=== PATIENT | male | born 1955 | race Caucasian/White ===

== ENCOUNTER 2024-02-29 09:40 | Outpatient (OUT) | payer BC, SELFPAY ==
[2024-02-29 11:02] LABS: Prostate Specific Antigen Dx 6.81 ng/mL (<=4.00)
== END 2024-02-29 09:41 | disposition home or self-care (01) ==
LOC: LAB 09:44
PROVIDERS: PCP Family Medicine; Visit Provider Urology
DX: R97.20 Elevated prostate specific antigen [PSA] (principal)
CPT/HCPCS: 36415; 84153

== ENCOUNTER 2024-08-12 08:24 | Outpatient (OUT) | payer BC, SELFPAY ==
--- OUTSIDE RECORDS SUMMARY | 2024-08-12 08:30 | XMS_ITS | CCD ---
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 Name Role Phone Rocio Ojeda Unavailable FABIAN CARDOZA Primary Care Physician MD Klever Melvin Attending Provider MD Fabian Cardoza Primary Care Provider KLEVER MELVIN Admitting Unavailable MELVIN, KLEVER Attending Unavailable ARVINEREAlecia, DR FABIAN Reilly Primary Care Unavailable MELVIN, KLEVER Consulting Unavailable GEMBUS, JEYSON Consulting Unavailable MELVIN, KLEVER Admitting Unavailable MELVIN, KLEVER Attending Unavailable ARVINEREAlecia, DR FABIAN Reilly Primary Care Unavailable MELVIN, KLEVER Consulting Unavailable MELVIN, KLEVER Admitting Unavailable MELVIN, KLEVER Attending Unavailable NADEREAlecia, DR FABIAN Reilly Primary Care Unavailable MELVIN, KLEVRE Consulting Unavailable MELVIN, KLEVER Admitting Unavailable MELVIN, KLEVER Attending Unavailable NADERER, DR FABIAN Reilly Primary Care Unavailable MELVIN, KLEVER Consulting Unavailable WEST, DR ARON Sykes Consulting Unavailable OVITT, MESSI Referring Unavailable RICKY NOBLES Attending Unavailable MD Faiban Cardoza Primary Care Provider MD Klever Melvin Attending Provider Klever MELVIN R Attending Unavailable MELVIN, Klever R Attending Unavailable MELVIN, Klever R Attending Unavailable Melvin, Klever Admitting Unavailable Melvin, Klever Attending Unavailable Fabian Cardoza Primary Care Unavailable Ngozi, Klever Attending Unavailable Fabian Cardoza Primary Care Unavailable Ngozi, Klever Admitting Unavailable Fabian Cardoza MD Unavailable Fabian Cardoza MD Primary Care Provider [phone] FABIAN CARDOZA Attending Unavailable CARLI JUAREZ Attending Unavailable FABIAN CARDOZA Attending Unavailable Allergies Allergy Classification Reported Allergen(s) Allergy Type Date of Onset Reaction(s) Facility (1 source) ALLERGIES NOT ON FILE; Translations: [ALLERGIES NOT ON FILE] Propensity to adverse reactions (disorder) [facility] Repository (1 source) Unable to Assess Drug allergy (disorder) 2 [facility] Repository Medications Current Medications Medication Drug Class(es) Dates Sig (Normalized) Sig (Original) acetaminophen 325 mg / HYDROcodone bitartrate 7.5 mg oral tablet (2 sources) Opioid Agonist Start: 01-18-2023 take 1 tablet by mouth once [place] 325 mg-7.5 mg oral tablet 1 tab(s), Oral, Once, 1 tab(s), Refill(s) 0, Take 1 hour prior to procedure, [facility] [id number], 178, cm, 07/24/22 9:49:00 EDT, Height/Length Dosing, 105, kg, 07/24/22 9:49:00 EDT, Weight Dosing Start Date: 01/18/23 Status: Ordered Start: 06-15-2022 take 1 tablet by mouth once No rco 325 mg-7.5 mg oral tablet 1 tab(s), Oral, Once, 1 tab(s), Refill(s) 0, Take 1 hour prior to procedure, [facility] [id number], 178, cm, 04/21/22 10:50:00 EDT, Height/Length Dosing, 105, kg, 04/21/22 10:50:00 EDT, Weight Dosing Start Date: 06/15/22 Status: Ordered Eliquis (5 sources) Factor Xa Inhibitor Start: 03-21-2021 Eliquis Or al, BID, Refills(s) 0 Start Date: 03/21/21 Status: Ordered Ascorbic Acid (11 sources) Vitamin C Start: 01-03-2021 Vitamin C Ton y, Refills(s) 0 Start Date: 01/03/21 Status: Ordered Ascorbic Acid (v itamin C) 100 MG tablet 1 (one) time each day at the same time. Active Vitamin C Active atorvastatin 20 mg oral tablet (10 sources) HMG-CoA Reductase Inhibitor Start: 04-21-2022 End: 12-11-2024 take 1 tablet by mouth once daily atorvastatin (Lipitor) 20 MG tablet Indications: Dyslipidemia (CMS/HCC) Take 1 tablet (20 mg) by mouth Daily 90 tablet 3 12/12/2023 12/11/2024 Active bimatoprost 0.1 mg/ml ophthalmic solution (10 sources) Prostaglandin Analog Start: 11-14-2022 Lumigan 0.01 % ophthalmic solution Administer into affected eye(s) at bedtime. 11/14/2022 Active Start: 01-03-2021 bimatoprost to pical ophthalmic 0.03% solution Topical, Once a day (at bedtime), Refill(s) 0 Start Date: 01/03/21 Status: Ordered Calcium, Magnesium and Zinc oral tablet (6 sources) Start: 10-17-2021 take 1 tablet by mouth once daily Calcium, Magnesium and Zinc oral tablet tab(s), Oral, Daily, Refill(s) 0 Start Date: 10/17/21 Status: Ordered Cholecalciferol (Vitamin D3) [id number] UNIT/GM liquid (4 sources) Cholecalciferol (Vitamin D3) [id number] UNIT/GM liquid as directed Active Chondroitin Sulfates (6 sources) Start: 01-03-2021 take 1 mg by mouth once daily chondroitin mg, Oral, Daily, Refills(s) 0 Start Date: 01/03/21 Status: Ordered chondroitin sulfates 400 mg / glucosamine sulfate 500 mg oral tablet (4 sources) take 1 tablet by mouth in the morning glucosamine-chondroi tin 500-400 MG tablet Take 1 tablet by mouth in the morning. Active ciprofloxacin 500 mg oral tablet (1 source) Quinolone Antimicrobial Start: 07-10-2022 take 1 tablet by mouth twice daily Cipro 500 mg Tab 500 mg = 1 tab(s), Oral, BID, # 4 tab(s), Refills(s) 0, Pharmacy: [facility] [id number], 178, cm, 07/07/22 16:35:00 EDT, Height/Length Dosing, 105, kg, 04/21/22 10:50:00 EDT, Weight Dosing Start Date: 07/10/22 Status: Ordered cyclobenzaprine hydrochloride 10 mg oral tablet (3 sources) Muscle Relaxant Start: 07-31-2024 take 1 tablet by mouth three times daily as needed for muscle spasms cyclobenzaprine (Flexeril) 10 MG tablet Indications: Cervical spondylolysis Take 1 tablet (10 mg) by mouth 3 (three) times a day as needed for muscle spasms 30 tablet 1 07/31/2024 Active Start: 07-31-2024 take 1 tablet by roshan th three times daily as needed for muscle spasms cyclobenzaprine (Flexeril) 10 MG tablet Indications: Cervical spondylolysis Take 1 tablet (10 mg) by mouth 3 (three) times a day as needed for muscle spasms 30 tablet 1 07/31/2024 Active Glucosamine (6 sources) Start: 01-03-2021 glucosamine Oral, Refills(s) 0 Start Date: 01/03/21 Status: Ordered hydroCHLOROthiazide 25 mg oral tablet (12 sources) Thiazide Diuretic Start: 08-11-2024 take 1 tablet by mouth once daily hydroCHLOROthiazide (HYDRODiuril) 25 MG tablet Indications: Essential hypertension, benign (CMS/HCC) Take 1 tablet (25 mg) by mouth Daily 90 tablet 3 08/11/2024 Active Start: 05-14-2024 End: 08-12-2024 take 1 tablet by mouth once daily hydroCHLOROthiazide (HYDRODiuril) 25 MG tablet Indications: Essential hypertension, benign (CMS/HCC) Take 1 tablet (25 mg) by mouth 1 (one) time each day at the same time 30 tablet 2 05/14/2024 08/11/2024 Discontinued (Reorder) Start: 01-03-2021 take 1 mg by mouth o nce daily hydrochlorothiazide 25 mg oral tablet mg tab(s), Oral, Daily, Refills(s) 0 Start Date: 01/03/21 Status: Ordered hydroCHLOROthiaz tony Active Iron (1 source) Iron Active losartan potassium 100 mg oral tablet (11 sources) Angiotensin 2 Receptor Brian Start: 06-03-2024 End: 06-03-2025 take 1 tablet by mouth once daily losartan (Cozaar) 100 MG tablet Indications: Essential hypertension, benign (CMS/HCC) Take 1 tablet (100 mg) by mouth Daily 30 tablet 11 06/03/2024 06/03/2025 Active Start: 01-03-2021 take 1 mg by mouth once daily losartan 100 mg Tab mg tab(s), Oral, Daily, Refills(s) 0 Start Date: 01/03/21 Status: Ordered Losartan Potassi um Active metoprolol tartrate 25 mg oral tablet (6 sources) beta-Adrenergic Brian Start: 02-28-2024 End: 02-27-2025 take 1 tablet by mouth in the morning metoprolol tartrate (Lopressor) 25 MG tablet Indications: Essential hypertension, benign (CMS/HCC) Take 1 tablet (25 mg) by mouth in the morning and 1 tablet (25 mg) before bedtime. 180 tablet 3 02/28/2024 02/27/2025 Active Start: 02-26-2023 take 1 mg by mouth once daily metoprolol 50 mg ER Tab mg tab(s), Oral, Daily, Refills(s) 0 Start Date: 02/26/23 Status: Ordered Nature's Bounty Probiotic (6 sources) Start: 01-03-2021 Nature's Bount y Probiotic Oral, Daily, Refill(s) 0 Start Date: 01/03/21 Status: Ordered omeprazole 20 mg delayed release oral capsule (11 sources) Proton Pump Inhibitor Start: 06-03-2024 End: 09-01-2024 take 1 capsule by mouth in the morning omeprazole (PriLOSEC) [address] capsule Indications: Gastroesophageal reflux disease without esophagitis Take 1 capsule (20 mg) by mouth in the morning and 1 capsule (20 mg) in the evening. Take before meals. 180 capsule 06/03/2024 09/01/2024 Active Start: 01-03-2021 take 1 capsule by [facility] once daily omeprazole 20 mg Cap-DR 20 mg = 1 cap(s), Oral, Daily, # 30 cap(s), Refills(s) 0 Start Date: 01/03/21 Status: Ordered Omeprazole Activ e predniSONE 50 mg oral tablet (2 sources) Start: 07-31-2024 End: 08-06-2024 take 1 tablet by mouth once daily predniSONE (Deltasone) 50 MG tablet Indications: Cervical spondylolysis Take 1 tablet (50 mg) by mouth Daily for 6 days 6 tablet 07/31/2024 08/06/2024 Active tamsulosin hydrochloride 0.4 mg oral capsule (11 sources) alpha-Adrenerg ic Brian Start: 09-18-2022 End: 01-13-2025 take 1 capsule by mouth once daily tamsulosin (Flomax) 0.4 MG 24 hr capsule Indications: Benign prostatic hyperplasia with lower urinary tract symptoms, symptom details unspecified Take 1 capsule (0.4 mg) by mouth 1 (one) time each day at the same time 90 capsule 3 01/14/2024 01/13/2025 Active Start: 09-21-2021 End: 09-16-2022 take 1 capsule by mouth once daily tamsulosin 0.4 mg Cap 0.4 mg = 1 cap(s), Oral, Daily, X 90 day(s), # 90 cap(s), Refills(s) 3, Pharmacy: [facility], 178, cm, 06/27/21 10:37:00 EDT, Height/Length Dosing, 105, kg, 06/27/21 10:37:00 EDT, Weight Dosing Start Date: 09/21/21 Stop Date: 09/16/22 Status: Ordered Flomax Active 12 hr timolol 5 mg/ml ophthalmic solution (5 sources) beta-Adrenergic Brian Start: 03-17-2024 timolo l Opth 0.5% Em 15 mL Refill(s) 0 Start Date: 03/17/24 Status: Ordered timolol (Timopti c) 0.25 % ophthalmic solution Administer into affected eye(s) twice a day. Active Vitamin D3 (1 source) Vitamin D3 Activ e Vitamin D3 1000 intl units o ral capsule (6 sources) Start: 01-03-2021 Vitamin D3 100 0 intl units oral capsule Oral, Daily, Refills(s) 0 Start Date: 01/03/21 Status: Ordered Completed/Discontinued Medications Medication Drug Class(es) Dates Sig (Normalized) Sig (Original) [id number] 200 actuat albuterol 0.09 mg/actuat metered dose inhaler (1 source) beta2-Adrenergic Agonist Start: 10-09-2016 take 2 puff(s) by inhalation every four hours as needed Albuterol Sulfate HFA 108 (90 Base) MCG/ACT 2 puffs as needed Inhalation every 4 hrs Sep, Not-Taking benzonatate 100 mg oral capsule (1 source) Non-narcotic Antitussive Start: 10-09-2016 take 1 capsule by mouth every eight hours Tessalon Perles 100 MG 1 capsule as needed Orally Three times a day for 10 days Sep, Not-Taking clarithromycin 500 mg oral tablet (1 source) Macrolide Antimicrobial Start: 10-09-2016 take 1 tablet by mouth every twelve hours Biaxin 500 MG 1 tablet Orally every 12 hrs for 7 days Sep, Not-Taking Problems Active Problems Problem Classification Problem Date Documented Date Episodic/Chronic Disorders of lipid metabolism (4 sources) Dyslipidemia; Translations: [Hyperlipidemia, unspecified] Onset: 01-29-2024 01-29-2024 Chronic Esophageal disorders (5 sources) Gastro-esophageal reflux disease without esophagitis; Translations: [Gastroesophageal reflux disease without esophagitis] Onset: 07-21-2022 01-29-2024 Chronic Essential hypertension (12 sources) Hypertensive disorder; Translations: [Essential (primary) hypertension] Onset: 07-21-2022 01-03-2021 Chronic Genitourinary symptoms and ill-defined conditions (10 sources) Dysuria; Translations: [Dysuria] Onset: 07-21-2022 05-27-2021 Episodic Glaucoma (11 sources) Glaucoma; Translations: [Unspecified glaucoma] Onset: 07-21-2022 01-03-2021 Chronic Hyperplasia of prostate (20 sources) Benign prostatic hypertrophy with outflow obstruction; Translations: [Benign prostatic hyperplasia with lower urinary tract symptoms] Onset: 04-14-2022 Chronic Lymphadenitis (2 sources) Lymphadenopathy; Translations: [Enlarged lymph nodes, unspecified] Onset: 03-17-2024 Episodic Nutritional deficiencies (4 sources) Vitamin D deficiency; Translations: [Vitamin D deficiency, unspecified] Onset: 01-29-2024 01-29-2024 Chronic Osteoarthritis (7 sources) Arthritis; Translations: [Unspecified osteoarthritis, unspecified site] Onset: 07-13-2022 01-03-2021 Chronic Other acquired deformities (7 sources) Spondylolysis of cervical spine; Translations: [Spondylolysis, cervical region] Onset: 07-31-2024 07-31-2024 Episodic Other diseases of bladder and urethra (4 sources) Male urethral stricture; Translations: [Unspecified urethral stricture, male, unspecified site] Onset: 04-21-2022 Episodic Other diseases of bladder and urethra (6 sources) Urethral stricture 04-21-2022 Episodic Other ear and sense organ disorders (6 sources) Hearing loss 01-03-2021 Chronic Other ear and sense organ disorders (1 source) Unspecified hearing loss, unspecified ear; Translations: [UNS HEARING LOSS UNSPECIFIED EAR] Onset: 10-07-2022 Chronic Other injuries and conditions due to external causes (6 sources) Injury of head 01-03-2021 Episodic Other male genital disorders (4 sources) Secondary erectile dysfunction; Translations: [Male erectile dysfunction, unspecified] Onset: 01-29-2024 01-29-2024 Chronic Other male genital disorders (2 sources) Dysplasia of prostate; 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] Onset: 07-24-2022 Episodic Other male genital disorders (4 sources) Atypical small acinar proliferation of prostate 07-24-2022 Episodic Other screening for suspected conditions (not mental disorders or infectious disease) (16 sources) Raised prostate specific antigen; Translations: [Elevated prostate specific antigen [PSA]] Onset: 04-21-2022 Episodic Unclassified (1 source) CONTACT W/AND (SUSP) EXPOS COVID-19; Translations: [CONTACT W/AND (SUSP) EXPOS COVID-19] Onset: 07-13-2022 Unclassified (2 sources) Consult; Translations: [Consult] Onset: 07-17-2023 Past or Other Problems Problem Classification Problem Date Documented Da te Episodic/Chronic Diabetes mellitus without complication (4 sources) Prediabetes; Translations: [Prediabetes] Onset: 09-26-2023 09-26-2023 Episodic Other aftercare (1 source) MCC (current) use of anticoagulants; Translations: [HAMMER SETTER CURRNT USE ANTICOAGULANTS] Onset: 07-21-2022 Episodic Other diseases of bladder and urethra (1 source) Unspecified urethral stricture, male, unspecified site; Translations: [UNSP URETHRAL STRCT MALE UNSP SITE] Onset: 07-21-2022 Episodic Phlebitis; thrombophlebitis and thromboembolism (1 source) Personal history of other venous thrombosis and embolism; Translations: [PERS HX OTH VENOUS THROMBOSIS AND EMBO] Onset: 07-21-2022 Episodic Poisoning by nonmedicinal substances (1 source) Toxic effect of venom of bees, undetermined, initial encounter; Translations: [Bee sting, undetermined intent, initial encounter T63.444A] Onset: 07-08-2021 Resolved: 07-08-2021 Episodic Screening and history of mental health and substance abuse codes (1 source) Personal history of nicotine dependence; Translations: [PERSONAL HISTORY OF NICOTINE DEPEND] Onset: 07-21-2022 Episodic Spondylosis; intervertebral disc disorders; other back problems (6 sources) Spinal stenosis, lumbar region without neurogenic claudication; Translations: [Degenerative lumbar spinal stenosis] Onset: 06-19-2023 Episodic Results Test Name Value Interpretation Reference Range Facility MR prostate wo/w conon 05-23 MR prostate wo/w con [facility] [place] [address] [place], [place] [id number] MRI Report Signed Patient: Cathie Anderson MR#: [id number] 580 : 1955 Acct:[id number] Age/Sex: 68 / M ADM Date: 05/22/24 Loc: MR Room: Type: [facility] Attending Dr: Klever Melvin MD Copies to: Klever Melvin MD Ordering Provider: Klever Melvin MD Date of Service: 05/22/24 MR/MR prostate wo/w con: R97.20 EXAMINATION: MR prostate wo/w con HISTORY: Elevated PSA. COMPARISON: Prostate MRI 05/04/2022 TECHNIQUE: Multiparametric imaging of the prostate gland was performed with IV contrast. FINDINGS: Prostate Dimensions: 6.8 x 5.9 x 7.7 cm. Prostate Volume: 161 mL. Peripheral Zone: Heterogenous inT2 signal suggestive of prior prostatitis. Atrophic. No suspicious T2 or ADC map abnormality is identified to suggest prostate malignancy. Central/Transitional Zone: BPH changes. Seminal Vesicles: Unremarkable Neurovascular bundles: Unremarkable. Lymphadenopathy: A presumed prominent adjacent to the right urinary bladder wall measuring 7 mm in short axis. Finding is unchanged. Bladder: No focal lesion. Bowel: The visualized bowel is without acute abnormality. Peritoneal Cavity: No free fluid. Bones: No suspicious bony lesion. MR/MR prostate wo/w con IMPRESSION: No MRI evidence of clinically significant prostate cancer. BPH. Stable presumed prominent node adjacent to the right urinary bladder wall. Impression dictated by: Jaydon Bal Jr., D.O.05/23/2024 9:42 AM Dictation Location: [place] [address] Transcribed By: [facility] 05/23/24941 Dictated By: Jaydon Bal Jr, 05/23/24923 Signed By: 05/23/24941 Normal [facility] ISTAT XRay CREon 05-22-2024 ISTAT GFR > 60.0 Normal [facility] Comment on above: Result Comment: PERF ORMED BY: [place] [address] PATHOLOGIST REGISTERED APPRAISER ALEXA PASTOR M.D. Performed By: #### I SCRE #### [facility] [address] [place] [address] No Panel InformationOrdered By: Klveer Melvin on 05-22-2024 Bedside Estimated GFR (eGFR) > 60.0 [facility] Whole blood creatinine measu rementOrdered By: Klever Melvin on 05-22-2024 Creatinine [Mass/Vol] 1.3 mg/dL Normal 0.6-1.3 [facility] Comment on above: ER/ESD physician is notified/shown all ISTAT results.Critical values may be confirmed by laboratory testing ifdeemed necessary by ER attending doctor. Result Comment: ER/E SD physician is notified/shown all ISTAT results. Critical values may be confirmed by laboratory testing if deemed necessary by ER attending doctor. Performed By: #### I SCRE #### [facility] [address] [place] [address] RAD - Nuclear Medicine Repor ton 04-08-2024 RAD - Nuclear Medicine Report [id number] 0TIFF Normal [facility] PET psma initial tx sb-mton 04-04-2024 PET psma initial tx sb-mt [facility] [place] [address] [place] [address] Nuclear Medicine Report Signed Patient: Cathie Anderson MR#: [id number] 580 : 1955 Acct:[id number] Age/Sex: 68 / M ADM Date: 04/04/24 Loc: Room: Type: [facility] Attending Dr: Klever Melvin MD Copies to: Kendell Subramanian II, MD Patrick R Waters, MD Ordering Provider: Klever Melvin MD Date of Service: 04/04/24 PET/PET psma initial tx sb-mt: Elevated PSA PET psma initial tx sb-mt 04/04/2024 10:41 AM SIGNS AND SYMPTOMS: Elevated PSA PROTOCOL: PET images were obtained from skull base to mid thigh after intravenous radiotracer administration. Low-dose CT was obtained from skull base to mid thigh. After attenuation correction of PET images, fused PET CT images were generated and reconstructed in axial, sagittal, coronal planes. COMPARISON: 05/04/2020. RADIOPHARMACEUTICAL: 9.6 mCi of intravenous fluorine 18 PSMA. FINDINGS: The prostate is enlarged with calcifications present. No focal abnormal radiotracer accumulation is noted to suggest primary prostate malignancy. There are a few mildly prominent lymph nodes in the retroperitoneum and adjacent to the right anterior/lateral wall of the bladder. There is subtle increased radiotracer accumulation within the lymph node adjacent to the bladder. This is nonspecific with a prostate malignancy not excluded. There is a subtle osteolytic process along the scapula on the left anteriorly with accompanying subtle increased radiotracer accumulation. Metastatic prostate malignancy is not excluded. There is physiologic radiotracer accumulation within the salivary glands, liver, spleen, bladder, and bowel. No additional abnormal areas of radiotracer accumulation are noted. PET/PET psma initial tx sb-mt IMPRESSION: The prostate is enlarged with calcifications present. No focal abnormal radiotracer accumulation is noted to suggest primary prostate malignancy. There are a few mildly prominent lymph nodes in the retroperitoneum and adjacent to the right anterior/lateral wall of the bladder. There is subtle increased radiotracer accumulation within the lymph node adjacent to the bladder. This is nonspecific with a prostate malignancy not excluded. There is a subtle osteolytic process along the scapula on the left anteriorly with accompanying subtle increased radiotracer accumulation. Metastatic prostate malignancy is not excluded. Impression dictated by: Kendell Subramanian M.D.04/04/2024 1:26 PM Dictation Location: [facility] Transcribed By: [facility] 04/04/24 1326 Dictated By: Kendell Subramanian II, MD 04/04/24 1309 Signed By: 04/04/24 1326 Normal [facility] Pre-Certification Formon Pre-Certification Form [id number] 0TIFF Radha Bueno [facility] Pre-Certification Formon Pre-Certification Form [id number]#[id number] TIFF Normal [facility] Physician Orderon 03-18-2024 Physician Order [id number] TIFF Normal [facility] Ambulatory Visit Summaryon 0 03-17-2024 Ambulatory Visit Summary CATHIE ANDERSON :1955 Visit Date:03/17/2024 Ambulatory Visit Instructions Your Diagnosis Elevated PSA Enlarged lymph node Benign localized hyperplasia of prostate with urinary obstruction Urethral meatal stenosis Proteinuria Your Care Team Attending Physician - NGOZI OWEN, Klever Alston Primary Care Physician - FABIAN CARDOZA MD This Is Your Medications List tamsulosin (tamsulosin 0.4 mg Cap) Contact prescribing physician if questions or concerns ascorbic acid (Vitamin C) atorvastatin (atorvastatin 20 mg Tab) bifidobacterium-lactob acillus (Nature's Bounty Probiotic) bimatoprost topical ophthalmic (bimatoprost topical ophthalmic 0.03% solution) cholecalciferol (Vitamin D3 1000 intl units oral capsule) chondroitin glucosamine hydrochlorothiazide (hydrochlorothiazide 25 mg oral tablet) losartan (losartan 100 mg Tab) metoprolol (metoprolol 50 mg ER Tab) multivitamin with minerals (Calcium, Magnesium and Zinc oral tablet) omeprazole (omeprazole 20 mg Nelson-) timolol ophthalmic (timolol Opth 0.5% Em 15 mL) Procedures Performed Transrectal biopsy of prostate using ultrasound guidance (02/06/2023), Transrectal biopsy of prostate using ultrasound guidance (07/13/2022), Percutaneous transluminal laser ablation of varicose vein of lower limb. (06/23/2021), Transurethral resection of prostate (02/10/2021), Cystoscopy (01/07/2021), Colonoscopy. Discharge Vitals Temperature (Temporal Artery) 37 ?C Heart Rate (Peripheral) 70 Respiratory Rate 16 Blood Pressure 137/84 Height 170 cm Height 67 in Weight 95 kg Weight 209 lb BMI 32.87 What to do next You Need to Schedule the Following Appointments Follow Up with NGOZI OWEN, Klever Alston, URL When: Comments: schedule PSMA PET scan, f/u in 1 year w/ PSA Where: [facility] [address], [place] [address] [phone] Medications What How Much When Instructions Unchanged tamsulosin (tamsulosin 0.4 mg Cap) 1 Capsules By Mouth Every day Unchanged ascorbic acid (Vitamin C) Every day Contact prescribing physician if questions or concerns Unchanged atorvastatin (atorvastatin 20 mg Tab) 1 Tablets By Mouth Every day Contact prescribing physician if questions or concerns Unchanged bifidobacterium-lactob acillus (Nature's Bounty Probiotic) By Mouth Every day Contact prescribing physician if questions or concerns Unchanged bimatoprost topical ophthalmic (bimatoprost topical ophthalmic 0.03% solution) Topical Once a day (at bedtime) Contact prescribing physician if questions or concerns Unchanged cholecalciferol (Vitamin D3 1000 intl units oral capsule) By Mouth Every day Contact prescribing physician if questions or concerns Unchanged chondroitin By Mouth Every day Contact prescribing physician if questions or concerns Unchanged glucosamine By Mouth Contact prescribing physician if questions or concerns Unchanged hydrochlorothiazide (hydrochlorothiazide 25 mg oral tablet) By Mouth Every day Contact prescribing physician if questions or concerns Unchanged losartan (losartan 100 mg Tab) By Mouth Every day Contact prescribing physician if questions or concerns Unchanged metoprolol (metoprolol 50 mg ER Tab) By Mouth Every day Contact prescribing physician if questions or concerns Unchanged multivitamin with minerals (Calcium, Magnesium and Zinc oral tablet) By Mouth Every day Contact prescribing physician if questions or concerns Unchanged omeprazole (omeprazole 20 mg Cap-DR) 1 Capsules By Mouth Every day Contact prescribing physician if questions or concerns Unchanged timolol ophthalmic (timolol Opth 0.5% Em 15 mL) Contact prescribing physician if questions or concerns Allergies No Known Allergies Problems Ongoing - Any problem that you are currently receiving treatment for. 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 Please share your experience with us by completing your survey. We appreciate your feedback and thank you for choosing us for your care. Education Materials Prostate Cancer Screening Prostate cancer screening is testing that is done to check for the presence of prostate cancer in men. The prostate gland is a walnut-sized gland that is located below the bladder and in front of the rectum in males. The function of the prostate is to add fluid to semen during ejaculation. Prostate cancer is one of the most common types of cancer in men. Who should have prostate cancer screening? Screening recommendations vary based on age and other risk factors, as well as between the professional organ (more content not included)... Normal [facility] Ambulatory Visit Summary CATHIE ANDERSON :1955 Visit Date:03/17/2024 Ambulatory Visit Instructions Your Diagnosis Elevated PSA Enlarged lymph node Benign localized hyperplasia of prostate with urinary obstruction Urethral meatal stenosis Proteinuria Your Care Team Attending Physician - Klever MELVIN MD Primary Care Physician - FABIAN CARDOZA MD This Is Your Medications List tamsulosin (tamsulosin 0.4 mg Cap) Contact prescribing physician if questions or concerns ascorbic acid (Vitamin C) atorvastatin (atorvastatin 20 mg Tab) bifidobacterium-lactob acillus (Nature's Bounty Probiotic) bimatoprost topical ophthalmic (bimatoprost topical ophthalmic 0.03% solution) cholecalciferol (Vitamin D3 1000 intl units oral capsule) chondroitin glucosamine hydrochlorothiazide (hydrochlorothiazide 25 mg oral tablet) losartan (losartan 100 mg Tab) metoprolol (metoprolol 50 mg ER Tab) multivitamin with minerals (Calcium, Magnesium and Zinc oral tablet) omeprazole (omeprazole 20 mg Cap-DR) timolol ophthalmic (timolol Opth 0.5% Em 15 mL) Procedures Performed Transrectal biopsy of prostate using ultrasound guidance (02/06/2023), Transrectal biopsy of prostate using ultrasound guidance (07/13/2022), Percutaneous transluminal laser ablation of varicose vein of lower limb. (06/23/2021), Transurethral resection of prostate (02/10/2021), Cystoscopy (01/07/2021), Colonoscopy. Discharge Vitals Temperature (Temporal Artery) 37 ?C Heart Rate (Peripheral) 70 Respiratory Rate 16 Blood Pressure 137/84 Height 170 cm Height 67 in Weight 95 kg Weight 209 lb BMI 32.87 What to do next You Need to Schedule the Following Appointments Follow Up with NGOZI OWEN, Klever Alston, URL When: Comments: schedule PSMA PET scan, f/u in 1 year w/ PSA Where: [facility] [address] , [place] [address] [phone] Medications What How Much When Instructions Unchanged tamsulosin (tamsulosin 0.4 mg Cap) 1 Capsules By Mouth Every day Unchanged ascorbic acid (Vitamin C) Every day Contact prescribing physician if questions or concerns Unchanged atorvastatin (atorvastatin 20 mg Tab) 1 Tablets By Mouth Every day Contact prescribing physician if questions or concerns Unchanged bifidobacterium-lactob acillus (Nature's Bounty Probiotic) By Mouth Every day Contact prescribing physician if questions or concerns Unchanged bimatoprost topical ophthalmic (bimatoprost topical ophthalmic 0.03% solution) Topical Once a day (at bedtime) Contact prescribing physician if questions or concerns Unchanged cholecalciferol (Vitamin D3 1000 intl units oral capsule) By Mouth Every day Contact prescribing physician if questions or concerns Unchanged chondroitin By Mouth Every day Contact prescribing physician if questions or concerns Unchanged glucosamine By Mouth Contact prescribing physician if questions or concerns Unchanged hydrochlorothiazide (hydrochlorothiazide 25 mg oral tablet) By Mouth Every day Contact prescribing physician if questions or concerns Unchanged losartan (losartan 100 mg Tab) By Mouth Every day Contact prescribing physician if questions or concerns Unchanged metoprolol (metoprolol 50 mg ER Tab) By Mouth Every day Contact prescribing physician if questions or concerns Unchanged multivitamin with minerals (Calcium, Magnesium and Zinc oral tablet) By Mouth Every day Contact prescribing physician if questions or concerns Unchanged omeprazole (omeprazole 20 mg Cap-DR) 1 Capsules By Mouth Every day Contact prescribing physician if questions or concerns Unchanged timolol ophthalmic (timolol Opth 0.5% Em 15 mL) Contact prescribing physician if questions or concerns Allergies No Known Allergies Problems Ongoing - Any problem that you are currently receiving treatment for. 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 Please share your experience with us by completing your survey. We appreciate your feedback and thank you for choosing us for your care. Education Materials Prostate Cancer Screening Prostate cancer screening is testing that is done to check for the presence of prostate cancer in men. The prostate gland is a walnut-sized gland that is located below the bladder and in front of the rectum in males. The function of the prostate is to add fluid to semen during ejaculation. Prostate cancer is one of the most common types of cancer in men. Who should have prostate cancer screening? Screening recommendations vary based on age and other risk factors, as well as between the professional organ (more content not included)... Normal [facility] Patient Educationon 03-17-20 24 Patient Education Oncology Prostate Cancer Screening Prostate cancer screening is testing that is done to check for the presence of prostate cancer in men. The prostate gland is a walnut-sized gland that is located below the bladder and in front of the rectum in males. The function of the prostate is to add fluid to semen during ejaculation. Prostate cancer is one of the most common types of cancer in men. Who should have prostate cancer screening? Screening recommendations vary based on age and other risk factors, as well as between the professional organizations who make the recommendations. In general, screening is recommended if: ? You are age 50 to 70 and have an average risk for prostate cancer. You should talk with your health care provider about your need for screening and how often screening should be done. Because most prostate cancers are slow growing and will not cause , screening in this age group is generally reserved for men who have a 10- to 15-year life expectancy. ? You are younger than age 50, and you have these risk factors: ? Having a father, brother, or uncle who has been diagnosed with prostate cancer. The risk is higher if your family member's cancer occurred at an early age or if you have multiple family members with prostate cancer at an early age. ? Being a male who is Black or is of [place] or sub-Saharan descent. In general, screening is not recommended if: ? You are younger than age 40. ? You are between the ages of 40 and 49 and you have no risk factors. ? You are 70 years of age or older. At this age, the risks that screening can cause are greater than the benefits that it may provide. If you are at high risk for prostate cancer, your health care provider may recommend that you have screenings more often or that you start screening at a younger age. How is screening for prostate cancer done? The recommended prostate cancer screening test is a blood test called the prostate-specific antigen (PSA) test. PSA is a protein that is made in the prostate. As you age, your prostate naturally produces more PSA. Abnormally high PSA levels may be caused by: ? Prostate cancer. ? An enlarged prostate that is not caused by cancer (benign prostatic hyperplasia, or BPH). This condition is very common in older men. ? A prostate gland infection (prostatitis) or urinary tract infection. ? Certain medicines such as male hormones (like testosterone) or other medicines that raise testosterone levels. A rectal exam may be done as part of prostate cancer screening to help provide information about the size of your prostate gland. When a rectal exam is performed, it should be done after the PSA level is drawn to avoid any effect on the results. Depending on the PSA results, you may need more tests, such as: ? A physical exam to check the size of your prostate gland, if not done as part of screening. ? Blood and imaging tests. ? A procedure to remove tissue samples from your prostate gland for testing (biopsy). This is the only way to know for certain if you have prostate cancer. What are the benefits of prostate cancer screening? ? Screening can help to identify cancer at an early stage, before symptoms start and when the cancer can be treated more easily. ? There is a small chance that screening may lower your risk of dying from prostate cancer. The chance is small because prostate cancer is a slow-growing cancer, and most men with prostate cancer from a different cause. What are the risks of prostate cancer screening? The main risk of prostate cancer screening is diagnosing and treating prostate cancer that would never have caused any symptoms or problems. This is called overdiagnosisand overtreatment. PSA screening cannot tell you if your PSA is high due to cancer or a different cause. A prostate biopsy is the only procedure to diagnose prostate cancer. Even the results of a biopsy may not tell you if your cancer needs to be treated. Slow-growing prostate cancer may not need any treatment other than monitoring, so diagnosing and treating it may cause unnecessary stress or other side effects. Questions to ask your health care provider ? When should I start prostate cancer screening? ? What is my risk for prostate cancer? ? How often do I need screening? ? What type of screening tests do I need? ? How do I get my test results? ? What do my results mean? ? Do I need treatment? Where to find more information ? The [place] [employer]: www.cancer.org ? [place] [employer]: www.auanet.org Contact a health care provider if: ? You have difficulty urinating. ? You have pain when you urinate or ejaculate. ? You have blood in your urine or semen. ? You have pain in your back or in the area of your prostate. Summary ? Prostate cancer is a common type of cancer in men. The prostate gland is located below the bladder and in front of the rectum. This gland adds flu (more content not included)... Normal [facility] Urology Office/Clinic Noteon 03-17-2024 Urology Office/Clinic Note Chief Complaint BPH with obstruction, elevated PSA HPI Staff 1 year with PSA Dx: BPH with obstruction/LUTS, atypical small acinar proliferation of prostate, urethral meatal stenosis and elevated PSA TURP done 02/10/21. ANUSHA 1 core on TRUS/BX done 07/13/22. Repeated TRUS BX 02/06/23 was Negative. PSA: 04/14/22 - 5.64 01/24/23 - 6.48 02/29/24 - 6.81 Tamsulosin 0.4mg qd Meatal dilation daily. Dysuria: no Incomplete bladder emptying: no Hematuria: no Frequency: only with drinking large amounts Urgency: no Nocturia: 1-2x Stream: good stream no straining Leaking: rare Post void dripping: rare Wearing pads/ Depends: no Urge incontinence: no Stress incontinence: no Incontinence without Sensory Awareness: no Abdominal pain: no Flank pain: no Sexual complaints: no History of Present Illness Tests reviewed: reviewed UA, PSA I have reviewed the previous health record information and history for this patient from Dr. Melvin. I have reviewed and verified the staff HPI to be accurate for this encounter. Review of Systems PHQ Score Initial Depression Screen Score: 0 SCORE ROS - Provider Constitutional: denies weight loss, denies hot flashes. Eyes: denies eye problems. Gastrointestinal: denies nausea, denies vomiting. Cardiovascular: denies chest pain or angina. Integumentary: no dryness Musculoskeletal: denies musculoskeletal symptoms. ENMT: denies otolaryngeal symptoms. Respiratory: no shortness of breath. Heme/Lymph: denies easy bleeding tendency, denies easy bruising tendency. Psychiatric: no confusion, no anxiety. Genitourinary: See HPI. Physical Exam Vitals & Measurements T: 37 ?C(Temporal Artery) HR: 70(Peripheral) RR: 16 BP: 137/84 HT: 67 in HT: 170 cm WT: 95 kg WT: 209 lb BMI: 32.87 General Appearance: alert, no distress, well nourished, well developed male. Assessment/Plan 1. Elevated PSA (R97.20: Elevated prostate specific antigen [PSA]) PSA 02/01/21 - 2.99 04/14/22 - 5.64 01/24/23 - 6.48 02/29/24 - 6.81 Prostate MRI 05/04/22 [facility] [place] - Prostate volume 136 mL. No evidence of prostate malignancy. Prominent pelvic lymph node measuring 8 mm in short axis. TRUS/bx 07/13/22 - 1 ANUSHA core. TRUS/bx 02/06/23 - neg. PSA has increased from prior and has been over the last 2 years despite two negative biopsies and a negative MRI. Also discussed previous MRI showed an enlarged lymph node. Recommended pt to get a PSMA PET scan to further evaluate. Pt is agreeable. -Schedule PSMA PET scan. Will call pt with results. If neg, f/u in 1 year w/ PSA. 2. Enlarged lymph node (R59.9: Enlarged lymph nodes, unspecified) See #1. 3. Benign localized hyperplasia of prostate with urinary obstruction (N40.1: Benign prostatic hyperplasia with lower urinary tract symptoms) S/p TURP 02/10/21. UA today negative for blood and infection. Taking Tamsulosin 0.4mg qd. Not voicing any urinary habit complaints. -Cont Tamsulosin wo changes. Pt to call for refills. 4. Urethral meatal stenosis (N35.919: Unspecified urethral stricture, male, unspecified site) Using a dilator daily. Feels he empties. 5. Proteinuria (R80.9: Proteinuria, unspecified) UA today 30 mg/dL. Follow-up With When Contact Information NGOZI OWEN, Klever Alston, URL [facility] [address] [place] [address] [phone] Additional Instructions: schedule PSMA PET scan, f/u in 1 year w/ PSA Patient Education Prostate Cancer Screening I, Carol Arcos, personally scribed for Dr. Melvin on 03/17/2024 10:43:47. . Documentation recorded by the scribe, Carol Arcos, accurately reflects the services(s) I performed and decisions made by me. Authenticated by Dr. Melvin on 03/17/2024 10:47:22. 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 (06/23/2021), Transurethral resection of prostate (02/10/2021), Cystoscopy (01/07/2021), Colonoscopy. Medications atorvastatin 20 mg Tab, 20 mg= 1 tab(s), Oral, Daily bimatoprost topical ophthalmic 0.03% solution, Topical, Once a day (at bedtime) Calcium, Magnesium and Zinc oral tablet, Oral, Daily chondroitin, Oral, Daily glucosamine, Oral hydrochlorothiazide 25 mg oral tablet, Oral, Daily losartan 100 mg Tab, Oral, Daily metoprolol 50 mg ER Tab, Oral, Daily Nature's Bounty Probiotic, Oral, Daily omeprazole 20 mg Cap-DR, 20 mg= 1 ca (more content not included)... Normal [facility] Comment on above: Result Comment: Elec tronically Signed By: Klever MELVIN MD\.br\Date and Time Signed: 03/17/24 10:47 EDT\.br\Electronically Co-Signed By: Carol Arcos\.br\Date and Time Co-Signed: 03/17/24 10:44 EDT Lab Reportson 03-03-2024 Lab Reports [id number] TIFF Normal [facility] CBC AUTO DIFFon 07-11-2022 BASO # 0.1 103/ul Normal 0.0-0.1 [facility] Comment on above: Performed By: #### C BC #### [facility] [address] [place] [address] Dr. Bebeto Perea Basophils/100 WBC (Bld) 0.5 % Normal 0.2-2.0 [facility] Comment on above: Performed By: #### C BC #### [facility] [address] [place] [address] Dr. Bebeto Perea EO # 0.1 103/ul Normal 0.0-0.7 [facility] Comment on above: Performed By: #### C BC #### [facility] [address] [place] [address] Dr. Bebeto Perea Eosinophils/100 WBC (Bld) 1.2 % Normal 0.9-7.0 [facility] Comment on above: Performed By: #### C BC #### [facility] [address] [place] [address] Dr. Bebeto Perea Erythrocyte distribution width (RBC) [Ratio] 13.7 % Normal 11.0-15.0 [facility] Comment on above: Performed By: #### C BC #### [facility] [address] [place] [address] Dr. Bebeto Perea Hematocrit (Bld) [Volume fraction] 42.1 % Normal 42.0-54.0 [facility] Comment on above: Performed By: #### C BC #### [facility] [address] [place] [address] Dr. Bebeto Perea Hemoglobin (Bld) [Mass/Vol] 14.0 g/dL Normal 14.0-18.0 [facility] Comment on above: Performed By: #### C BC #### [facility] [address] [place] [address] Dr. Bebeto Perea IG # 0.07 10e3/ul Critically high 0.00-0.03 [facility] Comment on above: Performed By: #### C BC #### [facility] [address] [place] [address] Dr. Bebeto Perea IG % 0.6 % Critically high 0.0-0.5 [facility] Comment on above: Performed By: #### C BC #### [facility] [address] [place] [address] Dr. Bebeto Perea LYMPH # 2.3 103/ul Normal 1.2-3.8 [facility] Comment on above: Performed By: #### C BC #### [facility] [address] [place] [address] Dr. Bebeto Perea Lymphocytes/100 WBC (Bld) 20.6 % Normal 20.5-60.0 [facility] Comment on above: Performed By: #### C BC #### [facility] [address] [place] [address] Dr. Bebeto Perea MANUAL DIFF REQ NO Normal [facility] Comment on above: Performed By: #### C BC #### [facility] [address] [place] [address] Dr. Bebeto Perea MCH (RBC) [Entitic mass] 28.3 pg Normal 25.9-34.0 [facility] Comment on above: Performed By: #### C BC #### [facility] [address] [place] [address] Dr. Bebeto Perea MCHC (RBC) [Mass/Vol] 33.3 g/dL Normal 29.9-35.2 [facility] Comment on above: Performed By: #### C BC #### [facility] [address] [place] [address] Dr. Bebeto Perea MCV (RBC) [Entitic vol] 85.2 fL Normal 80.0-94.0 [facility] Comment on above: Performed By: #### C BC #### [facility] [address] [place] [address] Dr. Bebeto Perea MONO # 1.0 103/ul Critically high 0.3-0.8 [facility] Comment on above: Performed By: #### C BC #### [facility] [address] [place] [address] Dr. Bebeto Perea Monocytes/100 WBC (Bld) 8.7 % Normal 1.7-12.0 [facility] Comment on above: Performed By: #### C BC #### [facility] [address] [place] [address] Dr. Bebeto Perea NEUT # 7.7 103/ul Critically high 1.4-6.5 [facility] Comment on above: Performed By: #### C BC #### [facility] [address] [place] [address] Dr. Bebeto Perea Neutrophils/100 WBC (Bld) 68.4 % Normal 43.0-75.0 [facility] Comment on above: Performed By: #### C BC #### [facility] [address] [place] [address] Dr. Bebeto Perea Platelet mean volume (Bld) [Entitic vol] 9.3 fL Critically low 9.5-13.5 [facility] Comment on above: Performed By: #### C BC #### [facility] [address] [place] [address] Dr. Bebeto Perea PLT 313 103/ul Normal 150-450 [facility] Comment on above: Performed By: #### C BC #### [facility] [address] [place] [address] Dr. Bebeto Perea RBC 4.94 106/ul Normal 4.70-6.10 [facility] Comment on above: Performed By: #### C BC #### [facility] [address] [place] [address] Dr. Bebeto Perea WBC 11.3 103/ul Critically high 4.0-11.0 [facility] Comment on above: Performed By: #### C BC #### [facility] [address] [place] [address] Dr. Bebeto Perea [facility] SARS-CoV-2 (COVID-19) RNA SILVINA+probe Ql (Unsp spec) Not detected Normal NOT DETECTED [facility] Comment on above: Result Comment: This test is not yet approved or cleared by the [place] FDA. When there are no FDA-approved or cleared tests available, and other criteria are met, FDA can make tests available under an emergency access mechanism called an Emergency Use Authorization (EUA). The EUA for this test is supported by the Rating Specialist of Health and Human Service's (HHS's) declaration that circumstances exist to justify the emergency use of in vitro diagnostics for the detection and/or diagnosis of the virus that causes COVID-19. This EUA will remain in effect (meaning this test can be used) for the duration of the COVID-19 declaration justifying emergency of IVDs, unless it is terminated or revoked by FDA (after which the test may no longer be used). When diagnostic testing is negative, the possibility of a false negative should be considered in the context of a patient's recent exposures and the presence of clinical signs and symptoms consistent with SARS-CoV-2. Performed By: #### C VDTB #### [facility] [address] [place] [address] Dr. Bebeto Perea PROF CHEM 8 (BAS METB)on Anion gap [Moles/Vol] 12.0 mmol/L Normal [facility] Comment on above: Performed By: #### B MP #### [facility] [address] [place] [address] Dr. Bebeto Perea Calcium [Mass/Vol] 9.0 mg/dL Normal 8.5-10.1 [place] Comment on above: Performed By: #### B MP #### [facility] [address] [place] [address] Dr. Bebeto Perea Chloride [Moles/Vol] 105 mmol/L Normal 98-107 [facility] Comment on above: Performed By: #### B MP #### [facility] [address] [place] [address] Dr. Bebeto Perea CO2 [Moles/Vol] 28.8 mmol/L Normal 21.0-32.0 [facility] Comment on above: Performed By: #### B MP #### [facility] [address] [place] [address] Dr. Bebeto Perea Creatinine [Mass/Vol] 1.22 mg/dL Normal 0.70-1.30 [facility] Comment on above: Performed By: #### B MP #### [facility] [address] [place] [address] Dr. Bebeto Perea EGFR-AF COLOMBIAN >60 Normal >=60 [facility] Comment on above: Performed By: #### B MP #### [facility] [address] [place] [address] Dr. Bebeto Perea EGFR-NON AF COLOMBIAN 60 mL/min/1.73m2 Normal >=60 [facility] Comment on above: Performed By: #### B MP #### [facility] [address] [address] [address] Bebeto Perea Glucose [Mass/Vol] 88 mg/dL Normal 74-106 [facility] Comment on above: Performed By: #### B MP #### [facility] [address] [address] [address] Bebeto Perea Potassium [Moles/Vol] 3.8 mmol/L Normal 3.5-5.1 [facility] Comment on above: Performed By: #### B MP #### [facility] [address] [address] [address] Bebeto Perea Sodium [Moles/Vol] 142 mmol/L Normal 136-145 [place] Comment on above: Performed By: #### B MP #### [facility] [address] [address] [address] Bebeto Perea Urea nitrogen [Mass/Vol] 30.0 mg/dL Critically high 7.0-18.0 [facility] Comment on above: Performed By: #### B MP #### [facility] [address] [address] [address] Bebeto Perea Urea nitrogen/Creatinine [Mass ratio] 24.6 mg/mg Normal [facility] Comment on above: Performed By: #### B MP #### [facility] [address] [address] [address] Bebeto Perea PROTIMEon 07-11-2022 INR Coag (PPP) [Relative time] 1.05 {INR} Normal [facility] Comment on above: Performed By: #### P T, PTT #### [facility] [address] [address] [address] Bebeto Perea INR GUIDELINES SEE BELOW Normal [facility] Comment on above: Result Comment: BHUPENDRA RED INR: 2.0 - 3.0 CONDITIONS NOT LISTED BELOW 2.5 - 3.5 FOR PROSTHETIC HEART VALVE REPLACEMENT 2.5 - 3.5 RECURRENT THROMBOSIS Performed By: #### P T, PTT #### [facility] [address] [address] [address] Bebeto Perea PT Coag (PPP) [Time] 11.3 s Normal 9.0-11.6 [facility] Comment on above: Performed By: #### P T, PTT #### [facility] [address] [place], [place] [address] Dr. Bebeto Perea PTTon 07-11-2022 aPTT Coag (Bld) [Time] 26.4 s Normal 22.3-36.2 [facility] Comment on above: Performed By: #### P T, PTT #### [facility] [address] [place], [place] [address] Dr. Bebeto Perea Creatinine (Bld) [Mass/Vol]O rdered By: Klever Melvin on 05-04-2022 Creatinine [Mass/Vol] 1.5 mg/dL 0.6-1.3 [facility] Comment on above: ER/ESD physician is notified/shown all ISTAT results. Critical values may be confirmed by laboratory testing if deemed necessary by ER attending doctor. No Panel InformationOrdered By: Klever Melvin on 05-04-2022 POC Estimated GFR 57 [facility] Comment on above: GFR estimated refere nce range: According to KDOQI guidelines, <60 ml/min/1.73m2 is sufficient to diagnose a patient with chronic kidney disease. POC Estimated GFR Non- Amer 47 [facility] XR Hip Complete Left*on XR Hip Complete Left* FINDINGS: Mild to moderate superior hip joint space loss. Small left pincer deformity. No significant CAM deformity. Bilateral small os acetabuli, non-acute. IMPRESSION: 1. Mild to moderate osteoarthritis. Report reported and signed by Jaydon Bernal on 02/16/2022 1242 Normal [facility] [employer] Complete Blood Count with Au to Diffon 01-24-2022 Basophils (Bld) [#/Vol] 0.02 10*3/uL Normal 0.00-0.20 [facility] [employer] Comment on above: Performed By: #### C MP, CBCAD, LIPD #### [facility] [address] [place], [place] [id number] Basophils/100 WBC (Bld) 0.4 % Normal [facility] [employer] Comment on above: Performed By: #### C MP, CBCAD, LIPD #### [facility] [address] [place], [place] [id number] Eosinophils (Bld) [#/Vol] 0.03 10*3/uL Normal 0.02-0.50 [facility] [employer] Comment on above: Performed By: #### C MP, CBCAD, LIPD #### [facility] [address] [place], [place] [id number] Eosinophils/100 WBC (Bld) 0.6 % Normal [facility] Comment on above: Performed By: #### C MP, CBCAD, LIPD #### [facility] [address] [place], [place] [id number] Erythrocyte distribution width (RBC) [Ratio] 13.7 % Normal 11.0-15.0 [facility] [employer] Comment on above: Performed By: #### C MP, CBCAD, LIPD #### [facility] [address] [place], [place] [id number] Hematocrit (Bld) [Volume fraction] 37.4 % Low 38.5-50.0 [facility] Comment on above: Performed By: #### C MP, CBCAD, LIPD #### [facility] [address] [place], [place] [id number] Hemoglobin (Bld) [Mass/Vol] 12.4 g/dL Low 13.0-17.1 [facility] Comment on above: Performed By: #### C MP, CBCAD, LIPD #### [facility] [address] [place], [place] [id number] Lymphocytes (Bld) [#/Vol] 1.8 10*3/uL Normal 0.9-3.9 [facility] [employer] Comment on above: Performed By: #### C MP, CBCAD, LIPD #### [facility] [address] [place], [place] [id number] Lymphocytes/100 WBC (Bld) 32.8 % Normal [facility] Comment on above: Performed By: #### C MP, CBCAD, LIPD #### [facility] [address] [place], [place] [id number] MCH (RBC) [Entitic mass] 27.7 pg Normal 27.0-33.0 [facility] [employer] Comment on above: Performed By: #### C MP, CBCAD, LIPD #### [facility] [address] [place], [place] [id number] MCHC (RBC) [Mass/Vol] 33.2 g/dL Normal 32.0-36.0 [facility] Comment on above: Performed By: #### C MP, CBCAD, LIPD #### [facility] [address] [place], [place] [id number] MCV (RBC) [Entitic vol] 84 fL Normal 80-100 [facility] Comment on above: Performed By: #### C MP, CBCAD, LIPD #### [facility] [address] [place], [place] [id number] Monocytes (Bld) [#/Vol] 0.4 10*3/uL Normal 0.2-0.9 [facility] Comment on above: Performed By: #### C MP, CBCAD, LIPD #### [facility] [address] [place], [place] [id number] Monocytes/100 WBC (Bld) 6.6 % Normal [facility] Comment on above: Performed By: #### C MP, CBCAD, LIPD #### [facility] [address] [place], [place] [id number] Neutrophils (Bld) [#/Vol] 3.2 10*3/uL Normal 1.5-7.8 [facility] Comment on above: Performed By: #### C MP, CBCAD, LIPD #### [facility] [address] [place], [place] [id number] Neutrophils/100 WBC (Bld) 59.2 % Normal [facility] Comment on above: Performed By: #### C MP, CBCAD, LIPD #### [facility] [address] [place], [place] [id number] Platelet mean volume (Bld) [Entitic vol] 9.70 fL Normal 7.50-12.50 [facility] Comment on above: Performed By: #### C MP, CBCAD, LIPD #### [facility] [address] [place], [place] [id number] Platelets (Bld) [#/Vol] 264 10*3/uL Normal 140-400 [facility] Comment on above: Performed By: #### C MP, CBCAD, LIPD #### [facility] [address] [place], [place] [id number] RBC (Bld) [#/Vol] 4.47 10*6/uL Normal 4.20-5.80 [facility] Comment on above: Performed By: #### C MP, CBCAD, LIPD #### [facility] [address] [place], [place] [id number] RDW-SD 41.9 fL Normal 37.0-50.0 [facility] Comment on above: Performed By: #### C LAYA, CBCAD, LIPD #### [facility] [address] [place], [place] [id number] WBC (Bld) [#/Vol] 5.3 10*3/uL Normal 3.8-11.0 [facility] Comment on above: Performed By: #### C MP, CBCAD, LIPD #### [facility] [address] [place], [place] [id number] Comprehensive Metabolic Pane jayce 01-24-2022 Albumin [Mass/Vol] 4.2 g/dL Normal 3.6-5.1 [facility] Comment on above: Performed By: #### C MP, CBCAD, LIPD #### [facility] [address] [place], [place] [id number] Albumin/Globulin [Mass ratio] 1.8 {ratio} Normal 1.0-2.5 [facility] Comment on above: Performed By: #### C MP, CBCAD, LIPD #### [facility] [address] [place], [place] [id number] ALP [Catalytic activity/Vol] 49 U/L Normal 40-129 [facility] Comment on above: Performed By: #### C MP, CBCAD, LIPD #### [facility] [address] [place], [place] [id number] ALT [Catalytic activity/Vol] 20 U/L Normal 9-46 [facility] Comment on above: Result Comment: 09/14 Female reference range changed. Performed By: #### C MP, CBCAD, LIPD #### [facility] [address] [place], [place] [id number] Anion gap [Moles/Vol] 16 mmol/L Normal 12-20 [facility] Comment on above: Result Comment: Bree ctive 10/20/2019 reference range changed. Performed By: #### C MP, CBCAD, LIPD #### [facility] [address] [place], [place] [id number] AST [Catalytic activity/Vol] 20 U/L Normal 10-40 [facility] Comment on above: Performed By: #### C MP, CBCAD, LIPD #### [facility] [address] [place], [place] [id number] Bilirubin [Mass/Vol] 0.56 mg/dL Normal 0.30-1.20 [facility] Comment on above: Performed By: #### C MP, CBCAD, LIPD #### [facility] [address] [place], [place] [id number] BUN/CREA 22 Ratio Normal 6-22 [facility] Comment on above: Performed By: #### C MP, CBCAD, LIPD #### [facility] [address] [place], [place] [id number] Calcium [Mass/Vol] 9.3 mg/dL Normal 8.6-10.2 [facility] Comment on above: Performed By: #### C MP, CBCAD, LIPD #### [facility] [address], [place] [id number] Chloride [Moles/Vol] 103 mmol/L Normal 98-107 [facility] Comment on above: Performed By: #### C MP, CBCAD, LIPD #### [facility] [address], [place] [id number] CO2 [Moles/Vol] 25 mmol/L Normal 20-31 [facility] Comment on above: Performed By: #### C MP, CBCAD, LIPD #### [facility] [address], [place] [id number] Creatinine [Mass/Vol] 1.1 mg/dL Normal 0.7-1.4 [facility] Comment on above: Performed By: #### C MP, CBCAD, LIPD #### [facility] [address] [place], [place] [id number] eGFRAA 83 mL/min/1.73m2 Normal >60 [facility] Comment on above: Performed By: #### C MP, CBCAD, LIPD #### [facility] [address] [place], [place] [id number] eGFRNAA 69 mL/min/1.73m2 Normal >60 [facility] Comment on above: Performed By: #### C MP, CBCAD, LIPD #### [facility] [address] [place], [place] [id number] Globulin (S) [Mass/Vol] 2.3 g/dL Normal 1.9-3.7 [facility] Comment on above: Performed By: #### C MP, CBCAD, LIPD #### [facility] [address] [place], [place] [id number] Glucose [Mass/Vol] 116 mg/dL High 65-99 [facility] Comment on above: Result Comment: For FASTING Glucose --- ADA reference ranges: Normal 65-99 mg/dl Prediabetes 100-125 Diabetes >/= 126 Performed By: #### C MP, CBCAD, LIPD #### [facility] [address] [place], [place] [id number] Potassium [Moles/Vol] 3.8 mmol/L Normal 3.5-5.5 [facility] Comment on above: Performed By: #### C MP, CBCAD, LIPD #### [facility] [address] [place], [place] [id number] Protein [Mass/Vol] 6.5 g/dL Normal 6.1-8.1 [facility] Comment on above: Performed By: #### C MP, CBCAD, LIPD #### [facility] [address] [place], [place] [id number] Sodium [Moles/Vol] 140 mmol/L Normal 135-146 [facility] Comment on above: Performed By: #### C MP, CBCAD, LIPD #### [facility] [address] [place], [place] [id number] Urea nitrogen [Mass/Vol] 23 mg/dL Normal 7-25 [facility] [employer] Comment on above: Performed By: #### C LAYA, CBCAD, LIPD #### [facility] [address] [place], [place] [id number] Hemoglobin A1Con 01-24-2022 EAG 125.50 Normal [facility] Comment on above: Performed By: #### A 1C #### [facility] [address] [place], [place] [id number] HbA1c (Bld) [Mass fraction] 6.0 % Normal 4.0-6.0 [facility] Comment on above: Performed By: #### A 1C #### [facility] [address] [place], [place] [id number] Lipid Panelon 01-24-2022 Cholesterol [Mass/Vol] 151 mg/dL Normal 125-200 [facility] above: Result Comment: Low risk < 200mg/dL Borderline risk 201-239 mg/dl High risk > or equal to 240 Performed By: #### C LAYA, CBCAD, LIPD #### [facility] [address] [place], [place] [id number] Cholesterol in HDL [Mass/Vol] 32 mg/dL Low >40 [facility] Comment on above: Result Comment: High Cardiovascular Risk HDL <40 mg/dL Low Cardiovascular Risk HDL > or equal to 60 mg/dl Performed By: #### C MP, CBCAD, LIPD #### [facility] [address] [place], [place] [id number] Cholesterol in LDL [Mass/Vol] 94 mg/dL Normal [facility] Comment on above: Result Comment: LDL ATP III CLASSIFICATION LDL less than 100 mg/dl Optimal LDL 100-129 mg/dl Near or above optimal LDL 130-159 Borderline high LDL 160-189 High LDL greater than 189 mg/dl Very High Performed By: #### C MP, CBCAD, LIPD #### [facility] [address] [place], [place] [id number] Cholesterol in VLDL [Mass/Vol] 25 mg/dL Normal [facility] [employer] Comment on above: Performed By: #### C MP, CBCAD, LIPD #### [facility] [address] [place], [place] [id number] Cholesterol.total/Chol esterol in HDL [Mass ratio] 5 {ratio} Normal [facility] Comment on above: Performed By: #### C LAYA, HEATHER, LIPD #### [facility] [address] [place], [place] [id number] Triglyceride [Mass/Vol] 125 mg/dL Normal 30-150 [facility] [employer] Comment on above: Result Comment: TRIG ATPIII CLASSIFICATIONS TRIG less than 150 mg/dl Normal TRIG 150-199 mg/dl Borderline High TRIG 200-500 mg/dl High TRIG greather than 500 mg/dl Very High Performed By: #### C LAYA, HEATHER, LIPD #### [facility] [address] [place], [place] [id number] XR Chest 2 Views*on 01-25-20 22 XR Chest 2 Views* HISTORY: Cough, congestion FINDINGS: No acute cardiac or pulmonary disease is identified. No worrisome mass lesions or infiltrates are seen. No pulmonary edema or pneumothorax is present. Cardiac silhouette size is normal. Skeletal structures are unremarkable. IMPRESSION: No acute cardiac or pulmonary disease. Report reported and signed by Jaydon Bernal on 01/24/2022 1412 Normal [facility] Vital Signs Date Time Vital Sign Value Performing Clinician Facility 07-31-2024 [id number] Body height 177.8 cm Fabian Cardoza MD Work Phone: [facility] 07-31-2024 10:18-0400 Body mass index (BMI) [Ratio] 31.42 kg/m2 Fabian Cardoza MD Work Phone: [facility] 07-31-2024 10:18-040 Body temperature 97.3 [degF] Fabian Cardoza MD Work Phone: [facility] 07-31-2024 10:18-040 Body weight 99.34 kg Fabian Cardoza MD Work Phone: [facility] 07-31-2024 10:18-0400 Diastolic blood pressure 72 mm[Hg] Fabian Cardoza MD Work Phone: [facility] 07-31-2024 10:18-0400 Heart rate 68 /min Fabian Cardoza MD Work Phone: [facility] 07-31-2024 10:18-0400 Respiratory rate 20 /min Fabian Cardoza MD Work Phone: [facility] 07-31-2024 10:18-0400 SaO2% (BldA) [Mass fraction] 98 % Fabian Cardoza MD Work Phone: [facility] 07-31-2024 10:18-0400 Systolic blood pressure 140 mm[Hg] Fabian Cardoza MD Work Phone: [facility] 04-04-2024 10:43-0400 Body height 175.26 cm MD Fabian Cardoza Work Phone: [facility] 04-04-2024 10:43-0400 Body weight 95.25 kg MD Fabian Cardoza Work Phone: [facility] 03-17-2024 09:53-0400 Blood Pressure Location Klever MELVIN [facility] 03-17-2024 09:53-0400 Body temperature 98.6 [degF] Klever MELVIN [facility] 03-17-2024 09:53-0400 Diastolic blood pressure 84 mm[Hg] Klever MELVIN [facility] 03-17-2024 09:53-0400 Heart rate 70 /min Klever MELVIN [facility] 03-17-2024 09:53-0400 Respiratory rate 16 /min Klever MELVIN [facility] 03-17-2024 09:53-0400 Systolic blood pressure 137 mm[Hg] Klever MELVIN [facility] 02-26-2023 10:57-0400 Blood Pressure Location Klever MELVIN [facility] 02-26-2023 10:57-0400 Diastolic blood pressure 88 mm[Hg] Klever MELVIN [facility] 02-26-2023 10:57-0400 Heart rate 88 /min Klever MELVIN [facility] 02-26-2023 10:57-0400 Respiratory rate 16 /min Klever MELVIN [facility] 02-26-2023 10:57-0400 Systolic blood pressure 137 mm[Hg] Klever MELVIN [facility] 07-24-2022 09:47-0400 Blood Pressure Location Klever MELVIN [facility] 07-24-2022 09:47-0400 Diastolic blood pressure 84 mm[Hg] Klever MELVIN [facility] 07-24-2022 09:47-0400 Heart rate 71 /min Klever MELVIN [facility] 07-24-2022 09:47-0400 Respiratory rate 16 /min Klever MELVIN [facility] 07-24-2022 09:47-0400 Systolic blood pressure 138 mm[Hg] Klever MELVIN [facility] 04-21-2022 10:53-0400 Diastolic blood pressure 82 mm[Hg] Klever MELVIN [facility] 04-21-2022 10:53-0400 Mean blood pressure 101 mm[Hg] Kle[facility] MELVIN [facility] 04-21-2022 10:53-0400 Systolic blood pressure 140 mm[Hg] Klever MELVIN [facility] 04-21-2022 10:33-0400 Blood Pressure Location Kleverana MELVIN [facility] 04-21-2022 10:33-0400 Diastolic blood pressure 100 mm[Hg] Klever MELVIN [facility] 04-21-2022 10:33-0400 Heart rate 75 /min Klever MELVIN [facility] 04-21-2022 10:33-0400 Systolic blood pressure 159 mm[Hg] Klever MELVIN [facility] 07-08-2021 12:40-0400 Body height 176.53 cm Rocio Ojeda Other [email or web address] Other 07-08-2021 12:40-0400 Body mass index (BMI) [Ratio] 33.94 kg/m2 Rocio Ojeda Other [email or web address] Other 07-08-2021 12:40-0400 Body temperature 97.5 [degF] Rocio Ojeda Other [email or web address] Other 07-08-2021 12:40-0400 Body weight 105.78 kg Rocio Ojeda Other [email or web address] Other 07-08-2021 12:40-0400 Diastolic blood pressure 80 mm[Hg] Rocio Ojeda Other [email or web address] Other 07-08-2021 12:40-0400 Respiratory rate 18 /min Rocio Ojeda Other [email or web address] Other 07-08-2021 12:40-0400 SaO2% (BldA) [Mass fraction] 95 % Rocio Ojeda Other [email or web address] Other 07-08-2021 12:40-0400 Systolic blood pressure 150 mm[Hg] Rocio Ojeda Other [email or web address] Other Encounters Encounter Date Encounter Type Care Provider Facility Start: 03-20-2025 ambulatory Klever Sextoni ty:[facility] Start: 08-25-2024 ambulatory Klever Sextoni ty:[facility] Start: 08-11-2024 End: 08-11-2024 Orders Only Fabian Cardoza MD Work Phone: [facility] Comment on above: Essential hypertensi on, benign (CMS/HCC) Start: 07-31-2024 End: 07-31-2024 Bamboo flowsheet Fabian Cardoza MD Work Phone: [facility] Start: 07-31-2024 End: 07-31-2024 Bamboo flowsheet Fabian Cardoza MD Work Phone: [facility] Start: 07-31-2024 End: 07-31-2024 Office outpatient visit 15 minutes Fabian Cardoza MD Work Phone: [facility] Comment on above: Cervical spondylolys is (Primary Dx) Start: 07-31-2024 End: 07-31-2024 ambulatory FABIAN CARDOZA Not Available Start: 06-09-2024 End: 06-09-2024 ambulatory CARLI ROSEENOCH Not Available Start: 05-22-2024 End: 05-22-2024 Patient encounter procedure MD Fabian Cardoza Work Phone: [facility] [place] Work Phone: Start: 05-22-2024 End: 05-22-2024 ambulatory MD Fabian Cardoza Work Phone: [facility] Work Phone: Start: 04-04-2024 End: 04-04-2024 Patient encounter procedure MD Fabian Cardoza Work Phone: [facility] Work Phone: Start: 04-04-2024 End: 04-04-2024 ambulatory MD Fabian Cardoza Work Phone: [facility] Work Phone: Start: 03-17-2024 End: 03-17-2024 ambulatory Klever MELVIN Facility:[facility] Start: 03-17-2024 End: 03-17-2024 Patient encounter procedure Klever MELVIN [facility] Start: 02-14-2024 End: 02-14-2024 ambulatory FABIAN CARDOZA Not Available Start: 07-17-2023 End: 07-17-2023 ambulatory RICKY NOBLES [facility] Start: 06-19-2023 End: 06-20-2023 ambulatory MESSI WOODS [facility] Start: 02-26-2023 End: 02-26-2023 Patient encounter procedure Klever MELVIN [facility] Start: 02-06-2023 End: 02-06-2023 Patient encounter procedure Kleverana MELVIN [facility] Start: 01-24-2023 End: 01-25-2023 ambulatory KLEVERANA MELVIN Facility:[facility] Start: 07-24-2022 End: 07-24-2022 Patient encounter procedure Klever Alston NGOZI [facility] Start: 07-13-2022 Encounter for preprocedural cardiovascular examination [facility] Start: 07-13-2022 Encounter for preprocedural laboratory examination [facility] Start: 07-13-2022 Encounter for preprocedural respiratory examination [facility] Start: 07-13-2022 End: 07-13-2022 ambulatory KLEVERANA MELVIN Facility:[facility] Start: 07-11-2022 End: 07-12-2022 ambulatory KLEVERANA MELVIN Facility:[facility] Start: 07-11-2022 End: 07-12-2022 Encounter for preprocedural laboratory examination KLEVER MELVIN Facility:[facility] Start: 06-14-2022 End: 07-12-2022 Pre-admission assessment Klever Alecia MELVIN [facility] Start: 05-04-2022 End: 05-04-2022 Patient encounter procedure MD Klever Melvin Work Phone: [facility] [place] Start: 04-21-2022 End: 04-21-2022 Patient encounter procedure Klever MELVIN [facility] Start: 04-14-2022 End: 04-15-2022 ambulatory KLEVER NGOZI Facility:[facility] Start: 07-08-2021 Office outpatient ne w 20 minutes Rocio Ojeda [facility] Procedures Date Procedure Procedure Detail Performing Clinician Start: 04-04-2024 Positron emission tomography MD Fabian Cardoza Work Phone: Start: 02-06-2023 Transrectal biopsy o f prostate using ultrasound guidance Klever MELVIN Start: 01-24-2023 PSA screening KLEVER Jiménez JOSÉ Comment on above: Performed By: #### P SAD #### [facility] [address] [place] [address] Dr. Bebeto Perea Start: 07-13-2022 Transrectal biopsy o f prostate using ultrasound guidance Klever MELVIN Start: 04-14-2022 PSA screening KLEVER Jiménez JOSÉ Comment on above: Performed By: #### P SAD #### [facility] [address] [place] [address] Dr. Bebeto Perea Start: 01-24-2022 Microscopic examinat ion of blood, culture Comment on above: Order Comment: [facility] Testing performed at: [facility] [employer] [facility], [address] [place] [address], [address] [place] [address], [id number], Marine Scientist: Chaparro Mcintyre MD [facility] Collection Date/Time: [facility] Results Received Date/Time: [facility] Reported Date/Time: Result Comment: CULT URE, BLOOD Micro Number: [id number] Test Status: Final Specimen Source: Rt arm Specimen Quality: Adequate Result: No growth after 5 days TRANSPORT MEDIA: Aerobic and anaerobic bottle received. Performed By: #### [id number] #### [facility] [address] [place] [address] Start: 06-23-2021 Percutaneous translu chet laser ablation of varicose vein of lower limb Klever MELVIN Start: 02-10-2021 Transurethral prostatectomy Klever MELVIN Start: 01-07-2021 Cystoscopy Klever CUNNINGHAM Start: 10-09-2018 Colonoscopy Fabian butts MD Work Phone: Colonoscopy Klever MELVIN Transurethral prostatectomy Klever MELVIN Plan of Treatment Date Care Activity Detail Author Start: 10-09-2028 Screening for malignant neoplasm of colon [facility] Start: 06-11-2025 End: 06-11-2025 Patient encounter procedure 06/11/2025 10:45 AM EDT Office Visit [facility] [address] [place] [id number] Carli Juarez MD [address] [place] [address] [facility] Start: 09-19-2024 End: 09-19-2024 Patient encounter procedure 09/19/2024 10:00 AM EST Office Visit [facility] [address] [place] [phone] Fabian Cardoza MD [address] [place] [phone] [facility] Start: 08-07-2024 Medicare Annual Wellness (AWV) Medicare Annual Wellness (AWV) [facility] Start: 07-31-2024 End: 07-31-2025 XR Cervical spine 2 or 3 Views XR cervical spine 2 or 3 views Imaging Routine Cervical spondylolysis Expected: 07/31/2024, Expires: 07/31/2025 [facility] Work Phone: Comment on above: Expected: 07/31/2024 , Expires: 07/31/2025 Start: 07-31-2024 End: 07-31-2024 Patient encounter procedure 07/31/2024 10:15 AM EDT Office Visit [facility] [address] [place] [phone] Fabian Cardoza MD [address] [place] [phone] Arrived [facility] Comment on above: Arrived Start: 05-22-2024 MR Prostate WO and W contrast IV [facility] Start: 05-22-2024 MR prostate wo/w con MR prostate wo/ w con [facility] Start: 05-04-2022 MR Prostate WO and W contrast IV [facility] Work Phone: Start: 05-04-2022 MR prostate wo/w con MR prostate wo/ w con [facility] Start: 1955 Screening for malignant neoplasm of colon [facility] Immunizations Immunization Date Immunization Notes Care Provider Fa cility 05-02-2022 SARS-CoV-2 (COVID-19 ) mRNA-1273 vaccine Klever MELVIN [facility] 09-12-2021 SARS-CoV-2 (COVID-19 ) mRNA-1273 vaccine Klever MELVIN [facility] 01-21-2021 SARS-CoV-2 (COVID-19 ) mRNA-1273 vaccine Klever MELVIN [facility] 12-24-2020 SARS-CoV-2 (COVID-19 ) mRNA-1273 vaccine Klever MELVIN [facility] 07-28-2020 influenza virus vaccine, unspecified formulation Klever MELVIN [facility] 08-31-2019 influenza virus vaccine, unspecified formulation Klever MELVIN [facility] 06-19-2019 zoster vaccine recombinant Klever MELVIN [facility] 01-29-2019 zoster vaccine recombinant Klever MELVIN [facility] 09-30-2018 influenza virus vaccine, unspecified formulation Klever MELVIN [facility] 09-03-2017 influenza virus vaccine, unspecified formulation Klever NGOZI [facility] 11-16-2015 influenza virus vaccine, unspecified formulation Klever MELVIN [facility] 09-16-2014 influenza virus vaccine, unspecified formulation Klever MELVIN [facility] Payers Date Payer Category Payer Self-pay [id number] 2023 Medicare (Managed Care) [employer] [id number] 2023 Medicare [id number] 2021 Unknown [id number] Private Health Insurance [id number] 1955 Unknown [id number] 1955 Unknown [id number] [id number] .593 1955 Unknown [id number] [id number] .593 1955 Unknown [id number] .593 1955 Unknown [id number] [id number] .727 1955 Unknown [id number] 2.16.840.1.355031.3.579.2 .727 1955 Unknown [id number] 2.16.840.1.002836.3.579.2 .727 1955 Unknown [id number] 2.16.840.1.541481.3.579.2 .1259 1955 Unknown [id number] 2.16.840.1.150482.3.579.2 .1259 1955 Unknown [id number] [id number] .1259 Medicare Medicare [id number] Unknown [id number] Unknown [id number] [id number] .531 Unknown [id number] .531 Social History Date Type Detail Facility Unknown if ever smoked [email or web address] Other Start: 06-09-2024 End: 07-31-2024 Sex Assigned At kwiry Other Start: 04-21-2022 End: 07-03-2023 Tobacco smoking status Ex-smoker (finding) [facility] Start: 1955 Sex Assigned At Male F [facility] Start: 07-08-2021 [facility] History of tobacco use Current smoker [facility] History of tobacco use Cigarette Smoker [facility] Start: 06-09-2024 End: 07-31-2024 Alcoholic beverage intake Ex-drinker (finding) [facility] Start: 06-09-2024 End: 07-31-2024 History of Social function [facility] Start: 1955 Sex assigned at Not on file N [facility] Functional Status Date Assessment Result Facility 03-17-2024 Functional Status N/A [facility] 02-26-2023 Functional Status N/A [facility] 07-24-2022 Functional Status N/A [facility] 04-21-2022 Functional Status N/A [facility] Clinical Notes 07-08-2021 to 07-31-2024 Fabian Cardoza MD - 07/31/2024 10:52 AM EDTMparminder Cardoza MD - 07/31/2024 10:15 AM EDT Note Date & Type Note Facility 07-31-2024 History of Present illness Narrative Associated Problem(s): Cervical spondylolysis Recent pain and stiffness. History of DDD and check x-ray. Treat with prednisone and use flexeril PRN. If no improvement will need PT and possible MRI. Images from the original note were not included. Subjective Patient ID: Cathie Anderson is a 68 y.o. male who presents for Neck Pain (Stiff neck for 10 days). C/o neck pain for 10-12 days. No change in activity and no fall, injury, or trauma. History of fusion in 1998 and told eventually will need another fusion. Initially severe pain and stiffness. Not able to turn head side to side and severe pain. Tightness in top shoulder and into back head. No radiation into arms or hands. No numbness in hands. Using heat and OTC and slightly better. Remains stiff but overall ROM improved. Review of Systems Constitutional: Negative for fatigue. Respiratory: Negative for cough, shortness of breath and wheezing. Cardiovascular: Negative for chest pain and palpitations. Gastrointestinal: Negative for abdominal pain, diarrhea, nausea and vomiting. Genitourinary: Negative for dysuria. Objective Physical Exam Constitutional: General: He is not in acute distress. Appearance: Normal appearance. HENT: Head: Normocephalic. Right Ear: Tympanic membrane and ear canal normal. Left Ear: Tympanic membrane and ear canal normal. Eyes: Extraocular Movements: Extraocular movements intact. Pupils: Pupils are equal, round, and reactive to light. Cardiovascular: Rate and Rhythm: Normal rate and regular rhythm. Heart sounds: No murmur heard. No friction rub. No gallop. Pulmonary: Breath sounds: Normal breath sounds. No wheezing, rhonchi or rales. Abdominal: General: Bowel sounds are normal. There is no distension. Palpations: Abdomen is soft. Tenderness: There is no abdominal tenderness. There is no guarding or rebound. Musculoskeletal: Left lower leg: No edema. Comments: TTP cervical spine and into back head. Tenderness over left trapezius muscle Neurological: Mental Status: He is alert. Assessment/Plan Problem List Items Addressed This Visit Cervical spondylolysis - Primary Recent pain and stiffness. History of DDD and check x-ray. Treat with prednisone and use flexeril PRN. If no improvement will need PT and possible MRI. Relevant Medications predniSONE (Deltasone) 50 MG tablet cyclobenzaprine (Flexeril) 10 MG tablet Other Relevant Orders XR cervical spine 2 or 3 views documented in this encounter [facility] 03-17-2024 Hospital Discharge instructions Patient Education 03/17/2024 10:41:20 Prostate Cancer Screening Prostate Cancer Screening Prostate cancer screening is testing that is done to check for the presence of prostate cancer in men. The prostate gland is a walnut-sized gland that is located below the bladder and in front of the rectum in males. The function of the prostate is to add fluid to semen during ejaculation. Prostate cancer is one of the most common types of cancer in men. Who should have prostate cancer screening? Screening recommendations vary based on age and other risk factors, as well as between the professional organizations who make the recommendations. In general, screening is recommended if: You are age 50 to 70 and have an average risk for prostate cancer. You should talk with your health care provider about your need for screening and how often screening should be done. Because most prostate cancers are slow growing and will not cause , screening in this age group is generally reserved for men who have a 10- to 15-year life expectancy. You are younger than age 50, and you have these risk factors: ?Having a father, brother, or uncle who has been diagnosed with prostate cancer. The risk is higher if your family member's cancer occurred at an early age or if you have multiple family members with prostate cancer at an early age. ?Being a male who is Black or is of [place] or sub-Saharan descent. In general, screening is not recommended if: You are younger than age 40. You are between the ages of 40 and 49 and you have no risk factors. You are 70 years of age or older. At this age, the risks that screening can cause are greater than the benefits that it may provide. If you are at high risk for prostate cancer, your health care provider may recommend that you have screenings more often or that you start screening at a younger age. How is screening for prostate cancer done? The recommended prostate cancer screening test is a blood test called the prostate-specific antigen (PSA) test. PSA is a protein that is made in the prostate. As you age, your prostate naturally produces more PSA. Abnormally high PSA levels may be caused by: Prostate cancer. An enlarged prostate that is not caused by cancer (benign prostatic hyperplasia, or BPH). This condition is very common in older men. A prostate gland infection (prostatitis) or urinary tract infection. Certain medicines such as male hormones (like testosterone) or other medicines that raise testosterone levels. A rectal exam may be done as part of prostate cancer screening to help provide information about the size of your prostate gland. When a rectal exam is performed, it should be done after the PSA level is drawn to avoid any effect on the results. Depending on the PSA results, you may need more tests, such as: A physical exam to check the size of your prostate gland, if not done as part of screening. Blood and imaging tests. A procedure to remove tissue samples from your prostate gland for testing (biopsy). This is the only way to know for certain if you have prostate cancer. What are the benefits of prostate cancer screening? Screening can help to identify cancer at an early stage, before symptoms start and when the cancer can be treated more easily. There is a small chance that screening may lower your risk of dying from prostate cancer. The chance is small because prostate cancer is a slow-growing cancer, and most men with prostate cancer from a different cause. What are the risks of prostate cancer screening? The main risk of prostate cancer screening is diagnosing and treating prostate cancer that would never have caused any symptoms or problems. This is called overdiagnosisand overtreatment. PSA screening cannot tell you if your PSA is high due to cancer or a different cause. A prostate biopsy is the only procedure to diagnose prostate cancer. Even the results of a biopsy may not tell you if your cancer needs to be treated. Slow-growing prostate cancer may not need any treatment other than monitoring, so diagnosing and treating it may cause unnecessary stress or other side effects. Questions to ask your health care provider When should I start prostate cancer screening? What is my risk for prostate cancer? How often do I need screening? What type of screening tests do I need? How do I get my test results? What do my results mean? Do I need treatment? Where to find more information The [place] [employer]: www.cancer.org [employer] [employer]: www.auanet.org Contact a health care provider if: You have difficulty urinating. You have pain when you urinate or ejaculate. You have blood in your urine or semen. You have pain in your back or in the area of your prostate. Summary Prostate cancer is a common type of cancer in men. The prostate gland is located below the bladder and in front of the rectum. This gland adds fluid to semen during ejaculation. Prostate cancer screening may identify cancer at an early stage, when the cancer can be treated more easily and is less likely to have spread to other areas of the body. The prostate-specific antigen (PSA) test is the recommended screening test for prostate cancer, but it has associated risks. Discuss the risks and benefits of prostate cancer screening with your health care provider. If you are age 70 or older, the risks that screening can cause are greater than the benefits that it may provide. This information is not intended to replace advice given to you by your health care provider. Make sure you discuss any questions you have with your health care provider. Document Revised: 03/27/2022 Document Reviewed: 03/27/2022 Simpler Patient Education 2022 [employer]. Follow Up Care 02/26/2023 12:49:55 With:NGOZI OWEN, Klever Alston, URL Address: [facility] [address], [place] [phone] When: Unknown Comments:schedule PSMA PET scan, f/u in 1 year w/ PSA [facility] 02-26-2023 Hospital Discharge instructions Patient Education 02/26/2023 12:32:55 Benign Prostatic Hyperplasia Benign Prostatic Hyperplasia Benign prostatic hyperplasia (BPH) is an enlarged prostate gland that is caused by the normal aging process. The prostate may get bigger as a man gets older. The condition is not caused by cancer. The prostate is a walnut-sized gland that is involved in the production of semen. It is located in front of the rectum and below the bladder. The bladder stores urine. The urethra carries stored urine out of the body. An enlarged prostate can press on the urethra. This can make it harder to pass urine. The buildup of urine in the bladder can cause infection. Back pressure and infection may progress to bladder damage and kidney (renal) failure. What are the causes? This condition is part of the normal aging process. However, not all men develop problems from this condition. If the prostate enlarges away from the urethra, urine flow will not be blocked. If it enlarges toward the urethra and compresses it, there will be problems passing urine. What increases the risk? This condition is more likely to develop in men older than 50 years. What are the signs or symptoms? Symptoms of this condition include: Getting up often during the night to urinate. Needing to urinate frequently during the day. Difficulty starting urine flow. Decrease in size and strength of your urine stream. Leaking (dribbling) after urinating. Inability to pass urine. This needs immediate treatment. Inability to completely empty your bladder. Pain when you pass urine. This is more common if there is also an infection. Urinary tract infection (UTI). How is this diagnosed? This condition is diagnosed based on your medical history, a physical exam, and your symptoms. Tests will also be done, such as: A post-void bladder scan. This measures any amount of urine that may remain in your bladder after you finish urinating. A digital rectal exam. In a rectal exam, your health care provider checks your prostate by putting a lubricated, gloved finger into your rectum to feel the back of your prostate gland. This exam detects the size of your gland and any abnormal lumps or growths. An exam of your urine (urinalysis). A prostate specific antigen (PSA) screening. This is a blood test used to screen for prostate cancer. An ultrasound. This test uses sound waves to electronically produce a picture of your prostate gland. Your health care provider may refer you to a specialist in kidney and prostate diseases (urologist). How is this treated? Once symptoms begin, your health care provider will monitor your condition (active surveillance or watchful waiting). Treatment for this condition will depend on the severity of your condition. Treatment may include: Observation and yearly exams. This may be the only treatment needed if your condition and symptoms are mild. Medicines to relieve your symptoms, including: ?Medicines to shrink the prostate. ?Medicines to relax the muscle of the prostate. Surgery in severe cases. Surgery may include: ?Prostatectomy. In this procedure, the prostate tissue is removed completely through an open incision or with a laparoscope or robotics. ?Transurethral resection of the prostate (TURP). In this procedure, a tool is inserted through the opening at the tip of the penis (urethra). It is used to cut away tissue of the inner core of the prostate. The pieces are removed through the same opening of the penis. This removes the blockage. ?Transurethral incision (TUIP). In this procedure, small cuts are made in the prostate. This lessens the prostate's pressure on the urethra. ?Transurethral microwave thermotherapy (TUMT). This procedure uses microwaves to create heat. The heat destroys and removes a small amount of prostate tissue. ?Transurethral needle ablation (TUNA). This procedure uses radio frequencies to destroy and remove a small amount of prostate tissue. ?Interstitial laser coagulation (ILC). This procedure uses a laser to destroy and remove a small amount of prostate tissue. ?Transurethral electrovaporization (TUVP). This procedure uses electrodes to destroy and remove a small amount of prostate tissue. ?Prostatic urethral lift. This procedure inserts an implant to push the lobes of the prostate away from the urethra. Follow these instructions at home: Take [id number]-vbbmbdz and prescription medicines only as told by your health care provider. Monitor your symptoms for any changes. Contact your health care provider with any changes. Avoid drinking large amounts of liquid before going to bed or out in public. Avoid or reduce how much caffeine or alcohol you drink. Give yourself time when you urinate. Keep all follow-up visits. This is important. Contact a health care provider if: You have unexplained back pain. Your symptoms do not get better with treatment. You develop side effects from the medicine you are taking. Your urine becomes very dark or has a bad smell. Your lower abdomen becomes distended and you have trouble passing urine. Get help right away if: You have a fever or chills. You suddenly cannot urinate. You feel light-headed or very dizzy, or you faint. There are large amounts of blood or clots in your urine. Your urinary problems become hard to manage. You develop moderate to severe low back or flank pain. The flank is the side of your body between the ribs and the hip. These symptoms may be an emergency. Get help right away. Call 911. Do not wait to see if the symptoms will go away. Do not drive yourself to the hospital. Summary Benign prostatic hyperplasia (BPH) is an enlarged prostate that is caused by the normal aging process. It is not caused by cancer. An enlarged prostate can press on the urethra. This can make it hard to pass urine. This condition is more likely to develop in men older than 50 years. Get help right away if you suddenly cannot urinate. This information is not intended to replace advice given to you by your health care provider. Make sure you discuss any questions you have with your health care provider. Document Revised: 04/19/2022 Document Reviewed: 04/19/2022 Simpler Patient Education 2022 [employer]. Follow Up Care 01/18/2023 11:18:50 With:NGOZI OWEN, Klever Alston, URL Address: [facility] [address] , [place] [phone] When:Within 1 Year(s) Comments:f/u in 1 year with PSA [facility] 02-06-2023 Hospital Discharge instructions Patient Education 02/06/2023 11:18:45 [facility] - Transrectal Ultrasound of the Prostate with US guided biopsy Discharge Instructions (CUSTOM) Transrectal Ultrasound of the Prostate with US guided biopsy Even though there are no visible incisions, multiple prostate biopsies have been taken through the rectum and you need to follow some instructions to minimize the risks of bleeding. You may see some blood in your urine and stool for up to 1 week (and blood in the semen for several months) Diet -You may resume your normal diet, but you may want to avoid alcohol, carbonated drinks, caffeine, and spicy foods, which may increase the irritation from the surgery. -Drink plenty of water to keep the urine clear. Activity -You should limit any physical activity for about 48 hours -No heavy lifting or straining (10 pound limit) -No driving a car and limit long car rides for 2 days -No strenuous exercise -No sexual intercourse until this is discussed with your doctor Bowels -Try to keep your bowel movements soft to minimize straining to have a bowel movement. -You may use a stool softener or over the counter laxative if needed -Difficult bowel movement may lead to straining and bleeding from the prostate Medications -You may resume your home medications unless instructed otherwise -Hold aspirin, ibuprofen, Coumadin (warfarin) and other blood thinners for about two days or until there is no active bleeding unless otherwise instructed -Finish the antibiotic which you have already started Things to watch for which would require an Emergency Room visit or call 911: (this is not a complete list) -Persistent or heavy bleeding or blood clots from the rectum or in the urine -Inability to urinate -Fever over 101.5 degrees Fahrenheit, with or without chills -Severe drug reactions with itching, hives or rash -Tenderness or swelling of the calves, chest pain, or shortness of breath Please call the office to arrange for your post-operative appointment in 1-2 weeks [phone] or [phone] Follow Up Care 01/18/2023 11:14:06 With:Klever MELVIN Address: [facility] [address] [place] [address]- Business (1) When: Unknown Comments:Keep scheduled appointment [facility] 07-24-2022 Hospital Discharge instructions Patient Education 07/24/2022 09:55:41 Benign Prostatic Hyperplasia Benign Prostatic Hyperplasia Benign prostatic hyperplasia (BPH) is an enlarged prostate gland that is caused by the normal aging process and not by cancer. The prostate is a walnut-sized gland that is involved in the production of semen. It is located in front of the rectum and below the bladder. The bladder stores urine and the urethra is the tube that carries the urine out of the body. The prostate may get bigger as a man gets older. An enlarged prostate can press on the urethra. This can make it harder to pass urine. The build-up of urine in the bladder can cause infection. Back pressure and infection may progress to bladder damage and kidney (renal) failure. What are the causes? This condition is part of a normal aging process. However, not all men develop problems from this condition. If the prostate enlarges away from the urethra, urine flow will not be blocked. If it enlarges toward the urethra and compresses it, there will be problems passing urine. What increases the risk? This condition is more likely to develop in men over the age of 50 years. What are the signs or symptoms? Symptoms of this condition include: Getting up often during the night to urinate. Needing to urinate frequently during the day. Difficulty starting urine flow. Decrease in size and strength of your urine stream. Leaking (dribbling) after urinating. Inability to pass urine. This needs immediate treatment. Inability to completely empty your bladder. Pain when you pass urine. This is more common if there is also an infection. Urinary tract infection (UTI). How is this diagnosed? This condition is diagnosed based on your medical history, a physical exam, and your symptoms. Tests will also be done, such as: A post-void bladder scan. This measures any amount of urine that may remain in your bladder after you finish urinating. A digital rectal exam. In a rectal exam, your health care provider checks your prostate by putting a lubricated, gloved finger into your rectum to feel the back of your prostate gland. This exam detects the size of your gland and any abnormal lumps or growths. An exam of your urine (urinalysis). A prostate specific antigen (PSA) screening. This is a blood test used to screen for prostate cancer. An ultrasound. This test uses sound waves to electronically produce a picture of your prostate gland. Your health care provider may refer you to a specialist in kidney and prostate diseases (urologist). How is this treated? Once symptoms begin, your health care provider will monitor your condition (active surveillance or watchful waiting). Treatment for this condition will depend on the severity of your condition. Treatment may include: Observation and yearly exams. This may be the only treatment needed if your condition and symptoms are mild. Medicines to relieve your symptoms, including: ?Medicines to shrink the prostate. ?Medicines to relax the muscle of the prostate. Surgery in severe cases. Surgery may include: ?Prostatectomy. In this procedure, the prostate tissue is removed completely through an open incision or with a laparoscope or robotics. ?Transurethral resection of the prostate (TURP). In this procedure, a tool is inserted through the opening at the tip of the penis (urethra). It is used to cut away tissue of the inner core of the prostate. The pieces are removed through the same opening of the penis. This removes the blockage. ?Transurethral incision (TUIP). In this procedure, small cuts are made in the prostate. This lessens the prostate's pressure on the urethra. ?Transurethral microwave thermotherapy (TUMT). This procedure uses microwaves to create heat. The heat destroys and removes a small amount of prostate tissue. ?Transurethral needle ablation (TUNA). This procedure uses radio frequencies to destroy and remove a small amount of prostate tissue. ?Interstitial laser coagulation (ILC). This procedure uses a laser to destroy and remove a small amount of prostate tissue. ?Transurethral electrovaporization (TUVP). This procedure uses electrodes to destroy and remove a small amount of prostate tissue. ?Prostatic urethral lift. This procedure inserts an implant to push the lobes of the prostate away from the urethra. Follow these instructions at home: Take wtce-npt-belhvhv and prescription medicines only as told by your health care provider. Monitor your symptoms for any changes. Contact your health care provider with any changes. Avoid drinking large amounts of liquid before going to bed or out in public. Avoid or reduce how much caffeine or alcohol you drink. Give yourself time when you urinate. Keep all follow-up visits as told by your health care provider. This is important. Contact a health care provider if: You have unexplained back pain. Your symptoms do not get better with treatment. You develop side effects from the medicine you are taking. Your urine becomes very dark or has a bad smell. Your lower abdomen becomes distended and you have trouble passing your urine. Get help right away if: You have a fever or chills. You suddenly cannot urinate. You feel lightheaded, or very dizzy, or you faint. There are large amounts of blood or clots in the urine. Your urinary problems become hard to manage. You develop moderate to severe low back or flank pain. The flank is the side of your body between the ribs and the hip. These symptoms may represent a serious problem that is an emergency. Do not wait to see if the symptoms will go away. Get medical help right away. Call your local emergency services (911 in the [place] Do not drive yourself to the hospital. Summary Benign prostatic hyperplasia (BPH) is an enlarged prostate that is caused by the normal aging process and not by cancer. An enlarged prostate can press on the urethra. This can make it hard to pass urine. This condition is part of a normal aging process and is more likely to develop in men over the age of 50 years. Get help right away if you suddenly cannot urinate. This information is not intended to replace advice given to you by your health care provider. Make sure you discuss any questions you have with your health care provider. Document Released: 10/01/2006 Document Revised: 08/26/2019 Document Reviewed: 11/05/2017 [employer] Patient Education 2020 [employer]. Follow Up Care 06/14/2022 17:18:55 With:NGOZI OWEN, Klever Alston, URL Address: [facility] [address] , [place] [address]- [phone] When:01/22/2023 Comments:repeat BX. [facility] 07-11-2022 Note EXAMINATION: XR CHES T 2 V HISTORY: Pre-surgery evaluation COMPARISON: No relevant comparison available. TECHNIQUE: PA and lateral FINDINGS: LUNGS: No significant pulmonary parenchymal abnormalities. VASCULATURE: No increased pulmonary vasculature. PLEURA: No pneumothorax, effusion, or pleural thickening. CARDIAC: No cardiomegaly or cardiac silhouette abnormality. MEDIASTINUM: No visible mass or adenopathy. BONES: Moderate degenerative disc disease and spondylosis without visible acute abnormalities. OTHER: Negative. IMPRESSION: No acute disease. Electronically authenticated by: ARON BOONE Date: 2022-07-11 18:28 [facility] 04-21-2022 Hospital Discharge instructions Patient Education 04/21/2022 11:22:42 Prostate Cancer Screening Prostate Cancer Screening The prostate is a walnut-sized gland that is located below the bladder and in front of the rectum in males. The function of the prostate (prostate gland) is to add fluid to semen during ejaculation. Prostate cancer is the second most common type of cancer in men. A screening test for cancer is a test that is done before cancer symptoms start. Screening can help to identify cancer at an early stage, when the cancer can be treated more easily. The recommended prostate cancer screening test is a blood test called the prostate-specific antigen (PSA) test. PSA is a protein that is made in the prostate. As you age, your prostate naturally produces more PSA. Abnormally high PSA levels may be caused by: Prostate cancer. An enlarged prostate that is not caused by cancer (benign prostatic hyperplasia, BPH). This condition is very common in older men. A prostate gland infection (prostatitis). Medicines to assist with hair growth, such as finasteride. Depending on the PSA results, you may need more tests, such as: A physical exam to check the size of your prostate gland. Blood and imaging tests. A procedure to remove tissue samples from your prostate gland for testing (biopsy). Who should have screening? Screening recommendations vary based on age. If you are younger than age 40, screening is not recommended. If you are age 40 54 and you have no risk factors, screening is not recommended. If you are younger than age 55, ask your health care provider if you need screening if you have one of these risk factors: ?Being of -[place] descent. ?Having a family history of prostate cancer. If you are age 55 69, talk with your health care provider about your need for screening and how often screening should be done. If you are older than age 70, screening is not recommended. This is because the risks that screening can cause are greater than the benefits that it may provide (risks outweigh the benefits). If you are at high risk for prostate cancer, your health care provider may recommend that you have screenings more often or start screening at a younger age. You may be at high risk if you: Are older than age 55. Are -[place]e. Have a father, brother, or uncle who has been diagnosed with prostate cancer. The risk may be higher if your family member's cancer occurred at an early age. What are the benefits of screening? There is a small chance that screening may lower your risk of dying from prostate cancer. The chance is small because prostate cancer is typically a slow-growing cancer, and most men with prostate cancer from a different cause. What are the risks of screening? The main risk of prostate cancer screening is diagnosing and treating prostate cancer that would never have caused any symptoms or problems (overdiagnosis and overtreatment). PSA screening cannot tell you if your PSA is high due to cancer or a different cause. A prostate biopsy is the only procedure to diagnose prostate cancer. Even the results of a biopsy may not tell you if your cancer needs to be treated. Slow-growing prostate cancer may not need any treatment other than monitoring, so diagnosing and treating it may cause unnecessary stress or other side effects. A prostate biopsy may also cause: Infection or fever. A false negative. This is a result that shows that you do not have prostate cancer when you actually do have prostate cancer. Questions to ask your health care provider When should I start prostate cancer screening? What is my risk for prostate cancer? How often do I need screening? What type of screening tests do I need? How do I get my test results? What do my results mean? Do I need treatment? Contact a health care provider if: You have difficulty urinating. You have pain when you urinate or ejaculate. You have blood in your urine or semen. You have pain in your back or in the area of your prostate. You have trouble getting or maintaining an erection (erectile dysfunction, ED). Summary Prostate cancer is a common type of cancer in men. The prostate (prostate gland) is located below the bladder and in front of the rectum. This gland adds fluid to semen during ejaculation. Prostate cancer screening may identify cancer at an early stage, when the cancer can be treated more easily. The prostate-specific antigen (PSA) test is the recommended screening test for prostate cancer. Discuss the risks and benefits of prostate cancer screening with your health care provider. If you are age 70 or older, screening is likely to lead to more risks than benefits (risks outweigh the benefits). This information is not intended to replace advice given to you by your health care provider. Make sure you discuss any questions you have with your health care provider. Document Released: 07/12/2018 Document Revised: 09/13/2018 Document Reviewed: 07/12/2018 [employer] Patient Education 2020 [employer] Follow Up Care 10/17/2021 12:12:12 With:NGOZI OWEN, Klever Alston, URL Address: [address] [place] [address] [place] [address]- When: Unknown [facility] 07-08-2021 Evaluation note Encounter Date Diagnosis Assessment Notes Jun, Bee sting, undetermined intent, initial encounter (ICD-10 - T63.444A) Insect bites and stings material was printed. Drink plenty fluids, get plenty of rest. Consider applying Benadryl cream to the area for itching. You may take Benadryl by mouth as well for itching. Follow-up with your family physician for any further concerns. [email or web address] Other Evaluation + Plan note No data available for this section [facility] evaluation + Plan note Future Appointments Appointment Date:07/24/2022 09:30:00 AM Scheduled Provider:Klever MELVIN MD Location:[facility] Future [facility]ments Appointment Date:02/26/2023 10:45:00 AM Scheduled Provider:Klever MELVIN MD Location:[facility] Appointment Type:URO Office Visit Diagnostic Tests Pending * Prostate Histology ([facility]) [facility] Future App[facility]ments Appointment Date:02/29/2024 10:45:00 AM Scheduled Provider:Klever MELVIN MD Location:[facility] Appointment Type:URO Office Visit Diagnostic Tests Pending * PSA Total 02/26/23 [facility] evaluation + Plan note Future Appointments Appointment Date:03/20/2025 09:30:00 AM Scheduled Provider:Klever MELVIN MD Location:[facility] Appointment Type:URO Office Visit Diagnostic Tests Pending * PSA Total 03/17/24 [facility] evaluation noteNo assessment information available [facility] Work Phone: Evaluation note* Diagnosis Essential hypertension, benign (CMS/HCC)- Primary Essential hypertension, benign Gastroesophageal reflux disease without esophagitis Esophageal reflux BPH without urinary obstruction Degenerative lumbar spinal stenosis Spinal stenosis of lumbar region Cervical spondylolysis- Primary [facility] Diagnosis Essential hypertension, benign (CMS/HCC)- Primary Essential hypertension, benign Gastroesophageal reflux disease without esophagitis Esophageal reflux BPH without urinary obstruction Degenerative lumbar spinal stenosis Spinal stenosis of lumbar region Cervical spondylolysis- Primary Essential hypertension, benign (CMS/HCC) Essential hypertension, benign [facility] - Reported* Type Description Date Medical History hypertension Medical History IBS Medical History Enlarged Prostate Medical History Bladder Stones Surgical History neck fusion on 5 & 6 Surgical History Tonsils Surgical History arthritus in lower back Surgical History TURP Procedure - for prostate Surgical History Hernia Repair Hospitalization History see above [email or web address] Other Hospital Discharge instructions No data available for this section [facility] No data available for this section [facility] Summary Purpose Family History Relationship Condition Age at Onset Recorded Date/T los father Unknown Not Specified Unknown Relationship Condition Age at Onset Recorded Date/T los father Unknown mother Unknown Advance Directives Advance Directive Response Recorded Date/ Time Advance Directives No May 02 8:39am Chief Complaint and Reason for Visit Chief Complaint elevated psa Chief Complaint r97.20 r59.9 Chief Complaint r97.20 r59.9 R97.20 Additional Source Comments (unrecognized sect ion and content) No Status Records FoundNo Status Records FoundNo Status Records FoundNo Status Records FoundNo Status Records FoundNo Status Records Found INFORMATION SOURCE (unrecogn ized section and content) DATE CREATED AUTHOR 02/17/2022 [facility] Special[facility] DATE CREATED AUTHOR AUTHOR'S ORGANIZ ATION 01/29/2023 [facility] DATE CREATED AUTHOR AUTHOR'S ORGANIZ ATION 07/21/2023 [facility] DATE CREATED AUTHOR AUTHOR'S ORGANIZ ATION 05/26/2024 [facility] DATE CREATED AUTHOR AUTHOR'S ORGANIZ ATION 05/29/2024 [facility] DATE CREATED AUTHOR AUTHOR'S ORGANIZ ATION 08/02/2024 [facility] EPIC REASON FOR VISIT (unrecogniz ed section and content) Reason Comments Neck Pain Stiff neck for 10 da ys Care Team (unrecognized sect ion and content) Team Status: Inactive Member Role Status Dates Klever Melvin MD Attending Provider Active Fabian Cardoza MD Primary Care Provider Active Team Status: Active Member Role Status Dates Fabian Cardoza MD Primary Care Provider Active Team Status: Inactive Member Role Status Dates Fabian Cardoza MD Primary Care Provider Active S tart: April 04, 2024 End: April 04, 2024 Klever Melvin MD Attending Provider Active St art: April 04, 2024 End: April 04, 2024 Team Status: Inactive Member Role Status Dates Fabian Cardoza MD Primary Care Provider Active S tart: May 22, 2024 End: May 22, 2024 Klever Melvin MD Attending Provider Active St art: May 22, 2024 End: May 22, 2024 [employer] Relationship Specialty Start Date End Date Fabian Cardoza MD [address] [place] [id number] PCP - Anna QUIROZ 10/15/23 Fabian Cardoza MD [address] [place] [id number] PCP - General Family Medicine 02/14/24 [employer] Relationship Specialty Start Date End Date Fabian Cardoza MD [address] [place] [id number] PCP - Anna QUIROZ 10/15/23 Fabian Cardoza MD [address] [place] [phone] PCP - General Family Medicine 02/14/24 [employer] Relationship Specialty Start Date End Date Fabian Cardoza MD [address] [place] [phone] PCP - Anna QUIROZ 10/15/23 Fabian Cardoza MD [address] [place] [address] PCP - General Family Medicine 02/14/24 Goals (unrecognized section and content) Goals may be documented in a n alternate section FOR RECORDS PERTAINING TO PATIENTS WHO ARE OR HAVE BEEN ENROLLED IN A CHEMICAL DEPENDENCY/SUBSTANCEABUSE PROGRAM, SOME INFORMATION MAY BE OMITTED. This clinical summary was aggregated from multiple sources. Caution should be exercised in using it in the provision of clinical care. This summary normalizes information from multiple sources, and as a consequence, information in this document may materially change the coding, format and clinical context of patient data. In addition, data may be omitted in some cases. CLINICAL DECISIONS SHOULD BE BASED ON THE PRIMARY CLINICAL RECORDS. [employer] provides no warranty or guarantee of the accuracy or completeness of information in this document.
== END 2024-08-12 08:25 | disposition home or self-care (01) ==
PROVIDERS: PCP Family Medicine; Visit Provider Urology
DX: R97.20 Elevated prostate specific antigen [PSA] (principal)
CPT/HCPCS: 36415; 84153

== ENCOUNTER 2025-03-03 09:21 | Outpatient (OUT) | payer MEDICARE, SELFPAY ==
--- OUTSIDE RECORDS SUMMARY | 2025-03-03 09:28 | XMS_ITS | CCD ---
Author Organization [facility] Care Team Providers Care Chicken Vaccinator Name Role Phone Rocio Ojeda Unavailable FABIAN CARDOZA Primary Care Physician MD Klever Melvin Attending Provider MD Fabian Cardoza Primary Care Provider [phone] KLEVER MELVIN Admitting Unavailable MELVIN, KLEVER Attending [...] KLEVER Admitting Unavailable MELVIN, KLEVER Attending Unavailable NANI, DR FABIAN Reilly Primary Care Unavailable MELVIN, KLEVER Consulting Unavailable WEST, DR ARON Sykes Consulting Unavailable OVSKY, MESSI Referring Unavailable RICKY NOBLES Attending Unavailable MD Fabian Cardoza Primary Care Provider MD Klever Melvin Attending Provider [phone] Klever Melvin Admitting Unavailable Melvin, Klever Attending Unavailable Fabian Cardoza Primary Care Unavailable Ngozi, Klever Attending Unavailable Fabian Cardoza Primary Care Unavailable Klever Melvin Admitting Unavailable Fabian Cardoza MD Unavailable Fabian Cardoza MD Primary Care Provider [phone] Klever MELVIN Attending Unavailable MELVIN, Klever R Attending Unavailable MELVIN, Klever R Attending Unavailable DANITZA GOODRICH Attending Unavailable CARLI JUAREZ Attending Unavailable FABIAN CARDOZA Attending Unavailable FABIAN CARDOZA Attending Unavailable Allergies Allergy Classification Reported Allergen(s) Allergy Type Date of Onset Reaction(s) Facility (1 source) ALLERGIES NOT ON FILE; Translations: [ALLERGIES NOT ON FILE] Propensity to adverse reactions (disorder) [facility] Repository (1 source) Unable to Assess Drug allergy (disorder) 2 [facility] Repository Medications Current Medications Medication Drug Class(es) Dates Sig (Normalized) Sig (Original) acetaminophen 325 mg / HYDROcodone bitartrate 7.5 mg oral tablet (2 sources) Opioid Agonist Start: 01-18-2023 take 1 tablet by mouth once [place] 325 mg-7.5 mg oral tablet 1 tab(s), Oral, Once, 1 tab(s), Refill(s) 0, Take 1 hour prior to procedure, [facility] [id number], 178, cm, 07/24/22 9:49:00 EDT, Height/Length Dosing, 105, kg, 07/24/22 9:49:00 EDT, Weight Dosing Start Date: 01/18/23 Status: Ordered Start: 06-15-2022 take 1 tablet by mouth once No rco 325 mg-7.5 mg oral tablet 1 tab(s), Oral, Once, 1 tab(s), Refill(s) 0, Take 1 hour prior to procedure, [facility] [id number], 178, cm, 04/21/22 10:50:00 EDT, Height/Length Dosing, 105, kg, 04/21/22 10:50:00 EDT, Weight Dosing Start Date: 06/15/22 Status: Ordered Eliquis (5 sources) Factor Xa Inhibitor Start: 03-21-2021 Eliquis Or al, BID, Refills(s) 0 Start Date: 03/21/21 Status: Ordered Ascorbic Acid (20 sources) Vitamin C Start: 01-03-2021 Vitamin C Ton y, Refills(s) 0 Start Date: 01/03/21 Status: Ordered Ascorbic Acid (v itamin C) 100 MG tablet 1 (one) time each day at the same time. Active Vitamin C Active atorvastatin 20 mg oral tablet (20 sources) HMG-CoA Reductase Inhibitor Start: 12-16-2024 End: 12-16-2025 take 1 tablet by mouth once daily atorvastatin (Lipitor) 20 MG tablet Indications: Dyslipidemia (CMS/HCC) Take 1 tablet (20 mg) by mouth Daily 90 tablet 3 12/16/2024 12/16/2025 Active Start: 04-21-2022 End: 12-11-2024 take 1 tablet by mouth once daily atorvastatin (Lipitor) 20 MG tablet Indications: Dyslipidemia (CMS/HCC) Take 1 tablet (20 mg) by mouth Daily 90 tablet 3 12/12/2023 12/11/2024 Active bimatoprost 0.1 mg/ml ophthalmic solution (20 sources) Prostaglandin Analog Start: 11-14-2022 Lumigan 0 .01 % ophthalmic solution Administer into affected eye(s) [...] Date: 10/17/21 Status: Ordered Cholecalciferol (Vitamin D3) [id number] UNIT/GM liquid (16 sources) Cholecalciferol (Vitamin D3) [id number] UNIT/GM liquid as directed Active Chondroitin Sulfates (7 sources) Start: 01-03-2021 take 1 mg by mouth once daily chondroitin mg, Oral, Daily, Refills(s) 0 Start Date: 01/03/21 Status: Ordered chondroitin sulfates 400 mg / glucosamine sulfate 500 mg oral tablet (16 sources) take 1 tablet by mouth in the morning glucosamine-chondroiti n 500-400 MG tablet Take 1 tablet by mouth in the morning. Active ciprofloxacin 500 mg oral tablet (1 source) Quinolone Antimicrobial Start: 07-10-2022 take 1 tablet by mouth twice daily Cipro 500 mg Tab 500 mg = 1 tab(s), Oral, BID, # 4 tab(s), Refills(s) 0, Pharmacy: [facility] [id number], 178, cm, 07/07/22 16:35:00 EDT, Height/Length Dosing, 105, kg, 04/21/22 10:50:00 EDT, Weight Dosing Start Date: 07/10/22 Status: Ordered cyclobenzaprine hydrochloride 10 mg oral tablet (12 sources) Muscle Relaxant Start: 07-31-2024 take 1 tablet by mouth three times daily as needed for muscle spasms cyclobenzaprine (Flexeril) 10 MG tablet Indications: Cervical spondylolysis Take 1 tablet (10 mg) by mouth 3 (three) times a day as needed for muscle spasms 30 tablet 1 07/31/2024 Active Glucosamine (7 sources) Start: 01-03-2021 glucosamine Oral, Refills(s) 0 Start Date: 01/03/21 Status: Ordered hydroCHLOROthiazide 25 mg oral tablet (20 sources) Thiazide Diuretic Start: 01-03-2021 End: 08-12-2024 take 1 tablet by mouth once daily hydroCHLOROthiazide (HYDRODiuril) 25 MG tablet Indications: Essential hypertension, benign (CMS/HCC) Take 1 tablet (25 mg) by mouth Daily 90 tablet 3 08/11/2024 Active hydroCHLOROthiaz tony Active Iron (1 source) Iron Active losartan potassium 100 mg oral tablet (20 sources) Angiotensin 2 Receptor Brian Start: 01-03-2021 End: 06-03-2025 take 1 tablet by mouth once daily losartan (Cozaar) 100 MG tablet Indications: Essential hypertension, benign (CMS/HCC) Take 1 tablet (100 mg) by mouth Daily 30 tablet 11 06/03/2024 06/03/2025 Active Losartan Potassi um Active 24 hr metoprolol succinate 50 mg extended release oral tablet (20 sources) beta-Adrenergic Brian Start: 09-19-2024 take 1 tablet by mouth once daily metoprolol succinate XL (Toprol-XL) 50 MG 24 hr tablet Indications: Essential hypertension, benign (CMS/HCC) Take 1 tablet (50 mg) by mouth Daily Do not crush or chew. 90 tablet 3 09/19/2024 Active Start: 02-28-2024 End: 02-27-2025 take 1 tablet by mouth in the morning metoprolol tartrate (Lopressor) 25 MG tablet Indications: Essential hypertension, benign (CMS/HCC) Take 1 tablet (25 mg) by mouth in the morning and 1 tablet (25 mg) before bedtime. 180 tablet 3 02/28/2024 09/19/2024 Discontinued Start: 02-26-2023 take 1 mg by mouth once daily metoprolol 50 mg ER Tab mg tab(s), Oral, Daily, Refills(s) 0 Start Date: 02/26/23 Status: Ordered Nature's Bounty Probiotic (7 sources) Start: 01-03-2021 Nature's Bount y Probiotic Oral, Daily, Refill(s) 0 Start Date: 01/03/21 Status: Ordered omeprazole 20 mg delayed release oral capsule (20 sources) Proton Pump Inhibitor Start: 01-03-2021 End: 11-03-2024 take 1 capsule by mouth in the morning omeprazole (PriLOSEC) [address] capsule Indications: Gastroesophageal reflux disease without esophagitis Take 1 capsule (20 mg) by mouth in the morning and 1 capsule (20 mg) in the evening. Take before meals. 180 capsule 3 11/03/2024 Active Omeprazole Activ e predniSONE 50 mg oral tablet (2 sources) Start: 07-31-2024 End: 08-06-2024 take 1 tablet by mouth once daily predniSONE (Deltasone) 50 MG tablet Indications: Cervical spondylolysis Take 1 tablet (50 mg) by mouth Daily for 6 days 6 tablet 07/31/2024 08/06/2024 Active tamsulosin hydrochloride 0.4 mg oral capsule (20 sources) alpha-Adrenerg ic Brian Start: 02-03-2025 take 1 capsule by mouth once daily tamsulosin (Flomax) 0.4 MG 24 hr capsule Indications: Benign prostatic hyperplasia with lower urinary tract symptoms, symptom details unspecified Take 1 capsule (0.4 mg) by mouth Daily 90 capsule 3 02/03/2025 Active Start: 09-18-2022 End: 01-13-2025 take 1 capsule [...] 12 hr timolol 5 mg/ml ophthalmic solution (17 sources) beta-Adrenergic Brian Start: 03-17-2024 timolo l Opth 0.5% Em 15 mL Refill(s) 0 Start Date: 03/17/24 Status: Ordered timolol (Timopti c) 0.25 % ophthalmic solution Administer into affected eye(s) twice a day. Active timolol Opth 0.5% Em 15 mL (1 source) Start: 03-17-2024 timolol Opth 0 .5% Em 15 mL Refill(s) 0 Start Date: 03/17/24 Status: Ordered Vitamin D3 (1 source) Vitamin D3 Activ e Vitamin D3 1000 intl units o ral capsule (7 sources) Start: 01-03-2021 Vitamin D3 100 0 intl units oral capsule Oral, Daily, Refills(s) 0 Start Date: 01/03/21 Status: Ordered Completed/Discontinued Medications Medication Drug Class(es) Dates Sig (Normalized) Sig (Original) [id number] 200 actuat albuterol 0.09 mg/actuat metered dose [...] Documented Date Episodic/Chronic Disorders of lipid metabolism (18 sources) Dyslipidemia; Translations: [Hyperlipidemia, unspecified] Onset: 01-29-2024 01-29-2024 Chronic Esophageal disorders (18 sources) Gastro-esophageal reflux disease without esophagitis; Translations: [Gastroesophageal reflux disease without esophagitis] Onset: 07-21-2022 01-29-2024 Chronic Essential hypertension (20 sources) Hypertensive disorder; Translations: [Essential (primary) hypertension] Onset: 07-21-2022 01-03-2021 Chronic Genitourinary symptoms and ill-defined conditions (12 sources) Dysuria; Translations: [Dysuria] Onset: 07-21-2022 05-27-2021 Episodic Glaucoma (20 sources) Glaucoma; Translations: [Unspecified glaucoma] Onset: 07-21-2022 01-03-2021 Chronic Hyperplasia of prostate (20 sources) Benign prostatic hypertrophy with outflow obstruction; Translations: [Benign prostatic hyperplasia with lower urinary tract symptoms] Onset: 04-14-2022 Chronic Lymphadenitis (4 sources) Lymphadenopathy; Translations: [Enlarged lymph nodes, unspecified] Onset: 03-17-2024 Episodic Nutritional deficiencies (16 sources) Vitamin D deficiency; Translations: [Vitamin D deficiency, unspecified] Onset: 01-29-2024 01-29-2024 Chronic Osteoarthritis (8 sources) Arthritis; Translations: [Unspecified osteoarthritis, unspecified site] Onset: 07-13-2022 01-03-2021 Chronic Other diseases of bladder and urethra (5 sources) Male urethral stricture; Translations: [Unspecified urethral stricture, male, unspecified site] Onset: 04-21-2022 Episodic Other diseases of bladder and urethra (7 sources) Urethral stricture 04-21-2022 Episodic Other ear and sense organ disorders (7 sources) Hearing loss 01-03-2021 Chronic Other ear and sense organ disorders (1 source) Unspecified hearing loss, unspecified ear; Translations: [UNS HEARING LOSS UNSPECIFIED EAR] Onset: 07-21-2022 Chronic Other ear and sense organ disorders (1 source) Asymmetrical sensorineural hearing loss; Translations: [Sensorineural hearing loss, bilateral] 02-18-2025 Chronic Other injuries and conditions due to external causes (7 sources) Injury of head 01-03-2021 Episodic Other male genital disorders (16 sources) Secondary erectile dysfunction; Translations: [Male erectile dysfunction, unspecified] Onset: 01-29-2024 01-29-2024 Chronic Other male genital disorders (2 sources) Dysplasia of prostate; 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] Onset: 07-24-2022 Episodic Other male genital disorders (5 sources) Atypical small acinar proliferation of prostate 07-24-2022 Episodic Other nutritional; endocrine; and metabolic disorders (9 sources) Obesity caused by energy imbalance; Translations: [Class 1 obesity due to excess calories with serious comorbidity and body mass index (BMI) of 32.0 to 32.9 in adult] Onset: 09-19-2024 09-19-2024 Chronic Other screening for suspected conditions (not mental disorders or infectious disease) (18 sources) Raised prostate specific antigen; Translations: [Elevated prostate specific antigen [PSA]] Onset: 04-21-2022 Episodic Unclassified (1 source) CONTACT W/AND (SUSP) EXPOS COVID-19; Translations: [CONTACT W/AND (SUSP) EXPOS COVID-19] Onset: 07-13-2022 Unclassified (2 sources) Consult; Translations: [Consult] Onset: 07-17-2023 Past or Other Problems Problem Classification Problem Date Documented Da te Episodic/Chronic Diabetes mellitus without complication (18 sources) Prediabetes; Translations: [Prediabetes] Onset: 09-26-2023 09-26-2023 Episodic Mood disorders (7 sources) Mood disorders Onset: 09-19-2024 09-19-2024 Other acquired deformities (16 sources) Spondylolysis of cervical spine; Translations: [Spondylolysis, cervical region] Onset: 07-31-2024 07-31-2024 Episodic Other aftercare (1 source) terminal 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 (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) use of anticoagulants; Translations: [FDC CURRNT USE ANTICOAGULANTS] Onset: 07-21-2022 Episodic Other aftercare (9 sources) Long-term current use of drug therapy; Translations: [Other filler leaf cutter long (current) drug therapy] Onset: 09-19-2024 09-19-2024 Episodic Other and unspecified benign neoplasm (2 sources) Skin lesion; Translations: [Hemangioma of skin and subcutaneous tissue] 06-09-2024 Episodic Other diseases of bladder and urethra (1 source) Unspecified urethral stricture, male, unspecified site; Translations: [UNSP URETHRAL STRCT MALE UNSP SITE] Onset: 07-21-2022 Episodic Other skin disorders (2 sources) Actinic keratosis; Translations: [Actinic keratosis] 06-09-2024 Episodic Other skin disorders (2 sources) Seborrheic keratosis; Translations: [Other seborrheic keratosis] 06-09-2024 Episodic Other skin disorders (2 sources) Lentiginosis; Translations: [Other melanin hyperpigmentation] 06-09-2024 Episodic Phlebitis; thrombophlebitis and thromboembolism (1 source) [...] Spondylosis; intervertebral disc disorders; other back problems (18 sources) Spinal stenosis, lumbar region without neurogenic claudication; Translations: [Degenerative lumbar spinal stenosis] Onset: 06-19-2023 Episodic Results Test Name Value Interpretation Reference Range Facility Urology Office/Clinic Noteon 08-25-2024 Urology Office/Clinic Note Urology Office/Clinic Note Chief Complaint elevated PSA HPI Staff 68 yo male here for 6 mos f/up with PSA. Previous dx: elevated PSA, enlarged lymph node, benign localized hyperplasia of prostate with urinary obstruction, urethral meatal stenosis, proteinuria. Taking Flomax 0.4mg qd. Using meatal dilator daily. PSMA PET 04/04/24 [facility] [place]. MRI of prostate 05/22/24 [facility] [place]. PSA 08/12/24 - 7.00 Dysuria: denies Incomplete bladder emptying: denies Hematuria: denies Frequency: denies Urgency: states he can not wait long if he has to void Nocturia: 1-3x depending on his water intake Stream: good steady no straining Leaking: only if he has to wait too long Post void dripping: rare Wearing pads/ Depends: denies Urge incontinence: denies Stress incontinence: denies Incontinence without Sensory Awareness: denies Abdominal pain: denies Flank pain: denies Sexual complaints: denies History of Present Illness Tests reviewed: reviewed UA, PSMA PET scan, MRI, PSA I have reviewed the previous health [...] Physical Exam Vitals & Measurements T: 37 ???C(Temporal Artery) HR: 68(Peripheral) RR: 17 BP: 131/80 HT: 67 in HT: 170 cm WT: 96.5 kg WT: 212.746 lb BMI: 33.39 General Appearance: alert, no distress, well nourished, well developed male. Assessment/Plan 1. Elevated PSA (R97.20: Elevated prostate specific antigen [PSA]) PSA 02/01/21 - 2.99 04/14/22 - 5.64 01/24/23 - 6.48 02/29/24 - 6.81 08/12/24 - 7.00 Prostate MRI 05/04/22 [facility] [place] - Prostate volume 136 mL. No evidence of prostate malignancy. Prominent pelvic lymph node measuring 8 mm in short axis. TRUS/bx 07/13/22 - 1 ANUSHA core. TRUS/bx 02/06/23 - neg. PSMA PET scan 04/04/24 [facility] [place] - Enlarged prostate with calcifications. No focal abnormal accumulation noted to suggest primary prostate malignancy. Subtle osteolytic process along the scapula on L anteriorly with accompanying subtle increased radiotracer accumulation. Metastatic prostate malignancy not excluded. Prostate MRI 05/22/24 [facility] [place] - No evidence of clinically significant prostate cancer. Stable presumed prominent lymph node adjacent to R bladder wall measuring 7mm in short axis. PSA increased slightly from prior. Can attribute elevated level to large prostate. No indication for further workup given neg MRI, PSMA, and biopsies. Will continue to monitor level. -F/u in 1 yr w/ PSA 2. Enlarged lymph node (R59.9: Enlarged lymph nodes, unspecified) Prostate MRI 05/04/22 [facility] [place] - Prominent pelvic lymph node measuring 8 mm in short axis. PSMA PET scan 04/04/24 [facility] [place] - A few mildly prominent lymph nodes in retroperitoneum and adjacent to R anterior/lateral wall of bladder. Subtle increase radiotracer accumulation within lymph node adjacent to bladder. Nonspecific with a prostate malignancy not excluded. Prostate MRI 05/22/24 [facility] [place] - Stable presumed prominent lymph node adjacent to R bladder wall measuring 7mm in short axis. Reviewed imaging results. No indication for workup at this time. See #1. 3. BPH with obstruction/lower urinary tract symptoms (N40.1: Benign prostatic hyperplasia with lower urinary tract symptoms) S/p TURP 02/10/21. Prostate MRI 05/22/24 [facility] [place] - Prostate volume 161 mL. UA today negative for blood and infection. Taking Tamsulosin 0.4mg qhs. Good stream. Leaks on the way to the bathroom, only if he waits too long. Does not wear pads. Nocturia 2-3x, attributes this to high fluid intake. Does not feel urinary habits are bothersome. -Cont Tamsulosin wo changes. Call for refills. 4. Urethral meatal stenosis (N35.919: Unspecified urethral stricture, male, unspecified site) Using a dilator daily. Feels he empties. [1] Follow-up With When Contact Information NGOZI OWEN, Klever Alston, URL [facility] [address], [place] [address]- [phone] Additional Instructions: 1 yr w/ PSA Patient Education Prostate Cancer Screening Carol Rider, personally scribed for Dr. Melvin on 08/25/2024 13:05:46. . Documentation recorded by the sydnieibCarol mendoza, accurately reflects the services(s) I performed and decisions made by me. Authenticated by Dr. Melvin on 08/25/2024 13:07:25. Problem List/Past Medical History Ongoing Art (more content not included)... Normal [facility] Comment on above: Result Comment: Elec tronically Signed By: NGOZI OWENKlever\.br\Date and Time Signed: 08/25/24 13:07 EST\.br\Electronically Co-Signed By: Carol Arcos\.br\Date and Time Co-Signed: 08/25/24 13:06 EST MHPT PSA, DIAGNOSTICon 08-12 Interpretation and review of laboratory results Abnormal [facility] PROSTATE SPECIFIC ANTIGEN DX 7 ng/mL High NINF - 4.00 ng/mL [facility] No Panel Informationon 06-09 [facility] MR prostate wo/w conon 05-23 MR prostate wo/w con [facility] [place] [address] [place] [address] MRI Report Signed Patient: Cathie Anderson MR#: [id number] : 1955 Acct:[id number] Age/Sex: 68 / M ADM Date: 05/22/24 Loc: Room: Type: [facility] Attending Dr: Klever Melvin MD Copies to: [...] bladder wall. Impression dictated by: Jaydon Bal Jr. DVitaOVita05/23/2024 9:42 AM Dictation Location: [facility] Transcribed By: [facility] 05/23/24941 Dictated By: Jaydon Bal Jr, DO 05/23/24923 Signed By: 05/23/24941 Normal [facility] ISTAT XRay CREon 05-22-2024 ISTAT GFR > 60.0 Normal [facility] Comment on above: Result Comment: PERF ORMED BY: [place] [address] PATHOLOGIST JANITOR CARETAKER ALEXA PASTOR M.D. Performed By: #### I SCRE #### [facility] [address] [place] [address] No Panel InformationOrdered By: Klever Melvin on 05-22-2024 Bedside Estimated GFR (eGFR) > 60.0 [facility] Whole blood creatinine measu rementOrdered By: Klever Melvin on 05-22-2024 Creatinine [Mass/Vol] 1.3 mg/dL Normal 0.6-1.3 [facility] Comment on above: ER/ESD physician is notified/shown all ISTAT results.Critical values may be confirmed by laboratory testing ifdeemed necessary by ER attending doctor. Result Comment: ER/E SD physician is notified/shown all ISTAT results. Critical values may be confirmed by laboratory testing if deemed necessary by ER attending doctor. Performed By: #### I SCRE #### [facility] [address] [place] [address] RAD - Nuclear Medicine Repor ton 04-08-2024 RAD - Nuclear Medicine Report [id number]#1.0 0TIFF Normal [facility] PET psma initial tx sb-mton 04-04-2024 PET psma initial tx sb-mt [facility] [place] [address] Nuclear Medicine Report Signed Patient: Cathie Anderson MR#: [id number] : 1955 Acct:[id number] Age/Sex: 68 / M ADM Date: 04/04/24 Loc: Room: Type: [facility] Attending Dr: Klever Melvin MD Copies to: [...] Kendell Subramanian M.D.04/04/2024 1:26 PM Dictation Location: [place] [address] Transcribed By: [facility] 04/04/24 1326 Dictated By: Kendell Subramanian II, MD 04/04/24 1309 Signed By: 04/04/24 1326 [facility] Pre-Certification Formon Pre-Certification Form [id number] 0TIFF [facility] Pre-Certification Formon Pre-Certification Form [id number] TIFF [facility] Physician Orderon 03-18-2024 Physician Order [id number]#1.00 TIFF [facility] Ambulatory Visit Summaryon 0 03-17-2024 Ambulatory Visit [...] Following Appointments Follow Up with NGOZI OWEN, MAGAN Goodwin When: Comments: schedule PSMA PET scan, f/u in 1 year w/ PSA Where: [facility] [address], [place] [address] [phone] Medications What How Much When Instructions Unchanged [...] or concerns Unchanged omeprazole (omeprazole 20 mg Nelson-) 1 Capsules By Mouth Every day Contact [...] professional organ (more content not included)... Normal [facility] Ambulatory Visit Summary CATHIE ANDERSON :1955 [...] Following Appointments Follow Up with NGOZI OWEN, MAGAN Goodwin When: Comments: schedule PSMA PET scan, f/u in 1 year w/ PSA Where: [facility] [address], [place] [address] [phone] Medications What How Much When Instructions Unchanged [...] professional organ (more content not included)... Normal [facility] Patient Educationon 03-17-20 24 Patient Education Oncology [...] male who is Black or is of Ra[place] or sub-Saharan descent. In general, screening is [...] Where to find more information ? [employer]: www.cancer.org ? [employer]: www.auanet.org Contact a health care [...] adds flu (more content not included)... Normal [facility] Urology Office/Clinic Noteon 03-17-2024 Urology Office/Clinic Note [...] 6.48 02/29/24 - 6.81 Prostate MRI 05/04/22 [facility] [place] - Prostate volume 136 mL. No evidence [...] Klever Alston, URL [facility] [address], [place] [address]- [phone] Additional Instructions: schedule PSMA PET scan, f/u in 1 year w/ PSA Patient Education Prostate Cancer Screening I, Carol Arcos, personally scribed for Dr. Melvin on 03/17/2024 10:43:47. . Documentation recorded by the scribCarol mendoza, accurately reflects the services(s) I performed and [...] 1 ca (more content not included)... Normal [facility] Comment on above: Result Comment: Elec tronically Signed By: Klever MELVIN MD\.br\Date and Time Signed: 03/17/24 10:47 EDT\.br\Electronically Co-Signed By: Carol Arcos\.br\Date and Time Co-Signed: 03/17/24 10:44 EDT Lab Reportson 03-03-2024 Lab Reports [id number] TIFF Normal [facility] CBC AUTO DIFFon 07-11-2022 BASO # 0.1 103/ul Normal 0.0-0.1 [facility] Comment on above: Performed By: #### C BC #### [facility] [address] [address] [address] Bebeto Perea Basophils/100 WBC (Bld) 0.5 % Normal 0.2-2.0 [facility] Comment on above: Performed By: #### C BC #### [facility] [facility] [address] [address] [address] Bebeto Perea EO # 0.1 103/ul Normal 0.0-0.7 [facility] Comment on above: Performed By: #### C BC #### [facility] [address] [place] [address] Dr. Bebeto Perea Eosinophils/100 WBC (Bld) 1.2 % Normal 0.9-7.0 [facility] Comment on above: Performed By: #### C BC #### [facility] [address] [place] [address] Dr. Bebeto Perea Erythrocyte distribution width (RBC) [Ratio] 13.7 % Normal 11.0-15.0 [facility] Comment on above: Performed By: #### C BC #### [facility] [address] [place] [address] Dr. Bebeto Perea Hematocrit (Bld) [Volume fraction] 42.1 % Normal 42.0-54.0 [facility] Comment on above: Performed By: #### C BC #### [facility] [address] [place] [address] Dr. Bebeto Perea Hemoglobin (Bld) [Mass/Vol] 14.0 g/dL Normal 14.0-18.0 [facility] Comment on above: Performed By: #### C BC #### [facility] [address] [place] [address] Dr. Bebeto Perea IG # 0.07 10e3/ul Critically high 0.00-0.03 [facility] Comment on above: Performed By: #### C BC #### [facility] [address] [place] [address] Dr. Bebeto Perea IG % 0.6 % Critically high 0.0-0.[address] [facility] Comment on above: Performed By: #### C BC #### [facility] [address] [place] [address] Dr. Bebeto Perea LYMPH # 2.3 103/ul Normal 1.2-3.8 [facility] Comment on above: Performed By: #### C BC #### [facility] [address] [place] [address] Dr. Bebeto Perea Lymphocytes/100 WBC (Bld) 20.6 % Normal 20.5-60.0 [facility] Comment on above: Performed By: #### C BC #### [facility] [address] [place] [address] Dr. Bebeto Perae MANUAL DIFF REQ NO Normal [facility] Comment on above: Performed By: #### C BC #### [facility] [address] [place] [address] Dr. Bebeto Perea MCH (RBC) [Entitic mass] 28.3 pg Normal 25.9-34.0 [facility] Comment on above: Performed By: #### C BC #### [facility] [address] [place] [address] Dr. Bebeto Perea MCHC (RBC) [Mass/Vol] 33.3 g/dL Normal 29.9-35.2 [facility] Comment on above: Performed By: #### C BC #### [facility] [address] [place] [address] Dr. Bebeto Perea MCV (RBC) [Entitic vol] 85.2 fL Normal 80.0-94.0 [facility] Comment on above: Performed By: #### C BC #### [facility] [address] [place] [address] Dr. Bebeto Perea MONO # 1.0 103/ul Critically high 0.3-0.[address] [facility] Comment on above: Performed By: #### C BC #### [facility] [address] [place] [address] Dr. Bebeto Perea Monocytes/100 WBC (Bld) 8.7 % Normal 1.7-12.0 [facility] Comment on above: Performed By: #### C BC #### [facility] [address] [place] [address] Dr. Bebeto Perea NEUT # 7.7 103/ul Critically high 1.4-6.[address] [facility] Comment on above: Performed By: #### C BC #### [facility] [address] [address] [address] Bebeto Perea Neutrophils/100 WBC (Bld) 68.4 % Normal 43.0-75.0 [facility] Comment on above: Performed By: #### C BC #### [facility] [address] [place] [address] Dr. Bebeto Perea Platelet mean volume (Bld) [Entitic vol] 9.3 fL Critically low 9.5-13.5 [facility] Comment on above: Performed By: #### C BC #### [facility] [address] [place] [address] Dr. Bebeto Perea PLT 313 103/ul Normal 150-450 [facility] Comment on above: Performed By: #### C BC #### [facility] [address] [place] [address] Dr. Bebeto Perea RBC 4.94 106/ul Normal 4.70-6.10 [facility] Comment on above: Performed By: #### C BC #### [facility] [address] [place] [address] Dr. Bebeto Perea WBC 11.3 103/ul Critically high 4.0-11.0 [facility] Comment on above: Performed By: #### C BC #### [facility] [address] [place] [address] Dr. Bebeto Perea [facility]16 SARS-CoV-2 (COVID-19) RNA SILVINA+probe Ql (Unsp spec) Not detected Normal NOT DETECTED [facility] Comment on above: Result Comment: This test is not yet approved or cleared by the [place] FDA. When there are no FDA-approved or cleared tests available, and other criteria are met, FDA can make tests available under an emergency access mechanism called an Emergency Use Authorization (EUA). The EUA for this test is supported by the [place] of Health and Human Service's (HHS's) declaration [...] SARS-CoV-2. Performed By: #### C VDTB #### [facility] [address] [place] [address] Dr. Bebeto Perea PROF CHEM 8 (BAS METB)on Anion gap [Moles/Vol] 12.0 mmol/L Normal [facility] Comment on above: Performed By: #### B MP #### [facility] [address] [place] [address] Dr. Bebeto Perea Calcium [Mass/Vol] 9.0 mg/dL Normal 8.5-10.1 [facility] Comment on above: Performed By: #### B MP #### [facility] [address] [place] [address] Dr. Bebeto Perea Chloride [Moles/Vol] 105 mmol/L Normal 98-107 [facility] Comment on above: Performed By: #### B MP #### [facility] [address] [place] [address] Dr. Bebeto Perea CO2 [Moles/Vol] 28.8 mmol/L Normal 21.0-32.0 [facility] Comment on above: Performed By: #### B MP #### [facility] [address] [place] [address] Dr. Bebeto Perea Creatinine [Mass/Vol] 1.22 mg/dL Normal 0.70-1.30 [facility] Comment on above: Performed By: #### B MP #### [facility] [address] [place] [address] Dr. Bebeto Perea EGFR-AF MONTSERRATIAN >60 Normal >=60 [facility] Comment on above: Performed By: #### B MP #### [facility] [address] [address] [address] Bebeto Perea EGFR-NON AF MONTSERRATIAN 60 mL/min/1.73m2 Normal >=60 [facility] Comment on above: Performed By: #### B MP #### [facility] [address] [address] [address] Bebeto Perea Glucose [Mass/Vol] 88 mg/dL Normal 74-106 [facility] Comment on above: Performed By: #### B MP #### [facility] [address] [address] [address] Bebeto Perea Potassium [Moles/Vol] 3.8 mmol/L Normal 3.5-5.1 [facility] Comment on above: Performed By: #### B MP #### [facility] [address] [address] [address] Bebeto Perea Sodium [Moles/Vol] 142 mmol/L Normal 136-145 [facility] Comment on above: Performed By: #### B MP #### [facility] [address] [address] [address] Bebeto Perea Urea nitrogen [Mass/Vol] 30.0 mg/dL Critically high 7.0-18.0 [facility] Comment on above: Performed By: #### B MP #### [facility] [address] [address] [address] Bebeto Perea Urea nitrogen/Creatinine [Mass ratio] 24.6 mg/mg Normal [facility] Comment on above: Performed By: #### B MP #### [facility] [address] [address] [address] Bebeto Perea PROTIMEon 07-11-2022 INR Coag (PPP) [Relative time] 1.05 {INR} Normal [facility] Comment on above: Performed By: #### P T, PTT #### [facility] [address] [address] [address] Bebeto Perea INR GUIDELINES SEE BELOW Normal [facility] Comment on above: Result Comment: BHUPENDRA RED INR: 2.0 - 3.0 CONDITIONS NOT LISTED BELOW 2.5 - 3.5 FOR PROSTHETIC HEART VALVE REPLACEMENT 2.5 - 3.5 RECURRENT THROMBOSIS Performed By: #### P T, PTT #### [facility] [address] [place], [place] [address] Dr. Bebeto Perea PT Coag (PPP) [Time] 11.3 s Normal 9.0-11.6 [facility] Comment on above: Performed By: #### P T, PTT #### [facility] [address] [place], [place] [address] Dr. Bebeto Perea PTTon 07-11-2022 aPTT Coag (Bld) [Time] 26.4 s Normal 22.3-36.2 [facility] Comment on above: Performed By: #### P T, PTT #### [facility] [address] [place], [place] [address] Dr. Bebeto Perea Creatinine (Bld) [Mass/Vol]O rdered By: Klever Melvin on 05-04-2022 Creatinine [Mass/Vol] 1.5 mg/dL 0.6-1.3 [facility] Comment on above: ER/ESD physician is notified/shown all ISTAT results. Critical values may be confirmed by laboratory testing if deemed necessary by ER attending doctor. No Panel InformationOrdered By: Klever Melvin on 05-04-2022 POC Estimated GFR 57 [facility] Comment on above: GFR estimated refere nce range: According to KDOQI guidelines, <60 ml/min/1.73m2 is sufficient to diagnose a patient with chronic kidney disease. POC Estimated GFR Non- Amer 47 [facility] XR Hip Complete Left*on XR Hip Complete Left* FINDINGS: Mild to moderate superior hip joint space loss. Small left pincer deformity. No significant CAM deformity. Bilateral small os acetabuli, non-acute. IMPRESSION: 1. Mild to moderate osteoarthritis. Report reported and signed by Jaydon Bernal on 02/16/2022 1242 Normal [facility] [employer] Complete Blood Count with Au to Diffon 01-24-2022 Basophils (Bld) [#/Vol] 0.02 10*3/uL Normal 0.00-0.20 [facility] Comment on above: Performed By: #### C MP, CBCAD, LIPD #### [facility] [address] [place], [place] [id number] Basophils/100 WBC (Bld) 0.4 % Normal [facility] [employer] Comment on above: Performed By: #### C MP, CBCAD, LIPD #### [facility] [address] [place], [place] [id number] Eosinophils (Bld) [#/Vol] 0.03 10*3/uL Normal 0.02-0.50 [facility] [employer] Comment on above: Performed By: #### C MP, CBCAD, LIPD #### [facility] [address] [place], [place] [id number] Eosinophils/100 WBC (Bld) 0.6 % Normal [facility] [employer] Comment on above: Performed By: #### C MP, CBCAD, LIPD #### [facility] [address] [place], [place] [id number] Erythrocyte distribution width (RBC) [Ratio] 13.7 % Normal 11.0-15.0 [facility] [employer] Comment on above: Performed By: #### C MP, CBCAD, LIPD #### [facility] [address] [place], [place] [id number] Hematocrit (Bld) [Volume fraction] 37.4 % Low 38.5-50.0 [facility] [employer] Comment on above: Performed By: #### C MP, CBCAD, LIPD #### [facility] [address] [place], [place] [id number] Hemoglobin (Bld) [Mass/Vol] 12.4 g/dL Low 13.0-17.1 [facility] [employer] Comment on above: Performed By: #### C MP, CBCAD, LIPD #### [facility] [address] [place], [place] [id number] Lymphocytes (Bld) [#/Vol] 1.8 10*3/uL Normal 0.9-3.9 [facility] Comment on above: Performed By: #### C MP, CBCAD, LIPD #### [facility] [address] [place], [place] [id number] Lymphocytes/100 WBC (Bld) 32.8 % Normal [facility] Comment on above: Performed By: #### C MP, CBCAD, LIPD #### [facility] [address] [place], [place] [id number] MCH (RBC) [Entitic mass] 27.7 pg Normal 27.0-33.0 [facility] Comment on above: Performed By: #### C MP, CBCAD, LIPD #### [facility] [address] [place], [place] [id number] MCHC (RBC) [Mass/Vol] 33.2 g/dL Normal 32.0-36.0 [facility] Comment on above: Performed By: #### C MP, CBCAD, LIPD #### [facility] [address] [place], [place] [id number] MCV (RBC) [Entitic vol] 84 fL Normal 80-100 [facility] Comment on above: Performed By: #### C MP, CBCAD, LIPD #### [facility] [address] [place], [place] [id number] Monocytes (Bld) [#/Vol] 0.4 10*3/uL Normal 0.2-0.9 [facility] Comment on above: Performed By: #### C MP, CBCAD, LIPD #### [facility] [address] [place], [place] [id number] Monocytes/100 WBC (Bld) 6.6 % Normal [facility] Comment on above: Performed By: #### C MP, CBCAD, LIPD #### [facility] [address] [place], [place] [id number] Neutrophils (Bld) [#/Vol] 3.2 10*3/uL Normal 1.5-7.8 [facility] Comment on above: Performed By: #### C MP, CBCAD, LIPD #### [facility] [address] [place], [place] [id number] Neutrophils/100 WBC (Bld) 59.2 % Normal [facility] Comment on above: Performed By: #### C MP, CBCAD, LIPD #### [facility] [address] [place], [place] [id number] Platelet mean volume (Bld) [Entitic vol] 9.70 fL Normal 7.50-12.50 [facility] Comment on above: Performed By: #### C MP, CBCAD, LIPD #### [facility] [address] [place], [place] [id number] Platelets (Bld) [#/Vol] 264 10*3/uL Normal 140-400 [facility] Comment on above: Performed By: #### C MP, CBCAD, LIPD #### [facility] [address] [place], [place] [id number] RBC (Bld) [#/Vol] 4.47 10*6/uL Normal 4.20-5.80 [facility] Comment on above: Performed By: #### C MP, CBCAD, LIPD #### [facility] [address] [place], [place] [id number] RDW-SD 41.9 fL Normal 37.0-50.0 [facility] Comment on above: Performed By: #### C MP, CBCAD, LIPD #### [facility] [address] [place], [place] [id number] WBC (Bld) [#/Vol] 5.3 10*3/uL Normal 3.8-11.0 [facility] Comment on above: Performed By: #### C MP, CBCAD, LIPD #### [facility] [address] [place], [place] [id number] Comprehensive Metabolic Pane jayce 01-24-2022 Albumin [Mass/Vol] 4.2 g/dL Normal 3.6-5.1 [facility] Comment on above: Performed By: #### C MP, CBCAD, LIPD #### [facility] [address] [place], [place] [id number] Albumin/Globulin [Mass ratio] 1.8 {ratio} Normal 1.0-2.5 [facility] Comment on above: Performed By: #### C MP, CBCAD, LIPD #### [facility] [address] [place], [place] [id number] ALP [Catalytic activity/Vol] 49 U/L Normal 40-129 [facility] Comment on above: Performed By: #### C MP, CBCAD, LIPD #### [facility] [address] [place], [place] [id number] ALT [Catalytic activity/Vol] 20 U/L Normal 9-46 [facility] Comment on above: Result Comment: 09/14 Female reference range changed. Performed By: #### C MP, CBCAD, LIPD #### [facility] [address] [facility] [place] [id number] Anion gap [Moles/Vol] 16 mmol/L Normal 12-20 [facility] Comment on above: Result Comment: Effe ctive 10/20/2019 reference range changed. Performed By: #### C MP, CBCAD, LIPD #### [facility] [address] [place], [place] [id number] AST [Catalytic activity/Vol] 20 U/L Normal 10-40 [facility] Comment on above: Performed By: #### C MP, CBCAD, LIPD #### [facility] [address] [facility] [place] [id number] Bilirubin [Mass/Vol] 0.56 mg/dL Normal 0.30-1.20 [facility] Comment on above: Performed By: #### C MP, CBCAD, LIPD #### [facility] [address] [place], [place] [id number] BUN/CREA 22 Ratio Normal 6-22 [facility] Comment on above: Performed By: #### C MP, CBCAD, LIPD #### [facility] [address] [place], [place] [id number] Calcium [Mass/Vol] 9.3 mg/dL Normal 8.6-10.2 [facility] Comment on above: Performed By: #### C MP, CBCAD, LIPD #### [facility] [address] [facility] [place] [id number] Chloride [Moles/Vol] 103 mmol/L Normal 98-107 [facility] Comment on above: Performed By: #### C MP, CBCAD, LIPD #### [facility] [address] [facility] [place] [id number] CO2 [Moles/Vol] 25 mmol/L Normal 20-31 [facility] Comment on above: Performed By: #### C LAYA, CBCAD, LIPD #### [facility] [address] [place], [place] [id number] Creatinine [Mass/Vol] 1.1 mg/dL Normal 0.7-1.4 [facility] Comment on above: Performed By: #### C MP, CBCAD, LIPD #### [facility] [address] [place], [place] [id number] eGFRAA 83 mL/min/1.73m2 Normal >60 [facility] Comment on above: Performed By: #### C LAYA, CBCAD, LIPD #### [facility] [address] [place], [place] [id number] eGFRNAA 69 mL/min/1.73m2 Normal >60 [facility] Comment on above: Performed By: #### C LAYA, CBCAD, LIPD #### [facility] [address] [place], [place] [id number] Globulin (S) [Mass/Vol] 2.3 g/dL Normal 1.9-3.7 [facility] Comment on above: Performed By: #### C LAYA, CBCAD, LIPD #### [facility] [address] [place], [place] [id number] Glucose [Mass/Vol] 116 mg/dL High 65-99 [facility] Comment on above: Result Comment: For FASTING Glucose --- ADA reference ranges: Normal 65-99 mg/dl Prediabetes 100-125 Diabetes >/= 126 Performed By: #### C MP, CBCAD, LIPD #### [facility] [address] [place], [place] [id number] Potassium [Moles/Vol] 3.8 mmol/L Normal 3.5-5.5 [facility] Comment on above: Performed By: #### C MP, CBCAD, LIPD #### [facility] [address] [place], [place] [id number] Protein [Mass/Vol] 6.5 g/dL Normal 6.1-8.1 [facility] Comment on above: Performed By: #### C MP, CBCAD, LIPD #### [facility] [address] [place], [place] [id number] Sodium [Moles/Vol] 140 mmol/L Normal 135-146 [facility] Comment on above: Performed By: #### C MP, CBCAD, LIPD #### [facility] [address] [place], [place] [id number] Urea nitrogen [Mass/Vol] 23 mg/dL Normal 7-25 [facility] Comment on above: Performed By: #### C MP, CBCAD, LIPD #### [facility] [address] [place], [place] [id number] Hemoglobin A1Con 01-24-2022 EAG 125.50 Normal [facility] Comment on above: Performed By: #### A 1C #### [facility] [address] [place], [place] [id number] HbA1c (Bld) [Mass fraction] 6.0 % Normal 4.0-6.0 [facility] Comment on above: Performed By: #### A 1C #### [facility] [address] [place], [place] [id number] Lipid Panelon 01-24-2022 Cholesterol [Mass/Vol] 151 mg/dL Normal 125-[address] [facility] Comment on above: Result Comment: Low risk < 200mg/dL Borderline risk 201-239 mg/dl High risk > or equal to 240 Performed By: #### C MP, CBCAD, LIPD #### [facility] [address] [place], [place] [id number] Cholesterol in HDL [Mass/Vol] 32 mg/dL Low >40 [facility] Comment on above: Result Comment: High Cardiovascular Risk HDL <40 mg/dL Low Cardiovascular Risk HDL > or equal to 60 mg/dl Performed By: #### C MP, CBCAD, LIPD #### [facility] [address] [place], [place] [id number] Cholesterol in LDL [Mass/Vol] 94 mg/dL Normal [facility] Comment on above: Result Comment: LDL ATP III CLASSIFICATION LDL less than 100 mg/dl Optimal LDL 100-129 mg/dl Near or above optimal LDL 130-159 Borderline high LDL 160-189 High LDL greater than 189 mg/dl Very High Performed By: #### C MP, CBCAD, LIPD #### [facility] [address] [place], [place] [id number] Cholesterol in VLDL [Mass/Vol] 25 mg/dL Normal [facility] [employer] Comment on above: Performed By: #### C MP, CBCAD, LIPD #### [facility] [address] [place], [place] [id number] Cholesterol.total/Chol esterol in HDL [Mass ratio] 5 {ratio} Normal [facility] [employer] [facility] Comment on above: Performed By: #### C MP, CBCAD, LIPD #### [facility] [address] [place], [place] [id number] Triglyceride [Mass/Vol] 125 mg/dL Normal 30-150 [facility] Comment on above: Result Comment: TRIG ATPIII CLASSIFICATIONS TRIG less than 150 mg/dl Normal TRIG 150-199 mg/dl Borderline High TRIG 200-500 mg/dl High TRIG greather than 500 mg/dl Very High Performed By: #### C MP, CBCAD, LIPD #### [facility] [address] [place], [place] [id number] XR Chest 2 Views*on 01-25-20 22 XR [...] by Jaydon Bernal on 01/24/2022 1412 Normal [facility] Vital Signs Date Time Vital Sign Value Performing Clinician Facility 09-19-2024 10:00-0500 Body height 175.3 cm Fabian Cardoza MD Work Phone: [facility] 09-19-2024 10:00-0500 Body mass index (BMI) [Ratio] 32.19 kg/m2 Fabian Cardoza MD Work Phone: [facility] 09-19-2024 10:00-0500 Body temperature 97.81 [degF] Fabian Cardoza MD Work Phone: [facility] 09-19-2024 10:00-0500 Body weight 98.88 kg Fabian Cardoza MD Work Phone: [facility] 09-19-2024 10:00-0500 Diastolic blood pressure 68 mm[Hg] Fabian Cardoza MD Work Phone: [facility] 09-19-2024 10:00-0500 Heart rate 79 /min Fabian Cardoza MD Work Phone: [facility] 09-19-2024 10:00-0500 Respiratory rate 22 /min Fabian Cardoza MD Work Phone: [facility] 09-19-2024 10:00-0500 SaO2% (BldA) [Mass fraction] 97 % Fabian Cardoza MD Work Phone: [facility] 09-19-2024 10:00-0500 Systolic blood pressure 130 mm[Hg] Fabian Cardoza MD Work Phone: [facility] 08-25-2024 12:24-0500 Blood Pressure Location Klever MELVIN [facility] 08-25-2024 12:24-0500 Body temperature 98.6 [degF] Klever MELVIN [facility] 08-25-2024 12:24-0500 Diastolic blood pressure 80 mm[Hg] Klever MELVIN [facility] 08-25-2024 12:24-0500 Heart rate 68 /min Klever MELVIN [facility] 08-25-2024 12:24-0500 Respiratory rate 17 /min Klever MELVIN [facility] 08-25-2024 12:24-0500 Systolic blood pressure 131 mm[Hg] Klever MELVIN [facility] 07-31-2024 10:18-0400 Body height 177.8 cm Fabian Cadroza MD Work Phone: [facility] 07-31-2024 10:18-0400 Body mass index (BMI) [Ratio] 31.42 kg/m2 Fabian Cardoza MD Work Phone: [facility] 07-31-2024 10:18-0400 Body temperature 97.3 [degF] Fabian Cardoza MD Work Phone: [facility] 07-31-2024 10:18-0400 Body weight 99.34 kg Fabian Cardoza MD Work Phone: [facility] 07-31-2024 10:18-0400 Diastolic blood pressure 72 mm[Hg] Fabian Cardoza MD Work Phone: [facility] 07-31-2024 10:18-0400 Heart rate 68 /min Fabian Cardoza MD Work Phone: [facility] 07-31-2024 10:18-0400 Respiratory rate 20 /min Fabian Cardoza MD Work Phone: [facility] 07-31-2024 10:18-0400 SaO2% (BldA) [Mass fraction] 98 % Fabian Cardoza MD Work Phone: [facility] 07-31-2024 10:18-0400 Systolic blood pressure 140 mm[Hg] Fabian Cardoza MD Work Phone: [facility] 04-04-2024 10:43-0400 Body height 175.26 cm MD Fabian Cardoza Work Phone: [facility] 04-04-2024 10:43-0400 Body weight 95.25 kg MD Fabian Cardoza Work Phone: [facility] 03-17-2024 09:53-0400 Blood Pressure Location Klever MELVIN [facility] 03-17-2024 09:53-0400 Body temperature 98.6 [degF] Klever MELVIN [facility] 03-17-2024 09:53-0400 Diastolic blood pressure 84 mm[Hg] Klever MELVIN [facility] 03-17-2024 09:53-0400 Heart rate 70 /min Klever MELVIN [facility] 03-17-2024 09:53-0400 Respiratory rate 16 /min Klever MELVIN [facility] 03-17-2024 09:53-0400 Systolic blood pressure 137 mm[Hg] Klever MELVIN [facility] 02-26-2023 10:57-0400 Blood Pressure Location Klever MELVIN [facility] 02-26-2023 10:57-0400 Diastolic blood pressure 88 mm[Hg] Klever MELVIN [facility] 02-26-2023 10:57-0400 Heart rate 88 /min Klever MELVIN [facility] 02-26-2023 10:57-0400 Respiratory rate 16 /min Klever MELVIN [facility] 02-26-2023 10:57-0400 Systolic blood pressure 137 mm[Hg] Klever MELVIN [facility] 07-24-2022 09:47-0400 Blood Pressure Location Klever MELVIN [facility] 07-24-2022 09:47-0400 Diastolic blood pressure 84 mm[Hg] Klever MELVIN [facility] 07-24-2022 09:47-0400 Heart rate 71 /min Klever MELVIN [facility] 07-24-2022 09:47-0400 Respiratory rate 16 /min Klever MELVIN [facility] 07-24-2022 09:47-0400 Systolic blood pressure 138 mm[Hg] Klever MELVIN [facility] 04-21-2022 10:53-0400 Diastolic blood pressure 82 mm[Hg] Klever MELVIN [facility] 04-21-2022 10:53-0400 Mean blood pressure 101 mm[Hg] Klever MELVIN [facility] 04-21-2022 10:53-0400 Systolic blood pressure 140 mm[Hg] Klever MELVIN [facility] 04-21-2022 10:33-0400 Blood Pressure Location Klever MELVIN [facility] 04-21-2022 10:33-0400 Diastolic blood pressure 100 mm[Hg] Klever MELVIN [facility] 04-21-2022 10:33-0400 Heart rate 75 /min Klever MELVIN [facility] 04-21-2022 10:33-0400 Systolic blood pressure 159 mm[Hg] Klever MELVIN [facility] 07-08-2021 12:40-0400 Body height 176.53 cm Rocio Lynette Other [employer] Other 07-08-2021 12:40-0400 Body mass index (BMI) [Ratio] 33.94 kg/m2 Rocio Wheatmond Other [employer] Other 07-08-2021 12:40-0400 Body temperature 97.5 [degF] Rocio Wheatmond Other [employer] Other 07-08-2021 12:40-0400 Body weight 105.78 kg Rocio Wheatmond Other [employer] Other 07-08-2021 12:40-0400 Diastolic blood pressure 80 mm[Hg] Rocio Lynette Other [employer] Other 07-08-2021 12:40-0400 Respiratory rate 18 /min Rocio Lynette Other [employer] Other 07-08-2021 12:40-0400 SaO2% (BldA) [Mass fraction] 95 % Rocio Lynette Other [employer] Other 07-08-2021 12:40-0400 Systolic blood pressure 150 mm[Hg] Rocio Lynette Other [employer] Other Encounters Encounter Date Encounter Type Care Provider Facility Start: 02-18-2025 End: 02-18-2025 Robbie Goodrich CCC-A Work Phone: [facility] Start: 02-18-2025 End: 02-18-2025 Bamboo flowsheet Danitza Goodrich CCC-A Work Phone: [facility] Start: 02-18-2025 End: 02-18-2025 ambulatory DANITZA GOODRICH Not Available Start: 02-18-2025 End: 02-18-2025 Clinical Support Danitza Goodrich CCC-A Work Phone: [facility] Comment on above: Asymmetrical sensori neural hearing loss (Primary Dx) Start: 02-17-2025 End: 02-17-2025 Telephone encounter Danitza Goodrich CCC-A Work Phone: [facility] Comment on above: Supplies Start: 02-02-2025 End: 02-03-2025 Telephone encounter Fabian Cardoza MD Work Phone: [facility] Comment on above: Med Refill Start: 11-03-2024 End: 11-03-2024 Orders Only Fabian Cardoza MD Work Phone: [facility] Comment on above: Gastroesophageal ref lux disease without esophagitis Start: 09-19-2024 End: 09-19-2024 Bamboo flowsheet Fabian Cardoza MD Work Phone: [facility] Start: 09-19-2024 End: 09-19-2024 Bamboo flowsheet Fabian Cardoza MD Work Phone: [facility] Start: 09-19-2024 End: 09-19-2024 Patient encounter procedure Fabian Cardoza MD Work Phone: [facility] Work Phone: Start: 09-19-2024 End: 09-19-2024 Postop follow up visit related to original px Fabian Cardoza MD Work Phone: [facility] Comment on above: Medicare annual well ness visit, subsequent (Primary Dx); Prediabetes; Dyslipidemia (CMS/HCC); Encounter for long-term (current) use of medications; Class 1 obesity due to excess calories with serious comorbidity and body mass index (BMI) of 32.0 to 32.9 in adult; Essential hypertension, benign (CMS/HCC) Start: 09-19-2024 End: 09-19-2024 ambulatory FABIAN CARDOZA Not Available Start: 08-25-2024 End: 08-25-2024 ambulatory Klever MELVIN Facility:[facility] Start: 08-25-2024 End: 08-25-2024 Patient encounter procedure Klever MELVIN [facility] Start: 08-12-2024 End: 08-12-2024 Clinisync Result Encounter Generic External Data Provider [facility] Unsolicited Start: 08-12-2024 End: 08-12-2024 Clinisync Result Encounter Generic External Data Provider [facility] Unsolicited Start: 08-11-2024 End: 08-11-2024 Orders Only Fabian [...] CARDOZA Not Available Start: 06-09-2024 End: 06-09-2024 Bamboo flowsheet Carli Juarez MD Work Phone: [facility] Start: 06-09-2024 End: 06-09-2024 Bamboo flowsheet Carli Juarez MD Work Phone: [facility] Start: 06-09-2024 End: 06-09-2024 Office outpatient visit 15 minutes Carli Juarez MD Work Phone: [facility] Comment on above: Seborrheic keratosis (Primary Dx); Actinic keratosis; Angioma of skin; Lentigines Start: 06-09-2024 End: 06-09-2024 ambulatory CARLI JUAREZ Not Available Start: 05-22-2024 End: 05-22-2024 Patient encounter procedure MD Fabian Cardoza Work Phone: [facility] [place] Work Phone: Start: 05-22-2024 End: 05-22-2024 ambulatory MD Fabian Cardoza Work Phone: [facility] Work Phone: Start: 04-04-2024 End: 04-04-2024 Patient encounter procedure MD Fabian Cardoza Work Phone: [facility] Work Phone: Start: 04-04-2024 End: 04-04-2024 ambulatory MD Fabian Cardoza Work Phone: [facility] Work Phone: Start: 03-17-2024 End: 03-17-2024 ambulatory Klever MELVIN Facility:[facility] Start: 03-17-2024 End: 03-17-2024 Patient encounter procedure Klever MELVIN [facility] Start: 07-17-2023 End: 07-17-2023 ambulatory RICKY NOBLES [facility] Start: 06-19-2023 End: 06-20-2023 ambulatory MESSI WOODS [facility] Start: 02-26-2023 End: 02-26-2023 Patient encounter procedure Klever R NGOZI [facility] Start: 02-06-2023 End: 02-06-2023 Patient encounter procedure Klever R NGOZI [facility] Start: 01-24-2023 End: 01-25-2023 ambulatory KLEVER MELVIN Facility:[facility] Start: 07-24-2022 End: 07-24-2022 Patient encounter procedure Klever R NGOZI [facility] Start: 07-13-2022 Encounter for prepro cedural cardiovascular examination [facility] Start: 07-13-2022 Encounter for prepro cedural laboratory examination [facility] Start: 07-13-2022 Encounter for prepro cedural respiratory examination [facility] Start: 07-13-2022 End: 07-13-2022 ambulatory KLEVER MELVIN Facility:[facility] Start: 07-11-2022 End: 07-12-2022 ambulatory KLEVER MELVIN Facility:[facility] Start: 07-11-2022 End: 07-12-2022 Encounter for preprocedural laboratory examination KLEVER MELVIN Facility:[facility] Start: 06-14-2022 End: 07-12-2022 Pre-admission assessment Klever MELVIN [facility] Start: 05-04-2022 End: 05-04-2022 Patient encounter procedure MD Klever Melvin Work Phone: [facility] [place] Start: 04-21-2022 End: 04-21-2022 Patient encounter procedure Klever Alecia NGOZI [facility] Start: 04-14-2022 End: 04-15-2022 ambulatory KLEVER MELVIN Facility:[facility] Start: 07-08-2021 Office outpatient ne w 20 minutes Rocio Ojeda [facility] [place] Procedures Date Procedure Procedure Detail Performing Clinician Start: 08-12-2024 [facility] PSA, DIAGNOSTIC Ge neric External Data Provider Start: 06-09-2024 CRYOTHERAPY SKIN LESION Carli Juarez MD Work Phone: Start: 04-04-2024 Positron emission tomography MD Fabian Cardoza Work Phone: Start: 02-06-2023 Transrectal biopsy o f prostate using ultrasound guidance Klever MELVIN Start: 01-24-2023 PSA screening KLEVER KUMAR Comment on above: Performed By: #### P SAD #### [facility] [address] [place] [address] Dr. Bebeto Perea Start: 07-13-2022 Transrectal biopsy o f prostate using ultrasound guidance Klever MELVIN Start: 04-14-2022 PSA screening KLEVER KUMAR Comment on above: Performed By: #### P SAD #### [facility] [address] [place] [address] Dr. Bebeto Perea Start: 01-24-2022 Microscopic examinat ion of blood, culture Comment on above: Order Comment: [facility] Testing performed at: [facility], [facility], [address] [place] [address], [address] [place] [address], [id number], Grain Farmer: Chaparro Mcintyre MD [facility] Collection Date/Time: [facility] Results Received Date/Time: [facility] Reported Date/Time: Result Comment: CULT URE, BLOOD Micro Number: [id number] Test Status: Final Specimen Source: Rt arm Specimen Quality: Adequate Result: No growth after 5 days TRANSPORT MEDIA: Aerobic and anaerobic bottle received. Performed By: #### 6 [id number] #### [facility] [address] [place] [address] Start: 06-23-2021 Percutaneous translu chet laser ablation of varicose vein of lower limb Klever MELVIN Start: 02-10-2021 Transurethral prostatectomy Klever MELVIN Start: 01-07-2021 Cystoscopy Klever CUNNINGHAM Start: 10-09-2018 Colonoscopy Carli vega MD Work Phone: Colonoscopy Klever MELVIN Transurethral prostatectomy Klever MELVIN Plan of Treatment Date Care Activity Detail Author Start: 10-09-2028 Screening for malign ant neoplasm of colon [facility] Start: 09-19-2025 Medicare Annual Wellness (AWV) Medicare Annual Wellness (AWV) [facility] Start: 08-31-2025 ambulatory Ambulatory Facility:[facility] Start: 06-11-2025 End: 06-11-2025 Patient encounter procedure 06/11/2025 10:45 AM EDT Office Visit [facility] [address] [place] [phone] Carli Juarez MD [address] [place] [address] [facility] Start: 03-30-2025 End: 03-30-2025 Patient encounter procedure 03/30/2025 9:45 AM EDT Office Visit [facility] [address] [place] [phone] Fabian Cardoza MD [address] [place] [phone] [facility] Start: 03-23-2025 End: 03-23-2025 Patient encounter procedure 03/23/2025 10:00 AM EDT Office Visit [facility] [address] [place] [phone] Fabian Cardoza MD [address] [place] [phone] [facility] Start: 09-19-2024 End: 09-19-2025 Basic metabolic 1998 panel - Serum or Plasma Basic metabolic panel Lab Routine Encounter for long-term (current) use of medications Expected: 09/19/2024 (Approximate), Expires: 09/19/2025 [facility] Comment on above: Expected: 09/19/2024 (Approximate), Expires: 09/19/2025 Start: 09-19-2024 End: 09-19-2025 CBC W Auto Differential panel - Blood CBC and differential Lab Routine Encounter for long-term (current) use of medications Expected: 09/19/2024 (Approximate), Expires: 09/19/2025 [facility] Comment on above: Expected: 09/19/2024 (Approximate), Expires: 09/19/2025 Start: 09-19-2024 End: 09-19-2025 Hemoglobin A1c/Hemoglobin.total in Blood Hemoglobin A1c Lab Routine Prediabetes Expected: 09/19/2024 (Approximate), Expires: 09/19/2025 [facility] Work Phone: Comment on above: Expected: 09/19/2024 (Approximate), Expires: 09/19/2025 Start: 09-19-2024 End: 09-19-2025 Hepatic function 2000 panel - Serum or Plasma Hepatic function panel Lab Routine Encounter for long-term (current) use of medications Expected: 09/19/2024 (Approximate), Expires: 09/19/2025 [facility] Comment on above: Expected: 09/19/2024 (Approximate), Expires: 09/19/2025 Start: 09-19-2024 End: 09-19-2025 Lipid 1996 panel - Serum or Plasma Lipid panel Lab Routine Dyslipidemia (CMS/HCC) Expected: 09/19/2024 (Approximate), Expires: 09/19/2025 [facility] Comment on above: Expected: 09/19/2024 (Approximate), Expires: 09/19/2025 Start: 09-19-2024 End: 09-19-2025 Thyrotropin [Units/volume] in Serum or Plasma TSH Lab Routine Class 1 obesity due to excess calories with serious comorbidity and body mass index (BMI) of 32.0 to 32.9 in adult Expected: 09/19/2024 (Approximate), Expires: 09/19/2025 [facility] Comment on above: Expected: 09/19/2024 (Approximate), Expires: 09/19/2025 Start: 09-19-2024 End: 09-19-2024 Patient encounter procedure [facility] Comment on above: Arrived Start: 08-19-2024 End: 08-19-2024 Patient encounter procedure 08/19/2024 11:00 AM EST Office Visit [facility] [address] [place] [phone] Fabian Cardoza MD [address] [place] [address] [facility] Start: 08-07-2024 Medicare Annual Wellness (AWV) Medicare Annual Wellness (AWV) [facility] Start: 07-31-2024 End: 07-31-2025 XR Cervical spine 2 or 3 Views XR cervical spine 2 or 3 views Imaging Routine Cervical spondylolysis Expected: 07/31/2024, Expires: 07/31/2025 [facility] Work Phone: Comment on above: Expected: 07/31/2024 , Expires: 07/31/2025 Start: 07-31-2024 End: 07-31-2024 Patient encounter procedure 07/31/2024 10:15 AM EDT Office Visit [facility] [address] [place] [address] Fabian Cardoza MD [address] [place] [phone] Arrived [facility] Comment on above: Arrived Start: 06-15-2024 Influenza vaccination Influenza Vacc ine (#1) [facility] Start: 06-09-2024 End: 06-09-2024 Patient encounter procedure 06/09/2024 11:15 AM EDT Office Visit [facility] [address] [place] [phone] Carli Juarez MD [address] [place] [address] Arrived [facility] Comment on above: Arrived Start: 05-22-2024 MR Prostate WO and W contrast IV [facility] Start: 05-22-2024 MR prostate wo/w con MR prostate wo/ w con [facility] Start: 05-04-2022 MR Prostate WO and W contrast IV [facility] Work Phone: Start: 05-04-2022 MR prostate wo/w con MR prostate wo/ w con [facility] Start: 2021 Pneumococcal Vaccine : 65+ Years (1 of 1 - PCV) Pneumococcal Vaccine: 65+ Years (1 of 1 - PCV) [facility] Start: 1955 Screening for malign ant neoplasm of colon [facility] Immunizations Immunization Date Immunization Notes Care Provider Fa cility 08-21-2023 influenza virus vaccine, unspecified formulation Carli Juarez MD Work Phone: [facility] 05-02-2022 SARS-CoV-2 (COVID-19 ) mRNA-1273 vaccine Klever MELVIN [facility] 09-12-2021 SARS-CoV-2 (COVID-19 ) mRNA-1273 vaccine Klever MELVIN [facility] 01-21-2021 SARS-CoV-2 (COVID-19 ) mRNA-1273 vaccine Klever MELVIN [facility] 12-24-2020 SARS-CoV-2 (COVID-19 ) mRNA-1273 vaccine Klever MELVIN [facility] 07-28-2020 influenza virus vaccine, unspecified formulation Klever MELVIN [facility] 08-31-2019 influenza virus vaccine, unspecified formulation Klever MELVIN [facility] 06-19-2019 zoster vaccine recombinant Klever MELVIN [facility] 01-29-2019 zoster vaccine recombinant Klever MELVIN [facility] 09-30-2018 influenza virus vaccine, unspecified formulation Klever MELVIN [facility] 09-03-2017 influenza virus vaccine, unspecified formulation Klever MELVIN [facility] 11-16-2015 influenza virus vaccine, unspecified formulation Klever MELVIN [facility] 09-16-2014 influenza virus vaccine, unspecified formulation Klever MELVIN [facility] Payers Date Payer Category Payer Self-pay [id number] 2023 Medicare [facility] MEDICARE ADVANTAGE [facility] MEDICARE ADVANTAGE [id number] 2023-Present [address] [place] [address] [id number] 2023 Medicare (Managed Care) [facility] [id number] 2023 Medicare [id number] 2023 Unknown [id number] 2021 Unknown [id number] Private Health Insurance [id number] 1955 Unknown [id number] 1955 Unknown [id number] 1956 Unknown [id number] [id number] .593 1956 Unknown [id number] [id number] .593 1956 Unknown [id number] [id number] .727 1956 Unknown [id number] [id number] .727 1956 Unknown [id number] [id number] .727 1956 Unknown [id number] [id number] .1259 1956 Unknown [id number] [id number] .1259 1956 Unknown [id number] [id number] .1259 1956 Unknown [id number] [id number] .1259 Medicare Medicare [id number] Unknown [id number] .531 Unknown [id number] .531 Social History Date Type Detail Facility Unknown if ever smoked [facility] [employer] Other Start: 06-09-2024 End: 09-19-2024 Sex Assigned At [facility] [employer] Other Start: 04-21-2022 End: 07-03-2023 Tobacco smoking status Ex-smoker (finding) [facility] Start: 1955 Sex Assigned At Male [facility] Start: 07-08-2021 Tobacco smoking stat [facility] Never smoked tobacco (finding) [facility] History of tobacco use Current smoker [facility] History of tobacco use Cigarette Smoker [facility] Start: 06-09-2024 End: 09-19-2024 Alcoholic beverage intake Ex-drinker (finding) [facility] Start: 06-09-2024 End: 09-19-2024 History of Social function [facility] Start: 1955 Sex assigned at Not on file N [facility] Healthcare Functional Status Date Assessment Result Facility 08-25-2024 Functional Status N/A [facility] 03-17-2024 Functional Status N/A [facility] 02-26-2023 Functional Status N/A [facility] 07-24-2022 Functional Status N/A [facility] 04-21-2022 Functional Status N/A [facility] Clinical Notes 07-08-2021 to 02-18-2025 Emi Shaffer MA - 02/18/2025 10:15 AM EDTTelephone Encounter - ERICH Root - 02/17/2025 5:58 PM EDTTelephone Encounter - ERICH Root - 02/17/2025 5:58 PM EDT Note Date & Type Note Facility 02-18-2025 History of Present illness Narrative Patient picked up hearing aid supplies. He paid $30 for supplies. Cosigned by ERICH Root at 02/18/2025 10:30 AM EDT documented in this encounter [facility] 02-17-2025 Telephone encounter Note Pt clled for supplies. Explained he can get supplies from [employer] for $5.00 shipping. Our charge is $10 per package. Pt wants to sampler pickup supplies tomorrow in [place] and will pay $30. Will put [employer] supply ordering information in the supply bag. [facility] Work Phone: 02-17-2025 Miscellaneous Notes Pt clled for supplies. Explained he can get supplies from [employer] for $5.00 shipping. Our charge is $10 per package. Pt wants to sampler pickup supplies tomorrow in [place] and will pay $30. Will put [employer] supply ordering information in the supply bag. documented in this encounter [facility] 02-02-2025 Telephone encounter Note Refill of Tamsulosin HCL 0.4 mg [facility] 02-02-2025 Miscellaneous Notes Refill of Tamsulosin HCL 0.4 mg documented in this encounter [facility] 09-19-2024 History of Present illness Narrative Associated Problem(s): Medicare annual wellness visit, subsequent Will review labs. Discussed proper diet and regular aerobic exercise. Need aerobic exercise 5-6 days a week for 30 minutes at a time. Smaller portions and limit total calories. Colonoscopy every 10 years. Tetanus every 10 years. Advised not to smoke. Images from the original note were not included. Subjective Patient ID: Cathie Anderson is a 68 y.o. male who presents for Medicare Annual Wellness Visit Subsequent (wellness). Presents for medicare annual wellness visit. Patient feels well today. Weight down 10 pounds in past year. Active around house but recently moved and wasn't exercising. Plans on resuming walks about 2 miles 5 days a week. Tries to watch diet and eat healthy. Increased fruits and vegetables. Smaller portions and limits snacking. Tries to limit total daily calories. Patient had labs drawn for life insurance few months ago. Colonoscopy normal in 2018. Seen by urology and had PSA. Review of Systems Constitutional: Negative for fatigue. [...] There is no guarding or rebound. Musculoskeletal: General: Normal range of motion. Left lower leg: No edema. Neurological: General: No focal deficit present. Mental Status: He is alert. Cranial Nerves: No cranial nerve deficit. Deep Tendon Reflexes: Reflexes normal. Assessment/Plan Problem List Items Addressed This Visit Prediabetes Relevant Orders Hemoglobin A1c Essential hypertension, benign (CMS/HCC) Relevant Medications metoprolol succinate XL (Toprol-XL) 50 MG 24 hr tablet Dyslipidemia (CMS/HCC) Relevant Orders Lipid panel Medicare annual wellness visit, subsequent - Primary Will review labs. Discussed proper diet and regular aerobic exercise. Need aerobic exercise 5-6 days a week for 30 minutes at a time. Smaller portions and limit total calories. Colonoscopy every 10 years. Tetanus every 10 years. Advised not to smoke. Encounter for long-term (current) use of medications Relevant Orders Basic metabolic panel CBC and differential Hepatic function panel Class 1 obesity due to excess calories with serious comorbidity and body mass index (BMI) of 32.0 to 32.9 in adult Relevant Orders TSH documented in this encounter [facility] 08-25-2024 Hospital Discharge instructions Patient Education 08/25/2024 13:05:24 Prostate Cancer Screening Prostate Cancer Screening Prostate [...] treatment? Where to find more information [employer]: www.cancer.org [employer]: www.auanet.org Contact a health care [...] provider. Document Revised: 03/27/2022 Document Reviewed: 03/27/2022 Elsevier Patient Education 2023 Control de Pacientes. Follow Up Care 05/23/2024 13:14:58 With:NGOZI OWEN, Klever Alston, CHRISL Address: [facility] [address] [place] [address] [phone] When: Unknown [facility] 08-25-2024 Note Patient Education Oncology Prostate Cancer Screening Prostate [...] recommendations. In general, screening is recommended if: ??? You are age 50 to 70 and [...] have a 10- to 15-year life expectancy. ??? You are younger than age 50, and [...] In general, screening is not recommended if: ??? You are younger than age 40. ??? You are between the ages of 40 and 49 and you have no risk factors. ??? You are 70 years of age or [...] high PSA levels may be caused by: ??? Prostate cancer. ??? An enlarged prostate that is not caused by cancer (benign prostatic hyperplasia, or BPH). This condition is very common in older men. ??? A prostate gland infection (prostatitis) or urinary tract infection. ??? Certain medicines such as male hormones (like [...] you may need more tests, such as: ??? A physical exam to check the size of your prostate gland, if not done as part of screening. ??? Blood and imaging tests. ??? A procedure to remove tissue samples from your prostate gland for testing (biopsy). This is the only way to know for certain if you have prostate cancer. What are the benefits of prostate cancer screening? Screening can help to identify cancer at an early stage, before symptoms start and when the cancer can be treated more easily. ??? There is a small chance that screening [...] Questions to ask your health care provider ??? When should I start prostate cancer screening? What is my risk for prostate cancer? How often do I need screening? What type of screening tests do I need? How do I get my test results? What do my results mean? Do I need treatment? Where to find more information ??? The [employer]: www.cancer.org ??? [employer]: www.auanet.org Contact a health care provider if: ??? You have difficulty urinating. ??? You have pain when you urinate or ejaculate. ??? You have blood in your urine or semen. ??? You have pain in your back or in the area of your prostate. Summary ??? Prostate cancer is a common type of cancer in men. The prostate gland (more content not included)... [facility] 07-31-2024 History of Present illness Narrative Associated [...] or 3 views documented in this encounter [facility] 06-09-2024 History of Present illness Narrative Skin Check Location: Patient requests a skin examination from the waist up Dermatologic history: history of Actinic Keratosis Last visit: 1 year ago Established patient All pertinent medical history, medications, and allergies were reviewed. General Exam: alert , oriented to person, place, and time , normal affect, well appearing Unaccompanied A complete skin exam was offered, pt declined. Areas not examined despite medical recommendation: From the waist down Scalp, Examined , exam limited by hair Head, Face Examined Neck Examined Chest Examined Back Examined Abdomen Examined Right arm Examined Left arm Examined Hands Examined Digits,nails: Examined Lymphatics: Not examined 1. Seborrheic keratosis Mid Occipital Scalp Stuck on verrucous, milner-brown papules and plaques. Patient was counseled regarding these benign growths. Removal is normally not necessary, but they may be removed if they are symptomatic or for cosmetic reasons. 2. Actinic keratosis (6) Left Superior Stone, Mid Parietal Scalp (5) Erythematous scaly papules Patient was counseled regarding these sun-induced growths that can develop into squamous cell carcinoma if left untreated. Discussed treatment with cryotherapy. It was emphasized that any treated lesions that fail to resolve should be re-evaluated. Cryotherapy performed today; see procedure note Diagnosis: Actinic keratosis Indication: Precancerous Location: see skin exam Consent: Verbal consent was obtained and risks were discussed, including, but not limited to risks of scarring, darker or steam fitter supervisor maintenance pigmentary changes, recurrence, incomplete removal and infection. Method: Liquid nitrogen was used to treat the lesion(s) with two 5-10 second freeze-thaw cycles. Number of lesions treated: 6 Post-procedure instructions: Instructions were given orally and in writing. The office will be contacted if the lesion fails to resolve despite treatment, or if a side effect develops such as abnormal crusting, scabbing, redness or tenderness Cryotherapy, skin lesion - Left Superior Stone, Mid Parietal Scalp (5) 3. Angioma of skin Chest (Upper Torso, Anterior) Scattered ortiz-red papule(s). The patient was informed that angiomas are benign growths on the the skin. No treatment is necessary. 4. Lentigines (2) Neck, Torso - Posterior (Back) Scattered milner macules in sun-exposed areas. The patient was informed that lentigines are benign pigmented lesions that occur on sun-exposed and sun-damaged skin. No treatment is necessary. Recommended regular use of broad spectrum sunscreen SPF 30 or higher Next Visit: 1 year documented in this encounter [facility] 03-17-2024 Hospital Discharge instructions Patient Education [...] treatment? Where to find more information The [employer]: www.cancer.org [employer]: www.auanet.org Contact a health care [...] provider. Document Revised: 03/27/2022 Document Reviewed: 03/27/2022 Enplug Patient Education 2022 Control de Pacientes. Follow Up Care 02/26/2023 12:49:55 With:NGOZI OWEN, Klever Alston, URL Address: [facility] [address] , [place] [phone] When: Unknown Comments:schedule PSMA PET scan, f/u in 1 year w/ PSA [facility] Hospital Discharge instructions Patient Education 02/26/2023 [...] urethra. Follow these instructions at home: Take wadd-ewi-jiicvol and prescription medicines only as told by [...] provider. Document Revised: 04/19/2022 Document Reviewed: 04/19/2022 Enplug Patient Education 2022 Control de Pacientes. Follow Up Care 01/18/2023 11:18:50 With:NGOZI OWEN, Klever Alston, URL Address: [facility] [address] , [place] [address] [phone] When:Within 1 Year(s) Comments:f/u in 1 year with PSA [facility] 02-06-2023 Hospital Discharge instructions Patient Education 02/06/2023 [...] for your post-operative appointment in 1-2 weeks [phone] or [phone] Follow Up Care 01/18/2023 11:14:06 With:Klever MELVIN Address: [facility] [address], [place] [address]- Business (1) When: Unknown Comments:Keep scheduled appointment [facility] 07-24-2022 Hospital Discharge instructions Patient Education [...] urethra. Follow these instructions at home: Take pyjl-but-zzbpvfp and prescription medicines only as told by [...] 10/01/2006 Document Revised: 08/26/2019 Document Reviewed: 11/05/2017 Enplug Patient Education 2020 Control de Pacientes. Follow Up Care 06/14/2022 17:18:55 With:NGOZI OWEN, Klever Alston, URL Address: [facility] [address] , [place] [address]- [phone] When:01/22/2023 Comments:repeat BX. [facility] 07-11-2022 Note EXAMINATION: XR CHES T 2 [...] authenticated by: ARON BOONE Date: 2022-07-11 18:28 [facility] 04-21-2022 Hospital Discharge instructions Patient Education 04/21/2022 [...] one of these risk factors: ?Being of -Ukrainian descent. ?Having a family history of prostate [...] you: Are older than age 55. Are -Ukrainian. Have a father, brother, or uncle who [...] 07/12/2018 Document Revised: 09/13/2018 Document Reviewed: 07/12/2018 Enplug Patient Education 2020 [employer] Follow Up Care 10/17/2021 12:12:12 With:NGOZI OWEN, Klever Alston, URL Address: [address] [place] [phone] When: Unknown [facility] 07-08-2021 Evaluation note Encounter Date Diagnosis Assessment Notes Jun, Bee sting, undetermined intent, initial encounter (ICD-10 - T63.444A) Insect bites and stings material was printed. Drink plenty fluids, get plenty of rest. Consider applying Benadryl cream to the area for itching. You may take Benadryl by mouth as well for itching. Follow-up with your family physician for any further concerns. netFactor Other Evaluation + Plan note No data available for this section [facility] evaluation + Plan note Future Appointments Appointment Date:07/24/2022 09:30:00 AM Scheduled Provider:Klever MELVIN MD Location:[facility] Future Appointments Appointment Date:02/26/2023 10:45:00 AM Scheduled Provider:Klever MELVIN MD Location:[facility] Appointment Type:URO Office Visit Diagnostic Tests Pending * Prostate Histology ([facility]) [facility] Future Appointments Appointment Date:02/29/2024 10:45:00 AM Scheduled Provider:Klever MELVIN MD Location:[facility] Appointment Type:URO Office Visit Diagnostic Tests Pending * PSA Total 02/26/23 [facility] evaluation + Plan note Future Appointments Appointment Date:03/20/2025 09:30:00 AM Scheduled Provider:Klever MELVIN MD Location:[facility] Appointment Type:URO Office Visit Diagnostic Tests Pending * PSA Total 03/17/24 [facility] evaluation + Plan note Future Appointments Appointment Date:08/31/2025 09:15:00 AM Scheduled Provider:Klever MELVIN MD Location:[facility] Appointment Type:URO Office Visit Diagnostic Tests Pending * PSA Total 08/25/24 [facility] evaluation noteNo assessment information available [facility] Work Phone: Evaluation note* Diagnosis Essential hypertension, benign (CMS/HCC)- Primary Essential hypertension, benign Gastroesophageal reflux disease without esophagitis Esophageal reflux BPH without urinary obstruction Degenerative lumbar spinal stenosis Spinal stenosis of lumbar region Cervical spondylolysis- Primary documented in this encounter [facility] Healthcare[facility]* Diagnosis Essential hypertension, benign (CMS/HCC)- Primary Essential hypertension, benign Gastroesophageal reflux disease without esophagitis Esophageal reflux BPH without urinary obstruction Degenerative lumbar spinal stenosis Spinal stenosis of lumbar region Cervical spondylolysis- Primary Essential hypertension, benign (CMS/HCC) Essential hypertension, benign documented in this encounter [facility] HealthcareEvaluation note* Diagnosis Essential hypertension, benign (CMS/HCC)- Primary Essential hypertension, benign Gastroesophageal reflux disease without esophagitis Esophageal reflux BPH without urinary obstruction Degenerative lumbar spinal stenosis Spinal stenosis of lumbar region Cervical spondylolysis- Primary Medicare annual wellness visit, subsequent- Primary Prediabetes Other abnormal glucose Dyslipidemia (CMS/HCC) Other and unspecified hyperlipidemia Encounter for long-term (current) use of medications Encounter for long-term (current) use of other medications Class 1 obesity due to excess calories with serious comorbidity and body mass index (BMI) of 32.0 to 32.9 in adult Essential hypertension, benign (CMS/HCC) Essential hypertension, benign documented in this encounter [facility] HealthcareEvaluation note* Diagnosis Seborrheic keratosis- Primary Actinic keratosis Angioma of skin Lentigines documented in this encounter [facility] HealthcareEvaluation note* Diagnosis Essential hypertension, benign (CMS/HCC)- Primary Essential hypertension, benign Gastroesophageal reflux disease without esophagitis Esophageal reflux BPH without urinary obstruction Degenerative lumbar spinal stenosis Spinal stenosis of lumbar region Cervical spondylolysis- Primary Medicare annual wellness visit, subsequent- Primary Prediabetes Other abnormal glucose Dyslipidemia (CMS/HCC) Other and unspecified hyperlipidemia Encounter for long-term (current) use of medications Encounter for long-term (current) use of other medications Class 1 obesity due to excess calories with serious comorbidity and body mass index (BMI) of 32.0 to 32.9 in adult Essential hypertension, benign (CMS/HCC) Essential hypertension, benign Gastroesophageal reflux disease without esophagitis Esophageal reflux documented in this encounter [facility] HealthcareEvaluation note* Diagnosis Essential hypertension, benign (CMS/HCC)- Primary Essential hypertension, benign Gastroesophageal reflux disease without esophagitis Esophageal reflux BPH without urinary obstruction Degenerative lumbar spinal stenosis Spinal stenosis of lumbar region Cervical spondylolysis- Primary Medicare annual wellness visit, subsequent- Primary Prediabetes Other abnormal glucose Dyslipidemia (CMS/HCC) Other and unspecified hyperlipidemia Encounter for long-term (current) use of medications Encounter for long-term (current) use of other medications Class 1 obesity due to excess calories with serious comorbidity and body mass index (BMI) of 32.0 to 32.9 in adult Essential hypertension, benign (CMS/HCC) Essential hypertension, benign Benign prostatic hyperplasia with lower urinary tract symptoms, symptom details unspecified documented in this encounter [facility] HealthcareEvaluation note* Diagnosis Essential hypertension, benign (CMS/HCC)- Primary Essential hypertension, benign Gastroesophageal reflux disease without esophagitis Esophageal reflux BPH without urinary obstruction Degenerative lumbar spinal stenosis Spinal stenosis of lumbar region Cervical spondylolysis- Primary Medicare annual wellness visit, subsequent- Primary Prediabetes Other abnormal glucose Dyslipidemia (CMS/HCC) Other and unspecified hyperlipidemia Encounter for long-term (current) use of medications Encounter for long-term (current) use of other medications Class 1 obesity due to excess calories with serious comorbidity and body mass index (BMI) of 32.0 to 32.9 in adult Essential hypertension, benign (CMS/HCC) Essential hypertension, benign Asymmetrical sensorineural hearing loss- Primary Sensorineural hearing loss, asymmetrical documented in this encounter [facility] Narrative - Reported* Type Description Date Medical History hypertension Medical History IBS Medical History Enlarged Prostate Medical History Bladder Stones Surgical History neck fusion on 5 & 6 Surgical History Tonsils Surgical History arthritus in lower back Surgical History TURP Procedure - for prostate Surgical History Hernia Repair Hospitalization History see above netFactor Other Hospital Discharge instructions No data available for this section [facility] No data available for this section [facility] [employer] Summary Purpose Family History No Family History Records Found Relationship Condition Age at Onset Recorded Date/T los father Unknown Not Specified Unknown Relationship Condition Age at Onset Recorded Date/T los father Unknown mother Unknown Advance Directives No Advanced Directives Records Found Advance Directive Response Recorded Date/ Time Advance [...] section and content) DATE CREATED AUTHOR 02/17/2022 [facility] dical Specialist DATE CREATED AUTHOR AUTHOR'S ORGANIZ ATION 01/29/2023 [facility] DATE CREATED AUTHOR AUTHOR'S ORGANIZ ATION 07/21/2023 [facility] DATE CREATED AUTHOR AUTHOR'S ORGANIZ ATION 05/29/2024 [facility] DATE CREATED AUTHOR AUTHOR'S ORGANIZ ATION 08/26/2024 [facility] DATE CREATED AUTHOR AUTHOR'S ORGANIZ ATION 02/21/2025 [facility] dical Specialists EPIC REASON FOR VISIT (unrecogniz ed section and content) Reason Comments Neck Pain Stiff neck for 10 da ys Reason Comments Medicare Annual Wellness Visit Subsequen t wellness Reason Comments Skin Check Reason Onset Date Comments Med Refill 02/02/2025 Reason Onset Date Comments Supplies 02/17/2025 Care Team (unrecognized sect ion and content) [...] May 22, 2024 End: May 22, 2024 Chicken Vaccinator Relationship Specialty Start Date End Date Fabian Cardoza MD [address] [place] [phone] PCP - Anna QUIROZ 10/15/23 Fabian Carodza MD [address] [place] [address] PCP - General Family Medicine 02/14/24 Chicken Vaccinator Relationship Specialty Start Date End Date Fabian Cardoza MD [address] [place] [address] PCP - Anna QUIROZ 10/15/23 Fabian Cardoza MD [address] [place] [address] PCP - General Family Medicine 02/14/24 Chicken Vaccinator Relationship Specialty Start Date End Date Fabian Cardoza MD [address] [place] [address] PCP - Anna QUIROZ 10/15/23 Fabian Cardoza MD [address] [place] [address] PCP - General Family Medicine 02/14/24 Chicken Vaccinator Relationship Specialty Start Date End Date Fabian Cardoza MD [address] [place] [address] PCP - Anna QUIROZ 10/15/23 Fabian Cardoza MD [address] [place] [address] PCP - General Family Medicine 02/14/24 Chicken Vaccinator Relationship Specialty Start Date End Date Fabian Cardoza MD [address] [place] [address] PCP - Anna QUIROZ 10/15/23 Fabian Cardoza MD [address] [place] [address] PCP - General Family Medicine 02/14/24 Chicken Vaccinator Relationship Specialty Start Date End Date Fabian Cardoza MD [address] [place] [address] PCP - Anna QUIROZ 10/15/23 Fabian Cardoza MD [address] [place] [address] PCP - General Family Medicine 02/14/24 Chicken Vaccinator Relationship Specialty Start Date End Date Fabian Cardoza MD [address] [place] [address] PCP - Anna QUIROZ 10/15/23 Fabian Cardoza MD [address] [place] [phone] PCP - General Family Medicine 02/14/24 Chicken Vaccinator Relationship Specialty Start Date End Date Fabian Cardoza MD [address] [place] [address] PCP - Anna QUIROZ 10/15/23 Fabian Cardoza MD [address] [place] [address] PCP - General Family Medicine 02/14/24 Chicken Vaccinator Relationship Specialty Start Date End Date Fabian Cardoza MD [address] [place] [address] PCP - Anna QUIROZ 10/15/23 Fabian Cardoza MD [address] [place] [address] PCP [facility] Medicine 02/14/24 Chicken Vaccinator Relationship Specialty Start Date End Date Fabian Cardoza MD [address] [place] [address] PCP Ashanti Castillo MA 10/15/23 Fabian Cardoza MD [address] [place] [address] PCP [facility] 02/14/24 Chicken Vaccinator Relationship Specialty Start Date End Date Fabian Cardoza MD [address] [place] [address] PCP Ashanti Castillo MA 10/15/23 Fabian Cardoza MD [address] [place] [address] PCP [facility] 02/14/24 Goals (unrecognized section and content) Goals [...] BE BASED ON THE PRIMARY CLINICAL RECORDS. [facility] [employer] [facility]. provides no warranty or guarantee of the accuracy or completeness of information in this document.
[2025-03-03 10:49] LABS: Prostate Specific Antigen Dx 7.29 ng/mL (<=4.00)
== END 2025-03-03 09:22 | disposition home or self-care (01) ==
LOC: LAB 09:25
PROVIDERS: PCP Family Medicine; Visit Provider Urology
DX: R97.20 Elevated prostate specific antigen [PSA] (principal)
CPT/HCPCS: 84153

== ENCOUNTER 2025-06-19 10:20 | Outpatient (OUT) | payer MEDICARE, SELFPAY ==
--- NOTE | 2025-06-19 10:34 | XR_ITS ---
The [address] [address] Patient Name: CATHIE ANDERSON MRN: [id number] date: 1955 Sex: M Assigned Patient Location: RAD Current Patient Location: [facility] Accession/Order Number: [id number] Exam Date: 06/19/2025 10:27 Report Date: 06/19/2025 10:53 At the request of: LETY ALCARAZ MD Procedure: XR abdomen 1V SINGLE VIEW ABDOMEN COMPARISON: None CLINICAL DATA: Lower abdominal and back pain for the past 1-2 months. History of bladder stones. Supine views of the abdomen and pelvis were obtained. There is air within the stomach. There is air and mild stool within the colon. Small bowel air is visualized, without disproportionate distention. No soft tissue masses or suspect renal calculi are seen. There are pelvic phleboliths. Mild degenerative changes are visualized at the spine. XR/XR abdomen 1V IMPRESSION: NONSPECIFIC, NONOBSTRUCTIVE BOWEL GAS PATTERN. NO OBVIOUS NEPHROLITHIASIS. Impression dictated by: Guillermina Morales M.D. 06/19/2025 10:53 AM Dictation Location: [place] [address] Electronically authenticated by: [id number] Y Date: 06/19/2025 10:53
--- OUTSIDE RECORDS SUMMARY | 2025-06-19 10:47 | XMS_ITS | CCD ---
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 Name Role Phone Rocio Ojeda Unavailable FABIAN CARDOZA Primary Care Physician [phone] MD Klever Melvin Attending Provider [phone] MD Fabian Cardoza Primary Care Provider [phone] KLEVER MELVIN Admitting Unavailable MELVIN, KLEVER Attending Unavailable NADERER, [...] Unavailable MD Fabian Cardoza Primary Care Provider [phone] MD Klever Melvin Attending Provider [phone] Fabian Cardoza MD Unavailable Fabian Cardoza MD Primary Care Provider Klever Melvin Attending Unavailable Klever Melvin Admitting Unavailable Nadereela, Fabian Primary Care Unavailable DANITZA GOODRICH Attending Unavailable NADERER, FABIAN Attending Unavailable NADERER, FABIAN Attending Unavailable NADERER, FABIAN Attending Unavailable PETCARLI KENDALL Attending Unavailable MELVINKlever R Attending Unavailable MELVIN, Klever R Attending Unavailable ZHAOROMELIA Attending Unavailable MELVINKlever R Attending Unavailable MELVINKlever Attending Unavailable Allergies Allergy Classification Reported Allergen(s) Allergy Type Date of Onset Reaction(s) Facility (1 source) ALLERGIES NOT ON FILE; Translations: [ALLERGIES NOT ON FILE] Propensity to adverse reactions (disorder) [facility] Repository (1 source) Unable to Assess Drug allergy (disorder) 2 [facility] Repository Medications Current Medications Medication Drug Class(es) Dates Sig (Normalized) Sig (Original) acetaminophen 325 mg / HYDROcodone bitartrate 7.5 mg oral tablet (2 sources) Opioid Agonist Start: 01-18-2023 take 1 tablet by mouth once [place] 325 mg-7.5 mg oral tablet 1 tab(s), Oral, Once, 1 tab(s), Refill(s) 0, Take 1 hour prior to procedure, [facility] [id number], 178, cm, 07/24/22 9:49:00 EDT, Height/Length Dosing, 105, kg, 07/24/22 9:49:00 EDT, Weight Dosing Start Date: 01/18/23 Status: Ordered Start: 06-15-2022 take 1 tablet by mouth once No rco 325 mg-7.5 mg oral tablet 1 tab(s), Oral, Once, 1 tab(s), Refill(s) 0, Take 1 hour prior to procedure, [facility] [id number], 178, cm, 04/21/22 10:50:00 EDT, Height/Length Dosing, 105, kg, 04/21/22 10:50:00 EDT, Weight Dosing Start Date: 06/15/22 Status: Ordered Eliquis (5 sources) Factor Xa Inhibitor Start: 03-21-2021 Eliquis Or al, BID, Refills(s) 0 Start Date: 03/21/21 Status: Ordered Ascorbic Acid (20 sources) Vitamin C Start: 01-03-2021 Vitamin C Ton y, Refills(s) 0 Start Date: 01/03/21 Status: Ordered Repeat number: 1 Start: 01-03-2021 Vitamin C Ton y, Refills(s) 0 Start Date: 01/03/21 Status: Ordered Ascorbic Acid (v itamin C) 100 MG tablet 1 (one) time each day at the same time Active Vitamin C Active atorvastatin 20 mg oral tablet (20 sources) HMG-CoA Reductase Inhibitor Start: 04-21-2022 End: 12-16-2025 take 1 tablet by mouth once daily atorvastatin (Lipitor) 20 MG tablet Indications: Dyslipidemia Take 1 tablet (20 mg) by mouth Daily 90 tablet 3 12/16/2024 12/16/2025 Active bimatoprost 0.1 mg/ml ophthalmic solution (20 sources) Prostaglandin Analog Start: 03-20-2025 take 1 drop(s) into the eye(s) once daily in the evening Lumigan 0.01% ophthalmic solution 1 drop(s), OPTH, qPM, 5 mL, Refill(s) 0 Start Date: 03/20/25 Status: Ordered Quantity: 5.0 Unit: mL Repeat number: 1 Start: 11-14-2022 Lumigan 0.01 % ophthalmic solution Administer into affected eye(s) at bedtime 11/14/2022 Active Start: 01-03-2021 bimatoprost to pical ophthalmic 0.03% solution Topical, Once a day (at bedtime), Refill(s) 0 Start Date: 01/03/21 Status: Ordered Calcium, Magnesium and Zinc oral tablet (6 sources) Start: 10-17-2021 take 1 tablet by mouth once daily Calcium, Magnesium and Zinc oral tablet tab(s), Oral, Daily, Refill(s) 0 Start Date: 10/17/21 Status: Ordered Cholecalciferol (Vitamin D3) [id number] UNIT/GM liquid (20 sources) Cholecalciferol (Vitamin D3) [id number] UNIT/GM liquid Active Cholecalciferol (Vitamin D3) [id number] UNIT/GM liquid as directed Active Chondroitin Sulfates (9 sources) Start: 01-03-2021 take 1 mg by mouth once daily chondroitin mg, Oral, Daily, Refills(s) 0 Start Date: 01/03/21 Status: Ordered Repeat number: 1 Start: 01-03-2021 take 1 mg by mouth once daily chondroitin mg, Oral, Daily, Refills(s) 0 Start Date: 01/03/21 Status: Ordered chondroitin sulfates 400 mg / glucosamine sulfate 500 mg oral tablet (20 sources) take 1 tablet by mouth in the morning glucosamine-chondroitin 500-400 MG tablet Take 1 tablet by mouth in the morning. Active ciprofloxacin 500 mg oral tablet (1 source) Quinolone Antimicrobial Start : 07-10 take 1 tablet by mouth twice daily Cipro 500 mg Tab 500 mg = 1 tab(s), Oral, BID, # 4 tab(s), Refills(s) 0, Pharmacy: [facility] [id number], 178, cm, 07/07/22 16:35:00 EDT, Height/Length Dosing, 105, kg, 04/21/22 10:50:00 EDT, Weight Dosing Start Date: 07/10/22 Status: Ordered cyclobenzaprine hydrochloride 10 mg oral tablet (16 sources) Muscle Relaxant Start : 07-31 End: 03-30 take 1 tablet by mouth three times daily as needed for muscle spasms cyclobenzaprine (Flexeril) 10 MG tablet Indications: Cervical spondylolysis Take 1 tablet (10 mg) by mouth 3 (three) times a day as needed for muscle spasms 30 tablet 1 07/31/2024 03/30/2025 Discontinued doxycycline hyclate 100 mg oral capsule (1 source) Tetracycline-class Drug Start : 04-27 End: 05-11 take 1 capsule by mouth twice daily doxycycline hyclate 100 mg Cap 100 mg = 1 cap(s), Oral, BID, X 14 day(s), # 28 cap(s), Refills(s) 0, Pharmacy: [facility] [id number], 170, cm, 04/27/25 12:04:00 EDT, Height/Length Dosing, 106, kg, 04/27/25 12:04:00 EDT, Weight Dosing Start Date: 04/27/25 Stop Date: 05/11/25 Status: Ordered Quantity: 28.0 Unit: cap(s) Repeat number: 1 dutasteride 0.5 mg oral capsule (7 sources) 5-alpha Reductase Inhibitor Start : 03-20 dutasteride (Avodart) 0.5 MG capsule Take 0.5 mg by mouth 03/20/2025 Active Glucosamine (9 sources) Start : 01-03 glucosamine Oral, Refills(s) 0 Start Date: 01/03/21 Status: Ordered Repeat number: 1 Start: 01-03-2021 glucosamine Or al, Refills(s) 0 Start Date: 01/03/21 Status: Ordered hydroCHLOROthiazide 25 mg oral tablet (20 sources) Thiazide Diuretic Start: 01-03-2021 End: 08-12-2024 take 1 tablet by mouth once daily hydroCHLOROthiazide (HYDRODiuril) 25 MG tablet Indications: Essential hypertension, benign Take 1 tablet (25 mg) by mouth Daily 90 tablet 3 08/11/2024 Active hydroCHLOROthiaz tony Active Iron (1 source) Iron Active losartan potassium 100 mg oral tablet (20 sources) Angiotensin 2 Receptor Brian Start: 01-03-2021 End: 05-29-2026 take 1 tablet by mouth once daily losartan (Cozaar) 100 MG tablet Indications: Essential hypertension, benign Take 1 tablet (100 mg) by mouth Daily 30 tablet 11 05/29/2025 05/29/2026 Active Losartan Potassi um Active 24 hr metoprolol succinate 50 mg extended release oral tablet (20 sources) beta-Adrenergic Brian Start: 02-28-2024 End: 02-27-2025 take 1 tablet by mouth in the morning metoprolol tartrate (Lopressor) 25 MG tablet Indications: Essential hypertension, benign (CMS/HCC) Take 1 tablet (25 mg) by mouth in the morning and 1 tablet (25 mg) before bedtime. 180 tablet 3 02/28/2024 09/19/2024 Discontinued Start: 02-26-2023 take 1 tablet by roshan th once daily metoprolol succinate XL (Toprol-XL) 50 MG 24 hr tablet Indications: Essential hypertension, benign Take 1 tablet (50 mg) by mouth Daily Do not crush or chew. 90 tablet 3 09/19/2024 Active Nature's Bounty Probiotic (9 sources) Start: 01-03-2021 Nature's Bount y Probiotic Oral, Daily, Refill(s) 0 Start Date: 01/03/21 Status: Ordered Repeat number: 1 Start: 01-03-2021 Nature's Bount y Probiotic Oral, [...] capsule (20 sources) alpha-Adrenerg ic Brian Start: 04-27-2025 End: 04-22-2026 take 2 capsules by mouth once daily tamsulosin 0.4 mg Cap 0.8 mg = 2 cap(s), Oral, Daily, X 30 day(s), # 60 cap(s), Refills(s) 11, [facility]acy: [facility] [id number], 170, cm, 04/27/25 12:04:00 EDT, Height/Length Dosing, 106, kg, 04/27/25 12:04:00 EDT, Weight Dosing Start Date: 04/27/25 Stop Date: 04/22/26 Status: Ordered Quantity: 60.0 Unit: cap(s) Repeat number: 12 Start: 02-03-20[address] [facility] once daily tamsulosin (Flomax) 0.4 MG 24 [...] Daily 90 capsule 3 02/03/2025 Active Start: 09-21-2021 End: 09-16-2022 take 1 [...] 12 hr timolol 5 mg/ml ophthalmic solution (20 sources) beta-Adrenergic Brian Start: 03-17-2024 timolo l Opth 0.5% Em 15 mL Refill(s) 0 Start Date: 03/17/24 Status: Ordered timolol (Timopti c) 0.25 % ophthalmic solution Administer into affected eye(s) in the morning and in the evening. Active timolol Opth 0.5% Em 15 mL (3 sources) Start: 03-17-2024 timolol Opth 0 .5% Em 15 mL Refill(s) 0 Start Date: 03/17/24 Status: Ordered Repeat number: 1 Start: 03-17-2024 timolol Opth 0 .5% Em 15 mL Refill(s) 0 Start Date: 03/17/24 Status: Ordered Vitamin D3 (1 source) Vitamin D3 Activ e Vitamin D3 1000 intl units oral capsule (9 sources) Start: 01-03-2021 take 1 capsule by mouth once daily Vitamin D3 1000 intl units oral capsule Oral, Daily, Refills(s) 0 Start Date: 01/03/21 Status: Ordered Repeat number: 1 Start: 01-03-2021 Vitamin D3 100 0 intl units oral capsule Oral, Daily, Refills(s) 0 Start Date: 01/03/21 Status: Ordered Completed/Discontinued Medications Medication Drug Class(es) Dates Sig (Normalized) Sig (Original) [id number] 200 actuat albuterol 0.09 mg/actuat metered dose [...] Problem Classification Problem Date Documented Date Episodic/Chronic Calculus of urinary tract (2 sources) H/O: urinary stone 03-20-2025 Episodic Disorders of lipid metabolism (20 sources) Dyslipidemia; Translations: [Hyperlipidemia, unspecified] Onset: 01-29-2024 01-29-2024 Chronic Esophageal disorders (20 sources) Gastro-esophageal reflux disease without esophagitis; Translations: [Gastroesophageal reflux disease without esophagitis] Onset: 07-21-2022 01-29-2024 Chronic Essential hypertension (20 sources) Hypertensive disorder; Translations: [Essential (primary) hypertension] Onset: 07-21-2022 01-03-2021 Chronic Genitourinary symptoms and ill-defined conditions (17 sources) Dysuria; Translations: [Dysuria] Onset: 07-21-2022 05-27-2021 Episodic Glaucoma (20 sources) Glaucoma; Translations: [Unspecified glaucoma] Onset: 07-21-2022 01-03-2021 Chronic Hyperplasia of prostate (20 sources) Benign prostatic hypertrophy with outflow obstruction; Translations: [Benign prostatic hyperplasia with lower urinary tract symptoms] Onset: 04-14-2022 Chronic Lymphadenitis (7 sources) Lymphadenopathy; Translations: [Enlarged lymph nodes, unspecified] Onset: 03-17-2024 Episodic Nutritional deficiencies (20 sources) Vitamin D deficiency; Translations: [Vitamin D deficiency, unspecified] Onset: 01-29-2024 01-29-2024 Chronic Osteoarthritis (10 sources) Arthritis; Translations: [Unspecified osteoarthritis, unspecified site] Onset: 07-13-2022 01-03-2021 Chronic Other circulatory disease (2 sources) Spider nevus; Translations: [Nevus, non-neoplastic] 06-11-2025 Episodic Other diseases of bladder and urethra (7 sources) Male urethral stricture; Translations: [Unspecified urethral stricture, male, unspecified site] Onset: 04-21-2022 Episodic Other diseases of bladder and urethra (9 sources) Urethral stricture 04-21-2022 Episodic Other diseases of veins and lymphatics (7 sources) Venous insufficiency of leg; Translations: [Venous insufficiency (chronic) (peripheral)] Onset: 03-30-2025 03-30-2025 Episodic Other ear and sense organ disorders (9 sources) Hearing loss 01-03-2021 Chronic Other ear and sense organ disorders (1 source) Unspecified hearing loss, unspecified ear; Translations: [UNS HEARING LOSS UNSPECIFIED EAR] Onset: 07-21-2022 Chronic Other ear and sense organ disorders (1 source) Asymmetrical sensorineural hearing loss; Translations: [Sensorineural hearing loss, bilateral] 02-18-2025 Chronic Other injuries and conditions due to external causes (9 sources) Injury of head 01-03-2021 Episodic Other male genital disorders (20 sources) Secondary erectile dysfunction; Translations: [Male erectile dysfunction, unspecified] Onset: 01-29-2024 01-29-2024 Chronic Other male genital disorders (3 sources) Dysplasia of prostate; 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] Onset: 07-24-2022 Episodic Other male genital disorders (7 sources) Atypical small acinar proliferation of prostate 07-24-2022 Episodic Other nutritional; endocrine; and metabolic disorders (18 sources) Obesity caused by energy imbalance; Translations: [Class 1 obesity due to excess calories with serious comorbidity and body mass index (BMI) of 32.0 to 32.9 in adult] Onset: 09-19-2024 09-19-2024 Chronic Other screening for suspected conditions (not mental disorders or infectious disease) (20 sources) Raised prostate specific antigen; Translations: [Elevated prostate specific antigen [PSA]] Onset: 04-21-2022 Episodic Other skin disorders (4 sources) Actinic keratosis; Translations: [Actinic keratosis] 06-09-2024 Episodic Other skin disorders (4 sources) Seborrheic keratosis; Translations: [Other seborrheic keratosis] 06-09-2024 Episodic Other skin disorders (4 sources) Lentiginosis; Translations: [Other melanin hyperpigmentation] 06-09-2024 Episodic Unclassified (1 source) CONTACT W/AND (SUSP) EXPOS COVID-19; Translations: [CONTACT W/AND (SUSP) EXPOS COVID-19] Onset: 07-13-2022 Unclassified (2 sources) Consult; Translations: [Consult] Onset: 07-17-2023 Past or Other Problems Problem Classification Problem Date Documented Da te Episodic/Chronic Diabetes mellitus without complication (20 sources) Prediabetes; Translations: [Prediabetes] Onset: 09-26-2023 09-26-2023 Episodic Mood disorders (14 sources) Mood disorders Onset: 09-19-2024 09-19-2024 Other acquired deformities (20 sources) Spondylolysis of cervical spine; Translations: [Spondylolysis, cervical region] Onset: 07-31-2024 07-31-2024 Episodic Other aftercare (1 source) senior living (current) use of anticoagulants; Translations: [CUSTOMER ACCOUNT MANAGER CURRNT USE ANTICOAGULANTS] Onset: 07-21-2022 Episodic Other aftercare (18 sources) Long-term current use of drug therapy; Translations: [Other assistant terminal manager (current) drug therapy] Onset: 09-19-2024 09-19-2024 Episodic [...] Spondylosis; intervertebral disc disorders; other back problems (20 sources) Spinal stenosis, lumbar region without neurogenic claudication; Translations: [Degenerative lumbar spinal stenosis] Onset: 06-19-2023 Episodic Results Test Name Value Interpretation Reference Range Facility No Panel Informationon 06-11 [facility] Ambulatory Visit Summaryon 0 04-27-2025 Ambulatory Visit Summary Ambulatory Visit Summary CATHIE ANDERSON :1955 Visit Date:04/27/2025 Ambulatory Visit Instructions Your Diagnosis BPH with obstruction/lower urinary tract symptoms Urethral meatal stenosis Your Care Team Attending Physician - ROMELIA CHURCHILL PA-C Primary Care Physician - FABIAN CARDOZA MD This Is Your Medications List doxycycline (doxycycline hyclate 100 mg Cap) dutasteride (dutasteride 0.5 mg Cap) tamsulosin (tamsulosin 0.4 mg Cap) Contact prescribing physician if questions or concerns ascorbic acid (Vitamin C) atorvastatin (atorvastatin 20 mg Tab) bifidobacterium-lactob acillus (Nature's Bounty Probiotic) bimatoprost ophthalmic (Lumigan 0.01% ophthalmic solution) cholecalciferol (Vitamin D3 1000 intl units oral capsule) chondroitin glucosamine hydrochlorothiazide (hydrochlorothiazide 25 mg oral tablet) losartan (losartan 100 mg Tab) metoprolol (metoprolol 50 mg ER Tab) omeprazole (omeprazole 20 mg Cap-DR) timolol ophthalmic (timolol Opth 0.5% Em 15 mL) Procedures Performed Transrectal biopsy of prostate using ultrasound guidance (02/06/2023), Transrectal biopsy of prostate using ultrasound guidance (07/13/2022), Percutaneous transluminal laser ablation of varicose vein of lower limb. (06/23/2021), Transurethral resection of prostate (02/10/2021), Cystoscopy (01/07/2021), Colonoscopy. Discharge Vitals Temperature (Temporal Artery) 37 ???C Heart Rate (Peripheral) 88 Respiratory Rate 18 Blood Pressure 137/89 Height 170 cm Height 67 in Weight 106 kg Weight 233.69 lb BMI 36.68 What to do next Scheduled Follow-Up Appointments Sunday 10:00 AM EDT With: Klever MELVIN MD Where: [facility] [address] [address]- Sunday 10:30 AM EST With: Klever MELVIN MD Where: [facility] [address] [address]- Medications What How Much When Instructions Changed tamsulosin (tamsulosin 0.4 mg Cap) 2 Capsules By Mouth Every day Duration: 30 Days Pickup at [facility] [id number] Unchanged doxycycline (doxycycline hyclate 100 mg Cap) 1 Capsules By Mouth 2 times a day Duration: 14 Days Pickup at [facility] [id number] Unchanged dutasteride (dutasteride 0.5 mg Cap) 1 Capsules By Mouth Every day Unchanged ascorbic acid (Vitamin C) Every day Contact prescribing physician if questions or concerns Unchanged atorvastatin (atorvastatin 20 mg Tab) 1 Tablets By Mouth Every day Contact prescribing physician if questions or concerns Unchanged bifidobacterium-lactob acillus (Nature's Bounty Probiotic) By Mouth Every day Contact prescribing physician if questions or concerns Unchanged bimatoprost ophthalmic (Lumigan 0.01% ophthalmic solution) 1 Drops Ophthalmic Once a day (in the evening) Contact prescribing physician if questions or concerns [...] Contact prescribing physician if questions or concerns Pharmacy Information [facility] [id number]: [address], [place] [phone] [phone] Allergies No Known Allergies Problems Ongoing - Any problem that you are currently receiving treatment for. 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 Please share your experience with us by completing your survey. We appreciate your feedback and thank you for choosing us for your care. Patient Portal You may access all of your results and other medical record information on our secure patient portal. If you are not signed up for this yet, please contact [employer] (more content not included)... Normal [facility] Urology Office/Clinic Noteon 04-27-2025 Urology Office/Clinic Note Urology Office/Clinic Note Chief Complaint urgency and frequency HPI Staff Pt states that he is having trouble getting his stream started at night. States that urination during the day has improved w the Doxy and Dutasteride but overnight his sx are still really troublesome. States that he has been taking Doxy and will finish the script tomorrow, and with it he has seen improvement. He is using a meatal dilator daily. PVR today is 133ml despite already voiding twice here. DX: elevated PSA, Atypical small acinar proliferation of prostate, enlarged lymph node, BPH with obstruction/LUTS, urethral meatal stenosis and hx of bladder stone. IPSS score today is 20. Incomplete emptying, frequency, urgency, weak stream and straining about half the time. Intermittency less than half the time. Nocturia x3. Tamsulosin qd and Dutasteride 0.5mg qd Review of Systems PHQ Score Initial Depression Screen Score: 0 SCORE No fever, chills, malaise, myalgia. No abdominal pain, flank pain, gross hematuria. Physical Exam Vitals & Measurements T: 37 ???C(Temporal Artery) HR: 88(Peripheral) RR: 18 BP: 137/89 HT: 67 in HT: 170 cm WT: 106 kg WT: 233.69 lb BMI: 36.68 General: nontoxic, NAD Mouth: moist mucosa Lungs: normal respiratory effort Cardio: regular rate, good distal perfusion Abdomen: nondistended Neurologic: Grossly normal Skin: No rashes or suspicious lesions Assessment/Plan 1. BPH with obstruction/lower urinary tract symptoms (N40.1: Benign prostatic hyperplasia with lower urinary tract symptoms) Taking Flomax once daily. PRW added Dutasteride 03/20/25. Added Doxy x 14d on 04/15/25. Pt has noticed some improvement while on abx but finishes them tomorrow and isn't back to baseline. Discussed extending another 2 weeks. Pt would like to try this. Risks/benefits/side effects discussed. Rx sent. Also discussed increasing Flomax to 2 caps daily. Pt denies lightheadedness/falls/ balance issues/hypotension issues. Risks/benefits/side effects discussed. New Rx sent. Ordered: [id number] Measure Post Void residual urine and/or bladder capacity by US- non-imaging Urnls Dip Stick Auto w/o Microscopy POC 47339 2. Urethral meatal stenosis (N35.919: Unspecified urethral stricture, male, unspecified site) Using dilator once daily. Orders: doxycycline, 100 mg = 1 cap(s), Oral, BID, X 14 day(s), # 28 cap(s), Refills(s) 0, [facility] [id number], 170, cm, 04/27/25 12:04:00 EDT, Height/Length Dosing, 106, kg, 04/27/25 12:04:00 EDT, Weight Dosing tamsulosin, 0.8 mg = 2 cap(s), Oral, Daily, X 30 day(s), # 60 cap(s), Refills(s) 11, [facility] [id number], 170, cm, 04/27/25 12:04:00 EDT, Height/Length Dosing, 106, kg, 04/27/25 12:04:00 EDT, Weight Dosing Follow-up With When Contact Information KIERAN OWEN, MAGAN Goodwin In [address] [place] [address]- Additional Instructions: Patient Education Benign Prostatic Hyperplasia Problem List/Past Medical History Ongoing Arthritis 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 (06/23/2021), Transurethral resection of prostate (02/10/2021), Cystoscopy (01/07/2021), Colonoscopy. Medications atorvastatin 20 mg Tab, 20 mg= 1 tab(s), Oral, Daily chondroitin, Oral, Daily doxycycline hyclate 100 mg Cap, 100 mg= 1 cap(s), Oral, BID dutasteride 0.5 mg Cap, 0.5 mg= 1 cap(s), Oral, Daily, 11 refills glucosamine, Oral hydrochlorothiazide 25 mg oral tablet, Oral, Daily losartan 100 mg Tab, Oral, Daily Lumigan 0.01% ophthalmic solution, 1 drop(s), OPTH, qPM metoprolol 50 mg ER Tab, Oral, Daily Nature's Bounty Probiotic, Oral, Daily omeprazole 20 mg Cap-DR, 20 mg= 1 cap(s), Oral, Daily tamsulosin 0.4 mg Cap, 0.8 mg= 2 cap(s), Oral, Daily, 11 refills timolol Opth 0.5% Em 15 mL Vitamin C, Daily Vitamin D3 1000 intl units oral capsule, Oral, Daily Allergies No Known Allergies Social History Alcohol - Low Risk, 01/03/2021 Never., 08/25/2024 Substance Abuse Never., 08/25/2024 Tobacco Former smoker, quit more than 30 days ago Tobacco Use:. Never Smokeless Tobacco Use:. Cigarettes, Yes, 04/27/2025 Family History Leukemia: Father. Immunizations Vaccine Date Status SARS-CoV-2 (COVID-19) mRNA-1273 vaccine 05/02/2022 Recorded SARS-CoV-2 (COVID-19) mRNA-1273 vaccine 09/12/2021 Recorded SARS-CoV-2 (COVID-19) mRNA-1273 vaccine 01/21/2021 Recorded SARS-CoV-2 (COVID-19) mRNA-1273 (more content not included)... Normal [facility] Comment on above: Result Comment: Elec tronically Signed By: ROMELIA CHURCHILL PA-C\.br\Date and Time Signed: 04/27/25 12:28 EDT Ambulatory Visit Summaryon 0 03-20-2025 Ambulatory Visit Summary Ambulatory Visit Summary CATHIE ANDERSON :1955 Visit Date:03/20/2025 Ambulatory Visit Instructions Your Diagnosis Elevated PSA Atypical small acinar proliferation of prostate Enlarged lymph node BPH with obstruction/lower urinary tract symptoms Urethral meatal stenosis History of bladder stone Your Care Team Attending Physician - KIERAN OWEN, Klever Alston Primary Care Physician - FABIAN CARDOZA MD This Is Your Medications List dutasteride (dutasteride 0.5 mg Cap) tamsulosin (tamsulosin 0.4 mg Cap) Contact prescribing physician if questions or concerns ascorbic acid (Vitamin C) atorvastatin (atorvastatin 20 mg Tab) bifidobacterium-lactob acillus (Nature's Bounty Probiotic) bimatoprost ophthalmic (Lumigan 0.01% ophthalmic solution) cholecalciferol (Vitamin D3 1000 intl units oral capsule) chondroitin glucosamine hydrochlorothiazide (hydrochlorothiazide 25 mg oral tablet) losartan (losartan 100 mg Tab) metoprolol (metoprolol 50 mg ER Tab) omeprazole (omeprazole 20 mg Cap-DR) timolol ophthalmic (timolol Opth 0.5% Em 15 mL) Procedures Performed Transrectal biopsy of prostate using ultrasound guidance (02/06/2023), Transrectal biopsy of prostate using ultrasound guidance (07/13/2022), Percutaneous transluminal laser ablation of varicose vein of lower limb. (06/23/2021), Transurethral resection of prostate (02/10/2021), Cystoscopy (01/07/2021), Colonoscopy. Discharge Vitals Temperature (Temporal Artery) 37 ???C Heart Rate (Peripheral) 72 Respiratory Rate 18 Blood Pressure 137/89 Height 170 cm Height 67 in Weight 106.2 kg Weight 234.131 lb BMI 36.75 What to do next Scheduled Follow-Up Appointments Sunday 10:30 AM EST With: Klever MELVIN MD Where: [facility] [address] [place] [address]- You Need to Schedule the Following Appointments Follow Up with Klever MELVIN MD, URL When: Where: [address] [place] [address]- Medications What How Much When Instructions New dutasteride (dutasteride 0.5 mg Cap) 1 Capsules By Mouth Every day Refills: 11 Pickup at [facility] [phone] Unchanged tamsulosin (tamsulosin 0.4 mg Cap) 1 [...] physician if questions or concerns Unchanged bimatoprost ophthalmic (Lumigan 0.01% ophthalmic solution) 1 Drops Ophthalmic Once a day (in the evening) Contact prescribing physician if questions or concerns [...] Contact prescribing physician if questions or concerns Pharmacy Information [facility] [id number]: [address], [place] [phone] Allergies No Known Allergies Problems Ongoing - Any problem that you are currently receiving treatment for. 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 Please share your experience with us by completing your survey. We appreciate your feedback and thank you for choosing us for your care. Education Materials Benign Prostatic Hyperplasia Benign prostatic hyperplasia (BPH) is an enlarged prostate gland that is caused by the normal aging process. The prostate may get bigger as a man gets older. The condition is not caused by cancer. The prostate is a walnut-sized gland that is i (more content not included)... Normal [facility] Urology Office/Clinic Noteon 03-20-2025 Urology Office/Clinic Note Urology Office/Clinic Note Chief Complaint 7 month f/u with PSA HPI Staff 7 month f/u with PSA. Dx: elevated PSA, enlarged lymph node, BPH with urinary obstruction/LUTS and urethral meatal stenosis. PSA: 03/03/25 - 7.29 Tamsulosin qd IPSS score is 11 today. Incomplete emptying about half the time. Frequency and urgency less than half the time. Nocturia x2. Denies any visible blood in urine. No abdominal/flank pain. Does experience leakage if he has to wait too long. Pt is using urethral meatal dilator daily. PVR today is 98ml. History of Present Illness Tests reviewed: reviewed UA and PSA. I have reviewed the previous health record information and history for this patient from Dr. Melvin I have reviewed and verified the staff HPI to be accurate for this encounter. There have been no associated fever, chills, flank pain, or blood in the urine. Denies any urinary infections since last encounter. Review of Systems PHQ Score Initial [...] & Measurements T: 37 ???C(Temporal Artery) HR: 72(Peripheral) RR: 18 BP: 137/89 HT: 170 cm HT: 67 in WT: 106.2 kg WT: 234.131 lb BMI: 36.75 General Appearance: alert, no distress, well nourished, well developed male. Assessment/Plan 1. Elevated PSA (R97.20: Elevated prostate specific antigen [PSA]) PSA 02/01/21 - 2.99 04/14/22 - 5.64 01/24/23 - 6.48 02/29/24 - 6.81 08/12/24 - 7.00 03/03/25 - 7.29 Prostate MRI 05/04/22 [facility] - Prostate volume 136 mL. No evidence of prostate malignancy. Prominent pelvic lymph node measuring 8 mm in short axis. TRUS/bx 07/13/22 - 1 ANUSHA core. TRUS/bx 02/06/23 - neg. PSMA PET scan 04/04/24 [facility] - Enlarged prostate with calcifications. No focal abnormal accumulation noted to suggest primary prostate malignancy. Subtle osteolytic process along the scapula on L anteriorly with accompanying subtle increased radiotracer accumulation. Metastatic prostate malignancy not excluded. Prostate MRI 05/22/24 [facility] - No evidence of clinically significant prostate cancer. Stable presumed prominent lymph node adjacent to R bladder wall measuring 7mm in short axis. PSA continues to rise. Although two subsequent negative biopsies. Will cont to monitor. He agrees. -PSA in 6 mos 2. 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 3. Enlarged lymph node (R59.9: Enlarged lymph nodes, unspecified) Prostate MRI 05/04/22 [facility] - Prominent pelvic lymph node measuring 8 mm in short axis. PSMA PET scan 04/04/24 [facility] - A few mildly prominent lymph nodes in retroperitoneum and adjacent to R anterior/lateral wall of bladder. Subtle increase radiotracer accumulation within lymph node adjacent to bladder. Nonspecific with a prostate malignancy not excluded. Prostate MRI 05/22/24 [facility] - Stable presumed prominent lymph node adjacent to R bladder wall measuring 7mm in short axis. Reviewed imaging results. No indication for workup at this time. See #1. 4. BPH with obstruction/lower urinary tract symptoms (N40.1: Benign prostatic hyperplasia with lower urinary tract symptoms) S/p TURP 02/10/21. Prostate MRI 05/22/24 [facility] - Prostate volume 161 mL. UA today negative for blood and infection. Taking Flomax 0.4mg qhs. States he voids 4-5x per day. Discussed starting a 5-alpha reductase inhibitor. Pt states he has taken in the past, unable to recall why it was stopped. Likely due to having TURP done. Will have pt start Dutasteride. Reminded pt of possible SEs. Discussed with pt that he may require subsequent TURP in the future based on LUTS or if pt would start to have recurrent UTIs/PVRs worsen. -Cont alpha brian -Add Dutasteride 0.5mg qd -Timed voids to improve PVR 5. Urethral meatal stenosis (N35.919: Unspecified urethral stricture, male, unspecified site) PVR 98 mL. Using a dilator daily. Feels he empties. [1] 6. History of bladder stone (Z87.448: Personal history of other diseases of urinary system) Per pt. No current concerns. Follow-up With When Contact Information KIERAN OWEN, Klever Alston, URL [address] [place] [address]- Additional Instructions: 6 mos w/ PSA Patient Education Benign Prostatic Hyperplasia Prostate Cancer Screening I, Yani Peters, personally scribed for Dr. Melvin on 03/20/2025 10:42:25. . Documentation recorded by the Yani ladd, (more content not included)... Normal [facility] Comment on above: Result Comment: Elec tronically Signed By: Klever MELVIN MD\.br\Date and Time Signed: 03/20/25 10:46 EDT\.br\Electronically Co-Signed By: Yani Peters\.br\Date and Time Co-Signed: 03/20/25 10:43 EDT MHPT PSA, DIAGNOSTICon 03-03 Interpretation and review of laboratory results Abnormal [facility] PROSTATE SPECIFIC ANTIGEN DX 7.29 ng/mL High NINF - 4.00 ng/mL [facility] Urology Office/Clinic Noteon 08-25-2024 Urology Office/Clinic Note Urology Office/Clinic Note Chief Complaint elevated PSA HPI Staff 68 yo male here for 6 mos f/up with PSA. Previous dx: elevated PSA, enlarged lymph node, benign localized hyperplasia of prostate with urinary obstruction, urethral meatal stenosis, proteinuria. Taking Flomax 0.4mg qd. Using meatal dilator daily. PSMA PET 04/04/24 [facility]. MRI of prostate 05/22/24 [facility]. PSA 08/12/24 - 7.00 Dysuria: denies Incomplete [...] 6.81 08/12/24 - 7.00 Prostate MRI 05/04/22 [facility] - Prostate volume 136 mL. No evidence of prostate malignancy. Prominent pelvic lymph node measuring 8 mm in short axis. TRUS/bx 07/13/22 - 1 ANUSHA core. TRUS/bx 02/06/23 - neg. PSMA PET scan 04/04/24 [facility] - Enlarged prostate with calcifications. No focal abnormal accumulation noted to suggest primary prostate malignancy. Subtle osteolytic process along the scapula on L anteriorly with accompanying subtle increased radiotracer accumulation. Metastatic prostate malignancy not excluded. Prostate MRI 05/22/24 [facility] - No evidence of clinically significant prostate [...] Enlarged lymph nodes, unspecified) Prostate MRI 05/04/22 [facility] - Prominent pelvic lymph node measuring 8 mm in short axis. PSMA PET scan 04/04/24 [facility] - A few mildly prominent lymph nodes in retroperitoneum and adjacent to R anterior/lateral wall of bladder. Subtle increase radiotracer accumulation within lymph node adjacent to bladder. Nonspecific with a prostate malignancy not excluded. Prostate MRI 05/22/24 [facility] - Stable presumed prominent lymph node adjacent to R bladder wall measuring 7mm in short axis. Reviewed imaging results. No indication for workup at this time. See #1. 3. BPH with obstruction/lower urinary tract symptoms (N40.1: Benign prostatic hyperplasia with lower urinary tract symptoms) S/p TURP 02/10/21. Prostate MRI 05/22/24 [facility] - Prostate volume 161 mL. UA today [...] empties. [1] Follow-up With When Contact Information Klever MELVIN MD, URL [facility] [address] [place] [phone] Additional Instructions: 1 yr w/ PSA Patient Education Prostate Cancer Screening Carol Rider, personally scribed for Dr. Melvin on 08/25/2024 13:05:46. . Documentation recorded by the Carol ladd, accurately reflects the services(s) I performed and decisions made by me. Authenticated by Dr. Melvin on 08/25/2024 13:07:25. Problem List/Past Medical History Ongoing Art (more content not included)... Normal [facility] Comment on above: Result Comment: Elec tronically Signed By: Klever MELVIN MD\.br\Date and Time Signed: 08/25/24 13:07 EST\.br\Electronically Co-Signed By: Carol Arcos\.br\Date and Time Co-Signed: 08/25/24 13:06 EST MHPT PSA, DIAGNOSTICon 08-12 Interpretation and review of laboratory results Abnormal [facility] PROSTATE SPECIFIC ANTIGEN DX 7 ng/mL High NINF - 4.00 ng/mL [facility] No Panel Informationon 06-09 [facility] MR prostate wo/w conon 05-23 MR prostate wo/w con [facility] [place] [address] [place] [address] MRI Report Signed Patient: Cathie Anderson MR#: [id number] : 1955 Acct:[id number] Age/Sex: 68 / M ADM Date: 05/22/24 Loc: MR Room: Type: [facility] Attending Dr: Klever Melvin MD Copies to: [...] Bal Jr., D.O.05/23/2024 9:42 AM Dictation Location: [place] [address] Transcribed By: [facility] 05/23/2442 Dictated By: Jaydon Bal Jr, DO 05/23/24923 Signed By: 08/09/24 0942 Normal [facility] ISTAT XRay CREon 05-22-2024 ISTAT GFR > 60.0 Normal [facility] Comment on above: Result Comment: PERF ORMED BY: [place] [address] PATHOLOGIST AXLE TURNER ALEXA PASTOR M.D. Performed By: #### I SCRE #### [facility] [address] [place] [address] No Panel InformationOrdered By: Klever Melvin on 05-22-2024 Bedside Estimated GFR (eGFR) > 60.0 [facility] Whole blood creatinine measu rementOrdered By: Klever Melvin on 05-22-2024 Creatinine [Mass/Vol] 1.3 mg/dL Normal 0.6-1.3 [facility] Comment on above: ER/ESD physician is notified/shown all ISTAT results.Critical values may be confirmed by laboratory testing ifdeemed necessary by ER attending doctor. Result Comment: ER/E SD physician is notified/shown all ISTAT results. Critical values may be confirmed by laboratory testing if deemed necessary by ER attending doctor. Performed By: #### I SCRE #### [facility] [address] [place] [address] CBC AUTO DIFFon 07-11-2022 BASO # 0.1 103/ul Normal 0.0-0.1 [facility] Comment on above: Performed By: #### C BC #### [facility] [address] [place] [address] Dr. Bebeto Perea Basophils/100 WBC (Bld) 0.5 % Normal 0.2-2.0 [facility] Comment on above: Performed By: #### C BC #### [facility] [address] [place] [address] [address] Bebeto Perea EO # 0.1 103/ul Normal 0.0-0.7 [facility] Comment on above: Performed By: #### C BC #### [facility] [address] [place] [address] [address] Bebeto Perea Eosinophils/100 WBC (Bld) 1.2 % Normal 0.9-7.0 [facility] Comment on above: Performed By: #### C BC #### [facility] [address] [place] [address] Dr. Bebeto Perea Erythrocyte distribution width (RBC) [Ratio] 13.7 % Normal 11.0-15.0 [facility] Comment on above: Performed By: #### C BC #### [facility] [address] [place] [address] Dr. Bebeto Perea Hematocrit (Bld) [Volume fraction] 42.1 % Normal 42.0-54.0 [facility] Comment on above: Performed By: #### C BC #### [facility] [address] [place] [address] Dr. Bebeto Perea Hemoglobin (Bld) [Mass/Vol] 14.0 g/dL Normal 14.0-18.0 [facility] Comment on above: Performed By: #### C BC #### [facility] [address] [place] [address] Dr. Bebeto Perea IG # 0.07 10e3/ul Critically high 0.00-0.03 [facility] Comment on above: Performed By: #### C BC #### [facility] [address] [place] [address] Dr. Bebeto Perea IG % 0.6 % Critically high 0.0-0.5 [facility] Comment on above: Performed By: #### C BC #### [facility] [address] [place] [address] Dr. Bebeto Perea LYMPH # 2.3 103/ul Normal 1.2-3.8 [facility] Comment on above: Performed By: #### C BC #### [facility] [address] [place] [address] Dr. Bebeto Perea Lymphocytes/100 WBC (Bld) 20.6 % Normal 20.5-60.0 [facility] Comment on above: Performed By: #### C BC #### [facility] [address] [place] [address] Dr. Bebeto Perea MANUAL DIFF REQ NO Normal [facility] Comment on above: Performed By: #### C BC #### [facility] [address] [place] [address] [address] Bebeto Perea MCH (RBC) [Entitic mass] 28.3 pg Normal 25.9-34.0 [facility] Comment on above: Performed By: #### C BC #### [facility] [address] [place] [address] [address] Bebeto Perea MCHC (RBC) [Mass/Vol] 33.3 g/dL Normal 29.9-35.2 [facility] Comment on above: Performed By: #### C BC #### [facility] [address] [place] [address] [address] Bebeto Perea MCV (RBC) [Entitic vol] 85.2 fL Normal 80.0-94.0 [facility] Comment on above: Performed By: #### C BC #### [facility] [address] [place] [address] Dr. Bebeto Perea MONO # 1.0 103/ul Critically high 0.3-0.8 [facility] Comment on above: Performed By: #### C BC #### [facility] [address] [address] [address] Bebeto Perea Monocytes/100 WBC (Bld) 8.7 % Normal 1.7-12.0 [facility] Comment on above: Performed By: #### C BC #### [facility] [address] [place] [address] Dr. Bebeto Perea NEUT # 7.7 103/ul Critically high 1.4-6.5 [facility] Comment on above: Performed By: #### C BC #### [facility] [address] [place] [address] Dr. Bebeto Perea Neutrophils/100 WBC (Bld) 68.4 % Normal 43.0-75.0 [facility] Comment on above: Performed By: #### C BC #### [facility] [address] [place] [address] Dr. Bebeto Perea Platelet mean volume (Bld) [Entitic vol] 9.3 fL Critically low 9.5-13.5 [facility] Comment on above: Performed By: #### C BC #### [facility] [address] [address] [address] Bebeto Perea PLT 313 103/ul Normal 150-450 [facility] Comment on above: Performed By: #### C BC #### [facility] [address] [place] [address] [address] Bebeto Perea RBC 4.94 106/ul Normal 4.70-6.10 [facility] Comment on above: Performed By: #### C BC #### [facility] [address] [address] [address] Bebeto Perea WBC 11.3 103/ul Critically high 4.0-11.0 [facility] Comment on above: Performed By: #### C BC #### [facility] [address] [place] [address] Dr. Bebeto Perea Covid-19 PCR (CVDTB)on 06-16 SARS-CoV-2 (COVID-19) RNA SILVINA+probe Ql (Unsp spec) Not detected Normal NOT DETECTED [facility] Comment on above: Result Comment: This test is not yet approved or cleared by the [place] FDA. When there are no FDA-approved or cleared tests available, and other criteria are met, FDA can make tests available under an emergency access mechanism called an Emergency Use Authorization (EUA). The EUA for this test is supported by the [place] of Health and Human Service's (HHS's) declaration [...] consistent with SARS-CoV-2. Performed By: #### C VDTBH #### [facility] [address] [place] [address] [address] Bebeto Perea PROF CHEM 8 (BAS METB)on Anion gap [Moles/Vol] 12.0 mmol/L Normal [facility] Comment on above: Performed By: #### B MP #### [facility] [address] [place] [address] Dr. Bebeto Perea Calcium [Mass/Vol] 9.0 mg/dL Normal 8.5-10.1 [facility] Comment on above: Performed By: #### B MP #### [facility] [address] [place] [address] Dr. Bebeto Perea Chloride [Moles/Vol] 105 mmol/L Normal 98-107 [facility] Comment on above: Performed By: #### B MP #### [facility] [address] [place] [address] Dr. Bebeto Perea CO2 [Moles/Vol] 28.8 mmol/L Normal 21.0-32.0 [facility] Comment on above: Performed By: #### B MP #### [facility] [address] [place] [address] Dr. Bebeto Perea Creatinine [Mass/Vol] 1.22 mg/dL Normal 0.70-1.30 [facility] Comment on above: Performed By: #### B MP #### [facility] [address] [place] [address] Dr. Bebeto Perea EGFR-AF BAHRAINI >60 Normal >=60 [facility] Comment on above: Performed By: #### B MP #### [facility] [address] [address] [address] Bebeto Perea EGFR-NON AF BAHRAINI 60 mL/min/1.73m2 Normal >=60 [facility] Comment on above: Performed By: #### B MP #### [facility] [address] [place] [address] Dr. Bebeto Perea Glucose [Mass/Vol] 88 mg/dL Normal 74-106 [facility] Comment on above: Performed By: #### B MP #### [facility] [address] [place] [address] Dr. Bebeto Perea Potassium [Moles/Vol] 3.8 mmol/L Normal 3.5-5.1 [facility] Comment on above: Performed By: #### B MP #### [facility] [address] [place] [address] Dr. Bebeto Perea Sodium [Moles/Vol] 142 mmol/L Normal 136-145 [facility] Comment on above: Performed By: #### B MP #### [facility] [address] [place] [address] [address] Bebeto Perea Urea nitrogen [Mass/Vol] 30.0 mg/dL Critically high 7.0-18.0 [facility] Comment on above: Performed By: #### B MP #### [facility] [address] [place] [address] Dr. Bebeto Perea Urea nitrogen/Creatinine [Mass ratio] 24.6 mg/mg Normal [facility] Comment on above: Performed By: #### B MP #### [facility] [address] [place] [address] Dr. Bebeto Perea PROTIMEon 07-11-2022 INR Coag (PPP) [Relative time] 1.05 {INR} Normal [facility] Comment on above: Performed By: #### P T, PTT #### [facility] [address] [place] [address] Dr. Bebeto Perea INR GUIDELINES SEE BELOW Normal [facility] Comment on above: Result Comment: BHUPENDRA RED INR: 2.0 - 3.0 CONDITIONS NOT LISTED BELOW 2.5 - 3.5 FOR PROSTHETIC HEART VALVE REPLACEMENT 2.5 - 3.5 RECURRENT THROMBOSIS Performed By: #### P T, PTT #### [facility] [address] [place] [address] Dr. Bebeto Perea PT Coag (PPP) [Time] 11.3 s Normal 9.0-11.6 [facility] Comment on above: Performed By: #### P T, PTT #### [facility] [address] [place] [address] Dr. Bebeto Perea PTTon 07-11-2022 aPTT Coag (Bld) [Time] 26.4 s Normal 22.3-36.2 e [facility] Comment on above: Performed By: #### P T, PTT #### [facility] [address] [place] [address] Dr. Bebeto Perea Creatinine (Bld) [Mass/Vol]O rdered By: Klever Melvin on 05-04-2022 Creatinine [Mass/Vol] 1.5 mg/dL 0.6-1.3 [facility] Comment on above: ER/ESD physician is notified/shown all ISTAT results. Critical values may be confirmed by laboratory testing if deemed necessary by ER attending doctor. No Panel InformationOrdered By: Klever Melvin on 05-04-2022 POC Estimated GFR 57 [facility] Comment on above: GFR estimated refere nce range: According to KDOQI guidelines, <60 ml/min/1.73m2 is sufficient to diagnose a patient with chronic kidney disease. POC Estimated GFR Non- Amer 47 [facility] XR Hip Complete Left*on XR Hip Complete Left* FINDINGS: Mild to moderate superior hip joint space loss. Small left pincer deformity. No significant CAM deformity. Bilateral small os acetabuli, non-acute. IMPRESSION: 1. Mild to moderate osteoarthritis. Report reported and signed by Jaydon Bernal on 02/16/2022 1242 Normal [facility] Nursing Complete Blood Count with Au to Diffon 01-24-2022 Basophils (Bld) [#/Vol] 0.02 10*3/uL Normal 0.00-0.20 [facility] Comment on above: Performed By: #### C MP, CBCAD, LIPD #### [facility] [address], [place] [id number] Basophils/100 WBC (Bld) 0.4 % Normal [facility] Comment on above: Performed By: #### C MP, CBCAD, LIPD #### [facility] [address], [place] [phone] Eosinophils (Bld) [#/Vol] 0.03 10*3/uL Normal 0.02-0.50 [facility] Comment on above: Performed By: #### C MP, CBCAD, LIPD #### [facility] [address], [place] [id number] Eosinophils/100 WBC (Bld) 0.6 % Normal [facility] Comment on above: Performed By: #### C LAYA, CBCAD, LIPD #### [facility] [address], [place] [id number] Erythrocyte distribution width (RBC) [Ratio] 13.7 % Normal 11.0-15.0 [facility] Comment on above: Performed By: #### C MP, CBCAD, LIPD #### [facility] Laboratory [address], [place] [id number] Hematocrit (Bld) [Volume fraction] 37.4 % Low 38.5-50.0 [facility] Specialist Comment on above: Performed By: #### C LAYA, CBCAD, LIPD #### [facility] [address], [place] [id number] Hemoglobin (Bld) [Mass/Vol] 12.4 g/dL Low 13.0-17.1 [facility] Specialist Comment on above: Performed By: #### C LAYA, CBCAD, LIPD #### [facility] [address], [place] [id number] Lymphocytes (Bld) [#/Vol] 1.8 10*3/uL Normal 0.9-3.9 [facility] Specialist Comment on above: Performed By: #### C MP, CBCAD, LIPD #### [facility] [address], [place] [id number] Lymphocytes/100 WBC (Bld) 32.8 % Normal [facility] Specialist Comment on above: Performed By: #### C MP, CBCAD, LIPD #### [facility] [address], [place] [id number] MCH (RBC) [Entitic mass] 27.7 pg Normal 27.0-33.0 [facility] Specialist Comment on above: Performed By: #### C MP, CBCAD, LIPD #### [facility] [address], [place] [id number] MCHC (RBC) [Mass/Vol] 33.2 g/dL Normal 32.0-36.0 [facility] Comment on above: Performed By: #### C MP, CBCAD, LIPD #### [facility] [address] [facility] [place] [id number] MCV (RBC) [Entitic vol] 84 fL Normal 80-100 [facility] Comment on above: Performed By: #### C MP, CBCAD, LIPD #### [facility] [address], [place] [id number] Monocytes (Bld) [#/Vol] 0.4 10*3/uL Normal 0.2-0.9 [facility] Comment on above: Performed By: #### C MP, CBCAD, LIPD #### [facility] [address], [place] [id number] Monocytes/100 WBC (Bld) 6.6 % Normal [facility] Comment on above: Performed By: #### C MP, CBCAD, LIPD #### [facility] [address], [place] [id number] Neutrophils (Bld) [#/Vol] 3.2 10*3/uL Normal 1.5-7.8 [facility] Comment on above: Performed By: #### C MP, CBCAD, LIPD #### [facility] [address], [place] [id number] Neutrophils/100 WBC (Bld) 59.2 % Normal [facility] Comment on above: Performed By: #### C MP, CBCAD, LIPD #### [facility] [address], [place] [id number] Platelet mean volume (Bld) [Entitic vol] 9.70 fL Normal 7.50-12.50 [facility] Comment on above: Performed By: #### C MP, CBCAD, LIPD #### [facility] [address], [place] [id number] Platelets (Bld) [#/Vol] 264 10*3/uL Normal 140-400 [facility] Comment on above: Performed By: #### C MP, CBCAD, LIPD #### [facility] [address], [place] [id number] RBC (Bld) [#/Vol] 4.47 10*6/uL Normal 4.20-5.80 [facility] Specialist Comment on above: Performed By: #### C MP, CBCAD, LIPD #### [facility] [address], [place] [id number] RDW-SD 41.9 fL Normal 37.0-50.0 [facility] Manager Nursing Comment on above: Performed By: #### C MP, CBCAD, LIPD #### [facility] [address], [place] [id number] WBC (Bld) [#/Vol] 5.3 10*3/uL Normal 3.8-11.0 Grace [facility]ley [place] Manager Nursing Comment on above: Performed By: #### C MP, CBCAD, LIPD #### [facility] [address], [place] [id number] Comprehensive Metabolic Pane jayce 01-24-2022 Albumin [Mass/Vol] 4.2 g/dL Normal 3.6-5.1 [facility] Manager Nursing Comment on above: Performed By: #### C MP, CBCAD, LIPD #### [facility] [address], [place] [id number] Albumin/Globulin [Mass ratio] 1.8 {ratio} Normal 1.0-2.5 [facility] Manager Nursing Comment on above: Performed By: #### C MP, CBCAD, LIPD #### [facility] [address], [place] [id number] ALP [Catalytic activity/Vol] 49 U/L Normal 40-129 [facility] Manager Nursing Comment on above: Performed By: #### C MP, CBCAD, LIPD #### [facility] [address], [place] [id number] ALT [Catalytic activity/Vol] 20 U/L Normal 9-46 [facility] Manager Nursing Comment on above: Result Comment: 09/14 Female reference range changed. Performed By: #### C MP, CBCAD, LIPD #### [facility] [address], [place] [id number] Anion gap [Moles/Vol] 16 mmol/L Normal 12-20 [facility] Comment on above: Result Comment: Effe ctive 10/20/2019 reference range changed. Performed By: #### C MP, CBCAD, LIPD #### [facility] [address] [facility] [place] [id number] AST [Catalytic activity/Vol] 20 U/L Normal 10-40 [facility] Comment on above: Performed By: #### C MP, CBCAD, LIPD #### [facility] [address] [facility] [place] [id number] Bilirubin [Mass/Vol] 0.56 mg/dL Normal 0.30-1.20 [facility] Comment on above: Performed By: #### C MP, CBCAD, LIPD #### [facility] [address] [facility] [place] [id number] BUN/CREA 22 Ratio Normal 6-22 [facility] Comment on above: Performed By: #### C MP, CBCAD, LIPD #### [facility] [address] [facility] [place] [id number] Calcium [Mass/Vol] 9.3 mg/dL Normal 8.6-10.2 [facility] Comment on above: Performed By: #### C MP, CBCAD, LIPD #### [facility] [address] [facility] [place] [id number] Chloride [Moles/Vol] 103 mmol/L Normal 98-107 [facility] Comment on above: Performed By: #### C MP, CBCAD, LIPD #### [facility] [address] [facility] [place] [id number] CO2 [Moles/Vol] 25 mmol/L Normal 20-31 [facility] Comment on above: Performed By: #### C MP, CBCAD, LIPD #### [facility] [address] [facility] [place] [id number] Creatinine [Mass/Vol] 1.1 mg/dL Normal 0.7-1.4 [facility] Comment on above: Performed By: #### C MP, CBCAD, LIPD #### [facility] [address] [facility] [place] [id number] eGFRAA 83 mL/min/1.73m2 Normal >60 [facility] Comment on above: Performed By: #### C MP, CBCAD, LIPD #### [facility] [address], [place] [id number] eGFRNAA 69 mL/min/1.73m2 Normal >60 [facility] Manager Nursing Comment on above: Performed By: #### C LAYA CBCMAXIMINO, LIPD #### [facility] [address], [place] [id number] Globulin (S) [Mass/Vol] 2.3 g/dL Normal 1.9-3.7 [facility] Manager Nursing Comment on above: Performed By: #### C LAYA, CBCAD, LIPD #### [facility] [address], [place] [id number] Glucose [Mass/Vol] 116 mg/dL High 65-99 [facility] Comment on above: Result Comment: For FASTING Glucose --- ADA reference ranges: Normal 65-99 mg/dl Prediabetes 100-125 Diabetes >/= 126 Performed By: #### C LAYA CBCMAXIMINO, LIPD #### [facility] [address], [place] [id number] Potassium [Moles/Vol] 3.8 mmol/L Normal 3.5-5.5 [facility] Comment on above: Performed By: #### C LAYA CBCMAXIMINO, LIPD #### [facility] [address], [place] [id number] Protein [Mass/Vol] 6.5 g/dL Normal 6.1-8.1 [facility] Manager Nursing Comment on above: Performed By: #### C LAYA, CBCMAXIMINO, LIPD #### [facility] [address], [place] [id number] Sodium [Moles/Vol] 140 mmol/L Normal 135-146 [facility] Manager Nursing Comment on above: Performed By: #### C LAYA, CBCMAXIMINO, LIPD #### [facility] [address], [place] [id number] Urea nitrogen [Mass/Vol] 23 mg/dL Normal 7-25 [facility] Manager Nursing Comment on above: Performed By: #### C LAYA, CBCAD, LIPD #### [facility] [address], [place] [id number] Hemoglobin A1Con 01-24-2022 EAG 125.50 Normal [facility] Specialist Comment on above: Performed By: #### A 1C #### [facility] [address], [place] [id number] HbA1c (Bld) [Mass fraction] 6.0 % Normal 4.0-6.0 [facility] Specialist Comment on above: Performed By: #### A 1C #### [facility] [address], [place] [id number] Lipid Panelon 01-24-2022 Cholesterol [Mass/Vol] 151 mg/dL Normal 125-200 [facility] Comment on above: Result Comment: Low risk < 200mg/dL Borderline risk 201-239 mg/dl High risk > or equal to 240 Performed By: #### C MP, CBCAD, LIPD #### [facility] [address], [place] [id number] Cholesterol in HDL [Mass/Vol] 32 mg/dL Low >40 [facility] Manager Nursing Comment on above: Result Comment: High Cardiovascular Risk HDL <40 mg/dL Low Cardiovascular Risk HDL > or equal to 60 mg/dl Performed By: #### C MP, CBCAD, LIPD #### [facility] [address], [place] [id number] Cholesterol in LDL [Mass/Vol] 94 mg/dL Normal [facility] Specialist Comment on above: Result Comment: LDL ATP III CLASSIFICATION LDL less than 100 mg/dl Optimal LDL 100-129 mg/dl Near or above optimal LDL 130-159 Borderline high LDL 160-189 High LDL greater than 189 mg/dl Very High Performed By: #### C MP, CBCAD, LIPD #### [facility] [address], [place] [id number] Cholesterol in VLDL [Mass/Vol] 25 mg/dL Normal [facility] Manager Nursing Comment on above: Performed By: #### C MP, CBCAD, LIPD #### [facility] [address], [place] [id number] Cholesterol.total/Chol esterol in HDL [Mass ratio] 5 {ratio} Normal [facility] Manager Nursing Comment on above: Performed By: #### C MP, CBCAD, LIPD #### [facility] [address], [place] [id number] Triglyceride [Mass/Vol] 125 mg/dL Normal 30-150 [facility] Manager Nursing Comment on above: Result Comment: TRIG ATPIII CLASSIFICATIONS TRIG less than 150 mg/dl Normal TRIG 150-199 mg/dl Borderline High TRIG 200-500 mg/dl High TRIG greather than 500 mg/dl Very High Performed By: #### C MP, CBCAD, LIPD #### [facility] [address] [place], [place] [id number] XR Chest 2 Views*on 01-25-20 22 XR [...] by Jaydon Bernal on 01/24/2022 1412 Normal [facility] Specialist Vital Signs Date Time Vital Sign Value Performing Clinician Facility 03-30-2025 [id number] Body height 175.3 cm Fabian Cardoza MD Work Phone: [facility] 03-30-2025 10:02-0400 Body mass index (BMI) [Ratio] 34.26 kg/m2 Fabian Cardoza MD Work Phone: [facility] 03-30-2025 10:02-0400 Body temperature 97.5 [degF] Fabian Cardoza MD Work Phone: [facility] 03-30-2025 10:02-0400 Body weight 105.23 kg Fabian Cardoza MD Work Phone: [facility] 03-30-2025 10:02-0400 Diastolic blood pressure 82 mm[Hg] Fabian Cardoza MD Work Phone: [facility] 03-30-2025 10:02-0400 Heart rate 64 /min Fabian Cardoza MD Work Phone: [facility] 03-30-2025 10:02-0400 Respiratory rate 18 /min Fabian Cardoza MD Work Phone: [facility] 03-30-2025 10:02-0400 SaO2% (BldA) [Mass fraction] 94 % Fabian Cardoza MD Work Phone: [facility] 03-30-2025 10:02-0400 Systolic blood pressure 150 mm[Hg] Fabian Cardoza MD Work Phone: [facility] 09-19-2024 10:00-0500 Body height 175.3 cm Fabian Cardoza MD Work Phone: [facility] 09-19-2024 10:00-0500 Body mass index (BMI) [Ratio] 32.19 kg/m2 Fabian Cardoza MD Work Phone: [facility] 09-19-2024 10:00-0500 Body temperature 97.81 [degF] Fabian Cardoza MD Work Phone: [facility] 09-19-2024 10:00-0500 Body weight 98.88 kg Fabian Cardoza MD Work Phone: [facility] 09-19-2024 10:00-0500 Diastolic blood pressure 68 mm[Hg] Fabian Cardoza MD Work Phone: [facility] 09-19-2024 10:00-0500 Heart rate 79 /min Fabian Cardoza MD Work Phone: [facility] 09-19-2024 10:00-0500 Respiratory rate 22 /min Fabian Cardoza MD Work Phone: [facility] 09-19-2024 10:00-0500 SaO2% (BldA) [Mass fraction] 97 % Fabian Cardoza MD Work Phone: [facility] 09-19-2024 10:00-0500 Systolic blood pressure 130 mm[Hg] Fabian Cardoza MD Work Phone: [facility] 08-25-2024 12:24-0500 Blood Pressure Location Klever MELVIN [facility] 08-25-2024 12:24-0500 Body temperature 98.6 [degF] Klever MELVIN [facility] 08-25-2024 12:24-0500 Diastolic blood pressure 80 mm[Hg] Klever MELVIN [facility] 08-25-2024 12:24-0500 Heart rate 68 /min Klever MELVIN [facility] 08-25-2024 12:24-0500 Respiratory rate 17 /min Klever MELVIN [facility] 08-25-2024 12:24-0500 Systolic blood pressure 131 mm[Hg] Klever MELVIN [facility] 07-31-2024 10:18-0400 Body height 177.8 cm Fabian Cardoza MD Work Phone: [facility] 07-31-2024 10:18-0400 Body mass index (BMI) [Ratio] 31.42 kg/m2 Fabian Cardoza MD Work Phone: [facility] 07-31-2024 10:18-0400 Body temperature 97.3 [degF] Fabian Cardoza MD Work Phone: [facility] 07-31-2024 10:18-0400 Body weight 99.34 kg [...] 175.26 cm MD Fabian Cardoza Work Phone: [facility] 04-04-2024 10:43-0400 Body weight 95.25 kg MD Fabian Cardoza Work Phone: [facility] 03-17-2024 09:53-0400 Blood Pressure Location Klever MELVIN [facility] 03-17-2024 09:53-0400 Body temperature 98.6 [degF] Klever MELVIN [facility] 03-17-2024 09:53-0400 Diastolic blood pressure 84 mm[Hg] Klever MELVIN [facility] 03-17-2024 09:53-0400 Heart rate 70 /min Klever MELVIN [facility] 03-17-2024 09:53-0400 Respiratory rate 16 /min Klever MELVIN [facility] 03-17-2024 09:53-0400 Systolic blood pressure 137 mm[Hg] Klever MELVIN [facility] 02-26-2023 10:57-0400 Blood Pressure Location Klever MELVIN [facility] 02-26-2023 10:57-0400 Diastolic blood pressure 88 mm[Hg] Klever MELVIN [facility] 02-26-2023 10:57-0400 Heart rate 88 /min Klever MELVIN [facility] 02-26-2023 10:57-0400 Respiratory rate 16 /min Klever MELVIN [facility] 02-26-2023 10:57-0400 Systolic blood pressure 137 mm[Hg] Klever MELVIN [facility] 07-24-2022 09:47-0400 Blood Pressure Location Klveer MELVIN [facility] 07-24-2022 09:47-0400 Diastolic blood pressure 84 mm[Hg] Klever MELVIN [facility] 07-24-2022 09:47-0400 Heart rate 71 /min Klever MELVIN [facility] 07-24-2022 09:47-0400 Respiratory rate 16 /min Klever MELVIN [facility] 07-24-2022 09:47-0400 Systolic blood pressure 138 mm[Hg] Klever MELVIN [facility] 04-21-2022 10:53-0400 Diastolic blood pressure 82 mm[Hg] Klever MELVIN [facility] 04-21-2022 10:53-0400 Mean blood pressure 101 mm[Hg] Klever MELVIN [facility] 04-21-2022 10:53-0400 Systolic blood pressure 140 mm[Hg] Klever MELVIN [facility] 04-21-2022 10:33-0400 Blood Pressure Location Klever MELVIN [facility] 04-21-2022 10:33-0400 Diastolic blood pressure 100 mm[Hg] Klever MELVIN [facility] 04-21-2022 10:33-0400 Heart rate 75 /min Klever MELVIN [facility] 04-21-2022 10:33-0400 Systolic blood pressure 159 mm[Hg] Kleevr MELVIN [facility] 07-08-2021 12:40-0400 Body height 176.53 cm Rocio Ojeda Other [facility] Other 07-08-2021 12:40-0400 Body mass index (BMI) [Ratio] 33.94 kg/m2 Rocio Ojeda Other [facility] Other 07-08-2021 12:40-0400 Body temperature 97.5 [degF] Rocio Ojeda Other [facility] Other 07-08-2021 12:40-0400 Body weight 105.78 kg Rocio Ojeda Other [facility] Other 07-08-2021 12:40-0400 Diastolic blood pressure 80 mm[Hg] Rocio Ojeda Other [facility] Other 07-08-2021 12:40-0400 Respiratory rate 18 /min Rocio Ojeda Other [facility] Other 07-08-2021 12:40-0400 SaO2% (BldA) [Mass fraction] 95 % Rocio Ojeda Other [facility] Other 07-08-2021 12:40-0400 Systolic blood pressure 150 mm[Hg] Rocio Ojeda Other [facility] Other Encounters Encounter Date Encounter Type Care Provider Facility Start: 09-28-2025 ambulatory Klever Cristina ty:[facility] Start: 06-19-2025 ambulatory Klever Cristina ty:[facility] Start: 06-11-2025 End: 06-11-2025 Robbie Juarez MD Work Phone: [facility] Start: 06-11-2025 End: 06-11-2025 Robbie Juarez MD Work Phone: [facility] Start: 06-11-2025 End: 06-11-2025 Office outpatient visit 15 minutes Carli Juarez MD Work Phone: [facility] Comment on above: Seborrheic keratosis (Primary Dx); Capillary angioma; Lentigines; Actinic keratosis Start: 06-11-2025 End: 06-11-2025 ambulatory CARLI JUAREZ Not Available Start: 04-27-2025 End: 04-27-2025 ambulatory ROMELIA CHURCHILL Facility:[facility] Start: 04-27-2025 End: 04-27-2025 Patient encounter procedure ROMELIA CHURCHILL [facility] Start: 03-30-2025 End: 03-30-2025 Bamboo flowsheet Fabian Cardoza MD Work Phone: [facility] Start: 03-30-2025 End: 03-30-2025 Bamboo flowsheet Fabian Cardoza MD Work Phone: [facility] Start: 03-30-2025 End: 03-30-2025 Office outpatient visit 25 minutes Fabian Cardoza MD Work Phone: [facility] Comment on above: Essential hypertensi on, benign (Primary Dx); Degenerative lumbar spinal stenosis; Cervical spondylolysis; Gastroesophageal reflux disease without esophagitis; BPH without urinary obstruction; Prediabetes; Venous insufficiency of both lower extremities; Class 1 obesity due to excess calories with serious comorbidity and body mass index (BMI) of 32.0 to 32.9 in adult; Dyslipidemia ; Encounter for long-term (current) use of medications Start: 03-30-2025 End: 03-30-2025 ambulatory FABIAN CARDOZA Not Available Start: 03-20-2025 End: 03-20-2025 ambulatory Klever MELVIN Facility:[facility] Start: 03-20-2025 End: 03-20-2025 Patient encounter procedure Klever MELVIN [facility] Start: 03-03-2025 End: 03-03-2025 Clinisync Result Encounter Generic External Data Provider [facility] External Department Unsolicited Start: 03-03-2025 End: 03-03-2025 Clinisync Result Encounter Generic External Data Provider [facility] External Department Unsolicited Start: 02-18-2025 End: 02-18-2025 Bamboo flowsfrancesco Goodrich CCC-A Work Phone: [facility] Start: 02-18-2025 End: 02-18-2025 Bamboo flowsheet Danitza Goodrich CCC-A Work Phone: [facility] Start: 02-18-2025 End: 02-18-2025 ambulatory DANITZA GOODRICH Not Available Start: 02-18-2025 End: 02-18-2025 Clinical Support Danitza Lopezill CCC-A Work Phone: [facility] Comment on above: Asymmetrical sensori neural hearing loss (Primary Dx) Start: 02-17-2025 End: 02-17-2025 Telephone encounter Danitza Lopezill CCC-A Work Phone: [facility] Comment on above: Supplies Start: 02-02-2025 End: 02-03-2025 Telephone encounter Fabian Cardoza MD Work Phone: [facility] Comment on above: Med Refill Start: 11-03-2024 End: 11-03-2024 Orders Only Fabian Cardoza MD Work Phone: [facility] Comment on above: Gastroesophageal ref lux disease without esophagitis Start: 09-19-2024 End: 09-19-2024 Bamboo flowsheet Fabian Cradoza MD Work Phone: [facility] Start: [...] Start: 08-25-2024 End: 08-25-2024 ambulatory Klever MELVIN Facility:[facility] Start: 08-25-2024 End: 08-25-2024 Patient encounter procedure Klever MELVIN [facility] Start: 08-12-2024 End: 08-12-2024 Clinisync Result Encounter Generic External Data Provider [facility] External Department Unsolicited Start: 08-12-2024 End: 08-12-2024 Clinisync Result Encounter Generic External Data Provider [facility] External Department Unsolicited Start: 08-11-2024 End: 08-11-2024 Orders Only Fabian Carodza MD Work Phone: [facility] Comment [...] [facility] Start: 06-09-2024 End: 06-09-2024 Bambostefan flowsheet Carli Juarez MD Work Phone: [facility] Start: 06-09-2024 End: 06-09-2024 Office outpatient visit 15 minutes Carli Juarez MD Work Phone: [facility] Comment on above: Seborrheic keratosis (Primary Dx); Actinic keratosis; Angioma of skin; Lentigines Start: 05-22-2024 End: 05-22-2024 Patient encounter procedure MD Fabian Cardoza Work Phone: [facility] [place] Work Phone: Start: 05-22-2024 End: 05-22-2024 ambulatory MD Fabian Cardoza Work Phone: [facility] Work Phone: Start: 04-04-2024 End: 04-04-2024 ambulatory MD Fabian Cardoza Work Phone: [facility] Work Phone: Start: 04-04-2024 End: 04-04-2024 Patient encounter procedure MD Fabian Cardoza Work Phone: [facility] Work Phone: Start: 03-17-2024 End: 03-17-2024 Patient encounter procedure Klever MELVIN [facility] Start: 07-17-2023 End: 07-17-2023 ambulatory RICKY NOBLES [facility] Start: 06-19-2023 End: 06-20-2023 ambulatory MESSI WOODS [facility] Start: 02-26-2023 End: 02-26-2023 Patient encounter procedure Klever MELVIN [facility] Start: 02-06-2023 End: 02-06-2023 Patient encounter procedure Klever MELVIN [facility] Start: 01-24-2023 End: 01-25-2023 ambulatory KLEVER MELVIN Facility: Start: 07-24-2022 End: 07-24-2022 Patient encounter procedure Klever MELVIN [facility] Start: 07-13-2022 Encounter for prepro cedural cardiovascular examination KLEVER MELVIN [facility] Start: 07-13-2022 Encounter for prepro cedural laboratory examination KLEVER MELVIN [facility] Start: 07-13-2022 Encounter for prepro cedural respiratory examination KLEVER MELVIN [facility] Start: 07-13-2022 End: 07-13-2022 ambulatory KLEVER MELVIN Facility:[facility] Start: 07-11-2022 End: 07-12-2022 ambulatory KLEVER MELVIN Facility:[facility] Start: 07-11-2022 End: 07-12-2022 Encounter for preprocedural laboratory examination KLEVER MELVIN Facility:[facility] Start: 06-14-2022 End: 07-12-2022 Pre-admission assessment Klever MELVIN [facility] Start: 05-04-2022 End: 05-04-2022 Patient encounter procedure MD Klever Melvin Work Phone: [facility] [place] Start: 04-21-2022 End: 04-21-2022 Patient encounter procedure Klever MELVIN [facility] Start: 04-14-2022 End: 04-15-2022 ambulatory KLEVER MELVIN Facility:[facility] Start: 07-08-2021 Office outpatient ne w 20 minutes Rocio Ojeda [facility] Procedures Date Procedure Procedure Detail Performing Clinician Start: 06-11-2025 CRYOTHERAPY SKIN LESION Carli Juarez MD Work Phone: Start: 03-03-2025 MHPT PSA, DIAGNOSTIC Ge neric External Data Provider Start: 08-12-2024 MHPT PSA, DIAGNOSTIC Ge neric External Data Provider Start: 06-09-2024 CRYOTHERAPY SKIN LESION Carli Juarez MD Work Phone: Start: 04-04-2024 Positron emission tomography MD Fabian Cardoza Work Phone: Start: 02-06-2023 Transrectal biopsy o f prostate using ultrasound guidance Klever MELVIN Start: 01-24-2023 PSA screening KLEVER KUMAR Comment on above: Performed By: #### P SAD #### [facility] [address] [place] [address] Dr. Bebeto Perea Start: 07-13-2022 Transrectal biopsy o f prostate using ultrasound guidance Klever MELVIN Start: 04-14-2022 PSA screening KLEVER KUMAR Comment on above: Performed By: #### P SAD #### [facility] [address] [place] [address] Dr. Bebeto Perea Start: 01-24-2022 Microscopic examinat ion of blood, culture Comment on above: Order Comment: [facility] Testing performed at: [facility], [facility], [address] [place] [address], [address] [place] [address], [phone], Eyeglass Frame Truer: Chaparro Mcintyre MD [facility] Collection Date/Time: [facility] Results Received Date/Time: [facility] Reported Date/Time: Result Comment: CULT URE, BLOOD Micro Number: [id number] Test Status: Final Specimen Source: Rt arm Specimen Quality: Adequate Result: No growth after 5 days TRANSPORT MEDIA: Aerobic and anaerobic bottle received. Performed By: #### [id number] #### [facility] [address] [place] [address] Start: 06-23-2021 Percutaneous translu chet laser ablation of varicose vein of lower limb Klever MELVIN Start: 02-10-2021 Transurethral prostatectomy Klever MELVIN Start: 01-07-2021 Cystoscopy Klever CUN[place] Start: 10-09-2018 Colonoscopy Carli vega MD Work Phone: Colonoscopy Klever MELVIN Transurethral prostatectomy Klever MELVIN Plan of Treatment Date Care Activity Detail Author Start: 10-09-2028 Screening for malign ant neoplasm of colon [facility] Start: 06-10-2026 End: 06-10-2026 Patient encounter procedure 06/10/2026 11:05 AM EDT Office Visit [facility] [address] [place] [id number] Carli Juarez MD [address] [place] [address] [facility] Start: 09-21-2025 End: 09-21-2025 Patient encounter procedure 09/21/2025 9:30 AM EST Office Visit [facility] [address] [place] [address] Fabian Cardoza MD [address] [place] [address] [facility] Start: 09-19-2025 Medicare Annual Wellness (AWV) Medicare Annual Wellness (AWV) [facility] Start: 06-15-2025 Influenza vaccination Influenza Vacc ine (#1) [facility] Start: 06-11-2025 End: 06-11-2025 Patient encounter procedure [facility] Comment on above: Arrived Start: 03-30-2025 End: 03-30-2026 Basic metabolic 1998 panel - Serum or Plasma Basic metabolic panel Lab Routine Essential hypertension, benign Expected: 03/30/2025 (Approximate), Expires: 03/30/2026 [facility] Comment on above: Expected: 03/30/2025 (Approximate), Expires: 03/30/2026 Start: 03-30-2025 End: 03-30-2026 CBC W Auto Differential panel - Blood CBC and differential Lab Routine Encounter for long-term (current) use of medications Expected: 03/30/2025 (Approximate), Expires: 03/30/2026 [facility] Comment on above: Expected: 03/30/2025 (Approximate), Expires: 03/30/2026 Start: 03-30-2025 End: 03-30-2026 Hemoglobin A1c/Hemoglobin.total in Blood Hemoglobin A1c Lab Routine Prediabetes Expected: 03/30/2025 (Approximate), Expires: 03/30/2026 [facility] Work Phone: Comment on above: Expected: 03/30/2025 (Approximate), Expires: 03/30/2026 Start: 03-30-2025 End: 03-30-2026 Hepatic function 2000 panel - Serum or Plasma Hepatic function panel Lab Routine Encounter for long-term (current) use of medications Expected: 03/30/2025 (Approximate), Expires: 03/30/2026 [facility] Comment on above: Expected: 03/30/2025 (Approximate), Expires: 03/30/2026 Start: 03-30-2025 End: 03-30-2026 Lipid 1996 panel - Serum or Plasma Lipid panel Lab Routine Dyslipidemia Expected: 03/30/2025 (Approximate), Expires: 03/30/2026 [facility] Comment on above: Expected: 03/30/2025 (Approximate), Expires: 03/30/2026 Start: 03-30-2025 End: 03-30-2026 Thyrotropin [Units/volume] in Serum or Plasma TSH Lab Routine Class 1 obesity due to excess calories with serious comorbidity and body mass index (BMI) of 32.0 to 32.9 in adult Expected: 03/30/2025 (Approximate), Expires: 03/30/2026 [facility] Comment on above: Expected: 03/30/2025 (Approximate), Expires: 03/30/2026 Start: 03-30-2025 End: 03-30-2025 Patient encounter procedure [facility] Comment on above: Arrived Start: 03-23-2025 End: 03-23-2025 Patient encounter procedure 03/23/2025 10:00 AM EDT Office Visit [facility] [address] [place] [address] Fabian Cardoza MD [address] [place] [address] [facility] Start: 09-19-2024 End: 09-19-2025 Basic metabolic 1998 panel - Serum or Plasma Basic metabolic panel Lab Routine Encounter for long-term (current) use of medications Expected: 09/19/2024 (Approximate), Expires: 09/19/2025 [facility] Comment on above: Expected: 09/19/2024 (Approximate), Expires: 09/19/2025 Start: 09-19-2024 End: 09-19-2025 CBC W Auto Differential panel - Blood CBC and differential Lab Routine Encounter for long-term (current) use of medications Expected: 09/19/2024 (Approximate), Expires: 09/19/2025 [facility] Comment on above: Expected: 09/19/2024 (Approximate), Expires: 09/19/2025 Start: 09-19-2024 End: 09-19-2025 Hemoglobin A1c/Hemoglobin.total in Blood Hemoglobin A1c Lab Routine Prediabetes Expected: 09/19/2024 (Approximate), Expires: 09/19/2025 [facility] Work Phone: Comment on above: Expected: 09/19/2024 (Approximate), Expires: 09/19/2025 Start: 09-19-2024 End: 09-19-2025 Hepatic function 2000 panel - Serum or Plasma Hepatic function panel Lab Routine Encounter for long-term (current) use of medications Expected: 09/19/2024 (Approximate), Expires: 09/19/2025 [facility] Comment on above: Expected: 09/19/2024 (Approximate), Expires: 09/19/2025 Start: 09-19-2024 End: 09-19-2025 Lipid 1996 panel - Serum or Plasma Lipid panel Lab Routine Dyslipidemia (CMS/HCC) Expected: 09/19/2024 (Approximate), Expires: 09/19/2025 [facility] Comment on above: Expected: 09/19/2024 (Approximate), Expires: 09/19/2025 Start: 09-19-2024 End: 09-19-2025 Thyrotropin [Units/volume] in Serum or Plasma TSH Lab Routine Class 1 obesity due to excess calories with serious comorbidity and body mass index (BMI) of 32.0 to 32.9 in adult Expected: 09/19/2024 (Approximate), Expires: 09/19/2025 [facility] Comment on above: Expected: 09/19/2024 (Approximate), Expires: 09/19/2025 Start: 09-19-2024 End: 09-19-2024 Patient encounter procedure [facility] Comment on above: Arrived Start: 08-19-2024 End: 08-19-2024 Patient encounter procedure 08/19/2024 11:00 AM EST Office Visit [facility] [address] [place] [address] Fabian Cardoza MD [address] [place] [address] [facility] Start: 08-07-2024 Medicare Annual Wellness (AWV) Medicare Annual Wellness (AWV) [facility] Start: 07-31-2024 End: 07-31-2025 XR Cervical spine 2 or 3 Views XR cervical spine 2 or 3 views Imaging Routine Cervical spondylolysis Expected: 07/31/2024, Expires: 07/31/2025 [facility] Work Phone: Comment on above: Expected: 07/31/2024 , Expires: 07/31/2025 Start: 07-31-2024 End: 07-31-2024 Patient encounter procedure 07/31/2024 10:15 AM EDT Office Visit [facility] [address] [place] [id number] Fabian Cardoza MD [address] [place] [id number] Arrived [facility] Comment on above: Arrived Start: 06-15-2024 Influenza vaccination Influenza Vacc ine (#1) [facility] Start: 06-09-2024 End: 06-09-2024 Patient encounter procedure 06/09/2024 11:15 AM EDT Office Visit [facility] [address] [place] [address] Carli Juarez MD [address] [place] [address] Arrived [facility] Comment on above: Arrived Start: 05-22-2024 MR Prostate WO and W contrast IV [facility] Start: 05-22-2024 MR prostate wo/w con MR prostate wo/ w con [facility] Start: 05-04-2022 MR Prostate WO and W contrast IV [facility] Work Phone: Start: 05-04-2022 MR prostate wo/w con MR prostate wo/ w con [facility] Start: 2021 Pneumococcal Vaccine : 65+ Years (1 of 1 - PCV) Pneumococcal Vaccine: 65+ Years (1 of 1 - PCV) [facility] Start: 1955 Screening for malign ant neoplasm of colon [facility] Immunizations Immunization Date Immunization Notes Care Provider Fa cili 07-02-2024 influenza virus vaccine, unspecified formulation Carli Juarez MD Work Phone: [facility] 08-21-2023 influenza virus vaccine, unspecified formulation Carli Juarez MD Work Phone: [facility] 05-02-2022 SARS-CoV-2 (COVID-19 ) mRNA-1273 vaccine Klever MELVIN [facility] 09-12-2021 SARS-CoV-2 (COVID-19 ) mRNA-1273 vaccine Klever MELVIN [facility] 01-21-2021 SARS-CoV-2 (COVID-19 ) mRNA-1273 vaccine Klever MELVIN [facility] 12-24-2020 SARS-CoV-2 (COVID-19 ) mRNA-1273 vaccine Klever MELVIN [facility] 07-28-2020 influenza virus vaccine, unspecified formulation Klever MLEVIN [facility] 08-31-2019 influenza virus vaccine, unspecified formulation Klever MELVIN [facility] 06-19-2019 zoster vaccine recombinant Klever MELVIN [facility] 01-29-2019 zoster vaccine recombinant Klever MELVIN [facility] 09-30-2018 influenza virus vaccine, unspecified formulation Klever MELVIN [facility] 09-03-2017 influenza virus vaccine, unspecified formulation Klever MELVIN [facility] 11-16-2015 influenza virus vaccine, unspecified formulation Klever MELVIN [facility] 09-16-2014 influenza virus vaccine, unspecified formulation Klever MELVIN [facility] Payers Date Payer Category Payer Self-pay [id number] 2023 Medicare (Managed Care) [employer] [id number] 2023 Medicare [id number] 2023 Medicare [id number] 2023 Unknown [id number] 2021 Unknown [id number] Private Health Insurance [id number] 1955 Unknown [id number] [id number] .593 1955 Unknown [id number] 2.16.840.1.715954.3.579.2 .593 1956 Unknown [id number] 2.16.840.1.191648.3.579.2 .593 1956 Unknown [id number] 2.16.840.1.231130.3.579.2 .593 1956 Unknown [id number] 2.16.840.1.864636.3.579.2 .1259 1956 Unknown [id number] 2.16.840.1.874842.3.579.2 .1259 1956 Unknown [id number] 2.16.840.1.852569.3.579.2 .1259 1956 Unknown [id number] 2.16.840.1.562041.3.579.2 .1259 1956 Unknown [id number] 2.16.840.1.292174.3.579.2 .1259 1956 Unknown [id number] 2.16.840.1.148711.3.579.2 .727 1956 Unknown [id number] 2.16.840.1.994008.3.579.2 .727 1956 Unknown [id number] 2.16.840.1.265656.3.579.2 .727 1956 Unknown [id number] 2.16.840.1.125552.3.579.2 .727 1955 Unknown [id number] 2.16.840.1.705243.3.579.2 .727 Medicare Medicare [id number] Unknown [id number] [id number] .531 Social History Date Type Detail Facility Unknown if ever smoked [facility] Start: 06-09-2024 End: 09-19-2024 Sex Assigned At [facility] Start: 04-21-2022 End: 07-03-2023 Tobacco smoking status Ex-smoker (finding) [facility] Start: 1955 Sex Assigned At Male [facility] Start: 07-08-2021 Tobacco smoking stat [facility] Never smoked tobacco (finding) [facility] History of tobacco use Current smoker [facility] History of tobacco use Cigarette Smoker [facility] Start: 06-09-2024 End: 06-11-2025 Alcoholic beverage intake Ex-drinker (finding) [facility] Start: 06-09-2024 End: 09-19-2024 History of Social function [facility] Start: 1955 Sex assigned at Not on file [facility] Tobacco smoking status Never [facility] Sexual Orientation [facility] Sex Male (finding) [facility] Functional Status Date Assessment Result Facility 08-25-2024 Functional Status N/A [facility] 03-17-2024 Functional Status N/A [facility] 02-26-2023 Functional Status N/A [facility] 07-24-2022 Functional Status N/A [facility] 04-21-2022 Functional Status N/A [facility] Clinical Notes 07-08-2021 to 06-11-2025 Carli Juarez MD - 06/11/2025 10:45 AM Stanford Cardoza MD - 03/30/2025 10:37 AM Stanford Cardoza MD - 03/30/2025 10:37 AM Stanford Cardoza MD - 03/30/2025 10:37 AM EDT Note Date & Type Note Facility 06-11-2025 History of Present illness Narrative Skin Check Location: Patient requests a skin examination from the waist up, A full body skin exam was offered, patient declined Dermatologic history: history of Actinic Keratosis Last visit: 1 year ago Established patient All pertinent medical history, medications, and allergies were reviewed. General Exam: alert, oriented to person, place, and time, normal affect, well appearing Unaccompanied A complete skin exam was offered, pt declined. Areas not examined despite medical recommendation: From the waist down Scalp, Examined , exam limited by hair Head, Face Examined Neck Examined Chest Examined Back Examined Abdomen Examined Right arm Examined Left arm Examined Hands Examined Digits,nails: Examined Lymphatics: Not examined Skin Exam 1. SEBORRHEIC KERATOSIS Generalized Stuck on verrucous, milner-brown papules and plaques. Patient was counseled regarding these benign growths. Removal is normally not necessary, but they may be removed if they are symptomatic or for cosmetic reasons. 2. CAPILLARY ANGIOMA Generalized Scattered oritz-red papule(s). The patient was informed that angiomas are benign growths on the the skin. No treatment is necessary. 3. LENTIGINES Generalized Scattered milner macules in sun-exposed areas. The patient was informed that lentigines are benign pigmented lesions that occur on sun-exposed and sun-damaged skin. No treatment is necessary. Recommended regular use of broad spectrum sunscreen SPF 30 or higher 4. ACTINIC KERATOSIS (3) Left Superior [place], Right Forearm - Anterior, Right Forearm - Posterior Erythematous scaly papules Patient was counseled regarding [...] limited to risks of scarring, darker or plan nurse pigmentary changes, recurrence, incomplete removal and infection. Method: Liquid nitrogen was used to treat the lesion(s) with two 5-10 second freeze-thaw cycles. Number of lesions treated: 3 Post-procedure instructions: Instructions were given orally and in writing. The office will be contacted if the lesion fails to resolve despite treatment, or if a side effect develops such as abnormal crusting, scabbing, redness or tenderness Cryotherapy, skin lesion - Left Superior [place], Right Forearm - Anterior, Right Forearm - Posterior Next Visit: 1 year documented in this encounter [facility] 04-27-2025 Hospital Discharge instructions Patient Education 04/27/2025 12:28:08 Benign Prostatic Hyperplasia Benign Prostatic Hyperplasia Benign [...] urethra. Follow these instructions at home: Take vsin-qvm-gpxorag and prescription medicines only as told by [...] provider. Document Revised: 04/19/2022 Document Reviewed: 04/19/2022 [facility] Patient Education 2023 Rayn. Follow Up Care 04/22/2025 14:08:06 With:KIERAN OWEN, Klever Alston, URL Address: [address] [place] [address]- When:Within 1 Month(s) [facility] 04-27-2025 Note Patient Education Urology Benign Prostatic Hyperplasia Benign prostatic hyperplasia (BPH) [...] or symptoms? Symptoms of this condition include: ??? Getting up often during the night to urinate. ??? Needing to urinate frequently during the day. ??? Difficulty starting urine flow. ??? Decrease in size and strength of your urine stream. ??? Leaking (dribbling) after urinating. ??? Inability to pass urine. This needs immediate treatment. ??? Inability to completely empty your bladder. ??? Pain when you pass urine. This is more common if there is also an infection. ??? Urinary tract infection (UTI). How is this diagnosed? This condition is diagnosed based on your medical history, a physical exam, and your symptoms. Tests will also be done, such as: ??? A post-void bladder scan. This measures any amount of urine that may remain in your bladder after you finish urinating. ??? A digital rectal exam. In a rectal exam, your health care provider checks your prostate by putting a lubricated, gloved finger into your rectum to feel the back of your prostate gland. This exam detects the size of your gland and any abnormal lumps or growths. ??? An exam of your urine (urinalysis). ??? A prostate specific antigen (PSA) screening. This is a blood test used to screen for prostate cancer. ??? An ultrasound. This test uses sound waves [...] severity of your condition. Treatment may include: ??? Observation and yearly exams. This may be the only treatment needed if your condition and symptoms are mild. ??? Medicines to relieve your symptoms, including: ? Medicines to shrink the prostate. ? Medicines to relax the muscle of the prostate. ??? Surgery in severe cases. Surgery may include: ? Prostatectomy. In this procedure, the prostate tissue is removed completely through an open incision or with a laparoscope or robotics. ? Transurethral resection of the prostate (TURP). In this procedure, a tool is inserted through the opening at the tip of the penis (urethra). It is used to cut away tissue of the inner core of the prostate. The pieces are removed through the same opening of the penis. This removes the blockage. ? Transurethral incision (TUIP). In this procedure, small cuts are made in the prostate. This lessens the prostate's pressure on the urethra. ? Transurethral microwave thermotherapy (TUMT). This procedure uses microwaves to create heat. The heat destroys and removes a small amount of prostate tissue. ? Transurethral needle ablation (TUNA). This procedure uses radio frequencies to destroy and remove a small amount of prostate tissue. ? Interstitial laser coagulation (ILC). This procedure uses a laser to destroy and remove a small amount of prostate tissue. ? Transurethral electrovaporization (TUVP). This procedure uses electrodes to destroy and remove a small amount of prostate tissue. ? Prostatic urethral lift. This procedure inserts an implant to push the lobes of the prostate away from the urethra. Follow these instructions at home: ??? Take ueuy-csn-jjzudar and prescription medicines only as told by your health care provider. ??? Monitor your symptoms for any changes. Contact your health care provider with any changes. ??? Avoid drinking large amounts of liquid before going to bed or out in public. ??? Avoid or reduce how much caffeine or alcohol you drink. ??? Give yourself time when you urinate. ??? Keep all follow-up visits. This is important. Contact a health care provider if: ??? You have unexplained back pain. ??? Your symptoms do not get (more content not included)... [facility] 03-30-2025 History of Present illness Narrative Associated Problem(s): Venous insufficiency of both lower extremities Worsening edema and use compression. Associated Problem(s): Gastroesophageal reflux disease without esophagitis Symptoms controlled with omeprazole and continue. Associated Problem(s): Essential hypertension, benign BP elevated today but previously controlled and monitor PRN. Associated Problem(s): Degenerative lumbar spinal stenosis Pain stable and use OTC PRN. Need home PT and ROM exercises. Associated Problem(s): Cervical spondylolysis Pain stable and use OTC PRN. Need home PT and ROM exercises. Associated Problem(s): BPH without urinary obstruction Symptoms controlled with flomax and continue. Images from the original note were not included. Subjective Patient ID: Cathie Anderson is a 69 y.o. male who presents for Follow-up (6m). Follow up HTN, GERD, back and neck pain, and BPH. Patient doing well today. Not checking BP away from office and BP elevated today. BP previously normal and has gained weight since last visit. Taking medication daily and tolerating without side effects. GERD controlled with omeprazole. Denies epigastric pain or burning and not waking up with symptoms. Back pain stable. Mild pain in low back and across top hips. No radiation into gluteal region or down legs. Able to increase activity and stay active around house. Need to resume home exercises. Neck pain stable. Occasional pain in base neck and top shoulder. Uses OTC PRN and helps when needed. BPH controlled with flomax. Normal stream and not straining to start flow of urine. Not up as much during night. Able to empty all the way and not dribbling. Following with urology. C/o worsening edema. History of venous insufficiency and prior procedures. Not wearing compression. Edema worse as day progresses and at end of day. Review of Systems Constitutional: Negative for fatigue. [...] rebound. Musculoskeletal: Left lower leg: No edema. Neurological: Mental Status: He is alert. Assessment/Plan Problem List Items Addressed This Visit Prediabetes Relevant Orders Hemoglobin A1c Essential hypertension, benign - Primary BP elevated today but previously controlled and monitor PRN. Relevant Orders Basic metabolic panel BPH without urinary obstruction Symptoms controlled with flomax and continue. Degenerative lumbar spinal stenosis Pain stable and use OTC PRN. Need home PT and ROM exercises. Dyslipidemia Relevant Orders Lipid panel Gastroesophageal reflux disease without esophagitis Symptoms controlled with omeprazole and continue. Cervical spondylolysis Pain stable and use OTC PRN. Need home PT and ROM exercises. Encounter for long-term (current) use of medications Relevant Orders CBC and differential Hepatic function panel Class 1 obesity due to excess calories with serious comorbidity and body mass index (BMI) of 32.0 to 32.9 in adult Relevant Orders TSH Venous insufficiency of both lower extremities Worsening edema and use compression. documented in this encounter [facility] 03-20-2025 Hospital Discharge instructions Patient Education 03/20/2025 10:42:06 Benign Prostatic Hyperplasia Benign Prostatic Hyperplasia Benign [...] urethra. Follow these instructions at home: Take ydou-yfw-pgqyrfe and prescription medicines only as told by [...] provider. Document Revised: 04/19/2022 Document Reviewed: 04/19/2022 [facility] Patient Education 2023 Rayn. 03/20/2025 10:16:27 Prostate Cancer Screening Prostate Cancer Screening Prostate [...] treatment? Where to find more information [employer] [place] [employer]: www.cancer.org [place] [employer]: www.auanet.org Contact a health care [...] provider. Document Revised: 03/27/2022 Document Reviewed: 03/27/2022 [facility] Patient Education 2023 Rayn. Follow Up Care 03/20/2025 09:17:15 With:KIERAN OWEN, Klever Alston, URL Address: [address] [place] [address]- When: Unknown [facility] 03-20-2025 Note Patient Education Oncology Prostate Cancer Screening [...] Where to find more information ??? [employer] [place] [employer]: www.cancer.org ??? [place] [employer]: www.auanet.org Contact a health care [...] The prostate gland (more content not included)... [facility] 02-18-2025 History of Present illness Narrative Patient picked up hearing aid supplies. He paid $30 for supplies. Cosigned by ERICH Root at 02/18/2025 10:30 AM EDT documented in this encounter [facility] 02-17-2025 Telephone encounter Note Pt clled for supplies. [facility]. Our charge is $10 per package. Pt wants to package pick up supplies tomorrow in [place] and will pay $30. Will put [employer] supply ordering information in the supply bag. [facility] Work Phone: 02-17-2025 Miscellaneous Notes Pt clled for supplies. [facility]00 [facility]. Our charge is $10 per package. Pt wants to package pick up supplies tomorrow in [place] and will pay $30. Will put [employer] supply ordering information in the supply bag. documented in this encounter [facility] 02-02-2025 Telephone encounter Note Refill of Tamsulosin HCL 0.4 mg [facility] 02-02-2025 Miscellaneous Notes Refill of Tamsulosin HCL 0.4 mg documented in this encounter [facility] 09-19-2024 History of Present illness Narrative [...] (Toprol-XL) 50 MG 24 hr tablet Dyslipidemia ([facility]/HCC) Relevant Orders Lipid panel Medicare annual wellness [...] Relevant Orders TSH documented in this encounter [facility] 08-25-2024 Hospital Discharge instructions Patient Education [...] treatment? Where to find more information [employer] [place] [employer]: www.cancer.org [place] [employer]: www.auanet.org Contact a health care [...] provider. Document Revised: 03/27/2022 Document Reviewed: 03/27/2022 [employer] Patient Education 2023 Rayn. Follow Up Care 05/23/2024 13:14:58 With:KIERAN OWEN, Klever Alston, URL Address: [facility] [address], [place] [address]- [phone] When: Unknown [facility] 08-25-2024 Note Patient Education Oncology Prostate Cancer [...] Where to find more information ??? The [place] [employer]: www.cancer.org ??? [place] [employer] Association: www.auanet.org Contact a health care [...] The prostate gland (more content not included)... [facility] 07-31-2024 History of Present illness Narrative [...] documented in this encounter [facility] 06-09-2024 History of Present illness Narrative [...] reasons. 2. Actinic keratosis (6) Left Superior [place], Mid Parietal Scalp (5) Erythematous scaly papules [...] limited to risks of scarring, darker or plan nurse pigmentary changes, recurrence, incomplete removal and infection. [...] tenderness Cryotherapy, skin lesion - Left Superior [place], Mid Parietal Scalp (5) 3. Angioma of [...] Visit: 1 year documented in this encounter [facility] [...] treatment? Where to find more information The [place] [employer]: www.cancer.org [place] [employer]: www.auanet.org Contact a health care [...] provider. Document Revised: 03/27/2022 Document Reviewed: 03/27/2022 [employer] Patient Education 2022 Rayn. Follow Up Care 02/26/2023 12:49:55 With:KIERAN OWEN, Klever Alston, URL Address: [facility] [address] [place] [phone] When: Unknown Comments:schedule PSMA PET scan, f/u in 1 year w/ PSA [facility] 02-26-2023 Hospital Discharge instructions Patient Education 02/26/2023 [...] urethra. Follow these instructions at home: Take kekk-beu-qbmyyse and prescription medicines only as told by [...] provider. Document Revised: 04/19/2022 Document Reviewed: 04/19/2022 [employer] Patient Education 2022 Rayn. Follow Up Care 01/18/2023 11:18:50 With:KIERAN OWEN, Klever Alston, URL Address: [facility] [address] , [place] [address] [phone] When:Within 1 Year(s) Comments:f/u in 1 year with PSA [facility] 02-06-2023 Hospital Discharge instructions Patient Education 02/06/2023 [...] for your post-operative appointment in 1-2 weeks [phone] or [phone] Follow Up Care 01/18/2023 11:14:06 With:Klever MELVIN Address: [facility] [address] [place] [address]- Business (1) When: Unknown Comments:Keep scheduled appointment [facility] 07-24-2022 Hospital Discharge instructions Patient Education 07/24/2022 [...] urethra. Follow these instructions at home: Take zwwz-vej-spmqael and prescription medicines only as told by [...] 10/01/2006 Document Revised: 08/26/2019 Document Reviewed: 11/05/2017 [employer] Patient Education 2020 [employer] Follow Up Care 06/14/2022 17:18:55 With:KIERAN OWEN, Klever Alston, URL Address: [facility] [address] , [place] [address]- [phone] When:01/22/2023 Comments:repeat BX. [facility] 07-11-2022 Note EXAMINATION: XR CHES T 2 [...] authenticated by: ARON BOONE Date: 2022-07-11 18:28 [facility] 04-21-2022 Hospital Discharge instructions Patient Education 04/21/2022 [...] one of these risk factors: ?Being of -[place] descent. ?Having a family history of prostate [...] you: Are older than age 55. Are -[place]. Have a father, brother, or uncle who [...] 07/12/2018 Document Revised: 09/13/2018 Document Reviewed: 07/12/2018 [employer] Patient Education 2020 Rayn. Follow Up Care 10/17/2021 12:12:12 With:KIERAN OWEN, Klever Alston, URL Address: [address] [place], [place] [phone]- When: Unknown [facility] 07-08-2021 Evaluation note Encounter Date Diagnosis Assessment Notes Jun, Bee sting, undetermined intent, initial encounter (ICD-10 - T63.444A) Insect bites and stings material was printed. Drink plenty fluids, get plenty of rest. Consider applying Benadryl cream to the area for itching. You may take Benadryl by mouth as well for itching. Follow-up with your family physician for any further concerns. Qalendra Other Evaluation + Plan note No data available for this section [facility] evaluation + Plan note Future Appointments Appointment Date:07/24/2022 09:30:00 AM Scheduled Provider:Klever MELVIN MD Location:[facility] Appointment Type:URO [facility] Future Appointments Appointment Date:02/26/2023 10:45:00 AM Scheduled Provider:Klever MELVIN MD [facility] Appointment Type:URO Office Visit Diagnostic Tests Pending * Prostate Histology ([facility]) 02/06/23 [facility] Future Appointments Appointment Date:02/29/2024 10:45:00 AM Scheduled Provider:Klever MELVIN MD Location:[facility] Appointment Type:URO Office Visit Diagnostic Tests Pending * PSA Total 02/26/23 [facility] evaluation + Plan note Future Appointments Appointment Date:03/20/2025 09:30:00 AM Scheduled Provider:Klever MELVIN MD Location:[facility] Appointment Type:URO Office Visit Diagnostic Tests Pending * PSA Total 03/17/24 [facility] evaluation + Plan note Future Appointments Appointment Date:08/31/2025 09:15:00 AM Scheduled Provider:Klever MELVIN MD Location:[facility] Appointment Type:URO Office Visit Diagnostic Tests Pending * PSA Total 08/25/24 [facility] evaluation + Plan note Future Appointments Appointment Date:09/28/2025 10:30:00 AM Scheduled Provider:Klever MELVIN MD Location:[facility] Appointment Type:URO Office Visit Diagnostic Tests Pending * PSA Total 08/15/25 [facility] evaluation + Plan note Future Appointments Appointment Date:06/08/2025 10:00:00 AM Scheduled Provider:Klever MELVIN MD Location:[facility] Appointment Type:URO Office Visit Appointment Date:09/28/2025 10:30:00 AM Scheduled Provider:Klever MELVIN MD Location:[facility] Appointment Type:URO Office Visit [facility] evaluation noteNo assessment information available [facility] Work Phone: Evaluation note* Diagnosis Essential hypertension, [...] Essential hypertension, benign documented in this encounter [facility] HealthcareEvaluation note* Diagnosis Essential hypertension, benign (CMS/HCC)- [...] Essential hypertension, benign documented in this encounter [facility] HealthcareEvaluation note* Diagnosis Seborrheic keratosis- Primary Actinic keratosis Angioma of skin Lentigines documented in this encounter [facility] HealthcareEvaluation note* Diagnosis Essential hypertension, benign (CMS/HCC)- [...] esophagitis Esophageal reflux documented in this encounter [facility] HealthcareEvaluation note* Diagnosis Essential hypertension, benign (CMS/HCC)- [...] symptom details unspecified documented in this encounter [facility] HealthcareEvaluation note* Diagnosis Essential hypertension, benign (CMS/HCC)- [...] hearing loss, asymmetrical documented in this encounter [facility] HealthcareEvaluation note* Diagnosis Essential hypertension, benign- Primary Essential hypertension, benign Gastroesophageal reflux disease without esophagitis Esophageal reflux BPH without urinary obstruction Degenerative lumbar spinal stenosis Spinal stenosis of lumbar region Cervical spondylolysis- Primary Medicare annual wellness visit, subsequent- Primary Prediabetes Other abnormal glucose Dyslipidemia Other and unspecified hyperlipidemia Encounter for long-term (current) use of medications Encounter for long-term (current) use of other medications Class 1 obesity due to excess calories with serious comorbidity and body mass index (BMI) of 32.0 to 32.9 in adult Essential hypertension, benign Essential hypertension, benign Essential hypertension, benign- Primary Essential hypertension, benign Degenerative lumbar spinal stenosis Spinal stenosis of lumbar region Cervical spondylolysis Gastroesophageal reflux disease without esophagitis Esophageal reflux BPH without urinary obstruction Prediabetes Other abnormal glucose Venous insufficiency of both lower extremities Class 1 obesity due to excess calories with serious comorbidity and body mass index (BMI) of 32.0 to 32.9 in adult Dyslipidemia Other and unspecified hyperlipidemia Encounter for long-term (current) use of medications Encounter for long-term (current) use of other medications documented in this encounter [facility] HealthcareEvaluation note* Diagnosis Essential hypertension, benign- Primary Essential hypertension, benign Gastroesophageal reflux disease without esophagitis Esophageal reflux BPH without urinary obstruction Degenerative lumbar spinal stenosis Spinal stenosis of lumbar region Cervical spondylolysis- Primary Medicare annual wellness visit, subsequent- Primary Prediabetes Other abnormal glucose Dyslipidemia Other and unspecified hyperlipidemia Encounter for long-term (current) use of medications Encounter for long-term (current) use of other medications Class 1 obesity due to excess calories with serious comorbidity and body mass index (BMI) of 32.0 to 32.9 in adult Essential hypertension, benign Essential hypertension, benign Essential hypertension, benign- Primary Essential hypertension, benign Degenerative lumbar spinal stenosis Spinal stenosis of lumbar region Cervical spondylolysis Gastroesophageal reflux disease without esophagitis Esophageal reflux BPH without urinary obstruction Prediabetes Other abnormal glucose Venous insufficiency of both lower extremities Class 1 obesity due to excess calories with serious comorbidity and body mass index (BMI) of 32.0 to 32.9 in adult Dyslipidemia Other and unspecified hyperlipidemia Encounter for long-term (current) use of medications Encounter for long-term (current) use of other medications Seborrheic keratosis- Primary Capillary angioma Nevus, non-neoplastic Lentigines Actinic keratosis documented in this encounter [facility] Narrative - Reported* Type Description Date Medical History hypertension Medical History IBS Medical History Enlarged Prostate Medical History Bladder Stones Surgical History neck fusion on 5 & 6 Surgical History Tonsils Surgical History arthritus in lower back Surgical History TURP Procedure - for prostate Surgical History Hernia Repair Hospitalization History see above Qalendra Other Hospital Discharge instructions No data available for this section [facility] No data available for this section [facility] Matrimony Summary Purpose Family History No Family History [...] section and content) DATE CREATED AUTHOR 02/17/2022 [facility] Specialist DATE CREATED AUTHOR AUTHOR'S ORGANIZ ATION 01/29/2023 [facility] DATE CREATED AUTHOR AUTHOR'S ORGANIZ ATION 07/21/2023 [facility] DATE CREATED AUTHOR AUTHOR'S ORGANIZ ATION 04/16/2025 [facility] DATE CREATED AUTHOR AUTHOR'S ORGANIZ ATION 06/13/2025 [facility] d[facility] Specialists EPIC DATE CREATED AUTHOR AUTHOR'S ORGANIZ ATION 06/18/2025 [facility] REASON FOR VISIT (unrecogniz ed section and content) Reason Comments Neck Pain Stiff neck for 10 da ys Reason Comments Medicare Annual Wellness Visit Subsequen t wellness Reason Comments Skin Check Reason Onset Date Comments Med Refill 02/02/2025 Reason Onset Date Comments Supplies 02/17/2025 Reason Comments Follow-up 6m Care Team (unrecognized sect ion and content) [...] May 22, 2024 End: May 22, 2024 Video Tape Transferrer Relationship Specialty Start Date End Date Fabian Cardoza MD [address] [place] [address] PCP - Anna QUIROZ 10/15/23 Fabian Cardoza MD [address] [place] [address] PCP - General Family Medicine 02/14/24 Video Tape Transferrer Relationship Specialty Start Date End Date Fabian Cardoza MD [address] [place] [address] PCP - Anna QUIROZ 10/15/23 Fabian Cardoza MD [address] [place] [address] PCP - General Family Medicine 02/14/24 Video Tape Transferrer Relationship Specialty Start Date End Date Fabian Cardoza MD [address] [place] [address] PCP - De Kalb MA 10/15/23 Fabian Cardoza MD [address] [place] [address] PCP - General Family Medicine 02/14/24 Video Tape Transferrer Relationship Specialty Start Date End Date Fabian Cardoza MD [address] [place] [address] PCP - De Kalb MA 10/15/23 Fabian Cardoza MD [address] [place] [address] PCP - General Family Medicine 02/14/24 Video Tape Transferrer Relationship Specialty Start Date End Date Fabian Cardoza MD [address] [place] [address] PCP - De Kalb MA 10/15/23 Fabian Cardoza MD [address] [place] [address] PCP - General Family Medicine 02/14/24 Video Tape Transferrer Relationship Specialty Start Date End Date Fabian Cardoza MD [address] [place] [address] PCP - Anna MA 10/15/23 Fabian Cardoza MD [address] [place] [address] PCP - General Family Medicine 02/14/24 Video Tape Transferrer Relationship Specialty Start Date End Date Fabian Cardoza MD [address] [place] [address] PCP - Anna MA 10/15/23 Fabian Cardoza MD [address] [place] [address] PCP - General Family Medicine 02/14/24 Video Tape Transferrer Relationship Specialty Start Date End Date Fabian Cardoza MD [address] [place] [address] PCP - Anna MA 10/15/23 Fabian Cardoza MD [address] [place] [address] PCP - General Family Medicine 02/14/24 Video Tape Transferrer Relationship Specialty Start Date End Date Fabian Cardoza MD [address] [place] [address] PCP - Anna MA 10/15/23 Fabian Cardoza MD [address] [place] [address] PCP - General Family Medicine 02/14/24 Video Tape Transferrer Relationship Specialty Start Date End Date Fabian Cardoza MD [address] [place] [address] PCP - Anna QUIROZ 10/15/23 Fabian Cardoza MD [address] [place] [address] PCP - General Family Medicine 02/14/24 Video Tape Transferrer Relationship Specialty Start Date End Date Fabian Cardoza MD [address] [place] [address] PCP - Anna QUIROZ 10/15/23 Fabian Cardoza MD [address] [place] [address] PCP - General Family Medicine 02/14/24 Video Tape Transferrer Relationship Specialty Start Date End Date Fabian Cardoza MD [address] [place] [address] PCP - Anna QUIROZ 10/15/23 Fabian Cardoza MD [address] [place] [address] PCP - General Family Medicine 02/14/24 Video Tape Transferrer Relationship Specialty Start Date End Date Fabian Cardoza MD [address] [place] [address] PCP Ashanti Castillo MA 10/15/23 Fabian Cardoza MD [address] [place] [address] PCP - General Family Medicine 02/14/24 Video Tape Transferrer Relationship Specialty Start Date End Date Fabian Cardoza MD [address] [place] [address] PCP - Anna QUIROZ 10/15/23 Fabian Cardoza MD [address] [place] [address] PCP - General Family Medicine 02/14/24 Goals [...] BE BASED ON THE PRIMARY CLINICAL RECORDS. [employer] [facility]. provides no warranty or guarantee of the accuracy or completeness of information in this document.
== END 2025-06-19 10:21 | disposition home or self-care (01) ==
LOC: RAD 10:21
PROVIDERS: PCP Family Medicine; Visit Provider Urology
DX: R10.30 Lower abdominal pain, unspecified (principal)
CPT/HCPCS: 74018

== ENCOUNTER 2025-08-25 10:02 | Outpatient (OUT) | payer MEDICARE, SELFPAY ==
--- OUTSIDE RECORDS SUMMARY | 2025-08-17 14:00 | XMS_ITS | Encounter Summary ---
Author Organization [facility] tem Address [id number] [address] [place] [address] Care Team Providers Care Director Of Parks And Recreation Name Role Phone Fabian Brown MD Primary Care Provider [phone] Encounter Details DateTypeDepartmentCare Team (Latest Contact Info)Nietiklthzu19/03/2025 2:00 PM ESTSupport [facility] [address] [place] [phone] Social History Tobacco UseTypesPacks/DayYears UsedDateSmoking Tobacco: FormerCigarettes0.510 1977 - 1987Smokeless Tobacco: NeverAlcohol UseStandard Drinks/WeekCommentsYes0 (1 standard drink = 0.6 oz pure alcohol)OccasionalAUDIT-CAnswerDate RecordedQ1: How often do you have a drink containing alcohol?2-4 times a month08/10/2025 Average Number of DrinksNot on file08/10/2025Frequency of Binge DrinkingNot on file08/10/2025hildcareAnswerDate GleaaeutPzoxbwtaxBjhcuod40/10/2019Employment AnswerDate SatfrdcmCnnnlvqyykRaqgxwz04/10/2019Hunger ScreeningAnswerDate RecordedWithin the past 12 months we worried whether our food would run out before we got money to buy more.Never True11/16/2022Within the past 12 months the food we bought just didn't last and we didn't have money to get more.Never True3Purpose - LifeAnswerDate RecordedPurpose and direction in life Rppmqwo12/10/2021Sex and Gender InformationValueDate RecordedSex Assigned at BirthNot on fileLegal ZpzYuxi5905/18/2015 11:57 AM EDTGender IdentityNot on file Sexual OrientationNot on filedocumented as of this encounter Last Filed Vital Signs Vital SignReadingTime TakenCommentsBlood Pressure--Pulse--Temperature-- Respiratory Rate--Oxygen Saturation--Inhaled Oxygen Concentration--Qmgurn233.3 kg (241 lb)08/17/2025 12:22 PM BOJAwvopv382.5 cm (5' 9.5 )08/17/2025 12:22 PM ESTBody Mass Index35.0808/17/2025 12:22 PM ESTdocumented in this encounter Miscellaneous Notes * Perioperative Nursing Note - Dee Devine RN - 08/17/2025 2:00 PM EST Preoperative Education Checklist- General Surgery date: 08/24/25 Surgery time: 1045 Arrival time: 0845 1. Bring a photo ID and your insurance card with you the day of surgery. You will check in at the main lobby of the [facility]- registration desk is straight ahead as soon as you walk in. Tell them you are here for surgery. 2. If you have a Living Will/Durable Power of Causticiser for Health Care that is not on file here, please bring a copy the day of surgery. 3. Please shower/bathe the night before surgery with the provided soap or wipes. Do not shower the morning of surgery- you will do use wipes when you arrive here at the hospital before getting into your surgical gown. Do not shave the area of your procedure for 2 days prior to your surgery. 4. NO powder, lotion, perfume/cologne, aftershave, make-up, deodorant, or hair products after you have bathed. 5. NO nail puerto rican/acrylic on at least one finger. If you are having a hand, wrist or foot surgery then all nail puerto rican and artificial/acrylic nails must be removed from that hand or foot. 6. Avoid ALL Aspirin and non-steroidal anti-inflammatory drugs and certain vitamins (Ibuprofen, Advil, Aleve, Excedrin, Meloxicam, Celebrex, fish/krill oil, etc.) for 7 days prior to surgery as instructed by your surgeon and/or your prescribing doctor. Tylenol IS ALLOWED. If you are on Ticlid, Xarelto, Eliquis, Pradaxa, Plavix or Coumadin, please check with your prescribing doctor for instructions for when to stop them. 7. If you use an inhaler, continue to use it routinely. 8. Nothing to eat or drink (not even water, gum, mints, or hard candy!) AFTER midnight prior to your surgery. 9. Take only medications that you are instructed to on the morning of surgery with a TINY SIP OF WATER. 10. Choose a responsible adult that will be able to drive you home when you are discharged from your hospital stay for your surgery and can stay with you in your home for 24 hours after your procedure. You must NOT drive any vehicle or operate any machinery for 24 hours after surgery. 11. When you dress for your appointment, please wear loose fitting clothing that is appropriate to accommodate your surgical area procedure. BRING WITH YOU ANY DEVICES YOU MAY NEED: JERAD hose, ice machine, sling/swath, brace or special shoe, oversized zip-up or button up shirt, CPAP machine if staying overnight. 12. Do NOT wear jewelry, watches, or any piercings or metal for surgery- leave these valuables and money at home. 13. Do NOT wear contact lenses for surgery- glasses are okay if needed. 14. The anesthesiologist will talk with you the day of surgery and will ask you to sign a Consent Form. 15. Refrain from smoking or any type of tobacco use for at least 8 hours and marijuana for 24 hoursprior to arrival for your surgery. 16. Notify your surgeon if you develop any illness before your surgery. 17. If you are staying overnight, please DO NOT BRING your home medications with you. 18. If you have any questions prior to surgery, please call the Preadmission Testing office at [phone], Mon.-Fri. 7 a.m.-3 p.m. Leave a voicemail if needed. Pre-Surgery Instructions: Medication Instructions acidophilus-pectin, citrus 25 million cell -100 mg tablet Stop taking 0 days prior to procedure ascorbic acid, vitamin C, 250 mg tablet,chewable Stop taking 0 days prior to procedure atorvastatin (LIPITOR) 20 mg tablet Stop taking 0 days prior to procedure bimatoprost (LUMIGAN) 0.01 % ophthalmic drops Stop taking 0 days prior to procedure dutasteride (AVODART) 0.5 mg capsule Stop taking 0 days prior to procedure glucosamine sulfate (GLUCOSAMINE ORAL) Stop taking 0 days prior to procedure hydroCHLOROthiazide (HYDRODIURIL) 25 mg tablet Stop taking 0 days prior to procedure losartan (COZAAR) 100 mg tablet Continue as prescribed, take morning of procedure metoprolol succinate 50 mg capsule,sprinkle,ER 24hr Continue as prescribed, take morning of procedure omeprazole (PriLOSEC) 20 mg capsule Stop taking 0 days prior to procedure sod sulf-pot chloride-mag sulf 1.479-0.188- 0.225 gram tablet Stop taking 0 days prior to procedure tamsulosin (FLOMAX) 0.4 mg capsule Stop taking 0 days prior to procedure timoloL (BETIMOL) 0.5 % ophthalmic solution Stop taking 0 days prior to procedure documented in this encounter Plan of Treatment Not on file documented as of this encounter Goals GoalPatient Goal TypeAssociated ProblemsRecent ProgressPatient-Stated?Author Autogenerated Goal Care PlanAutogenerated ProblemNoPotts, Elizabethdocumented as of this encounter Visit Diagnoses Not on filedocumented in this encounter Additional Health Concerns Active ProblemsNoted DateDiagnosed DateAutogenerated Owetcym6808/10/2025documented as of this encounter Care Teams Team MemberRelationshipSpecialtyStart DateEnd Date Fabian Brown MD PCP - GeneralFamily Medicine05/22/23documented as of this encounter
--- OUTSIDE RECORDS SUMMARY | 2025-08-24 08:36 | XMS_ITS | Encounter Summary ---
Author Organization [facility] tem Address [id number] [address] [place] [address] Care Team Providers Care Senior Finance Manager Name Role Phone Fabian Brown MD Primary Care Provider [phone] Reason for Referral * Misc (Routine) - Pending ReviewSpecialtyDiagnoses / ProceduresReferred By ContactReferred To Contact Procedures Discharge Follow-Up - Specify Details in Comments Jarrod Goff DO [address] [place] [address] Phone: tel: fax: Referral IDStatusReasonStart DateExpiration DateVisits RequestedVisits [id number] [id number] * Misc (Routine) - Pending ReviewSpecialtyDiagnoses / ProceduresReferred By ContactReferred To Contact Diagnoses Generalized abdominal pain Superficial gastritis without hemorrhage, unspecified chronicity Colon cancer screening Procedures What to Expect after Endoscopy Jarrod Goff DO [address] [place] [address] Phone: tel: fax: Referral IDStatusReasonStart DateExpiration DateVisits RequestedVisits [id number]/10/[id number] Reason for Visit * Auth/CertSpecialtyDiagnoses / ProceduresReferred By ContactReferred To Contact Diagnoses generalized abdominal pain Procedures MS ESOPHAGOGASTRODUODENOSCOPY TRANSORAL DIAGNOSTIC MS COLONOSCOPY FLX DX W/COLLJ SPEC WHEN PFRMD ESOPHAGOGASTRODUODENOSCOPY DIAGNOSTIC COLONOSCOPY DIAGNOSTIC / SCREENING Jarrod Goff DO [address] [place] [address] Phone: tel: fax: Referral IDStatusReasonStart DateExpiration DateVisits RequestedVisits [id number] Encounter Details DateTypeDepartmentCare Team (Latest Contact Info)Ylqiuelmdxu23/10/2025 8:36 AM EST - 08/24/2025 11:27 AM ESTHospital Encounter [facility] [address] [place] [phone] Jarrod Goff DO [address] [place] [address] Generalized abdominal pain (Primary Dx); Superficial gastritis without hemorrhage, unspecified chronicity; Colon cancer screening Discharge Disposition: Home Social History Tobacco UseTypesPacks/DayYears UsedDateSmoking Tobacco: FormerCigarettes0.510 1977 - 1987Smokeless Tobacco: NeverAlcohol UseStandard Drinks/WeekCommentsYes0 (1 standard drink = 0.6 oz pure alcohol)OccasionalAUDIT-CAnswerDate RecordedQ1: How often do you have a drink containing alcohol?2-4 times a month08/10/2025 Average Number of DrinksNot on file08/10/2025Frequency of Binge DrinkingNot on file08/10/2025hildcareAnswerDate CqebdxeoYfacrdlqlXetarfw23/10/2019Employment AnswerDate AzpfxwwiOrwdxucctbVsedpax26/10/2019Hunger ScreeningAnswerDate RecordedWithin the past 12 months we worried whether our food would run out before we got money to buy more.Never True11/16/2022Within the past 12 months the food we bought just didn't last and we didn't have money to get more.Never True3Purpose - LifeAnswerDate RecordedPurpose and direction in life Pbrkdop2911/24/2020ex and Gender InformationValueDate RecordedSex Assigned at BirthNot on fileLegal GwsVktz8305/18/2015 11:57 AM EDTGender IdentityNot on file Sexual OrientationNot on filedocumented as of this encounter Last Filed Vital Signs Vital SignReadingTime TakenCommentsBlood Gpxaapsv895/9708/24/2025 11:15 AM EST Esvjl586608/24/2025 11:15 AM QYEYpcxfdbjpst19.1 ??C (97 ??F)08/24/2025 11:15 AM ESTRespiratory Xanv810210/24/2024 11:15 AM ESTOxygen Dstvlkvbnh75%08/24/2025 11:15 AM ESTInhaled Oxygen Concentration--Nbsgtt002.3 kg (241 lb)08/24/2025 8:58 AM SCADxpnmt538.5 cm (5' 9.5 )08/24/2025 8:58 AM ESTBody Mass Index35.0808/24/2025 8:58 AM ESTdocumented in this encounter Functional Status documented as of this encounter Discharge Instructions * Discharge Instructions* Consuelo Salcedo RN - 08/24/2025 11:03 AM EST POST UPPER ENDOSCOPY INSTRUCTIONS Normal expectations after this procedure include: Abnormal discomfort due to the air put ub during the examination, and this will not last long. Mild sore throat for a day or two. Using throat lozenges and drinking cold liquids may be helpful. It is rare that you will experience any serious side effects from this procedure. Over the next 24 hours observe for any of the following and notify your physician if they develop. Difficulty or pain swallowing Temperature over 100 ?? F. Back pain or chest pain. Abdominal discomfort that continues or increases Difficulty breathing Persistent vomiting or vomiting blood Passage of black tarry stools. If Soreness develops at your intravenous site, Apply warm, moist compresses for 20 minutes, 4 timesa day. If there is no improvement after 24 hours, please call your physician. GENERAL ACTIVITY You have been been given sedative medications. Normal responses to these medications include drowsiness, altered perception, or forgetfulness. For the Next 24 hours: Do not drive, work, or operate machinery Do not consume alcohol, tranquilizers, or sleeping medications unless advised by your physician. Do not make important personal or business decisions DIET {hmendodiet:35624} ADDITIONAL INSTRUCTIONS {HMADDITIONALINSTRUCTIONS:24131} POST LOWER ENDOSCOPY INSTRUCTIONS Normal expectations after this procedure include: Abnormal discomfort due to the air put in during the examination, and this will not last long. You may notice a small amount of blood in your first bowel movements if a biopsy or polyp was taken. It is rare that you will experience any serious side effects from this procedure. Over the next 24 hours observe for any of the following and notify your physician if they develop. Increase in rectal bleeding or black tarry stools Temperature over 100 ?? F. Abdominal discomfort that continues or increases Persistent vomiting If Soreness develops at your intravenous site, Apply warm, moist compresses for 20 minutes, 4 timesa day. If there is no improvement after 24 hours, please call your physician. GENERAL ACTIVITY You have been given sedative medications. Normal responses to these medications include drowsiness,altered perception, or forgetfulness. For the Next 24 hours: Do not drive, work, or operate machinery Do not consume alcohol, tranquilizers, or sleeping medications unless advised by your physician. Do not make important personal or business decisions {hmpolyp:78134} DIET {hmendodiet:52549} ADDITIONAL INSTRUCTIONS {HMADDITIONALINSTRUCTIONS:07137} Any questions regarding your care, please contact [facility] [phone] documented in this encounter Medications at Time of Discharge MedicationSigDispense QuantityRefillsLast FilledStart DateEnd Date acidophilus-pectin, citrus 25 million cell -100 mg tablet Take by mouth 3 (three) times a day with meals. ascorbic acid, vitamin C, 250 mg tablet,chewable Chew and swallow. atorvastatin (LIPITOR) 20 mg tablet 01/26/2022 bimatoprost (LUMIGAN) 0.01 % ophthalmic drops 1 drop nightly. dutasteride (AVODART) 0.5 mg capsule Take 1 capsule (0.5 mg total) by mouth in the morning.03/20/2025 glucosamine gant 2KCl-chondroit 500-400 mg tablet Take 1 tablet by mouth in the morning. glucosamine sulfate (GLUCOSAMINE ORAL) Take by mouth. hydroCHLOROthiazide (HYDRODIURIL) 25 mg tablet Take 1 tablet (25 mg total) by mouth daily. losartan (COZAAR) 100 mg tablet Take 1 tablet (100 mg total) by mouth in the morning. metoprolol succinate 50 mg capsule,sprinkle,ER 24hr omeprazole (PriLOSEC) 20 mg capsule Take 1 capsule (20 mg total) by mouth in the morning and 1 capsule (20 mg total) before bedtime. tamsulosin (FLOMAX) 0.4 mg capsule Take 1 capsule (0.4 mg total) by mouth in the morning. timoloL (BETIMOL) 0.5 % ophthalmic solution 1 drop in the morning and 1 drop before bedtime.documented as of this encounter H&P Notes * Jarrod Goff DO - 08/24/2025 8:39 AM EST HISTORY AND PHYSICAL INTERVAL NOTE: Jose Moeller 1955 [id number] H&P reviewed. The patient was examined and there are no changes to the H&P. Jarrod Goff DO Source Note - Faiza Petersen APRN-NAVY AIRSPACE OFFICER - 08/10/2025 1:30 PM EDT Images from the original note were not included. Chief Complaint: History of colon polyps History of Present Illness Jose Moeller is a 69 y.o. male who presents to the office for surveillance colonoscopy. His last colonoscopy was in [address] Almaguer significant for 1 tubular adenoma. He is also asking about EGD as he has had generalized and lower abdominal pain for the past few months. Nothing makes the pain better or worse. He denies constipation and diarrhea. He denies rectal bleeding. He is not having any nausea or vomiting. He denies fever. He has intermittent heartburn and burning for which he takes omeprazole 20 mg twice daily. The abdominal pain is not affected by eating or bowel movements.He drinks 2-3 cups of coffee daily and drinks Coke Zero on occasion. He states he feels bloated. Reports weight gain. Review of Systems Constitutional: Negative for fever and unexpected weight change. HENT: Negative for trouble swallowing. Respiratory: Negative for shortness of breath. Cardiovascular: Negative for chest pain. Gastrointestinal: Positive for abdominal pain. Negative for nausea, vomiting, diarrhea, constipation and blood in stool. Bloating, heartburn Genitourinary: Negative for dysuria and difficulty urinating. Musculoskeletal: Negative for gait problem. Skin: Negative for rash and wound. Neurological: Negative for dizziness, weakness and light-headedness. Hematological: Does not bruise/bleed easily. Psychiatric/Behavioral: Negative for confusion. Past Medical History: Diagnosis Date AAA (abdominal aortic aneurysm) Bladder stones BPH (benign prostatic hyperplasia) Cervical spondylosis Chronic pain disorder GERD (gastroesophageal reflux disease) Glaucoma HL (hearing loss) Hyperlipemia Hypertension Laryngopharyngeal reflux (LPR) Low back pain Neck pain Thoracic aortic aneurysm without rupture Visual impairment glasses Past Surgical History: Procedure Laterality Date CERVICAL FUSION COLONOSCOPY 2008 COLONOSCOPY N/A 10/09/2018 Performed by Brian Almaguer DO at [facility] CYSTOSCOPY EGD N/A 10/09/2018 Performed by Brian Almaguer DO at [facility] REPAIR HERNIA UMBILICAL MESH N/A 01/24/2021 Performed by Fernando Orlando MD at [facility] TURP / TRANSURETHRAL INCISION / DRAINAGE PROSTATE prostated biopsy No Known Allergies Current Outpatient Medications: acidophilus-pectin, citrus 25 million cell -100 mg tablet, Take by mouth 3 (three) times a day withmeals. (Patient taking differently: Take 1 tablet by mouth daily with breakfast.), Disp: , Rfl: ascorbic acid, vitamin C, 250 mg tablet,chewable, Chew and swallow. (Patient taking differently: Chew 500 mg and swallow.), Disp: , Rfl: atorvastatin (LIPITOR) 20 mg tablet, 1 tablet, Disp: , Rfl: bimatoprost (LUMIGAN) 0.01 % ophthalmic drops, 1 drop nightly., Disp: , Rfl: dutasteride (AVODART) 0.5 mg capsule, Take 1 capsule (0.5 mg total) by mouth in the morning., Disp:, Rfl: glucosamine sulfate (GLUCOSAMINE ORAL), Take by mouth., Disp: , Rfl: hydroCHLOROthiazide (HYDRODIURIL) 25 mg tablet, Take 1 tablet (25 mg total) by mouth daily., Disp: , Rfl: losartan (COZAAR) 100 mg tablet, Take 1 tablet (100 mg total) by mouth in the morning., Disp: , Rfl: metoprolol succinate 50 mg capsule,sprinkle,ER 24hr, 1 tablet, Disp: , Rfl: omeprazole (PriLOSEC) 20 mg capsule, Take 1 capsule (20 mg total) by mouth in the morning and 1 capsule (20 mg total) before bedtime., Disp: , Rfl: tamsulosin (FLOMAX) 0.4 mg capsule, Take 1 capsule (0.4 mg total) by mouth in the morning. (Patienttaking differently: Take 1 capsule (0.4 mg total) by mouth in the morning and 1 capsule (0.4 mg total) before bedtime.), Disp: , Rfl: timoloL (BETIMOL) 0.5 % ophthalmic solution, 1 drop in the morning and 1 drop before bedtime., Disp: , Rfl: sod sulf-pot chloride-mag sulf 1.479-0.188- 0.225 gram tablet, Please see instructional sheet givenby physicians office., Disp: 24 tablet, Rfl: 0 Social History Socioeconomic History Marital status: Spouse name: Not on file Number of children: Not on file Years of education: Not on file Highest education level: Not on file Occupational History Not on file Tobacco Use Smoking status: Former Current packs/day: 0.00 Average packs/day: 0.5 packs/day for 10.0 years (5.0 ttl pk-yrs) Types: Cigarettes Start date: 1977 Quit date: 1987 Years since quittin.8 Smokeless tobacco: Never Vaping Use Vaping status: Never Used Substance and Sexual Activity Alcohol use: Yes Comment: Occasional Drug use: No Sexual activity: Defer Partners: Female Other Topics Concern Not on file Social History Narrative Not on file Social Drivers of Health Financial Resource Strain: Not on file Food Insecurity: No Food Insecurity (11/16/2022) Hunger Screening Food Insecurity - Worry: Never True Food Insecurity - Inability: Never True Transportation Needs: Not on file Physical Activity: Not on file Stress: Not on file Social Connections: Not on file Interpersonal Safety: Not At Risk (07/17/2023) Received from [facility] Within the last year, have you been afraid of your partner or ex-partner?: No Emotionally Abused: Not on file Physically Abused: Not on file Sexually Abused: Not on file In the past year have you been physically or sexually abused?: Unrecognized value Housing Instability: Not on file Family History Problem Relation Age of Onset Pancreatitis Mother Leukemia Father Breast cancer Maternal Aunt Objective Physical Exam Constitutional: General: He is not in acute distress. Appearance: Normal appearance. He is not ill-appearing. HENT: Head: Normocephalic and atraumatic. Mouth/Throat: Mouth: Mucous membranes are moist. Eyes: Pupils: Pupils are equal, round, and reactive to light. Cardiovascular: Rate and Rhythm: Normal rate. Pulmonary: Effort: Pulmonary effort is normal. No respiratory distress. Abdominal: General: There is no distension. Palpations: Abdomen is soft. Tenderness: There is generalized abdominal tenderness. There is no guarding. Musculoskeletal: General: Normal range of motion. Skin: General: Skin is warm and dry. Neurological: Mental Status: He is alert and oriented to person, place, and time. Mental status is at baseline. Vital Signs: Blood pressure 163/88, pulse 71, weight 109.5 kg (241 lb 6.4 oz). Respiratory Source: No data recorded Admission Weight: Weight: 109.5 kg (241 lb 6.4 oz) Labs Lab Results Component Value Date WBC 7.2 06/22/2025 HGB 13.8 06/22/2025 HCT 41.3 06/22/2025 MCV 85 06/22/2025 PLT 246 06/22/2025 Lab Results Component Value Date GLU 110 (H) 06/22/2025 CALCIUM 8.8 06/22/2025 K 3.9 06/22/2025 CO2 26 06/22/2025 CL 106 06/22/2025 BUN 22 06/22/2025 CREATININE 1.24 06/22/2025 No results found for: AMYLASE Lab Results Component Value Date LIPASE 38 12/15/2016 Lab Results Component Value Date ALT 21 06/22/2025 AST 20 06/22/2025 ALKPHOS 55 06/22/2025 Lab Results Component Value Date INR 1.0 12/15/2016 PROTIME 11.6 12/15/2016 Assessment History of tubular adenoma Generalized abdominal pain x 2-3 months Heartburn, bloating Plan Cut back on caffeine intake. Avoid carbonated beverages and pop. Continue PPI. Schedule EGD and colonoscopy. Evaluation included: Preparing to see the patient (e.g., review of tests) Obtaining and/or reviewing separately obtained history Performing a medically appropriate examination and/or evaluation Counseling and educating the patient/family/caregiver Referring and communicating with other health career services manager Encounter for colonoscopy due to history of colonic polyp [Z12.11, Z86.0100] GIANA BANKS [facility] General Surgery [place] This note was created with the assistance of a speech recognition program. While intending to generate a timely document that accurately reflects the content of the visit, no guarantee can be provided that every grammatical or spelling mistake has been or will be identified or corrected. Thank you for your understanding. GIANA Banks 08/10/25 1513 GIANA Banks 08/24/25 0839 documented in this encounter Plan of Treatment NameTypePriorityAssociated DiagnosesDate/TimeSurgical PathologyPathology and XazldqsmFvwsayp05/10/2025 10:28 AM ESTNameTypePriorityAssociated DiagnosesOrder ScheduleSurgical PathologyPathology and CytologyRoutineRelease Upon Ordering for 1 Occurrences starting 08/24/2025documented as of this encounter Goals GoalPatient Goal TypeAssociated ProblemsRecent ProgressPatient-Stated?Author Autogenerated Goal Care PlanAutogenerated ProblemNoPotts, Elizabethdocumented as of this encounter Procedures Procedure NamePriorityDate/TimeAssociated WhnwuvqvwHkdneuscSJFIOUIHRJW46/10/2025 10:38 AM EST MS COLONOSCOPY FLX DX W/COLLJ SPEC WHEN PFRMD110/24/2024 10:23 AM EST generalized abdominal pain MS ESOPHAGOGASTRODUODENOSCOPY TRANSORAL ICKDQWBNWT13/10/2025 10:23 AM EST generalized abdominal pain EGD110/24/2024 10:19 AM EST PROVATION YVMAvnppey48/10/2025 8:54 AM EST PROVATION PYIGCYJLAKGOabipsj02/10/2025 8:54 AM EST documented in this encounter Results * Colonoscopy (08/24/2025 10:38 AM EST)Specimen (Source)Anatomical Location / LateralityCollection Method / VolumeCollection TimeReceived Time08/24/2025 10:38 AM EST Narrative PM CARDIOVASCULAR - 08/24/2025 10:51 AM EST [facility] Patient Name: Jose Moeller ?? Procedure Date No Time: 08/24/2025 ?? CSN : [id number] Date of : 1955 Admit Type: Outpatient Age: 69 Room: [place] [address] Gender: Male Note Status: Finalized Attending MD: Jarrod Goff DO, Procedure: ? Colonoscopy Indications: ? Generalized abdominal pain Providers: ? Jarrod Goff DO Referring MD: ?Jarrod Goff DO Medicines: ? Propofol per Anesthesia Complications: ? No immediate complications. Procedure: ? After I obtained informed consent, the scope was ? passed under direct vision. Throughout the procedure, ? the patient's blood pressure, pulse, and oxygen ? saturations were monitored continuously. The [facility] ? [id number]-[id number] # [id number] PEDIATRIC COLONOSCOPE was ? introduced through the anus and advanced to the cecum, ? identified by appendiceal orifice and ileocecal valve. ? The colonoscopy was performed without difficulty. The ? patient tolerated the procedure well. The quality of ? the bowel preparation was adequate to identify polyps ? greater than 5 mm in size. Findings: ? The perianal and digital rectal examinations were normal. ? The colon (entire examined portion) appeared normal. ? The exam was otherwise without abnormality on direct and retroflexion ? views. Estimated Blood Loss: ??Estimated blood loss: none. Impression: ?- The entire examined colon is normal. ? - The examination was otherwise normal on direct and ? retroflexion views. ? - No specimens collected. Recommendation: ?- Discharge patient to home. ? - Patient has a contact number available for ? emergencies. The signs and symptoms of potential ? delayed complications were discussed with the patient. ? Return to normal activities tomorrow. Written ? discharge instructions were provided to the patient. ? - Repeat colonoscopy is not recommended due to current ? age (66 years or older) for screening purposes. ? - Return to my office PRN. Procedure Code(s): ? --- Professional --- ? 53739, Colonoscopy, flexible; diagnostic, including ? collection of specimen(s) by brushing or washing, when ? performed (separate procedure) Diagnosis Code(s): ? --- Professional --- ? R10.84, Generalized abdominal pain CPT copyright 2022 [employer]. All rights reserved. The codes documented in this report are preliminary and upon death surveys coder review may be revised to meet current compliance requirements. DO Jarrod Hill DO 08/24/2025 10:51:35 AM Number of Addenda: 0 Note Initiated On: 08/24/2025 10:38 AM Procedure Note Jarrod Goff DO - 08/24/2025 [facility] Patient Name: Jose Moeller Procedure Date No Time: 08/24/2025 CSN : [id number] Date of : 1955 Admit Type: Outpatient Age: 69 Room: [place] [address] Gender: Male Note Status: Finalized Attending MD: Jarrod Goff DO, Procedure: Colonoscopy Indications: Generalized abdominal pain Providers: Jarrod Goff DO Referring MD: Jarrod Goff DO Medicines: Propofol per Anesthesia Complications: No immediate complications. Procedure: After I obtained informed consent, the scope was passed under direct vision. Throughout theprocedure, the patient's blood pressure, pulse, and oxygen saturations were monitored continuously. [facility] PCF-[id number] # [id number] PEDIATRIC COLONOSCOPE was introduced through the anus and advanced to thececum, identified by appendiceal orifice and ileocecalvalve. The colonoscopy was performed without difficulty.The patient tolerated the procedure well. The qualityof the bowel preparation was adequate to identifypolyps greater than 5 mm in size. Findings: The perianal and digital rectal examinations were normal. The colon (entire examined portion) appeared normal. The exam was otherwise without abnormality on direct and retroflexion views. Estimated Blood Loss: Estimated blood loss: none. Impression: - The entire examined colon is normal. - The examination was otherwise normal on directand retroflexion views. - No specimens collected. Recommendation: - Discharge patient to home. - Patient has a contact number available for emergencies. The signs and symptoms of potential delayed complications were discussed with thepatient. Return to normal activities tomorrow. Written discharge instructions were provided to thepatient. - Repeat colonoscopy is not recommended due tocurrent age (66 years or older) for screening purposes. - Return to my office PRN. Procedure Code(s): --- Professional --- 27577, Colonoscopy, flexible; diagnostic, including collection of specimen(s) by brushing or washing,when performed (separate procedure) Diagnosis Code(s): --- Professional --- R10.84, Generalized abdominal pain CPT copyright 2022 [employer]. All rights reserved. The codes documented in this report are preliminary and upon death surveys coder reviewmay be revised to meet current compliance requirements. DO Jarrod Hill DO 08/24/2025 10:51:35 AM Number of Addenda: 0 Note Initiated On: 08/24/2025 10:38 AM Authorizing ProviderResult TypeResult StatusMiclexi DAVIES PROCEDURE ORDERABLESFinal ResultPerforming OrganizationAddressCity/State/ZIP CodePhone Number PM CARDIOVASCULAR * EGD (08/24/2025 10:19 AM EST)Specimen (Source)Anatomical Location / Laterality Collection Method / VolumeCollection TimeReceived Time08/24/2025 10:19 AM EST Narrative PM CARDIOVASCULAR - 08/24/2025 10:40 AM EST [facility] Patient Name: Jose Moeller ?? Procedure Date No Time: 08/24/2025 ?? CSN : [id number] Date of : 1955 Admit Type: Outpatient Age: 69 Room: [place] [address] Gender: Male Note Status: Finalized Attending MD: Jarrod Goff DO, Procedure: ? Upper GI endoscopy Indications: ? Generalized abdominal pain Providers: ? Jarrod Goff DO Referring MD: ?Jarrod Goff DO Medicines: ? Propofol per Anesthesia Complications: ? No immediate complications. Procedure: ? After obtaining informed consent, the endoscope was ? passed under direct vision. Throughout the procedure, ? the patient's blood pressure, pulse, and oxygen ? saturations were monitored continuously. The [facility] ? GIF-HQ190 #[id number] ADULT GASTROSCOPE was introduced ? through the mouth, and advanced to the fourth part of ? duodenum. The upper GI endoscopy was accomplished ? without difficulty. The patient tolerated the ? procedure well. Findings: ? The nasopharynx and oropharynx were normal. ? LA Grade A (one or more mucosal breaks less than 5 mm, not extending ? between tops of 2 mucosal folds) esophagitis with no bleeding was found ? 41 cm from the incisors. Biopsies were taken with a cold forceps for ? histology. ? Multiple 7 mm sessile polyps with no bleeding and no stigmata of recent ? bleeding were found in the gastric fundus. The polyp was removed with a ? hot snare. Resection and retrieval were complete. ? Scattered moderate inflammation characterized by congestion (edema), ? erythema and granularity was found in the gastric antrum. Biopsies were ? taken with a cold forceps for histology. ? The examined duodenum was normal. Estimated Blood Loss: ??Estimated blood loss was minimal. Impression: ?- Normal nasopharynx and oropharynx. ? - LA Grade A reflux esophagitis with no bleeding. Rule ? out Chery's esophagus. Biopsied. ? - Multiple gastric polyps. Resected and retrieved. ? - Gastritis, characterized by congestion (edema), ? erythema and granularity. Biopsied. ? - Normal examined duodenum. Recommendation: ?- Await pathology results. ? - No aspirin, ibuprofen, naproxen, or other ? non-steroidal anti-inflammatory drugs for 8 weeks. ? - Return to my office PRN. Procedure Code(s): ? --- Professional --- ? 23231, Esophagogastroduodenoscopy, flexible, ? transoral; with removal of tumor(s), polyp(s), or ? other lesion(s) by snare technique ? 35687, 59, Esophagogastroduodenoscopy, flexible, ? transoral; with biopsy, single or multiple Diagnosis Code(s): ? --- Professional --- ? K21.00, Gastro-esophageal reflux disease with esophagitis, without ? bleeding ? K31.7, Polyp of stomach and duodenum ? K29.70, Gastritis, unspecified, without bleeding ? R10.84, Generalized abdominal pain CPT copyright 2022 [employer]. All rights reserved. The codes documented in this report are preliminary and upon death surveys coder review may be revised to meet current compliance requirements. DO Jarrod Hill DO 08/24/2025 10:40:31 AM Number of Addenda: 0 Note Initiated On: 08/24/2025 10:19 AM Procedure Note Jarrod Goff DO - 08/24/2025 [facility] Patient Name: Jose Moeller Procedure Date No Time: 08/24/2025 CSN : [id number] Date of : 1955 Admit Type: Outpatient Age: 69 Room: [place] [address] Gender: Male Note Status: Finalized Attending MD: Jarrod Goff DO, Procedure: Upper GI endoscopy Indications: Generalized abdominal pain Providers: Jarrod Goff DO Referring MD: Jarrod Goff DO Medicines: Propofol per Anesthesia Complications: No immediate complications. Procedure: After obtaining informed consent, the endoscope was passed under direct vision. Throughout theprocedure, the patient's blood pressure, pulse, and oxygen saturations were monitored continuously. TheOLYMPUS [id number] #[id number] ADULT GASTROSCOPE was introduced through the mouth, and advanced to the fourth partof duodenum. The upper GI endoscopy was accomplished without difficulty. The patient tolerated the procedure well. Findings: The nasopharynx and oropharynx were normal. LA Grade A (one or more mucosal breaks less than 5 mm, not extending between tops of 2 mucosal folds) esophagitis with no bleeding wasfound 41 cm from the incisors. Biopsies were taken with a cold forceps for histology. Multiple 7 mm sessile polyps with no bleeding and no stigmata ofrecent bleeding were found in the gastric fundus. The polyp was removed witha hot snare. Resection and retrieval were complete. Scattered moderate inflammation characterized by congestion (edema), erythema and granularity was found in the gastric antrum. Biopsieswere taken with a cold forceps for histology. The examined duodenum was normal. Estimated Blood Loss: Estimated blood loss was minimal. Impression: - Normal nasopharynx and oropharynx. - LA Grade A reflux esophagitis with no bleeding.Rule out Chery's esophagus. Biopsied. - Multiple gastric polyps. Resected andretrieved. - Gastritis, characterized by congestion (edema), erythema and granularity. Biopsied. - Normal examined duodenum. Recommendation: - Await pathology results. - No aspirin, ibuprofen, naproxen, or other non-steroidal anti-inflammatory drugs for 8weeks. - Return to my office PRN. Procedure Code(s): --- Professional --- 20208, Esophagogastroduodenoscopy, flexible, transoral; with removal of tumor(s), polyp(s), or other lesion(s) by snare technique 53531, 59, Esophagogastroduodenoscopy, flexible, transoral; with biopsy, single or multiple Diagnosis Code(s): --- Professional --- K21.00, Gastro-esophageal reflux disease with esophagitis, without bleeding K31.7, Polyp of stomach and duodenum K29.70, Gastritis, unspecified, without bleeding R10.84, Generalized abdominal pain CPT copyright 2022 [employer]. All rights reserved. The codes documented in this report are preliminary and upon death surveys coder reviewmay be revised to meet current compliance requirements. DO Jarrod Hill DO 08/24/2025 10:40:31 AM Number of Addenda: 0 Note Initiated On: 08/24/2025 10:19 AM Authorizing ProviderResult TypeResult StatusMichael E Grillis DOGI PROCEDURE ORDERABLESFinal ResultPerforming OrganizationAddressCity/State/ZIP CodePhone Number PM CARDIOVASCULAR * Colonoscopy Report (08/24/2025 8:54 AM EST)Specimen (Source)Anatomical Location / LateralityCollection Method / VolumeCollection TimeReceived Time Narrative SYSTEMGENERATED, DOCUMENTATION - 08/24/2025 8:54 AM EST This order has been auto-finalized for image and report archival in PACs. *For full report details, please reach out to your physician. ??This image is visible to you in MyChart.* Authorizing ProviderResult TypeResult StatusMichael E Grillis DOIMG OR IMG ORDERABLESFinal Result * EGD Report (08/24/2025 8:54 AM EST)Specimen (Source)Anatomical Location / LateralityCollection Method / VolumeCollection TimeReceived Time Narrative SYSTEMGENERATED, DOCUMENTATION - 08/24/2025 8:54 AM EST This order has been auto-finalized for image and report archival in PACs. *For full report details, please reach out to your physician. ??This image is visible to you in MyChart.* Authorizing ProviderResult TypeResult StatusMichael E Grillis DOIMG OR IMG ORDERABLESFinal Result documented in this encounter Visit Diagnoses Diagnosis Generalized abdominal pain- Primary Abdominal pain, generalized Superficial gastritis without hemorrhage, unspecified chronicity Colon cancer screening Special screening for malignant neoplasms, colon documented in this encounter Administered Medications Medication OrderMAR ActionAction DateDoseRateSite lactated ringers infusion 100 mL/hr, intravenous, Continuous, Starting on Sun08/24/25 at 0900, For 1 day, Pre-op, If fluid restriction is not indicated, infuse at a rate up to 5 mL/kg/hr not to exceed the total replacement volume (2 ml/kg/hr) from the time NPO status was initiated. Continued by Pjlwpbbylm80/10/2025 10:24 AM XSW442 mL/hrNew Bag08/24/2025 9:05 AM EMD065 mL/hr100 mL/hrdocumented in this encounter Active and Recently Administered Medications Times are shown in EST.Medication Order/ lactated ringers infusion (CANCELED) 100 mL/hr, intravenous, Continuous, Starting on Sun08/24/25 at 0900, For 1 day, Pre-op, If fluid restriction is not indicated, infuse at a rate up to 5 mL/kg/hr not to exceed the total replacement volume (2 ml/kg/hr) from the time NPO status was initiated. * 0905 (New Bag - Provider: Leticia Cline RN) * 1024 (Continued by Anesthesia - Provider: DUSTIN Javier) * 1050 (Stop Bag - Provider: DUSTIN Javier) documented in this encounter Additional Health Concerns Active ProblemsNoted DateDiagnosed DateAutogenerated Ecnjdcl2008/10/2025documented as of this encounter Care Teams Team MemberRelationshipSpecialtyStart DateEnd Date Fabian Brown MD PCP - GeneralFamily Medicine05/22/23documented as of this encounter
--- OUTSIDE RECORDS SUMMARY | 2025-08-24 10:24 | XMS_ITS | Encounter Summary ---
Author Organization [facility] [employer] [facility] tem Address [facility] [place]-[id number] [place] [address] Care Team Providers Care Cashier General Name Role Phone Fabian Brown MD Primary Care Provider [phone] Reason for Visit * Auth/CertSpecialtyDiagnoses / ProceduresReferred By ContactReferred To Contact Diagnoses generalized abdominal pain Procedures CA ESOPHAGOGASTRODUODENOSCOPY TRANSORAL DIAGNOSTIC CA COLONOSCOPY FLX DX W/COLLJ SPEC WHEN PFRMD ESOPHAGOGASTRODUODENOSCOPY DIAGNOSTIC COLONOSCOPY DIAGNOSTIC / SCREENING Jarrod Goff DO [address] [place] [address] Phone: tel: fax: Referral IDStatusReasonStart DateExpiration DateVisits RequestedVisits [id number] Encounter Details DateTypeDepartmentCare Team (Latest Contact Info)Ylbsumgsvth49/10/2025 10:24 AM ESTAnesthesia Event [facility] [address] [place] [address] Casa Corrales, DO [address] [place] [address] Anesthesia Record Procedure NameResponsible AnesthesiologistAnesthesia Start TimeAnesthesia Stop TimeESOPHAGOGASTRODUODENOSCOPY Torsten Corrales DO08/24/25 1024 08/24/25 8198FczfIoqrSehfqKsexcqf45/10/066332669347Gq Jhixa7192Dq Start Vyzf1307 An InductionThe patient was reevaluated immediately before moderate or deep sedation use and before anesthesia induction.1024Patient Ready for Lzvacou9812 Ffgxwotb7198zo stop kjjm4916Baklnrmku/Transfer From the DH6480Cb Kydn5847Wxbtzfh to RNTransported to:Phase II, Spontaneous Ventilation and Assisted Ventilation, O2 per Nasal Cannula, 0 LPM Pt. Tolerated procedure well, vital signs stable and document on nursing record Care transferredto receiving RN* NameTotalpropofol (DIPRIVAN) fwmjlquzz252 mglactated ringers ckdahzwy812 mL * Agents No agents on file. * Blood No blood administrations on file. TypeDetailsPlacementRemovalPeripheral IVPlacement Date: 08/24/25; Placement Time: 854; Catheter Size: 22 G; Orientation: Posterior, Right;Location: Forearm; Site Prep: Chlorhexadine and isopropyl alcohol; Inserted by: DIANNA ZARAGOZA; Insertion Attempts: 1; Patient Tolerance: Tolerated well; Removal Date: 08/24/25; Removal Time: 854 by Leticia Cline RN08/24/25 112 by Consuelo Salcedo RNdocumented in this encounter Social History Tobacco UseTypesPacks/DayYears UsedDateSmoking Tobacco: FormerCigarettes0.510 1977 - 1987Smokeless Tobacco: NeverAlcohol UseStandard Drinks/WeekCommentsYes0 (1 standard drink = 0.6 oz pure alcohol)OccasionalAUDIT-CAnswerDate RecordedQ1: How often do you have a drink containing alcohol?2-4 times a month08/10/2025 Average Number of DrinksNot on file08/10/2025Frequency of Binge DrinkingNot on file08/10/2025hildcareAnswerDate DhxblzrrPjdbwqjxoOkljnlq10/10/2019Employment AnswerDate IwvdmiwqCcaxsymajcFzacurg36/10/2019Hunger ScreeningAnswerDate RecordedWithin the past 12 months we worried whether our food would run out before we got money to buy more.Never True11/16/2022Within the past 12 months the food we bought just didn't last and we didn't have money to get more.Never True3Purpose - LifeAnswerDate RecordedPurpose and direction in life Ibxmeav0011/24/2020ex and Gender InformationValueDate RecordedSex Assigned at BirthNot on fileLegal TpzUnfb9105/18/2015 11:57 AM EDTGender IdentityNot on file Sexual OrientationNot on filedocumented as of this encounter OR Notes * Anesthesia Postprocedure Evaluation - Casa Corrales DO - 08/24/2025 11:51 AM EST ANESTHESIA POST-EVALUATION [facility] Procedure Summary Date: 08/24/25 Room / Location: [facility] OR [address] [place] [address] Anesthesia Start: 1024 Anesthesia Stop: 1050 Procedures: ESOPHAGOGASTRODUODENOSCOPY DIAGNOSTIC COLONOSCOPY DIAGNOSTIC / SCREENING Diagnosis: (generalized abdominal pain) Surgeons: Jarrod Goff DO Responsible Provider: Casa Corrales DO Anesthesia Type: MAC ASA Status: 3 Vitals: 08/24/25 1115 BP: (!) 158/97 Pulse: 69 Resp: 12 Temp: 36.1 ??C (97 ??F) SpO2: 94% Patient Evaluated: Phase II Patient Participation: Complete - patient participated Patient Level of Consciousness: Awake and Alert Pain Score: 2 Pain Management: Adequate Airway Patency: Patent Anesthetic Complications: No Cardiovascular Status: Hemodynamically Stable Respiratory Status: Stable/Baseline Post-op Hydration: Euvolemic Final Anesthesia Type: MAC No notable events documented. * Anesthesia Preprocedure Evaluation - Casa Corrales DO - 08/14/2025 7:42 AM EDT Images from the original note were not included. ANESTHESIA PRE-PROCEDURE EVALUATION [facility] Procedure(s): ESOPHAGOGASTRODUODENOSCOPY DIAGNOSTIC, COLONOSCOPY DIAGNOSTIC / SCREENING ANESTHESIA PHYSICAL EXAM Patient summary reviewed and nursing notes reviewed. 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 Use of blood products discussed with Patient who. Plan discussed with TRUCK HOP. NPO Status: Past Medical History: Diagnosis Date AAA (abdominal aortic aneurysm) Bladder stones BPH (benign prostatic hyperplasia) Cervical spondylosis Chronic pain disorder GERD (gastroesophageal reflux disease) Glaucoma HL (hearing loss) Hyperlipemia Hypertension Laryngopharyngeal reflux (LPR) Low back pain Neck pain Thoracic aortic aneurysm without rupture Visual impairment glasses Past Surgical History: Procedure Laterality Date CERVICAL FUSION COLONOSCOPY 2009 COLONOSCOPY N/A 10/09/2018 Performed by Brian Almaguer DO at [facility] CYSTOSCOPY EGD N/A 10/09/2018 Performed by Brian Almaguer DO at [facility] REPAIR HERNIA UMBILICAL MESH N/A 01/24/2021 Performed by Fernando Orlando MD at [facility] TURP / TRANSURETHRAL INCISION / DRAINAGE PROSTATE prostated biopsy No Known Allergies Social History Tobacco Use Smoking Status Former Current packs/day: 0.00 Average packs/day: 0.5 packs/day for 10.0 years (5.0 ttl pk-yrs) Types: Cigarettes Start date: 1977 Quit date: 1987 Years since quittin.8 Smokeless Tobacco Never Alcohol Use: Unknown (08/10/2025) AUDIT-C Frequency of Alcohol Consumption: 2-4 times a month Average Number of Drinks: Not on file Frequency of Binge Drinking: Not on file OB History:OB@ Estimated Date of Delivery:EUGENIA[1@ Scheduled Meds: Infusion Meds: No current facility-administered medications for this encounter. PRN Meds: Vitals: There were no vitals taken for this visit. Vent: Labs: Echo: No results found. Cath: No results found. EKG: No results found. Stress: No results found. Holter: No results found. CXR: No results found. Carotid: No results found. Risk Factors: PONV: Low Risk Total Score: 1 Score Rules Non-smoker Criteria that do not apply: Female patient History of PONV and/or Motion Sickness Intended opioid administration RCRI: Low Risk: Score of 0 = 3.9% (2.8-5.4%) Risk of major cardiac event Score of 1 = 6.0% (4.9-7.4%) Risk of major cardiac event Total Score: 0 Score Rules Criteria that do not apply: Cerebrovascular Disease Ischemic Heart Disease Congestive Heart Failure Elevated Risk Surgery Pre-operative Treatment with Insulin Pre-operative Creatinine >2 mg/dL / 176.8 mol/L documented in this encounter Plan of Treatment Not on file documented as of this encounter Goals GoalPatient Goal TypeAssociated ProblemsRecent ProgressPatient-Stated?Author Autogenerated Goal Care PlanAutogenerated ProblemNoPotts, Elizabethdocumented as of this encounter Visit Diagnoses Not on filedocumented in this encounter Administered Medications Medication OrderMAR ActionAction DateDoseRateSite lactated ringers infusion 100 mL/hr, intravenous, Continuous, Starting on Sun08/24/25 at 0900, For 1 day, Pre-op, If fluid restriction is not indicated, infuse at a rate up to 5 mL/kg/hr not to exceed the total replacement volume (2 ml/kg/hr) from the time NPO status was initiated. Continued by Cmpqirxgmd42/10/2025 10:24 AM RMG334 mL/hrNew Bag08/24/2025 9:05 AM WXH618 mL/hr100 mL/hr propofoL (DIPRIVAN) infusion intravenous, As needed, Starting on Sun08/24/25 at 1026, Anesthesia Intra-op Given08/24/2025 10:36 AM PWS759 zjSgwuy0408/24/2025 10:32 AM KZN775 mgGiven 08/24/2025 10:26 AM GYU652 mgdocumented in this encounter Additional Health Concerns Active ProblemsNoted DateDiagnosed DateAutogenerated Cyzajfb7408/10/2025documented as of this encounter Care Teams Team MemberRelationshipSpecialtyStart DateEnd Date Fabian Brown MD PCP - GeneralFamily Medicine05/22/23documented as of this encounter
--- OUTSIDE RECORDS SUMMARY | 2025-08-24 10:45 | XMS_ITS | Encounter Summary ---
Author Organization [facility] No Paper Just Vapor [facility] tem Address [id number] [address] [place] [address] Care Team Providers Care Mechanical Service Technician Name Role Phone Fabian Brown MD Primary Care Provider Reason for Visit * Auth/CertSpecialtyDiagnoses / ProceduresReferred By ContactReferred To Contact Diagnoses generalized abdominal pain Procedures CT ESOPHAGOGASTRODUODENOSCOPY TRANSORAL DIAGNOSTIC CT COLONOSCOPY FLX DX W/COLLJ SPEC WHEN PFRMD ESOPHAGOGASTRODUODENOSCOPY DIAGNOSTIC COLONOSCOPY DIAGNOSTIC / SCREENING Jarrod Goff DO [address] [place] [address] Phone: tel: fax: Referral IDStatusReasonStart DateExpiration DateVisits RequestedVisits [id number] Encounter Details DateTypeDepartmentCare Team (Latest Contact Info)Dfzabhgwukz98/10/2025 10:45 AM EST - 08/24/2025 11:30 AM ESTSurgery [facility] [address] [place] [id number] Jarrod Goff DO [address] [id number] ESOPHAGOGASTRODUODENOSCOPY DIAGNOSTIC [02591 (CPT??)] Surgery Details Date/TimeStatusLocationORServicePatient ClassCase ClassCase TypeTrauma Case? 08/24/2025 10:45 AMPostedFREMONT SURGERYOR 06[facility] ElectivePanel 1 ProcedureLRBAnRockefeller War [facility] ClassComments ESOPHAGOGASTRODUODENOSCOPY DIAGNOSTICN/AMonitored Anesthesia Care COLONOSCOPY DIAGNOSTIC / SCREENINGN/AMonitored Anesthesia Care SurgeonSurgeon Jarrod Toscano, XAWscpnjgOlpjstr8eajpofoueo in this encounter Social History Tobacco UseTypesPacks/DayYears UsedDateSmoking Tobacco: FormerCigarettes0.510 1977 - 1987Smokeless Tobacco: NeverAlcohol UseStandard Drinks/WeekCommentsYes0 (1 standard drink = 0.6 oz pure alcohol)OccasionalAUDIT-CAnswerDate RecordedQ1: How often do you have a drink containing alcohol?2-4 times a month08/10/2025 Average Number of DrinksNot on file08/10/2025Frequency of Binge DrinkingNot on file08/10/2025hildcareAnswerDate QhqxgswsPlescdkseIsfiipg57/10/2019Employment AnswerDate TqolbnzwUzsghtkbogYhfufmc66/10/2019Hunger ScreeningAnswerDate RecordedWithin the past 12 months we worried whether our food would run out before we got money to buy more.Never True11/16/2022Within the past 12 months the food we bought just didn't last and we didn't have money to get more.Never True3Purpose - LifeAnswerDate RecordedPurpose and direction in life Rrcawby8911/24/2020ex and Gender InformationValueDate RecordedSex Assigned at BirthNot on fileLegal AbxGtzw6005/18/2015 11:57 AM EDTGender IdentityNot on file Sexual OrientationNot on filedocumented as of this encounter Last Filed Vital Signs Vital SignReadingTime TakenCommentsBlood Zsxjlfhe088/9708/24/2025 11:15 AM EST Tnsag435108/24/2025 11:15 AM PPRAfqxrwrwozd68.1 ??C (97 ??F)08/24/2025 11:15 AM ESTRespiratory Cwoh848310/24/2024 11:15 AM ESTOxygen Wvqashmpti07%08/24/2025 11:15 AM ESTInhaled Oxygen Concentration--Jtxnkl118.3 kg (241 lb)08/24/2025 8:58 AM NHBHwmgoi235.5 cm (5' 9.5 )08/24/2025 8:58 AM ESTBody [...] make important personal or business decisions DIET {hmendodiet:57631} ADDITIONAL INSTRUCTIONS {HMADDITIONALINSTRUCTIONS:98409} POST LOWER ENDOSCOPY INSTRUCTIONS Normal expectations after [...] not make important personal or business decisions {hmpolyp:81021} DIET {hmendodiet:07547} ADDITIONAL INSTRUCTIONS {HMADDITIONALINSTRUCTIONS:11165} Any questions regarding your care, please contact [facility] [phone] documented in this encounter Medications at Time [...] of this encounter H&P Notes * Jarrod Goff, - 08/24/2025 8:39 AM EST HISTORY AND PHYSICAL INTERVAL NOTE: Jose Moeller 1955 [id number] H&P reviewed. The patient was examined and there are no changes to the H&P. Jarrod Goff DO Source Note - Daniel Ha APRN-MACHINIST OUTSIDE - 08/10/2025 1:30 PM EDT Images from [...] has intermittent heartburn and burning for which hetakes omeprazole 20 mg twice daily. The abdominal pain is not affected by eating or bowel movements. He drinks 2-3 cups of coffee daily and [...] 10/09/2018 Performed by Brian Almaguer DO at [facility] CYSTOSCOPY EGD N/A 10/09/2018 Performed by Brian Almaguer DO at [facility] REPAIR HERNIA UMBILICAL MESH N/A 01/24/2021 Performed by Fernando Orlando MD at [facility] TURP / TRANSURETHRAL INCISION / DRAINAGE [...] Not At Risk (07/17/2023) Received from [facility] Safety [facility] Environment Within the last year, [...] patient/family/caregiver Referring and communicating with other health chronic care nurse Encounter for colonoscopy due to history of colonic polyp [Z12.11, Z86.0100] DANIEL HA APRN-BENNY [facility] [place] This note was created with the assistance of a speech recognition program. While intending to generate a timely document that accurately reflects the content of the visit, no guarantee can be provided that every grammatical or spelling mistake has been or will be identified or corrected. Thank you for your understanding. GIANA Pérez 08/10/25 1513 GIANA Pérez 08/24/25 0839 documented in this encounter Plan of Treatment NameTypePriorityAssociated DiagnosesDate/TimeSurgical PathologyPathology and YooawtvmDzpwokv66/10/2025 10:28 AM ESTNameTypePriorityAssociated DiagnosesOrder ScheduleSurgical PathologyPathology and CytologyRoutineRelease Upon Ordering for 1 Occurrences starting 08/24/2025documented as of this encounter Goals GoalPatient Goal TypeAssociated ProblemsRecent ProgressPatient-Stated?Author Autogenerated Goal Care PlanAutogenerated ProblemNoPotts, Elizabethdocumented as of this encounter Procedures Procedure NamePriorityDate/TimeAssociated FyayasdktIeibscelFWXNEMDUWTC66/10/2025 10:[address] COLONOSCOPY FLX DX W/COLLJ SPEC WHEN PFRMD110/24/2024 10:23 AM EST generalized abdominal pain CT ESOPHAGOGASTRODUODENOSCOPY TRANSORAL XRGBPCEKTL14/10/2025 10:23 AM EST generalized abdominal pain EGD110/24/2024 10:19 AM EST PROVATION DDOSlxpgyg29/10/2025 8:54 AM EST PROVATION YBVIBZJBFTZRvzahpo32/10/2025 8:54 AM EST documented in this encounter Results * Colonoscopy (08/24/2025 10:38 AM EST)Specimen (Source)Anatomical Location / LateralityCollection Method / VolumeCollection TimeReceived Time08/24/2025 10:38 AM EST Narrative PM CARDIOVASCULAR - 08/24/2025 10:51 AM EST [facility] Patient Name: Jose Moeller ?? Procedure Date No Time: 08/24/2025 ?? CSN : [id number] Date of : 1955 Admit Type: Outpatient Age: 69 Room: [place] [address] Gender: Male Note Status: Finalized Attending MD: Jarrod Goff , DO, Procedure: ? Colonoscopy Indications: ? Generalized [...] monitored continuously. The [facility] ? PCF-H190DL # [id number] PEDIATRIC COLONOSCOPE was ? introduced through the [...] Procedure Code(s): ? --- Professional --- ? 24969, Colonoscopy, flexible; diagnostic, including ? collection of specimen(s) by brushing or washing, when ? performed (separate procedure) Diagnosis Code(s): ? --- Professional --- ? R10.84, Generalized abdominal pain CPT copyright 2022 [employer]. All rights reserved. The codes documented in this report are preliminary and upon wax coating machine tender review may be revised to meet current compliance requirements. DO Jarrod Hill DO 08/24/2025 10:51:35 AM Number of Addenda: 0 Note Initiated On: 08/24/2025 10:38 AM Procedure Note Jarrod Goff DO - 08/24/2025 [facility] Patient Name: Jose Moeller Procedure Date No Time: 08/24/2025 CSN : [id number] Date of : 1955 Admit Type: Outpatient Age: 69 Room: [place] [address] Gender: Male Note Status: Finalized Attending MD: Jarrod Goff DO, Procedure: Colonoscopy Indications: Generalized abdominal pain Providers: Jarrod Goff DO Referring MD: Jarrod Goff DO Medicines: Propofol per Anesthesia Complications: No immediate complications. Procedure: After I obtained informed consent, the scope was passed under direct vision. Throughout theprocedure, the patient's blood pressure, pulse, and oxygen saturations were monitored continuously. [facility]-H[facility] # [id number] PEDIATRIC COLONOSCOPE was introduced through the anus [...] office PRN. Procedure Code(s): --- Professional --- 92300, Colonoscopy, flexible; diagnostic, including collection of specimen(s) by brushing or washing,when performed (separate procedure) Diagnosis Code(s): --- Professional --- R10.84, Generalized abdominal pain CPT copyright 2022 [employer]. All rights reserved. The codes documented in this report are preliminary and upon wax coating machine tender reviewmay be revised to meet current compliance [...] PM CARDIOVASCULAR - 08/24/2025 10:40 AM EST [facility] Patient Name: Jose Moeller ?? Procedure Date No Time: 08/24/2025 ?? [facility] : [id number] Date of : 1955 Admit Type: Outpatient Age: 69 Room: [place] [address] Gender: Male Note Status: Finalized Attending MD: [...] were monitored continuously. The [facility] ? GIF-HQ190 #[id number] ADULT GASTROSCOPE was introduced ? through the [...] Procedure Code(s): ? --- Professional --- ? 02286, Esophagogastroduodenoscopy, flexible, ? transoral; with removal of tumor(s), polyp(s), or ? other lesion(s) by snare technique ? 17461, 59, Esophagogastroduodenoscopy, flexible, ? transoral; with biopsy, single or multiple Diagnosis Code(s): ? --- Professional --- ? K21.00, Gastro-esophageal reflux disease with esophagitis, without ? bleeding ? K31.7, Polyp of stomach and duodenum ? K29.70, Gastritis, unspecified, without bleeding ? R10.84, Generalized abdominal pain CPT copyright 2022 [employer]. All rights reserved. The codes documented in this report are preliminary and upon wax coating machine tender review may be revised to meet current compliance requirements. DO Jarrod Hill DO 08/24/2025 10:40:31 AM Number of Addenda: 0 Note Initiated On: 08/24/2025 10:19 AM Procedure Note Jarrod Goff DO - 08/24/2025 [facility] Patient Name: Jose Moeller Procedure Date No Time: 08/24/2025 CSN : [id number] Date of : 1955 Admit Type: Outpatient Age: 69 Room: [place] [address] Gender: Male Note Status: Finalized Attending MD: Jarrod Goff DO, Procedure: Upper GI endoscopy Indications: Generalized abdominal pain Providers: Jarrod Goff DO Referring MD: Jarrod Goff DO Medicines: Propofol per Anesthesia Complications: No immediate complications. Procedure: After obtaining informed consent, the endoscope was passed under direct vision. Throughout theprocedure, the patient's blood pressure, pulse, and oxygen saturations were monitored continuously. [facility] GIF-HQ190 #[id number] ADULT GASTROSCOPE was introduced through the mouth, [...] office PRN. Procedure Code(s): --- Professional --- 81224, Esophagogastroduodenoscopy, flexible, transoral; with removal of tumor(s), polyp(s), or other lesion(s) by snare technique 63459, 59, Esophagogastroduodenoscopy, flexible, transoral; with biopsy, single or multiple Diagnosis Code(s): --- Professional --- K21.00, Gastro-esophageal reflux disease with esophagitis, without bleeding K31.7, Polyp of stomach and duodenum K29.70, Gastritis, unspecified, without bleeding R10.84, Generalized abdominal pain CPT copyright 2022 [employer]. All rights reserved. The codes documented in this report are preliminary and upon wax coating machine tender reviewmay be revised to meet current compliance requirements. DO Jarrod Hill DO 08/24/2025 10:40:31 AM Number of Addenda: 0 Note Initiated On: 08/24/2025 10:19 AM Authorizing ProviderResult MikaelaResult Laura WESTI PROCEDURE ORDERABLESFinal ResultPerforming OrganizationAddressCity/State/ZIP CodePhone Number PM [...] to you in MyChart.* Authorizing ProviderResult TypeResult Laura Goff DOIMG OR IMG ORDERABLESFinal Result * EGD [...] Result documented in this encounter Visit Diagnoses Not on filedocumented [...] time NPO status was initiated. Continued by Fmswcrrrmt90/10/2025 10:24 AM CCQ547 mL/hrNew Bag08/24/2025 9:05 AM LNI489 mL/hr100 mL/hrdocumented in this encounter Active and [...] * 1024 (Continued by Anesthesia - Provider: Danie Levy APRN-NADIA) * 1050 (Stop Bag - Provider: DUSTIN Javier) documented in this encounter Additional Health Concerns Active ProblemsNoted DateDiagnosed DateAutogenerated Xusflya9208/10/2025documented as of this encounter Care Teams Team MemberRelationshipSpecialtyStart DateEnd Date Fabian Brown MD PCP - GeneralFamily Medicine05/22/23documented as of this encounter
--- OUTSIDE RECORDS SUMMARY | 2025-08-25 10:08 | XMS_ITS | Clinical Summary ---
Author Organization [facility] Address [address] [place], [place] [address] Care Team Providers Care Gristmill Operator Name Role Phone Karthik Little Primary Care Provider [phone] Allergies No known active allergies Medications MedicationSigDispense QuantityRefillsLast FilledStart DateEnd DateStatus HYDROCHLOROTHIAZIDE ORAL Take 25 mg by mouth once daily.Active losartan (COZAAR) 100 mg tablet Take 100 mg by mouth once daily.Active iron fum/vit C/ascorbate sod (IRON PLUS VITAMIN C ORAL) Take 65 mg by mouth once daily.Active omeprazole (PRILOSEC) 20 mg capsule Take 20 mg by mouth once daily.Active ciprofloxacin HCl (CIPRO) 500 mg tablet 500 mg once daily.11/26/2019Active LUMIGAN 0.01 % drop ophthalmic drops 1 Drop.11/25/2019Active tamsulosin ER (FLOMAX) 0.4 mg Take 1 capsule by mouth daily at bedtime. 90 capsule Active finasteride (PROSCAR) 5 mg tablet Take 1 tablet by mouth daily at bedtime. 90 tablet Active bimatoprost (LUMIGAN) 0.03 % ophthalmic drops 1Active cholecalciferol, vitamin D3, (VITAMIN D3 ORAL) Take by mouth.Active Active Problems ProblemNoted DateDiagnosed DateObesity, Class I, BMI 30-34.91Swallowing pain07/23/2018Globus qgjxsenys57/25/2018Elevated prostate specific antigen (PSA) 06/26/2016Postprocedural male urethral meatal /30/2015Benign non- nodular prostatic hyperplasia with lower urinary tract peknbulb87/30/2015History of djepkxvpn36/30/2015Essential hypertension Resolved Problems ProblemNoted DateDiagnosed DateResolved DateRising PSA level Social History Tobacco UseTypesPacks/DayYears UsedDateSmoking Tobacco: FormerCigarettesQuit: 10/15/1987Smokeless Tobacco: NeverAlcohol UseStandard Drinks/WeekCommentsYes0 (1 standard drink = 0.6 oz pure alcohol)beerArea Deprivation IndexAnswerDate RecordedNational Score (1-100), lower number is lower riskNot on file09/22/2020 State Score (1-10), lower number is lower riskNot on file09/22/2020Data from: https://www.neighborhoodatlas.medicine.[facility].edu/. Last address used for calculationNot on file09/22/2020Sex and Gender InformationValueDate RecordedSex Assigned at BirthNot on fileLegal NeuKxqu3606/07/2015 11:14 AM EDTGender Identity Not on fileSexual OrientationNot on file Last Filed Vital Signs Vital SignReadingTime TakenCommentsBlood Zqggzrui120/8005 2:56 PM EDT Radng8488/07/2019 2:56 PM WPXJxnkolyubie55.9 ??C (98.5 ??F)08/21/2018 12:33 PM ESTRespiratory Rate--Oxygen Bcqekcpvom41%08/21/2018 12:33 PM ESTInhaled Oxygen Concentration--Uweqbg574 kg (236 lb)11/22/2020 12:50 PM IMZKdkfgr867.8 cm (5' 10 )11/22/2020 12:50 PM ESTBody Mass Index33.8611/22/2020 12:50 PM EST Plan of Treatment Health MaintenanceDue DateLast DoneCommentsAbdominal Aortic Aneurysm Screening 7Anxiety Rwdcxltqq45/21/1975Depression Znsmhbbek31/21/1975Hepatitis C Rmbnxukfg12/21/1975DTaP,Tdap,Td Vaccine (1 - Tdap)1975Lipid Screening 1991CT Iywurtrbyhwf71/21/2002Cologuard (FIT-DNA)2001Diabetes Olajmwfml47/21/2002Fecal Occult Blood11/04/20011919Dwtanhesuegnl76/21/2002 Pneumococcal Vaccine: 50+ (1 of 1 - PCV)11/04/20064277Qlecymuremk02/26/2019 10/09/2018Colorectal Cancer Oxxwxttey02/26/2019Advance Directive Discussion 10/15/2024Prostate Cancer Screening Stekocbamk79/04/29137511/18/2019, 02/27/2019, 08/07/2018, Additional history existsCovid-19 Vaccine (1 - 2024- season) 2025Influenza Vaccine (#1)5110/31/2018, 09/30/2018, 09/03/2017, Additional history existsRSV Vaccine (1 - 1-dose 75+ series)2Shingrix JqgxwzfBkkxvgoxj74/05/2019, 01/29/2019 Procedures Procedure NamePriorityDate/TimeAssociated DiagnosisCommentsPSA/PROSTSPECAG SCRN Thabbta0511/18/2019 11:56 AM EST Benign non-nodular prostatic hyperplasia with lower urinary tract symptoms from Last 3 Months or Most Recently Relevant to Health Maintenance Results * PSA/PROSTSPECAG SCRN (11/18/2019 11:56 AM EST)ComponentValueRef RangeTest MethodAnalysis TimePerformed AtPathologist SignaturePSA Screening1.890.00 - 2.59 ng/mL11/18/2019 6:30 PM ESTKindred Hospital [facility] LaboratoriesComment:Total PSA test methodology used is the Electrochemiluminescence Immunoassay.Specimen (Source)Anatomical Location / LateralityCollection Method / VolumeCollection TimeReceived TimeBlood specimen (specimen)BLOOD SPECIMEN / Exubyhx3611/18/2019 11:56 AM EST11/18/2019 11:58 AM EST Narrative Authorizing ProviderResult TypeResult StatusSergio Angeles MDLABORATORY Final ResultPerforming OrganizationAddressCity/State/ZIP CodePhone Number [facility] [address] [place] [address] [facility] [address] [place] [address] from Last 3 Months or Most Recently Relevant to Health Maintenance Insurance Care Teams Team MemberRelationshipSpecialtyStart DateEnd Date Karthik Little PCP - GeneralFamily Medicine06/07/15
--- OUTSIDE RECORDS SUMMARY | 2025-08-25 10:08 | XMS_ITS | Clinical Summary ---
Author Organization [facility] Address [address] [place] [address] Care Team Providers Care Organ Tuner Electronic Name Role Phone Fabian Brown MD Unavailable Fabian Brown MD Primary Care Provider [phone] Allergies No known active allergies Medications MedicationSigDispense QuantityRefillsLast FilledStart DateEnd DateStatus Ascorbic Acid (vitamin C) 100 MG tablet 1 (one) time each day at the same timeActive timolol (Timoptic) 0.25 % ophthalmic solution Administer into affected eye(s) in the morning and in the evening.Active Lumigan 0.01 % ophthalmic solution Administer into affected eye(s) at ohcrxdw5211/14/2022ctive Cholecalciferol (Vitamin D3) 9966260 UNIT/GM liquid Active glucosamine-chondroitin 500-400 MG tablet Take 1 tablet by mouth in the morning.Active hydroCHLOROthiazide (HYDRODiuril) 25 MG tablet Indications:Essential hypertension, benignTake 1 tablet (25 mg) by mouth Daily 90 tablet 4Active metoprolol succinate XL (Toprol-XL) 50 MG 24 hr tablet Indications:Essential hypertension, benignTake 1 tablet (50 mg) by mouth Daily Do not crush or chew. 90 tablet ctive omeprazole (PriLOSEC) [address] capsule Indications:Gastroesophageal reflux disease without esophagitisTake 1 capsule (20 mg) by mouth in the morning and 1 capsule (20 mg) in the evening. Take before meals. 180 capsule 5Active atorvastatin (Lipitor) 20 MG tablet Indications:DyslipidemiaTake 1 tablet (20 mg) by mouth Daily 90 tablet [id number]//[id number]/6Active tamsulosin (Flomax) 0.4 MG 24 hr capsule Indications:Benign prostatic hyperplasia with lower urinary tract symptoms, symptom details unspecifiedTake 1 capsule (0.4 mg) by mouth Daily 90 capsule 3045Active dutasteride (Avodart) 0.5 MG capsule Take 0.5 mg by mouth5Active losartan (Cozaar) 100 MG tablet Indications:Essential hypertension, benignTake 1 tablet (100 mg) by mouth Daily 30 tablet 1108//010235/6Active Active Problems ProblemNoted DateDiagnosed DateVenous insufficiency of both lower extremities 03/30/2025 Assessment & Plan (03/30/2025 10:37 AM EDT): Worsening edema and use compression. Medicare annual wellness visit, adbvkuzbkt13/06/2024 Assessment & Plan (09/19/2024 10:41 AM EST): Will review labs. Discussed proper diet and regular aerobic exercise. Need aerobic exercise 5-6 days a week for 30 minutes at a time. Smaller portions and limit total calories. Colonoscopy every 10 years. Tetanus every 10 years. Advised not to smoke. Encounter for long-term (current) use of ioeuxnorwdl38/06/2024Class 1 obesity due to excess calories with serious comorbidity and body mass index (BMI) of 32.0 to 32.9 in adult4Cervical prnzyucbjrfim59/17/2024 Assessment & Plan (03/30/2025 10:37 AM EDT): Pain stable and use OTC PRN. Need home PT and ROM exercises. Assessment & Plan (07/31/2024 10:52 AM EDT): Recent pain and stiffness. History of DDD and check x-ray. Treat with prednisone and use flexeril PRN. If no improvement will need PT and possible MRI. Essential hypertension, mhczgy9101/29/2024 Assessment & Plan (03/30/2025 10:37 AM EDT): BP elevated today but previously controlled and monitor PRN. Assessment & Plan (02/14/2024 11:23 AM EDT): BP controlled and monitor PRN. BPH without urinary efekxovpabc33/16/2024 Assessment & Plan (03/30/2025 10:36 AM EDT): Symptoms controlled with flomax and continue. Assessment & Plan (02/14/2024 11:23 AM EDT): Symptoms controlled with flomax and continue. Chronic fbadfsqr96/16/2024egenerative lumbar spinal /16/2024 Assessment & Plan (03/30/2025 10:37 AM EDT): Pain stable and use OTC PRN. Need home PT and ROM exercises. Assessment & Plan (02/14/2024 11:24 AM EDT): Pain improved and no further radicular symptoms. Continue increased activity and home PT exercises.Use OTC PRN. Isfrqejmfcmt58/16/2024Erectile dysfunction of organic kvjijd3101/29/2024 Gastroesophageal reflux disease without nbiusqnzrkq54/16/2024 Assessment & Plan (03/30/2025 10:37 AM EDT): Symptoms controlled with omeprazole and continue. Assessment & Plan (02/14/2024 11:24 AM EDT): Symptoms controlled with omeprazole and continue. Vitamin D sohtovnckf88/16/9146Qmwadojahkq96/13/2023 Encounters DateTypeDepartmentCare PmbuDguxgmihzif07/28/2025 10:45 AM EDTOffice Visit [facility] [address] [place] [address] Carli Eduardo MD Seborrheic keratosis (Primary Dx); Capillary angioma; Lentigines; Actinic eemvwtics42/28/2025Bamboo flowsheet [facility] [address] [place] [address] Carli Eduardo MD 06/11/20259629Nfhkmt76/15/2025Refill [facility] [address] [facility] [place] [id number] Fabian Brown MD Essential hypertension, benignfrom Last 3 Months Family History Medical HistoryRelationNameCommentsLeukemiaFatherHypertensionMotherPancreatitis MotherMelanomaNeg HxRelationNameStatusCommentsFatherDeceasedMotherAlive Social History Tobacco UseTypesPacks/DayYears UsedDateSmoking Tobacco: FormerCigarettes Tobacco Cessation:Counseling Given: Not Answered Alcohol UseStandard Drinks/WeekCommentsNot Currently0 (1 standard drink = 0.6 oz pure alcohol)PHQ-2AnswerDate RecordedPatient Health Questionnaire-2 Score0 09/19/2024Sex and Gender InformationValueDate RecordedSex Assigned at BirthNot on fileLegal LzmQpco2212/27/2022 7:36 PM EDTGender IdentityNot on fileSexual OrientationNot on file Last Filed Vital Signs Vital SignReadingTime TakenCommentsBlood Tenwjajp656/8203/30/2025 10:02 AM EDT Ffmrk620703/30/2025 10:02 AM SMKKlaukkyyjvn98.4 ??C (97.5 ??F)03/30/2025 10:02 AM EDTRespiratory Clvo322303/30/2025 10:02 AM EDTOxygen Jhelnmovzs36%03/30/2025 10:02 AM EDTInhaled Oxygen Concentration--Cpaire826 kg (232 lb)03/30/2025 10:02 AM EDT Gtqwxf924.3 cm (5' 9 )03/30/2025 10:02 AM EDTBody Mass Index34.26003/30/2025 10:02 AM EDT Plan of Treatment DateTypeDepartmentCare Team (Latest Contact Info)Hmsqzofcgkf84/27/2026 11:05 AM EDTOffice Visit [facility] [address] [place] [address] Carli Eduardo MD [address] [place] [address] Health MaintenanceDue DateLast DoneCommentsCT Mbojjxhrqvph09/21/1957FIT-DNA 1955FIT1956FOBT1955 2878Lkwcpgtuzyysk02/21/1957COVID-19 Vaccine ( season), 09/12/2021, 01/21/2021, Additional history existsInfluenza Vaccine (#1)509/, 08/21/2023, 08/11/2022, Additional history existsMedicare Annual Wellness (AWV)09/19/2025 09/19/2024, 08/07/20232944Kqbsfndnhbf67Colorectal Cancer Screening 10/09/2028Pneumococcal Vaccine: 65+ ZstezGkxswhrsx17/18/2024 Procedures Procedure NamePriorityDate/TimeAssociated DiagnosisCommentsCRYOTHERAPY SKIN KDPFRIDkmsbxc16/28/2025 11:00 AM EDT Actinic keratosis OKNURQJGOFFOimrsnm25/26/2018 12:00 PM EST from Last 3 Months or Most Recently Relevant to Health Maintenance Results * Cryotherapy, skin lesion (06/11/2025 11:00 AM EDT) Narrative Authorizing ProviderResult TypeResult StatusEmily A Petitti MDDERM PROCEDURE ORDERABLESFinal Result * Colonoscopy (10/09/2018 12:00 PM EST)Anatomical RegionLateralityModality EndoscopySpecimen (Source)Anatomical Location / LateralityCollection Method / VolumeCollection TimeReceived Time10/09/2018 12:00 PM EST Narrative 10/09/2018 12:00 PM EST PERFORMED AT [facility] LOCATION:[id number] See Scanned Doc. Procedure Note CONVERSION, GENERIC - 02/28/2023 PERFORMED AT [facility] LOCATION:[id number] See Scanned Doc. Authorizing ProviderResult TypeResult StatusR Brian Rico MDENDOSCOPY PROCEDURE ORDERABLESFinal Result from Last 3 Months or Most Recently Relevant to Health Maintenance Insurance * Guarantor: Jose Moellercokimberly TypeRelation to PatientDate of BirthPhone Billing AddressPersonal/YvramuQkmg03/21/1956 Alondra Chamber[place] [address] Care Teams Team MemberRelationshipSpecialtyStart DateEnd Date Fabian Brown MD [address] [place] [phone] PCP - [facility]10/15/23 Fabian Brown MD [address] [place] [address] [facility] - [facility]
--- OUTSIDE RECORDS SUMMARY | 2025-08-25 10:09 | XMS_ITS | Clinical Summary ---
Author Organization Denator tem Address [id number] [address] [place] [address] Care Team Providers Care Distributor Of Directories Name Role Phone Fabian Brown MD Primary Care Provider [phone] Allergies No known active allergies Medications MedicationSigDispense QuantityRefillsLast FilledStart DateEnd DateStatus hydroCHLOROthiazide (HYDRODIURIL) 25 mg tablet Take 1 tablet (25 mg total) by mouth daily.Active losartan (COZAAR) 100 mg tablet Take 1 tablet (100 mg total) by mouth in the morning.Active tamsulosin (FLOMAX) 0.4 mg capsule Take 1 capsule (0.4 mg total) by mouth in the morning.Active omeprazole (PriLOSEC) 20 mg capsule Take 1 capsule (20 mg total) by mouth in the morning and 1 capsule (20 mg total) before bedtime.Active ascorbic acid, vitamin C, 250 mg tablet,chewable Chew and swallow.Active acidophilus-pectin, citrus 25 million cell -100 mg tablet Take by mouth 3 (three) times a day with meals.Active atorvastatin (LIPITOR) 20 mg tablet 2Active metoprolol succinate 50 mg capsule,sprinkle,ER 24hr Active dutasteride (AVODART) 0.5 mg capsule Take 1 capsule (0.5 mg total) by mouth in the morning.5Active timoloL (BETIMOL) 0.5 % ophthalmic solution 1 drop in the morning and 1 drop before bedtime.Active glucosamine sulfate (GLUCOSAMINE ORAL) Take by mouth.Active bimatoprost (LUMIGAN) 0.01 % ophthalmic drops 1 drop nightly.Active glucosamine gant 2KCl-chondroit 500-400 mg tablet Take 1 tablet by mouth in the morning.Active finasteride (PROSCAR) 5 mg tablet Take 5 mg by mouth daily.08/10/2025Discontinued(Therapy completed) ferrous sulfate 325 (65 FE) mg tablet Take 1 tablet (325 mg total) by mouth every other day.08/10/2025Discontinued (Therapy completed) glucosamine-chondroitin 500-400 mg tablet Take 1 tablet by mouth daily.08/10/2025Discontinued(Therapy completed) HYDROcodone-acetaminophen (NORCO) 7.5-325 mg per tablet Indications:Umbilical hernia without obstruction and without gangreneTake 1 tablet by mouth every 6 (six) hours as needed for pain for up to 25 doses. Max Daily Amount:4 tablets 25 tablet /Discontinued(Therapy completed) cholecalciferol, vitamin D3, 10 mcg/drop (400 unit/drop) drops Take by mouth.08/10/2025Discontinued(Therapy completed) bimatoprost (LATISSE) 0.03 % ophthalmic solution 1 drop into affected eye in the anmlrkl6008/10/2025Discontinued(Therapy completed) naproxen (NAPROSYN) 500 mg tablet Take 1 tablet (500 mg total) by mouth in the morning and 1 tablet (500 mg total) in the evening. Take with meals. 60 tablet /Discontinued(Therapy completed) LUMIGAN 0.01 % ophthalmic drops Administer to both eyes nightly./Discontinued(Therapy completed) timoloL (BETIMOL) 0.25 % ophthalmic solution Administer 1-2 drops to the right eye in the morning and 1-2 drops before bedtime.08/10/2025Discontinued(Therapy completed) sod sulf-pot chloride-mag sulf 1.479-0.188- 0.225 gram tablet Indications:Encounter for colonoscopy due to history of colonic polyp, Generalized abdominal painPlease see instructional sheet given by physicians office. 24 tablet /07/2025Discontinued(Therapy completed) Active Problems ProblemNoted DateDiagnosed DatePolyp of descending colon10/09/2018Gastritis and iydlhnjsxo68/26/2018Laryngopharyngeal reflux (LPR)10/09/2018GERD (gastroesophageal reflux disease)09/27/2018Colon cancer temdcwzoh16/14/2018 Encounters DateTypeDepartmentCare NczfFotvwngutjg15/10/2025 10:45 AM EST - 08/24/2025 11:30 [facility] [address] [address] Jarrod Goff, DO ESOPHAGOGASTRODUODENOSCOPY DIAGNOSTIC [54248 (CPT??)]08/24/2025 10:24 AM EST Anesthesia Event [facility] [address] [place] [address] Casa Corrales DO 08/24/2025 8:36 AM EST - 08/24/2025 11:27 AM ESTHospital Encounter [facility] [address] [place] [address] Jarrod Goff DO Generalized abdominal pain (Primary Dx); Superficial gastritis without hemorrhage, unspecified chronicity; Colon cancer screening Discharge Disposition: Home08/24/20252590Emymbp33/03/2025 2:00 PM ESTSupport [facility] [address] [place] [address] 08/10/2025 1:30 PM EDTOffice Visit [facility] [address] [place] [id number] Faiza Petersen APRN-[employer] JUDGE Encounter for colonoscopy due to history of colonic polyp (Primary Dx); Generalized abdominal pain; Ghntihdhk71/27/2153Gsecqv49/08/2025Travelfrom Last 3 Months Family History Medical HistoryRelationNameCommentsLeukemiaFatherBreast cancerMaternal Aunt PancreatitisMotherRelationNameStatusCommentsFatherDeceasedMaternal AuntMother Social History Tobacco UseTypesPacks/DayYears UsedDateSmoking Tobacco: FormerCigarettes0.510 1977 - 1987Smokeless Tobacco: Never Tobacco Cessation:Counseling Given: Not Answered Alcohol UseStandard Drinks/WeekCommentsYes0 (1 standard drink = 0.6 oz pure alcohol)OccasionalAUDIT-CAnswerDate RecordedQ1: How often do you have a drink containing alcohol?2-4 times a month08/10/2025verage Number of DrinksNot on file08/10/2025Frequency of Binge DrinkingNot on file08/10/2025hildcareAnswer Date NnigzfniKdckvqcsxCgausfm05/10/2019EmploymentAnswerDate RecordedEmployment Vrpehfb3003/24/2019Hunger ScreeningAnswerDate RecordedWithin the past 12 months we worried whether our food would run out before we got money to buy more.Never True11/16/2022Within the past 12 months the food we bought just didn't last and we didn't have money to get more.Never True3Purpose - LifeAnswerDate RecordedPurpose and direction in olpmTyicayn44/10/2021ex and Gender Information ValueDate RecordedSex Assigned at BirthNot on fileLegal YmuKlfs9405/18/2015 11:57 AM EDTGender IdentityNot on fileSexual OrientationNot on file Last Filed Vital Signs Vital SignReadingTime TakenCommentsBlood Ujgydmyb883/9708/24/2025 11:15 AM EST Fwaxz560608/24/2025 11:15 AM JKIKiqxoizeebu40.1 ??C (97 ??F)08/24/2025 11:15 AM ESTRespiratory Csyz349110/24/2024 11:15 AM ESTOxygen Ouyoqzhopr62%08/24/2025 11:15 AM ESTInhaled Oxygen Concentration--Sniuza034.3 kg (241 lb)08/24/2025 8:58 AM BGUHygixq995.5 cm (5' 9.5 )08/24/2025 8:58 AM ESTBody Mass Index35.0808/24/2025 8:58 AM EST Plan of Treatment Health MaintenanceDue DateLast DoneCommentsDepression Zpdekkbjg92/21/1969Adult BMI Follow Up Plan1974DTaP,Tdap and Td Vaccines (1 - Tdap)1975 Abdominal Aortic Aneurysm (AAA) Gffxtg1711/04/2021Fall Risk Vgtkgomez95/21/2022 COVID-19 Vaccine ( season)5110/25/2021, 05/02/2022, 09/12/2021, Additional history existsAdult BMI Kdiaqjpyw05 Tobacco Xgjllvyeb04olonoscopy, 08/24/2025, 10/09/2018, Additional history existsZoster (Shingles) Vaccine Ledrdhaql54/05/2019, 01/29/2019RSV ( or age 60+ yrs)Uhkefthfa77/17/2023 Influenza RmiviqhJevmijbgc86/03/2025, 07/02/2024, 08/21/2023, Additional history exists Goals GoalPatient Goal TypeAssociated ProblemsRecent ProgressPatient-Stated?Author Autogenerated Goal Care PlanAutogenerated ProblemNoPotts, [employer] ImplantedTypeAreaManufacturerDevice IdentifierShelf Expiration DateModel / Serial / LotMesh Pco Vntrl Ptch 4.6cm Rpl [id number] - [id number] - [id number] Implanted:Qty: 1 on 01/24/2021 by Fernando Orlando MD at [facility]/A: UmbilicalMEDTRONIC [id number] / [id number] / [id number] Procedures Procedure NamePriorityDate/TimeAssociated JzgaghnahBksaajsmJKMTRJVVNRI89/10/2025 10:38 AM EST ID COLONOSCOPY FLX DX W/COLLJ SPEC WHEN PFRMD110/24/2024 10:23 AM EST generalized abdominal pain ID ESOPHAGOGASTRODUODENOSCOPY TRANSORAL AQGEEYVXHC09/10/2025 10:23 AM EST generalized abdominal pain EGD11/07/2025 10:19 AM EST PROVATION XBZOQDPIFGGLhzhkfc04/10/2025 8:54 AM EST PROVATION AAONickplc41/10/2025 8:54 AM EST MSZJwmqzjm27/08/2025 11:32 AM EDT Essential (primary) hypertension Prediabetes Other prison (current) drug therapy Hyperlipidemia, unspecified Obesity, class 1 Other obesity due to excess calories Body mass index (BMI) 32.0-32.9, adult LIPID RBLVJFEXeqisdo79/08/2025 11:32 AM EDT Essential (primary) hypertension Prediabetes Other prison (current) drug therapy Hyperlipidemia, unspecified Obesity, class 1 Other obesity due to excess calories Body mass index (BMI) 32.0-32.9, adult LIVER DHWQVKzmnyyb85/08/2025 11:32 AM EDT Essential (primary) hypertension Prediabetes Other prison (current) drug therapy Hyperlipidemia, unspecified Obesity, class 1 Other obesity due to excess calories Body mass index (BMI) 32.0-32.9, adult CBC WITH AUTO VAMTDKOKNRVUOhfehto63/08/2025 11:32 AM EDT Essential (primary) hypertension Prediabetes 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 Hyperlipidemia, unspecified Obesity, class 1 Other obesity due to excess calories Body mass index (BMI) 32.0-32.9, adult BASIC METABOLIC QQEIWIqruego12/08/2025 11:32 AM EDT Essential (primary) hypertension Prediabetes Other prison (current) drug therapy Hyperlipidemia, unspecified Obesity, class 1 Other obesity due to excess calories Body mass index (BMI) 32.0-32.9, adult HEMOGLOBIN V3BQlpiwwk34/08/2025 11:32 AM EDT Essential (primary) hypertension Prediabetes 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 Procedure Date No Time: 08/24/2025 ?? CSN : [id number] Date of : 1955 Admit Type: Outpatient Age: 69 Room: [place] [address] Gender: Male Note Status: Finalized Attending MD: [...] saturations were monitored continuously. The [employer] ? F-H190DL # [id number] PEDIATRIC COLONOSCOPE was ? introduced through the [...] Procedure Code(s): ? --- Professional --- ? 81627, Colonoscopy, flexible; diagnostic, including ? collection of specimen(s) by brushing or washing, when ? performed (separate procedure) Diagnosis Code(s): ? --- Professional --- ? R10.84, Generalized abdominal pain CPT copyright 2022 [employer]. All rights reserved. The codes documented in this report are preliminary and upon parachute marker review may be revised to meet current compliance requirements. DO Jarrod Hill DO 08/24/2025 10:51:35 AM Number of Addenda: 0 Note Initiated On: 08/24/2025 10:38 AM Procedure Note Jarrod Goff DO - 08/24/2025 [facility] Patient Name: Jose Moeller Procedure Date No Time: 08/24/2025 CSN : [id number] Date of : 1955 Admit Type: Outpatient Age: 69 Room: [place] [address] Gender: Male Note Status: Finalized Attending MD: Jarrod Goff DO, Procedure: Colonoscopy Indications: Generalized abdominal pain Providers: Jarrod Goff DO Referring MD: Jarrod Goff DO Medicines: Propofol per Anesthesia Complications: No immediate complications. Procedure: After I obtained informed consent, the scope was passed under direct vision. Throughout theprocedure, the patient's blood pressure, pulse, and oxygen saturations were monitored continuously. [facility] PCF-H190DL # [id number] PEDIATRIC COLONOSCOPE was introduced through the anus [...] office PRN. Procedure Code(s): --- Professional --- 43577, Colonoscopy, flexible; diagnostic, including collection of specimen(s) by brushing or washing,when performed (separate procedure) Diagnosis Code(s): --- Professional --- R10.84, Generalized abdominal pain CPT copyright 3 [employer]. All rights reserved. The codes documented in this report are preliminary and upon parachute marker reviewmay be revised to meet current compliance [...] - 08/24/2025 10:40 AM EST [facility] Patient Name: Jose Moeller ?? Procedure Date No Time: 08/24/2025 ?? CSN : [id number] Date of : 1955 Admit Type: Outpatient Age: 69 Room: [place] [address] Gender: Male Note Status: Finalized Attending MD: [...] were monitored continuously. The [employer] ? GIF-HQ190 #[id number] ADULT GASTROSCOPE was introduced ? through the [...] Procedure Code(s): ? --- Professional --- ? 11596, Esophagogastroduodenoscopy, flexible, ? transoral; with removal of tumor(s), polyp(s), or ? other lesion(s) by snare technique ? 26698, 59, Esophagogastroduodenoscopy, flexible, ? transoral; with biopsy, single or multiple Diagnosis Code(s): ? --- Professional --- ? K21.00, Gastro-esophageal reflux disease with esophagitis, without ? bleeding ? K31.7, Polyp of stomach and duodenum ? K29.70, Gastritis, unspecified, without bleeding ? R10.84, Generalized abdominal pain CPT copyright 2022 [employer]. All rights reserved. The codes documented in this report are preliminary and upon parachute marker review may be revised to meet current compliance requirements. DO Jarrod Hill DO 08/24/2025 10:40:31 AM Number of Addenda: 0 Note Initiated On: 08/24/2025 10:19 AM Procedure Note Jarrod Goff DO - 08/24/2025 [facility] Patient Name: Jose Moeller Procedure Date No Time: 08/24/2025 CSN : [id number] Date of : 1955 Admit Type: Outpatient Age: 69 Room: [place] [address] Gender: Male Note Status: Finalized Attending MD: Jarrod Goff DO, Procedure: Upper GI endoscopy Indications: Generalized abdominal pain Providers: Jarrod Goff DO Referring MD: Jarrod Goff DO Medicines: Propofol per Anesthesia Complications: No immediate complications. Procedure: After obtaining informed consent, the endoscope was passed under direct vision. Throughout theprocedure, the patient's blood pressure, pulse, and oxygen saturations were monitored continuously. The[employer] GIF-HQ190 #[id number] ADULT GASTROSCOPE was introduced through the mouth, [...] office PRN. Procedure Code(s): --- Professional --- 97851, Esophagogastroduodenoscopy, flexible, transoral; with removal of tumor(s), polyp(s), or other lesion(s) by snare technique 14746, 59, Esophagogastroduodenoscopy, flexible, transoral; with biopsy, single or multiple Diagnosis Code(s): --- Professional --- K21.00, Gastro-esophageal reflux disease with esophagitis, without bleeding K31.7, Polyp of stomach and duodenum K29.70, Gastritis, unspecified, without bleeding R10.84, Generalized abdominal pain CPT copyright 2022 [employer]. All rights reserved. The codes documented in this report are preliminary and upon parachute marker reviewmay be revised to meet current compliance requirements. DO Jarrod Hill DO 08/24/2025 10:40:31 AM Number of Addenda: 0 Note Initiated On: 08/24/2025 10:19 AM Authorizing ProviderResult TypeResult StatusMiclexi DAVIES PROCEDURE ORDERABLESFinal ResultPerforming OrganizationAddressCity/State/ZIP CodePhone Number PM CARDIOVASCULAR * EGD Report (08/24/2025 8:54 AM EST)Specimen [...] Grillis DOIMG OR IMG ORDERABLESFinal Result * Colonoscopy Report (08/24/2025 8:54 AM EST)Specimen [...] Grillis DOIMG OR IMG ORDERABLESFinal Result * CBC auto differential (06/22/2025 11:32 AM EDT)ComponentValueRef RangeTest MethodAnalysis TimePerformed AtPathologist SignatureWBC7.24 - 11 x10E9/L 06/22/2025 6:35 PM [facility] LABORATORYRBC Count4.884.1 - 5.7 X10E12/L06/22/2025 6:35 PM [facility] Upintegolv47.813 - 17 g/dL06/22/2025 6:35 PM [facility] SGEHPBNBSDDrgnqdpbap83.339 - 50 %06/22/2025 6:35 PM [facility] VUMHDBIEFXLJQ9519 - 100 fL06/22/2025 6:35 PM [facility] PPPOGYMFMGHIP38.327 - 34 pg06/22/2025 6:35 PM [facility] DFDEOQCBYJCWFO71.532 - 36 g/dL06/22/2025 6:35 PM [facility] YDIKXHLQVCMYO12.411.5 - 15 %06/22/2025 6:35 PM [facility] LABORATORYPlatelet Hgxna618669 - 450 X10E9/L06/22/2025 6:35 PM T [facility] LABORATORYMPV8.17 - 12 fL06/22/2025 6:35 PM [facility]ORATORYNeutrophils %70.2%06/22/2025 6:35 PM [facility]ORYLymphocytes %19.1%06/22/2025 6:35 PM [facility]ORYMonocytes %6.8%06/22/2025 6:35 PM [facility]ORYEosinophils %2.7%06/22/2025 6:35 PM [facility]ATORYBasophils %1.2%06/22/2025 6:35 PM [facility] LABORATORYNeutrophils Absolute (A)5.01.5 - 6.6 10*3/uL 06/22/2025 6:35 PM [facility]ORATORYLymphocytes Absolute 1.41.0 - 3.5 10*3/uL06/22/2025 6:35 PM [facility] Monocytes Absolute0.50.0 - 0.9 10*3/uL06/22/2025 6:35 PM [facility]ATORYEosinophils Absolute0.20.0 - 0.4 10*3/uL06/22/2025 6:35 PM [facility]ATORYBasophils Absolute0.10.0 - 0.2 10*3/uL 06/22/2025 6:35 PM [facility] LABORATORYDifferential Type AUTOMATED LFEWXSBGVHYV71/08/2025 6:35 PM [facility] LABORATORYSpecimen (Source)Anatomical Location / LateralityCollection Method / VolumeCollection TimeReceived TimeBloodVenous blood / UnknownVenipuncture / Maicxji6106/22/2025 11:32 AM EDT06/22/2025 11:34 AM EDT Narrative Authorizing ProviderResult TypeResult StatusMarjohn PARKINSON BLOOD ORDERABLES Final ResultPerforming OrganizationAddressCity/State/ZIP CodePhone Number [facility] [address] [place] [address], * TSH (06/22/2025 11:32 AM EDT)ComponentValueRef RangeTest MethodAnalysis Time Performed AtPathologist SignatureTSH2.150.49 - 4.67 uIU/mL06/22/2025 6:57 PM [facility] LABORATORYSpecimen (Source)Anatomical Location / LateralityCollection Method / VolumeCollection TimeReceived TimeBloodVenous blood / UnknownVenipuncture / Kxxxukt2006/22/2025 11:32 AM EDT06/22/2025 11:34 AM EDT Narrative Authorizing ProviderResult TypeResult StatusMarc Stephanie PARKINSON BLOOD ORDERABLES Final ResultPerforming OrganizationAddressCity/State/ZIP CodePhone Number [facility] [address] [place] [address], * (ABNORMAL) Hemoglobin A1c (06/22/2025 11:32 AM EDT)ComponentValueRef RangeTest MethodAnalysis TimePerformed AtPathologist SignatureHEMOGLOBIN A1C6.2(H)4.4 - 5.6 %06/22/2025 7:01 PM [facility] LABORATORYComment: ?ADA Guidelines ?Result ?HgbA1c ? Normal : ? less than 5.7 % ? Prediabetes : ?5.7 % ??to 6.4 % Diabetes : > 6.4 % ?Use with caution in patients with abnormal hemoglobin variants as ??the half-life of red blood cells and in vivo glycation rates are ??affected. EST. AVERAGE ADEIRRN552ze/dL06/22/2025 7:01 PM [facility] LABORATORYSpecimen (Source)Anatomical Location / LateralityCollection Method / VolumeCollection TimeReceived TimeBloodVenous blood / UnknownVenipuncture / Qbeashp2106/22/2025 11:32 AM EDT06/22/2025 11:34 AM EDT Narrative Authorizing ProviderResult TypeResult StatusFabian PARKINSON BLOOD ORDERABLES Final ResultPerforming OrganizationAddressCity/State/ZIP CodePhone Number [facility] [address] [place] [phone], * Liver panel (06/22/2025 11:32 AM EDT)ComponentValueRef RangeTest Method Analysis TimePerformed AtPathologist SignatureTOTAL PROTEIN6.56.0 - 8.0 g/dL 06/22/2025 6:55 PM [facility] LABORATORYALBUMIN4.13.2 - 5.3 g/dL06/22/2025 6:55 PM [facility] LABORATORYBILIRUBIN,TOTAL 0.60.3 - 1.2 mg/dL06/22/2025 6:55 PM [facility] ALKALINE VEORDXVNAIV8807 - 130 U/L06/22/2025 6:55 PM [facility] IEWTCXGNBYTRO04<=41 U/L06/22/2025 6:55 PM [facility] FMQMNSRKPIKNJ28<=40 U/L06/22/2025 6:55 PM [facility] LABORATORYBILIRUBIN,DIRECT0.1<=0.4 mg/dL06/22/2025 6:55 PM [facility] LABORATORYSpecimen (Source)Anatomical Location / LateralityCollection Method / VolumeCollection TimeReceived TimeBloodVenous blood / Unknown Venipuncture / Nnoylfj7706/22/2025 11:32 AM EDT06/22/2025 11:34 AM EDT Narrative Authorizing ProviderResult TypeResult StatusFabian PARKINSON BLOOD ORDERABLES Final ResultPerforming OrganizationAddressCity/State/ZIP CodePhone Number [facility] [address] [place] [address], * (ABNORMAL) Lipid profile (06/22/2025 11:32 AM EDT)ComponentValueRef RangeTest MethodAnalysis TimePerformed AtPathologist ImxpflnlrKUCHPFLPEAC321(L)150 - 200 mg/dL06/22/2025 6:55 PM [facility] IWRLZSRQZVDKIUFMLMFVTZ295 27 - 150 mg/dL06/22/2025 6:55 PM [facility] LABORATORYHDL WTBJANQOMPY07>39 mg/dL06/22/2025 6:55 PM [facility]ORATORYComment: HDL <40 mg/dL - High Risk HDL > or = 40mg/dL- Desirable HDL >60 mg/dL - Negative Risk LDL (CALC)68<130 mg/dL06/22/2025 6:55 PM [facility] Comment: LDL <100 mg/dL - Desirable LDL >160 mg/dL - High Risk CHOLESTEROL:HDL3.31.0 - 5. 6:55 PM [facility] LABORATORYVERY LOW QTYJSLENDTV838 - 30 mg/dL06/22/2025 6:55 PM [facility] LABORATORYSpecimen (Source)Anatomical Location / Laterality Collection Method / VolumeCollection TimeReceived TimeBloodVenous blood / UnknownVenipuncture / Jshpnli4506/22/2025 11:32 AM EDT06/22/2025 11:34 AM EDT Narrative Authorizing ProviderResult TypeResult StatusFabian PARKINSON BLOOD ORDERABLES Final ResultPerforming OrganizationAddressCity/State/ZIP CodePhone Number [facility] [address] [place] [address], * (ABNORMAL) Basic Metabolic Panel (06/22/2025 11:32 AM EDT)ComponentValueRef RangeTest MethodAnalysis TimePerformed AtPathologist KcwyxkmtmNAXNVM866557 - 146 mmol/L06/22/2025 6:55 PM [facility] LABORATORYPOTASSIUM 3.93.5 - 5.0 mmol/L06/22/2025 6:55 PM [facility] LYLVMWAM30748 - 109 mmol/L06/22/2025 6:55 PM [facility] LABORATORYCARBON QIHRIEI7862 - 32 mmol/L06/22/2025 6:55 PM [facility] LABORATORYANION VTW565 - 15 mmol/L06/22/2025 6:55 PM [facility] LABORATORYBLOOD UREA HCKQSNEJ225 - 27 mg/dL06/22/2025 6:55 PM [facility] LABORATORYCREATININE1.240.60 - 1.30 mg/dL 06/22/2025 6:55 PM [facility] LABORATORYComment:METHOD TRACEABLE TO IDMS VVOVYEEWYXEHGLD036(H)65 - 99 mg/dL06/22/2025 6:55 PM EDT [facility] LABORATORYCALCIUM8.88.5 - 10.5 mg/dL06/22/2025 6:55 PM [facility]ORYEGFR Non-Race Pwpasgnwm93>=60 ml/min/1.73sq.m006/22/2025 6:55 PM [facility] Comment: Reported eGFR is based on the CKD-EPI 2020 equation that does not use a race coefficient. Specimen (Source)Anatomical Location / LateralityCollection Method / Volume Collection TimeReceived TimeBloodVenous blood / UnknownVenipuncture / Unknown 06/22/2025 11:32 AM EDT06/22/2025 11:34 AM EDT Narrative Authorizing ProviderResult TypeResult StatusMarc Stephanie PARKINSON BLOOD ORDERABLES Final ResultPerforming OrganizationAddressCity/State/ZIP CodePhone Number [facility] [address] [place] [address], from Last 3 Months Additional Health Concerns Active ProblemsNoted DateDiagnosed DateAutogenerated Vvfqdqh6908/10/2025 Insurance Care Teams Team MemberRelationshipSpecialtyStart DateEnd Date Fabian Brown MD PCP [facility]05/22/23
--- OUTSIDE RECORDS SUMMARY | 2025-08-25 10:09 | XMS_ITS | Encounter Summary ---
Author Organization [facility] tem Address [id number] [address] [place] [address] Care Team Providers Care Buffer Nickel Name Role Phone Fabian Brown MD Primary Care Provider [phone] Encounter Details DateTypeDepartmentCare Team (Latest Contact Info)Mszujmyzsyu80/10/2025Travel Social History Tobacco UseTypesPacks/DayYears UsedDateSmoking Tobacco: FormerCigarettes0.510 1977 - 1987Smokeless Tobacco: NeverAlcohol UseStandard Drinks/WeekCommentsYes0 (1 standard drink = 0.6 oz pure alcohol)OccasionalAUDIT-CAnswerDate RecordedQ1: How often do you have a drink containing alcohol?2-4 times a month08/10/2025 Average Number of DrinksNot on file08/10/2025Frequency of Binge DrinkingNot on file08/10/2025hildcareAnswerDate UxnxuabnXlibxujzhGxvnfmn17/10/2019Employment AnswerDate XcxtanuvHhsvjowcbsLyzfqlb36/10/2019Hunger ScreeningAnswerDate RecordedWithin the past 12 months we worried whether our food would run out before we got money to buy more.Never True11/16/2022Within the past 12 months the food we bought just didn't last and we didn't have money to get more.Never True3Purpose - LifeAnswerDate RecordedPurpose and direction in life Uqhvirp0311/24/2020ex and Gender InformationValueDate RecordedSex Assigned at BirthNot on fileLegal VgzLuvb1405/18/2015 11:57 AM EDTGender IdentityNot on file Sexual OrientationNot on filedocumented as of this encounter Plan of Treatment Not on file documented as of this encounter Goals GoalPatient Goal TypeAssociated ProblemsRecent ProgressPatient-Stated?Author Autogenerated Goal Care PlanAutogenerated ProblemNoPotts, Elizabethdocumented as of this encounter Visit Diagnoses Not on filedocumented in this encounter Additional Health Concerns Active ProblemsNoted DateDiagnosed DateAutogenerated Lubsypf4508/10/2025documented as of this encounter Care Teams Team MemberRelationshipSpecialtyStart DateEnd Date Fabian Brown MD PCP - GeneralFamily Medicine05/22/23documented as of this encounter
--- OUTSIDE RECORDS SUMMARY | 2025-08-25 10:09 | XMS_ITS | Patient Health Record ---
Author Organization [facility] in [place] Address [address] [place] [address] Support Name Relationship Address Phone [facility] Contact Unknown Unavailabl e Jose Moeller Guarantor Unknown [phone] Reason For Referral No Information Plan Of Treatment No Information Insurance Providers Payer Name Payer Address Payer Phone Subscriber Number Group Number Insured Name Patient Relationship to Insured Coverage Start Date Coverage End Date SELF PAY ON PATIENT DEMOGRAPHICS Lilly Moeller - patient is the [id number]/11/2008
--- OUTSIDE RECORDS SUMMARY | 2025-08-25 10:09 | XMS_ITS | Clinical Summary ---
Author Organization [facility] Address [address] [place] [address] Care Team Providers Care International Logistics Coordinator Name Role Phone Fabian Brown MD Primary Care Provider [phone] Allergies No known active allergies Medications MedicationSigDispense QuantityRefillsLast FilledStart DateEnd DateStatus glucosamine-chondroitin 500-400 mg tablet Take 1 tablet by mouth in the morning.Active omeprazole (PriLOSEC) [address] capsule 1 capsule.Active tamsulosin (Flomax) 0.4 mg 24 hr capsule 06/19/2023ctive losartan (Cozaar) 100 mg tablet 06/01/2023ctive metoprolol succinate XL (Toprol-XL) 50 mg 24 hr tablet 02/18/2023ctive hydroCHLOROthiazide (HYDRODiuril) 25 mg tablet 06/13/2023ctive atorvastatin (Lipitor) 20 mg tablet 07/10/2023ctive Lumigan 0.01 % ophthalmic solution 06/22/2023ctive timolol (Timoptic) 0.5 % ophthalmic solution 06/24/2023ctive ascorbic acid (Vitamin C) 250 MG chewable tablet Chew.Active cholecalciferol, vitamin D3, 10 mcg/drop (400 unit/drop) drops Take by mouth.Active ferrous sulfate 325 (65 Fe) MG tablet Take 325 mg by mouth every other day.Active acidophilus-pectin, citrus 25 million cell -100 mg tablet Take by mouth.Active Active Problems ProblemNoted DateDiagnosed DateEssential Gastritis and ahzejshniv16Laryngopharyngeal reflux (LPR) olyp of descending colonolon cancer gpkqeehnx67ERD (gastroesophageal reflux disease)09/27/2018 07/17/2023Obesity, Class I, BMI 30-34.91Swallowing pain lobus aluzoowvi53Elevated prostate specific antigen (PSA)enign non-nodular prostatic hyperplasia with lower urinary tract bkodsjmv99History of juxvikfci20ostprocedural male urethral meatal stricture Immunizations ImmunizationAdministration DatesNext DueInfluenza, Seasonal, Quadrivalent, Fvartljznv85/28/2022Influenza, injectable, MDCK, preservative free, quadrivalent 09/03/2017Influenza, injectable, yroikaspluuq55/17/2019,09/16/2014Influenza, injectable, quadrivalent, preservative free09/30/2018Influenza, seasonal, rhkqluafer19/14/2020Influenza, seasonal, injectable, preservative free, 6 moonths & older11/16/2015Unspecified Sars-Cov-2 Ftxzrmxsldu51/19/2022,09/12/2021 ,01/21/2021,12/24/2020Zoster, Kmhvzgcegco72/05/2019,01/29/2019 Family History Medical HistoryRelationNameCommentsLeukemiaFatherCancerFather's BrotherCancer Father's SisterStomach cancerMaternal GrandfatherBreast cancerMother's Sister RelationNameStatusCommentsFatherDeceasedFather's BrotherFather's SisterMaternal GrandfatherMother's Sister Social History Tobacco UseTypesPacks/DayYears UsedDateSmoking Tobacco: FormerCigarettesQuit: 1988Smokeless Tobacco: Never Tobacco Cessation:Counseling Given: Not Answered Alcohol UseStandard Drinks/WeekCommentsYes5 (1 standard drink = 0.6 oz pure alcohol)Humiliation, Afraid, Rape, and Kick questionnaireAnswerDate Recorded Within the last year, have you been afraid of your partner or ex-partner?No 07/17/2023Emotionally AbusedNot on file07/17/2023hysically AbusedNot on file 07/17/2023Sexually AbusedNot on file07/17/2023HQ-2AnswerDate RecordedPatient Health Questionnaire-2 Yjhft949UT Safety & EnvironmentAnswerDate RecordedWithin the last year, have you been afraid of your partner or ex-partner?No07/17/2023Emotionally AbusedNot on file07/17/2023hysically Abused Not on file07/17/2023Sexually AbusedNot on file07/17/2023In the past year have you been physically or sexually abused?Unrecognized value07/17/2023Sex and Gender InformationValueDate RecordedSex Assigned at BirthNot on fileLegal Sex Male06/08/2023 3:59 PM EDTGender IdentityChoose not to lkmwwxuh01/03/2023 10:27 AM EDTSexual OrientationChoose not to jldzjpty53/03/2023 10:27 AM EDT Last Filed Vital Signs Vital SignReadingTime TakenCommentsBlood Gewdnkli792/8507/17/2023 10:10 AM EDT Sofhf278507/17/2023 10:10 AM GUGQdutemwvnfh63.5 ??C (97.7 ??F)07/17/2023 10:10 AM EDTRespiratory Rate--Oxygen Saturation--Inhaled Oxygen Concentration--Gzxkqv493 kg (222 lb)07/17/2023 10:10 AM LOQXvawqw881.5 cm (5' 9.5 )07/17/2023 10:10 AM EDTBody Mass Index32.311 10:10 AM EDT Plan of Treatment Health MaintenanceDue DateLast DoneCommentsCT Zenmkiosdtif34/21/1957Colonoscopy 1955Colorectal Cancer Zxbaolpfx83/21/1957FIT-DNA1956FIT1956 FOBT1955Medicare Annual Wellness (AWV)1955 5871Aolhetrhgytij25/21/1957 Depression Nwmuscfaf55/21/1969Adult Lmonptr5211/04/1978Pneumococcal Vaccine: 50+ Years (1 of 1 - PCV)2006Fall Risk Ekizvfrqo56/21/2022COVID-19 Vaccine (6 - season)/08/2022, 05/02/2022, 09/12/2021, Additional history existsInfluenza Vaccine (#1)/, 07/28/2020, 08/31/2019, Additional history existsZoster QowkrzavZlviciasa66/05/2019, 01/29/2019HIB VaccinesAged OutNo longer eligible based on patient's age to complete this topic HPV VaccinesAged OutNo longer eligible based on patient's age to complete this topicIPV VaccinesAged OutNo longer eligible based on patient's age to complete this topicMeningococcal B VaccineAged OutNo longer eligible based on patient's age to complete this topicMeningococcal VaccineAged OutNo longer eligible based on patient's age to complete this topicRotavirus VaccinesAged OutNo longer eligible based on patient's age to complete this topic Insurance Care Teams Team MemberRelationshipSpecialtyStart DateEnd Date Fabian Brown MD [address] [place], [place] [id number] PCP - Vyqtspb70/3/23
[2025-08-25 12:18] LABS: Prostate Specific Antigen Dx 4.35 ng/mL (<=4.00)
== END 2025-08-25 10:03 | disposition home or self-care (01) ==
LOC: LAB 10:05
PROVIDERS: PCP Family Medicine; Visit Provider Urology
DX: R97.20 Elevated prostate specific antigen [PSA] (principal)
CPT/HCPCS: 36415; 84153

== ENCOUNTER 2025-09-18 12:03 | Outpatient (OUT) | payer MEDICARE, SELFPAY ==
--- OUTSIDE RECORDS SUMMARY | 2025-09-18 06:48 | XMS_ITS | Continuity of Care Document ---
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 Machine Operator Name Role Phone Fabian Brown MD Primary Care Provider Fabian Brown MD Attending Provider Klever Melvin MD Attending Provider Care Teams Patient Care Team Team Status: Active Member Role/Relationship Status Dates Fabian Brown MD Primary Care Provider Active Visit Care Team Team Status: Inactive Member Role/Relationship Status Dates Fabian Brown MD Primary Care Provider Active S tart: June 22, 2025 End: June 22, 2025Jeanette Barragan ProviderActiveStart: June 22, 2025 End: June 22, 2025 Patient Care Team Team Status: Active Member Role/Relationship Status Dates Fabian Brown MD Primary Care Provider Active S tart: August 25, 2025 Jeanette Wright ProviderActiveStart: August 25, 2025 Patient Care Team Team Status: Inactive Member Role/Relationship Status Dates Fabian Brown MD Primary Care Provider Active S tart: September 18, 2025 End: September 18, 2025Jeanette Barragan ProviderActiveStart: September 18, 2025 End: September 18, 2025 Chief Complaint and Reason for Visit Chief Complaint Admit Date Back Pain June 22, 2025 9:30am Back Pain Misael 5th, 2025 1 0:05am Reason for Visit Admit Date Degenerative lumbar spinal stenosis Sept emb2024 9:30am Abdominal pain September 18, 2025 1 0:05am Degenerative lumbar spinal stenosis Dece mb2024 10:05am Allergies, Adverse Reactions, Alerts Allergen Type Severity Reaction Last Updated Verified Status No Known Allergies Allergy Unknown June 22, 2025 8:43amYesActive Social History Smoking Status Status Start Date End Date Date of Observa tion Ex-smoker (finding) June 22, 2025 9:45am Observation Status Observation Response Date of Response Legal Sex Male (finding) [facility] 1955 Family History Relationship Condition Age at Onset Recorded Date/T los father Unknown motherDeceasedUnknown Problems Active Problems Problem Diagnosis/Recorded Date Onset Date Stat Medicare annual wellness vis it, subsequent June 22, 2025 9:12am Unknown Active Erectile dysfunction of organic origin June 22, 2025 8:53am Unknown Active Benign essential hypertension June 22, 2025 8:53 am Unknown Active Dyslipidemia June 22, 2025 8:53am Unknown A ctive Chronic glaucoma June 22, 2025 8:52am Unknown Active BPH with urinary obstruction June 22, 2025 8:51a m Unknown Active Venous insufficiency of both lower extremities June 22, 2025 8:54am Unknown Active Cervical spondylosis June 22, 2025 8:51am Unknow n Active Encounter for long-term (cur rent) use of medications June 22, 2025 9:12am Unknown Active GERD without esophagitis June 22, 2025 8:53am Un known Active Prediabetes June 22, 2025 8:54am Unknown A ctive Degenerative lumbar spinal stenosis June 22 8:53am Unknown Active Abdominal pain September 18, 2025 11:37am Unknown Active Vitamin D deficiency June 22, 2025 8:54am Unknow n Active IBS (irritable bowel syndrome) June 22, 2025 8:5 6am Unknown Active Class 1 obesity due to exces s calories with body mass index (BMI) of 32.0 to 32.9 in adult June 22, 2025 8:52am Unknown Active Inactive/Resolved Problems Problem Diagnosis/Recorded Date Onset Date Stat Enlarged prostate June 22, 2025 8:56am Unknown Resolved Medications Medication Status Dose Units Route Directions Qty Days Refills S tart Date Stop Date End Date Reason(s) Instructions Adherence Hydrochlorothiazide 25 mg tablet Active 25 MG PO Daily 30 5Nov2024 10:26amComplies with drug therapyAtorvastatin 20 mg tablet Yjdiiu81JIIXCrbzmAqtjpkxqg 7th, 2025 11:00pmComplies with drug therapyAscorbic Acid (Vitamin C) 500 mg zshnkwHyroju881XMNHCcfxoOtkalkwjy 7th, 2025 11:00pm Complies with drug therapyMetoprolol Succinate 50 mg tablet extended release 24 wgNvjkbd22BXKAUinxqTdvepafcj 7th, 2025 11:00pmComplies with drug therapy Tamsulosin 0.4 mg capsuleActive0.4MGPODailySept2024 11:00pmComplies with drug therapyTimolol 0.5 % dozkfPeqpzw5ERXDKPFD-WHTRFgnjiUitjneehl 7th, 2025 11:00pmComplies with drug therapyOmeprazole 20 mg capsule,delayed release(DR/EC) Ghckrx07TYPIFdjbg dailySept2024 11:00pmComplies with drug therapy Hydrochlorothiazide 25 mg qyrgydJutjxzcgbjhw99FBECKidqrRhtpfpwlj 7th, 2025 11:00pmNov2024 10:26amLosartan 100 mg dflnejLuxrdv505VBSQDjsro Cassia 2024 11:00pmComplies with drug therapyDutasteride 0.5 mg capsule Active0.5MGPODailySept2024 11:00pmComplies with drug therapy Bimatoprost (Lumigan) 0.01 % osrvoBcamgf9BUGKGPQJ-NBWK.eveningSept2024 11:00pmComplies with drug therapyGlucosamine Sulfate 1,000 mg tabletActive 1000MGPODailySept2024 11:00pmadminister with mealsComplies with drug therapyPrednisone 50 mg qflovbLldgzz67JUPQKwull640Cuihqblak 7th, 2025 11:00pm Unknown Relevant Diagnostic Tests and/or Laboratory Data Laboratory Results Test Collection Date/Time Result Date/Time Result Interpretation Reference Range Result Comment Performing Site Prostate Specific Antigen Total August 25, 2025 10:28am August 25, 2025 10:28am 4.35 ng/mL Above high normal <=4.00 Vital Signs Vital Reading Result Reference Range Collection Date/Time Height 69.5 [in_i] June 22, 2025 8:50pzNgguxh266.54 kgSept2024 8:40amBody Okhikobhkjr90.8 [degF]97.6-99.0Sept2024 8:40amHeart Rate66 /yjl84-675 June 22, 2025 8:40amRespiratory rate16 /vsa03-45EctcwxwliJune 22, 2025 8:40am Oxygen saturation by Pulse ghcbywhj05 %95-100June 22, 2025 8:40amBP Ttkergij083 mm[Hg]100-140Sept2024 8:40amBP Josfxygie14 mm[Hg]60-100 June 22, 2025 8:40amBMI (Body Mass Index)35.1 kg/l6HrjxuykatJune 22, 2025 8:26ihHbfeaw67.5 [in_i]September 18, 2025 10:21wqBxxanq651.67 kgDecember 2024 10:43amBody Bjepbiitorb13.3 [degF]97.6-99.0Decemb2024 10:43amHeart Rate78 /hcd87-763Ysvtbnpx 5th, 2025 10:43amRespiratory rate18 /dpn27-17HxbaorduSeptember 18, 2025 10:43amOxygen saturation by Pulse ytjqqwbk89 %95-100cemb2024 10:43amBP Dryhwscn522 mm[Hg]100-140Decemb2024 10:43amBP Qsihijfrq92 mm[Hg]60-100Decemb2024 10:43amBMI (Body Mass Index)35.5 kg/n9Cstzvnqx2024 10:43am Advance Directives Advance Directive Response Recorded Date/ Time Advance Directives No May 02 7:39am Insurance Providers Guarantor Jose Moeller Address [address] [place] [address]Apslsyk Info.Home Phone: Payer Group Member ID Coverage Type Subscriber Relationship to Subscriber Effective Date Expiration Date Medicare [id number] F Miller Id: [id number] [address] [place] Home Phone: Email: [email or web address] [email or web address] [email or web address] F Miller Id: [id number] [place] Home Phone: Email: [email or web address] Retired Id: [id number] F Sajan Id: [id number] [id number] [place] Home Phone: Email: [email or web address] Encounter Location(s) Arrival/Admit Date Discharge/Departure Date Discharge/Departure Disposition Provider(s) Departed Physician/ Provider Office Visit -[facility] [place] June 22, 2025 9:30am June 22, 2025 10:27am Discharged to home care or self care (routine discharge) Fabian Brown MD Non-patient / Non-visit -[facility] August 25, 2025 10:28am [facility] Family Medicine [facility]2024 10:05amDe2024 11:47amDischarged to home care or self care (routine discharge)Fabian Brown MD Recent Diagnosis Onset Date Admit Date Degenerative lumbar spinal stenosis Unknown June 22, 2025 9:30am Abdominal pain Unknown September 18 10:05am Degenerative lumbar spinal stenosis Unknown September 18, 2025 10:05am Assessments Diagnosis Onset Date Resolution Status Admit Date Degenerative lumbar spinal stenosis acuteSept2024 9:30amAbdominal painacuteDece2024 10:05am Degenerative lumbar spinal stenosisacuteSeptember 18, 2025 10:05am Plan of Treatment Author Fabian Brown [facility]AuthoredSept2024 9:33amPain likely related to arthritis in lumbar spine. Treat with prednisone. Resume home PT exercises daily. Use OTC and heat PRN. Increase activity and resume walking. If pain persists or worsens will need MRI. Future Tests Future scheduled test information is unavailable Pending Tests Test Name Ordered Date Scheduled Date CT abdomen pelvis wo con September 18, 2025 11:3 9am Comprehensive Metabolic PanelDecember 2024 11:39amMR lumbar spine wo con September 18, 2025 11:39am Future Visits Future appointment information is unavailable Future Procedures Procedure Name Ordered Date Scheduled Date Amylase September 18, 2025 11:39am Complete Blood Count Auto DiffDecember 2024 11:39amLipaseDecember 2024 11:39am Future Medications Future medication information is unavailable Patient Instructions Patient instructions are unavailable
--- OUTSIDE RECORDS SUMMARY | 2025-09-18 12:09 | XMS_ITS | CCD ---
Author Organization [facility]ini[facility] Care Team Providers Care Railway Head Tender Name Role Phone Rocio Ojeda Unavailable FABIAN CARDOZA Primary Care Physician [phone] MD Lety Alcaraz Attending Provider MD Fabian Cardoza Primary Care Provider LETY ALCARAZ Admitting Unavailable ALCARAZ, LETY Attending Unavailable NADERER, DR FABIAN Reilly Primary Care Unavailable KIERAN, LETY Consulting Unavailable GEMBUS, JEYSON Consulting Unavailable ALCARAZ, LETY Admitting Unavailable ALCARAZ, LETY Attending Unavailable NADEREAlecia, DR FABIAN Reilly Primary Care Unavailable ALCARAZ, LETY Consulting Unavailable ALCARAZ, LETY Admitting Unavailable ALCARAZ, LETY Attending Unavailable NADERER, DR FABIAN Reilly Primary Care Unavailable ALCARAZ, LETY Consulting Unavailable ALCARAZ, LETY Admitting Unavailable ALCARAZ, LETY Attending Unavailable NANI, DR FABIAN Reilly Primary Care Unavailable ALCARAZ, LETY Consulting Unavailable WEST, DR ARON Sykes Consulting Unavailable OVITTMESSI Referring Unavailable RICKY NOBLES Attending Unavailable MD Fabian Cardoza Primary Care Provider MD Lety Alcaraz Attending Provider Fabian Cardoza MD Unavailable Fabian Cardoza MD Primary Care Provider Lety Alcaraz Attending Unavailable Kieran, Lety Admitting Unavailable Fabian Cardoza Primary Care Unavailable DANITZA SHEETS Attending Unavailable FABIAN CARDOZA Attending Unavailable FABIAN CARDOZA Attending Unavailable FABIAN CARDOZA Attending Unavailable BENEDICTO EDUARDO Attending Unavailable Fabian Cardoza MD Primary Care Provider Fabian Cardoza MD Attending Provider [phone] Lety ALCARAZ Attending Unavailable Lety ALCARAZ R Admitting Unavailable ALCARAZLety R Attending Unavailable Lety ALCARAZ Referring Unavailable KIERAN, Lety Alston Attending Unavailable KIERAN, Lety Alston Attending Unavailable ROMELIA SWANN Attending Unavailable KIERAN, Lety Alston Attending Unavailable Fabian Cardoza MD Primary Care Provider FAIZA PETERSEN Attending Unavailable NANI, FABIAN Referring Unavailable ARVINEREAlecia, FABIAN Primary Care Unavailable NANI, FABIAN Referring Unavailable NANI, FABIAN Primary Care Unavailable ARVINEREAlecia, FABIAN Referring Unavailable NADERER, FABIAN Primary Care Unavailable CRISTY RODNEY E Admitting Unavailable CRISTY RODNEY Attending Unavailable CRISTY RODNEY Referring Unavailable NANI, FABIAN Primary Care Unavailable Allergies Allergy ClassificationReported Allergen(s)Allergy TypeDate of OnsetReaction(s) Facility (1 source)ALLERGIES NOT ON FILE; Translations: [ALLERGIES NOT ON FILE]Propensity to adverse reactions (disorder)[facility] (1 source)Unable to AssessDrug allergy (disorder)[phone] Medications Current Medications MedicationDrug Class(es)DatesSig (Normalized)Sig (Original)acetaminophen 325 mg / HYDROcodone bitartrate 7.5 mg oral tablet (3 sources)Opioid AgonistStart: 02-04-0964rfnc 1 tablet by mouth onceNorco 325 mg-7.5 mg oral tablet 1 tab(s), Oral, Once, 1 tab(s), Refill(s) 0, Take 1 hour prior to procedure, [facility] [id number], 178, cm, 07/24/22 9:49:00 EDT, Height/Length Dosing, 105, kg, 07/24/22 9:49:00 EDT, Weight Dosing Start Date: 01/18/23 Status: OrderedStart: 69-27-6513cwqf 1 tablet by mouth onceNorco 325 mg- 7.5 mg oral tablet 1 tab(s), Oral, Once, 1 tab(s), Refill(s) 0, Take 1 hour prior to procedure, [facility] [id number], 178, cm, 04/21/22 10:50:00 EDT, Height/Length Dosing, 105, kg, 04/21/22 10:50:00 EDT, Weight Dosing Start Date: 06/15/22 Status: OrderedStart: 01-24-2021 End: 46-05-8989KBXMYvujcxg-acetaminophen (NORCO) 7.5-325 mg per tablet Indications: Umbilical hernia without obstruction and without gangrene Take 1 tablet by mouth every 6 (six) hours as needed for pain for up to 25 doses. Max Daily Amount: 4 tablets 25 tablet 01/24/2021 08/10/2025 Discontinued (Therapy completed)Eliquis (5 sources)Factor Xa InhibitorStart: 51-29-9615Zdusmem Oral, BID, Refills(s) 0 Start Date: 03/21/21 Status: Orderedascorbic acid 500 mg oral tablet (20 sources)Vitamin CStart: 74-73-1790zynz 1 tablet by mouth once dailyAscorbic Acid (Vitamin C) 500 mg tablet Active 500 MG PO Daily June 22, 2025 12:00am Complieswith drug therapyStart: 73-55-7314Rejzgef C Daily, Refills(s) 0 Start Date: 01/03/21 Status: Ordered Repeat number: 1Start: 44-45-1194Yfjbdit C Daily, Refills(s) 0 Start Date: 01/03/21 Status: Orderedascorbic acid, vitamin C, 250 mg tablet,chewable Chew and swallow. ActiveAscorbic Acid (vitamin C) 100 MG tablet 1 (one) time each day at the same time ActiveVitamin C Activeatorvastatin 20 mg oral tablet (20 sources)HMG-CoA Reductase InhibitorStart: 01-26-2022 End: 57-83-3630gwhkwhokoxxf (LIPITOR) 20 mg tablet 1 tablet 01/26/2022 Active bimatoprost 0.1 mg/ml ophthalmic solution (20 sources)Prostaglandin AnalogStart: 74-87-1170Rugufiohdzw (Lumigan) 0.01 % drops Active 1 DROPS EYE-BOTH .evening June 22, 2025 12:00am Complies with drug therapyStart: 65-00-6004xyol 1 drop(s) into the eye(s) once daily in the eveningLumigan 0.01% ophthalmic solution 1 drop(s), OPTH, qPM, 5 mL, Refill(s) 0 Start Date: 03/20/25 Status: Ordered Quantity: 5.0 Unit: mL Repeat number: 1Start: 11-14-2022 End: 30-14-7212NEYYCCI 0.01 % ophthalmic drops Administer to both eyes nightly. 11/14/2022 08/10/2025 Discontinued(Therapy completed)Start: 01-03-2021 bimatoprost topical ophthalmic 0.03% solution Topical, Once a day (at bedtime), Refill(s) 0 Start Date: 01/03/21 Status: Orderedtake 1 drop(s) into the eye(s) once dailybimatoprost (LUMIGAN) 0.01 % ophthalmic drops 1 drop nightly. Active End: 41-21-2536egtf 1 drop(s) into the eye(s) in the eveningbimatoprost (LATISSE) 0.03 % ophthalmic solution 1 drop into affected eye in the evening 08/10/2025Discontinued (Therapy completed)Calcium, Magnesium and Zinc oral tablet (6 sources)Start: 86-89-5007paen 1 tablet by mouth once dailyCalcium, Magnesium and Zinc oral tablet tab(s), Oral, Daily, Refill(s) 0 Start Date: 10/17/21 Status: OrderedCholecalciferol (Vitamin D3) [id number] UNIT/GM liquid (20 sources)Cholecalciferol (Vitamin D3) 3702311 UNIT/GM liquid Active Cholecalciferol (Vitamin D3) 5935121 UNIT/GM liquid as directed Active Chondroitin Sulfates (10 sources)Start: 49-69-3802mwtp 1 mg by mouth once dailychondroitin mg, Oral, Daily, Refills(s) 0 Start Date: 01/03/21 Status: Ordered Repeat number: 1Start: 11-78-8799boyh 1 mg by mouth once dailychondroitin mg, Oral, Daily, Refills(s) 0 Start Date: 01/03/21 Status: Orderedcyclobenzaprine hydrochloride 10 mg oral tablet (16 sources)Muscle RelaxantStart: 07-31-2024 End: 39-91-0441dbxa 1 tablet by mouth three times daily as needed for muscle spasmscyclobenzaprine (Flexeril) 10 MG tablet Indications: Cervical spondylolysis Take 1 tablet (10 mg) by mouth 3 (three) times a day as needed for muscle spasms 30 tablet 1 07/31/2024 03/30/2025 Discontinueddoxycycline hyclate 100 mg oral capsule (1 source)Tetracycline-class DrugStart: 04-27-2025 End: 86-77-5214zoby 1 capsule by mouth twice dailydoxycycline hyclate 100 mg Cap 100 mg = 1 cap(s), Oral, BID, X 14 day(s), # 28 cap(s), Refills(s) 0, Pharmacy: [facility] [id number], 170, cm, 04/27/25 12:04:00 EDT, Height/Length Dosing, 106, kg,04/27/25 12:04:00 EDT, Weight Dosing Start Date: 04/27/25 Stop Date: 05/11/25 Status: Ordered Quantity: 28.0 Unit: cap(s) Repeat number: 1dutasteride 0.5 mg oral capsule (11 sources)5-alpha Reductase InhibitorStart: 57-78-4978eogm 1 capsule by mouth in the morningdutasteride (AVODART) 0.5 mg capsule Take 1 capsule (0.5 mg total) by mouth in the morning. 03/20/2025 Activeglucosamine 1000 mg oral tablet (13 sources)Start: 63-37-7815bywh 1 tablet by mouth once daily at mealtime Glucosamine Sulfate 1,000 mg tablet Active 1000 MG PO Daily June 22, 2025 12:00am administer with meals Complies with drug therapyStart: 01-03-2021 glucosamine Oral, Refills(s) 0 Start Date: 01/03/21 Status: Ordered Repeat number: 1Start: 25-56-3785wrycxiobkoq Oral, Refills(s) 0 Start Date: 01/03/21 Status: Orderedglucosamine sulfate (GLUCOSAMINE ORAL) Take by mouth. Active hydroCHLOROthiazide 25 mg oral tablet (20 sources)Thiazide DiureticStart: 33-61-1809upvc 1 tablet by mouth once daily Hydrochlorothiazide 25 mg tablet Active 25 MG PO Daily June 22, 2025 12:00am Complies with drug therapyStart: 01-03-2021 End: 48-44-7760ssol 1 mg by mouth once dailyhydrochlorothiazide 25 mg oral tablet mg tab(s), Oral, Daily, Refills(s) 0 Start Date: 01/03/21 Status: Ordered Repeat number: 1hydroCHLOROthiazide ActiveIron (1 source)Iron Activelactobacillus acidophilus [id number] unt / pectin 100 mg oral tablet (2 sources)acidophilus-pectin, citrus 25 million cell -100 mg tablet Take by mouth 3 (three) times a day with meals. Activelosartan potassium 100 mg oral tablet (20 sources)Angiotensin 2 Receptor BlockerStart: 01-03-2021 End: 18-02-7722ntmf 1 tablet by mouth once dailyLosartan 100 mg tablet Active 100 MG PO Daily June 22, 2025 12:00am Complies with drug therapyLosartan Potassium Iveiaa30 hr metoprolol succinate 50 mg extended release oral tablet (20 sources)beta-Adrenergic BlockerStart: 80-12-4232jihj 1 tablet by mouth once dailyMetoprolol Succinate 50 mg tablet extended release 24 hr Active 50 MG PO Daily June 22, 2025 12:00am Complies with drug therapyStart: 02-28-2024 End: 85-61-7669fwly 1 tablet by mouth in the morningmetoprolol tartrate (Lopressor) 25 MG tablet Indications: Essential hypertension, benign (CMS/HCC) T elizabeth 1 tablet (25 mg) by mouth in the morning and 1 tablet (25 mg) before bedtime. 180 tablet 3 02/28/2024 09/19/2024 DiscontinuedStart: 73-51-2525omtj 1 mg by mouth once dailymetoprolol 50 mg ER Tab mg tab(s), Oral, Daily, Refills(s) 0 Start Date: 02/26/23 Status: Ordered Repeat number: 1metoprolol succinate 50 mg capsule,sprinkle,ER 24hr 1 tablet ActiveNature's Bounty Probiotic (10 sources)Start: 90-17-3289Jmlrvp's Bounty Probiotic Oral, Daily, Refill(s) 0 Start Date: 01/03/21 Status: Ordered Repeat number: 1Start: 83-56-4767Ylhlen's Bounty Probiotic Oral, Daily, Refill(s) 0 Start Date: 01/03/21 Status: Ordered omeprazole 20 mg delayed release oral capsule (20 sources)Proton Pump InhibitorStart: 64-26-3290sxno 1 capsule by mouth twice dailyOmeprazole 20 mg capsule,delayed release(DR/EC) Active 20 MG PO Twice daily June 22, 2025 12:00am Complies with drug therapyStart: 01-03-2021 End: 19-70-4543beiw 1 capsule by mouth once dailyomeprazole 20 mg Cap-DR 20 mg = 1 cap(s), Oral, Daily, # 30 cap(s), Refills(s) 0 Start Date: 01/03/21 Status: Ordered Quantity: 30.0 Unit: cap(s) Repeat number: 1Omeprazole ActivepredniSONE 50 mg oral tablet (2 sources)Start: 07-31-2024 End: 42-50-9503xsib 1 tablet by mouth once dailypredniSONE (Deltasone) 50 MG tablet Indications: Cervical spondylolysis Take 1 tablet (50 mg) by mouth Daily for 6 days 6 tablet 07/31/2024 08/06/2024 Activesod sulf-pot chloride-mag sulf 1.479-0.188- 0.225 gram tablet (2 sources)Start: 71-50-5458ffr sulf-pot chloride-mag sulf 1.479-0.188- 0.225 gram tablet Indications: Encounter for colonoscopy due to history of colonic polyp , Generalized abdominal pain Please see instructional sheet given by physicians office. 24 tablet 08/10/2025 Activetamsulosin hydrochloride 0.4 mg oral capsule (20 sources)alpha-Adrenergic BlockerStart: 75-58-5692htmv 1 capsule by mouth once dailyTamsulosin 0.4 mg capsule Active 0.4 MG PO Daily June 22, 2025 12:00am Complies with drug therapyStart: 04-27-2025 End: 95-22-4735qert 2 capsules by mouth once dailytamsulosin 0.4 mg Cap 0.8 mg = 2 cap(s), Oral, Daily, X 30 day(s), # 60 cap(s), Refills(s) 11, Pharmacy: [facility] [id number], 170, cm, 04/27/25 12:04:00 EDT, Height/Length Dosing, 106, kg, 04/27/25 12:04:00 EDT, Weight Dosing Start Date: 04/27/25 Stop Date: 04/22/26 Status: Ordered Quantity: 60.0Unit: cap(s) Repeat number: 12Start: 02-03-2025 take 1 capsule by mouth once dailytamsulosin (Flomax) 0.4 MG 24 hr capsule Indications: Benign prostatic hyperplasia with lower urinary tract symptoms, symptom details unspecified Take 1 capsule (0.4 mg) by mouth Daily 90 capsule 3 02/03/2025 ActiveStart: 09-18-2022 End: 44-86-2437pqri 1 capsule by mouth once dailytamsulosin (Flomax) 0.4 MG 24 hr capsule Indications: Benign prostatic hyperplasia with lower urinary tract symptoms, symptom details unspecified Take 1 capsule (0.4 mg) by mouth Daily 90 capsule 3 02/03/2025 ActiveStart: 09-21-2021 End: 01-66-8686apyi 1 capsule by mouth once dailytamsulosin 0.4 mg Cap 0.4 mg = 1 cap(s), Oral, Daily, X 90 day(s), # 90 cap(s), Refills(s) 3, Pharm[facility]: [id number], 178, cm, 06/27/21 10:37:00 EDT, Height/Length Dosing, 105, kg, 06/27/21 10:37:00 EDT, Weight Dosing Start Date: 09/21/21 Stop Date: 09/16/22 Status: OrderedFlomax Yvjnue84 hr timolol 5 mg/ml ophthalmic solution (20 sources)beta-Adrenergic BlockerStart: 76-69-2267yroj 0.5 drop(s) into the eye(s) once dailyTimolol 0.5 % drops Active 1 DROPS EYE-BOTH Daily June 22, 2025 12:00am Complies with drug therapyStart: 55-43-3992nsjhtvf Opth 0.5% Em 15 mL Refill(s) 0 Start Date: 03/17/24 Status: Ordered End: 69-28-4314ebieqmL (BETIMOL) 0.25 % ophthalmic solution Administer 1-2 drops to the right eye in the morning and 1-2 drops before bedtime. 08/10/2025 Discontinued (Therapy completed)take 1 drop(s) into the eye(s) in the morning timoloL (BETIMOL) 0.5 % ophthalmic solution 1 drop in the morning and 1 drop before bedtime. Activetimolol Opth 0.5% Em 15 mL (4 sources)Start: 15-36-2625mkobbrq Opth 0.5% Em 15 mL Refill(s) 0 Start Date: 03/17/24 Status: Ordered Repeat number: 1Start: 29-97-0509ypfdcfl Opth 0.5% Em 15 mL Refill(s) 0 Start Date: 03/17/24 Status: OrderedVitamin D3 (1 source)Vitamin D3 ActiveVitamin D3 1000 intl units oral capsule (10 sources)Start: 47-71-0758ktcm 1 capsule by mouth once dailyVitamin D3 1000 intl units oral capsule Oral, Daily, Refills(s) 0 Start Date: 01/03/21 Status: Ordered Repeat number: 1Start: 57-96-4039Wyccexd D3 1000 intl units oral capsule Oral, Daily, Refills(s) 0 Start Date: 01/03/21 Status: Ordered Completed/Discontinued Medications MedicationDrug Class(es)DatesSig (Normalized)Sig (Original)[id number] 200 actuat albuterol 0.09 mg/actuat metered dose inhaler (1 source)beta2-Adrenergic AgonistStart: 33-99-9110wfmw 2 puff(s) by inhalation every four hours as neededAlbuterol Sulfate HFA 108 (90 Base) MCG/ACT 2 puffs as needed Inhalation every 4 hrs Sep, Not-Takingbenzonatate 100 mg oral capsule (1 source)Non-narcotic AntitussiveStart: 15-35-4484xkrk 1 capsule by mouth every eight hoursTessalon Perles 100 MG 1 capsule as needed Orally Three times a day for 10 days Sep, Not-Takingcholecalciferol 0.357 mg/ml oral solution (1 source)Vitamin D End: 26-19-7224ncmyrbghopliozp, vitamin D3, 10 mcg/drop (400 unit/drop) drops Take by mouth. 08/10/2025 Discontinued (Therapy completed)chondroitin sulfates 400 mg / glucosamine hydrochloride 500 mg oral tablet (20 sources) End: 95-48-9577bhzi 1 tablet by mouth once dailyglucosamine-chondroitin 500-400 mg tablet Take 1 tablet by mouth daily. 08/10/2025 Discontinued (Therapy completed)take 1 tablet by mouth in the morningglucosamine-chondroitin 500-400 MG tablet Take 1 tablet by mouth in the morning. Activeciprofloxacin 500 mg oral tablet (2 sources)Quinolone AntimicrobialStart: 69-32-9523nseq 1 tablet by mouth once dailyCipro 500 mg Tab 500 mg = 1 tab(s), Oral, Daily, take one tab day before procedure and one tab after procedure, # 2 tab(s), Refills(s) 0, Pharmacy: [facility] [id number], 170, cm, 06/19/25 9:20:00EDT, Height/Length Dosing, 109, kg, 06/19/25 9:20:00 EDT, Weight Dosing Start Date: 06/19/25 Status: Ordered Quantity: 2.0 Unit: tab(s) Repeat number: 1Start: 49-08-0512fwox 1 tablet by mouth twice dailyCipro 500 mg Tab 500 mg = 1 tab(s), Oral, BID, # 4 tab(s), Refills(s) 0, Pharmacy: [facility] [id number], 178, cm, 07/07/22 16:35:00 EDT, Height/Length Dosing, 105, kg, 04/21/22 10:50:00 EDT, Weight Dosing Start Date: 07/10/22 Status: Orderedclarithromycin 500 mg oral tablet (1 source)Macrolide AntimicrobialStart: 52-66-3143vwvx 1 tablet by mouth every twelve hoursBiaxin 500 MG 1 tablet Orally every 12 hrs for 7 days Sep, Not-Takingferrous sulfate 325 mg oral tablet (1 source) End: 57-03-9154pgie 1 tablet by mouth every other dayferrous sulfate 325 (65 FE) mg tablet Take 1 tablet (325 mg total) by mouth every other day. 08/10/2025 Discontinued (Therapy completed)finasteride 5 mg oral tablet (1 source)5-alpha Reductase Inhibitor End: 23-45-2723owar 1 tablet by mouth once dailyfinasteride (PROSCAR) 5 mg tablet Take 5 mg by mouth daily. 08/10/2025 Discontinued (Therapy completed) naproxen 500 mg oral tablet (1 source)Nonsteroidal Anti-inflammatory DrugStart: 07-18-2022 End: 29-30-2124ifxb 1 tablet by mouth in the morning, then take 1 tablet by mouth at mealtimenaproxen (NAPROSYN) 500 mg tablet Take 1 tablet (500 mg total) by mouth in the morning and 1 tablet(500 mg total) in the evening. Take with meals. 60 tablet 1 07/18/2022 08/10/2025 Discontinued (Therapy completed) Problems Active Problems Problem ClassificationProblemDateDocumented DateEpisodic/ChronicAbdominal pain (6 sources)Lower abdominal pain; Translations: [Lower abdominal pain, unspecified]Onset: 84-09-2523AiymhthjYirjhwgu of urinary tract (3 sources)H/O: urinary azynk34-87-6023HaxmebndJuvhaztz mellitus without complication (20 sources)Prediabetes; Translations: [Prediabetes]Onset: EpisodicDisorders of lipid metabolism (20 sources)Dyslipidemia; Translations: [Hyperlipidemia, unspecified]Onset: 087733-48-0583KvshebkUevohvlckn disorders (20 sources)Gastro-esophageal reflux disease without esophagitis; Translations: [Gastroesophageal reflux disease without esophagitis]Onset: ChronicEssential hypertension (20 sources)Hypertensive disorder; Translations: [Essential (primary) hypertension]Onset: 436826-41-9710SgejwmwYczsqkogn and duodenitis (1 source)Chronic superficial gastritis without bleeding; Translations: [Chronic superficial gastritis without bleeding]Onset: 96-72-1457FzexnotJjatxzomvchem symptoms and ill-defined conditions (20 sources)Dysuria; Translations: [Dysuria]Onset: 897024-16-5226Dslnpfum Glaucoma (20 sources)Glaucoma; Translations: [Unspecified glaucoma]Onset: 07-21-2022 12-77-0003LbmwvfyEfxmplytxec of prostate (20 sources)Benign prostatic hypertrophy with outflow obstruction; Translations: [Benign prostatic hyperplasia with lower urinary tract symptoms]Onset: 35-58-8352UbeisqxCsnoahwhuufqu (8 sources)Lymphadenopathy; Translations: [Enlarged lymph nodes, unspecified] Onset: 45-71-6431VganzxqzZnfumlfkqvq deficiencies (20 sources)Vitamin D deficiency; Translations: [Vitamin D deficiency, unspecified]Onset: 205458-79-6310OyhleecHwqnyusnbrrdip (11 sources)Arthritis; Translations: [Unspecified osteoarthritis, unspecified site]Onset: 572510-17-9705HxdcvmmWtkye aftercare (19 sources)Long-term current use of drug therapy; Translations: [Other long-term (current) drug therapy]Onset: 712375-72-4438EuqcjzmqPcbnv aftercare (1 source)Other long-term (current) drug therapy; Translations: [Other long-term (current) drug therapy]Onset: 25-71-2624WtsyvvgsBbmem circulatory disease (2 sources)Spider nevus; Translations: [Nevus, non-neoplastic]17-92-4787Bglvcmuo Other diseases of bladder and urethra (8 sources)Male urethral stricture; Translations: [Unspecified urethral stricture, male, unspecified site]Onset: 89-66-1278OskxrbahYafdo diseases of bladder and urethra (10 sources)Urethral qeefsueyw66-99-7061XfdqgfyyAexbn diseases of veins and lymphatics (8 sources)Venous insufficiency of leg; Translations: [Venous insufficiency (chronic) (peripheral)]Onset: 597408-01-7751DcttqwfsGblgv ear and sense organ disorders (10 sources)Hearing whrr03-87-1426IngqkkqGnuvv ear and sense organ disorders (1 source)Unspecified hearing loss, unspecified ear; Translations: [UNS HEARING LOSS UNSPECIFIED EAR]Onset: 93-20-7046HuzrcbeLzxgd ear and sense organ disorders (1 source)Asymmetrical sensorineural hearing loss; Translations: [Sensorineural hearing loss, bilateral]57-29-6688WzzatobHnqfi gastrointestinal disorders (1 source)Irritable bowel syndrome; Translations: [Irritable bowel syndrome without diarrhea]81-13-2532VbzwruwEemkv gastrointestinal disorders (1 source)Heartburn; Translations: [Heartburn]42-83-4302UktdmsogJsafv gastrointestinal disorders (1 source)Heartburn; Translations: [Heartburn]Onset: 34-78-0693VsolkphfZswil injuries and conditions due to external causes (10 sources)Injury of kyrj15-86-0966XeawlppiWpkjf male genital disorders (20 sources)Secondary erectile dysfunction; Translations: [Male erectile dysfunction, unspecified]Onset: 400896-41-2284EmdiaqqHmqoj male genital disorders (4 sources)Dysplasia of prostate; 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]Onset: 76-37-8306UzcghjlbCriux male genital disorders (8 sources)Atypical small acinar proliferation of uctyeutp34-44-8776Nbjuayrg Other male genital disorders (1 source)H/O: male genital disorder; Translations: [Personal history of other diseases of male genital organs]Onset: 48-54-0115AcfxbckpLzwro male genital disorders (1 source)History of kmbymhzyndh02-98-4122NfvbxtvhYhyzx nutritional; endocrine; and metabolic disorders (19 sources)Obesity caused by energy imbalance; Translations: [Class 1 obesity due to excess calories with serious comorbidity and body mass index (BMI) of 32.0 to 32.9 in adult]Onset: 436039-01-2944TgglndgVksdl nutritional; endocrine; and metabolic disorders (1 source)Other obesity due to excess calories; Translations: [Other obesity due to excess calories]Onset: 52-87-6483WofbsgaGgfde nutritional; endocrine; and metabolic disorders (1 source)Body mass index (BMI) 32.0-32.9, adult; Translations: [Body mass index (BMI) 32.0-32.9, adult]Onset: 62-89-2064ZdquojsEvlcn skin disorders (4 sources)Actinic keratosis; Translations: [Actinic keratosis]06-09-2024 EpisodicOther skin disorders (4 sources)Seborrheic keratosis; Translations: [Other seborrheic keratosis] 08-25-2071VhntndncKsrhn skin disorders (4 sources)Lentiginosis; Translations: [Other melanin hyperpigmentation] 81-41-1274HiwtspyjTubuyoxpfbf; intervertebral disc disorders; other back problems (1 source)Cervical spondylosis; Translations: [Spondylosis without myelopathy or radiculopathy, cervical region]25-08-9433RgrubmcBfnappjmiap; intervertebral disc disorders; other back problems (20 sources)Spinal stenosis, lumbar region without neurogenic claudication; Translations: [Degenerative lumbar spinal stenosis]Onset: 37-87-2668Ndlaftwc Unclassified (1 source)CONTACT W/AND (SUSP) EXPOS COVID-19; Translations: [CONTACT W/AND (SUSP) EXPOS COVID-19]Onset: 31-50-8204Upgxjecbpffb (2 sources)Consult; Translations: [Consult]Onset: 01-50-8396Qqoxshmddmzw (2 sources)Autogenerated ProblemOnset: 113336-18-0150Yfghuookbmlt (1 source)Personal history of colon polyps, unspecified; Translations: [Personal history of colon polyps, unspecified]Onset: 38-65-8865Rmfkedmqfjfd (1 source)Colon Cancer ScreeningOnset: 48-52-8228Rawrubolxsjn (1 source)Obesity, class 1; Translations: [Obesity, class 1]Onset: 06-22-2025 Past or Other Problems Problem ClassificationProblemDateDocumented DateEpisodic/ChronicGastritis and duodenitis (2 sources)Gastroduodenitis; Translations: [Gastroduodenitis, unspecified, without bleeding]Onset: 008456-44-2269LibbebatRajj disorders (14 sources)Mood disordersOnset: Other acquired deformities (20 sources)Spondylolysis of cervical spine; Translations: [Spondylolysis, cervical region]Onset: 716846-47-5618TercecoiBgobx aftercare (1 source)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 of anticoagulants; Translations: [PRISON CURRNT USE ANTICOAGULANTS]Onset: 56-52-8153YklypuqdViwfl and unspecified benign neoplasm (2 sources)Skin lesion; Translations: [Hemangioma of skin and subcutaneous tissue]40-04-6060ZdjbvfbxEuiai and unspecified benign neoplasm (2 sources)Polyp of descending colon; Translations: [Polyp of colon]Onset: 309002-73-3041FeklqjvuWttxf diseases of bladder and urethra (1 source)Unspecified urethral stricture, male, unspecified site; Translations: [UNSP URETHRAL STRCT MALE UNSP SITE]Onset: [id number] screening for suspected conditions (not mental disorders or infectious disease) (20 sources)Raised prostate specific antigen; Translations: [Elevated prostate specific antigen [PSA]]Onset: 06-60-0254TscseuhjJwykzrvvm; thrombophlebitis and thromboembolism (1 source)Personal history of other venous thrombosis and embolism; Translations: [PERS HX OTH VENOUS THROMBOSIS AND EMBO]Onset: 62-79-8778Pioeexul Poisoning by nonmedicinal substances (1 source)Toxic effect of venom of bees, undetermined, initial encounter; Translations: [Bee sting, undetermined intent, initial encounter T63.444A]Onset: 07-08-2021 Resolved: 02-15-6071XzbzaoxeSzavqdmkd and history of mental health and substance abuse codes (1 source)Personal history of nicotine dependence; Translations: [PERSONAL HISTORY OF NICOTINE DEPEND]Onset: 92-92-0195Azvlrvfd Results Test NameValueInterpretationReference RangeFacilityMain OR Intraoperative Record on [id number] OR Intraoperative RecordMain OR Intraoperative Record IntraOp Document Type FTURO Summary Primary Physician: Lety ALCARAZ MD Finalized Date/Time: 07/21/25 10:51:03 Pt. Name: CATHIE ANDERSON Lazaro Liu/Sex: 1955 Male Med Rec #: [id number] Physician: Lety ALCARAZ MD Financial #: [id number] Pt. Type: O Room/Bed: / Admit/Disch: 07/21/25 09:31:33 - Institution: Case Times FTURO Entry 1 Patient Times In Room 07/21/25 10:41:00 Out Room 07/21/25 10:50:00 Procedure Times Start 07/21/25 10:42:00 Stop 07/21/25 10:47:00 Anesthesia Times Last Modified By: Lazaro Harmon 07/21/25 10:50:50 Case Attendance FTURO Entry 1 Entry 2 Entry 3 Case Attendee KIERAN OWEN, Lazaro Parmar Kendall R Role Performed Surgeon - Primary Wheel Aligner - Primary Scrub - Primary Time In 07/21/25 10:41:00 07/21/25 10:41:00 07/21/25 10:41:00 Time Out 07/21/25 10:48:00 07/21/25 10:50:00 07/21/25 10:50:00 Procedure CYSTOSCOPY LOCAL WITH CYSTOSCOPY LOCAL WITH CYSTOSCOPY LOCAL WITH URETHRAL URETHRAL URETHRAL DILATION(Bilateral) DILATION(Bilateral) DILATION(Bilateral) Comments Last Modified By: Lazaro Harmon Terry T Sweene Lazaro T 07/21/25 10:50:51 07/21/25 10:50:51 07/21/25 10:50:51 Surgical Procedures FTURO Entry 1 Procedure Description Procedure CYSTOSCOPY LOCAL WITH Modifiers Bilateral URETHRAL DILATION Surgeon Description CYSTO UD WITH HOPKINS SOUNDS Primary Procedure Yes Primary Surgeon Lety ALCARAZ MD Start 07/21/25 10:42:00 Stop 07/21/25 10:47:00 Anesthesia Type Local Surgical Service Urology Wound Class 2 - Clean-Contaminated Last Modified By: Lazaro Harmon 07/21/25 10:50:52 General Case Data FTURO Pre-Care Text: Classifies surgical wound, implements aseptic technique, initiates traffic control Entry 1 Case Information OR URO 1 FT Case Level None Wound Class 2 - Clean-Contaminated Specialty Urology Preop Diagnosis URETHRAL STRICTURE, BPH Postop Same As Preop Yes WITH OBSTRUCTION Postop Diagnosis URETHRAL STRICTURE, BPH Outcomes Met? Yes WITH OBSTRUCTION Last Modified By: Lazaro Harmon 07/21/25 10:41:54 Post-Care Text: The patient is free from signs and symptoms of infection EU IntraOp - FTURO Pre-Care Text: Implements protective measures prior to operative or invasive procedure, confirms identity before the operative or invasive procedure, verifies operative procedure, surgical site, and laterality Entry 1 EU Perioperative Protocols Procedure(s) CYSTOSCOPY LOCAL WITH Patient Identity Birthday, ID Band URETHRAL Verified (select at Check, Patient DILATION(Bilateral) least 2): Participation Consents / H and P H&P, Surgery/Procedure Operative Site N/A Verified Consent Marking Verified Surgical Site Yes Laterality Verified n/a Verified Procedure Verified Yes Correct Patient Yes Position Verified Availability Equipment, Medication Time Out Lety ALCARAZ MD, Verified (If Participants Lazaro Harmon, Applicable) Doroteo Iglesias Time Out Complete 07/21/25 10:42:00 Allergies Reviewed? Yes Allergies Reviewed Self/Patient With Body Position Supine Prep Area PENIS AND SCROTUM Prep Agents Betadine Scrub Skin. Condition Intact, [place], Warm, & Dry Additional None Specimens Collected Vitals - EU Blood Pressure 174/84 Pulse 69 bpm Respirations 18 br/min SPO2 95 % EBL 0 I&O - EU Total Intake 0 mL Total Output 0 mL Outcomes Met? Yes Last Modified By: Lazaro Harmon 07/21/25 10:43:16 Post-Care Text: The patient is free from signs and symptoms of injury caused by extraneous objects Sign Out FTURO Entry 1 Before Patient Leaves OR Nurse verbally Yes Nurse verbally n/a confirms with the confirms with the team the name of team that the procedure(s) instrument, sponge, recorded and needle counts are correct (or N/A) Nurse verbally n/a Nurse verbally Yes confirms with the confirms with the team how the team whether there specimen is labeled are any equipment (including patient problems to be name), if applicable addressed Sign Out Complete 07/21/25 10:47:00 Last Modified By: Lazaro Harmon 07/21/25 10:47:49 Case Comments Finalized By: Lazaro Harmon Document Signatures Signed By: Lazaro Harmon 07/21/25 10:51[facility] HospitalMain OR Preoperative Recordon [id number] OR Preoperative RecordMain OR Preoperative Record Holding Area Document Type FTURO Summary Primary Physician: Lety ALCARAZ MD Finalized Date/Time: 07/21/25 10:17:38 Pt. Name: MONICA CATHIE Broderick./Sex: 1955 Male Med Rec #: [id number] Physician: Lety ALCARAZ MD Financial #: [id number] Pt. Type: O Room/Bed: / Admit/Disch: 07/21/25 09:31:33 - Institution: Case Times Holding FTURO Pre-Care Text: Verifies consent for planned procedure, identifies individual values and wishes concerning care, includes family members in perioperative teaching Secures patient's records' belongings, and valuables, maintains patient's dignity and privacy, and maintains patient confidentiality Entry 1 In Holding 07/21/25 10:16:00 Outcomes Met? Yes Last Modified By: Milady Worrell 07/21/25 10:16:07 Post-Care Text: The patient participates in decisions affecting his or her perioperative plan of care The patient'sright to privacy is maintained Surgery Checklist FTURO Entry 1 Patient Birthday, ID Band Procedure History and Physical, Identification: Check, Patient Verification: Surgical Consent, With Participation Patient NPO after Midnight: n/a Date/Time: 07/21/25 10:16:00 Personal Items: Glasses, Jewelry Personal Items CLOTHES AND SHOES Comment: Limitations: N/A Complaints of Pain: No Pain Comment: NONE Skin Integrity Unable to Visualize Vitals - EU Blood Pressure 174/84 Pulse 69 bpm Respirations 18 br/min SPO2 95 % Additional None Specimens Comment N/A Specimens Collected Residual Amount - 0 RN Reviewed Yes Post Void Last Modified By: Milady Worrell 07/21/25 10:17:35 Finalized By: Milady Worrell Document Signatures Signed By: Milady Worrell 07/21/25 10:17[facility] HospitalOperative Reporton [id number] ReportOperative Report Patient: CATHIE ANDERSON Age: 69 years Sex: Male : 1955 Associated Diagnoses: None Author: Lety ALCARAZ MD Procedure Operative Information Details: Date/ Time: 07/21/2025 10:51:00. Pre-Op Dx: BPH w/ LUTS - N40.1, Urethral Stricture - Male Post Trauma Meatal - N35.010. Post-Op Dx: Same. Anesthesia Type: Local. Procedure: Local Cystoscopy with Urethral Dilation. Complications: None. Risks/Benefits/Informed Consent: Surgical risks, benefits, details of the procedure have been explained to the patient, Full informed consent has been obtained. Intraoperative Information Prepped: Patient is brought back to the endoscopy suite, Patient is placed in supine position, Patient prepped in the usual fashion with Betadine solution, 2% Xylocaine Jelly is placed per Urethra, After waiting several minutes the Cystoscope is introduced. The Urethra is: Normal. The Prostatic Urethra is: Obstructed, A 1/2 cm stone was embedded in the right lateral lobe of the prostate. This was pb loose by the beak of the scope.. The Bladder is: Trabeculated (Severe (3), Diffuse diverticuli. No bladder tumors.). The ureteral orifices: Show efflux of clear urine. The Urethra was dilated to: 26 Tajik w/ sounds. Devices Implanted: None. Removal: Cystoscope is removed, The patient tolerated it well. Postoperative Information Discharge: Patient is discharged home with antibiotic coverage, Follow up arranged. He will continue using the meatal dilator daily.NormalFisher Ray Medical CenterComment on above:Result Comment: Electronically Signed By: KIERAN OWEN, Lety Rolle\Date and Time Signed: 07/21/25 10:54 EDTBASIC METABOLIC PANELon 76-38-8075Fxhyz gap [Moles/Vol]11 mmol/LNormal5-15[facility] Comment on above:Performed By: #### BMP #### [facility] ([facility]) [address] [place] [address] VIRCalcium [Mass/Vol]8.8 mg/dLNormal8.5-10.5PSelect Medical OhioHealth Rehabilitation HospitalComment on above:Performed By: #### BMP #### [facility] ([facility]) [address] [place] [address] VIRChloride [Moles/Vol]106 mmol/TDfbwoq16-265AjvOzwvezBaylor Scott & White Medical Center – MckinneyComment on above:Performed By: #### BMP #### [facility] ([facility]) [address] [place] [address] VIRCO2 [Moles/Vol]26 mmol/VOzlher52-38JalFyofnwSelect Medical OhioHealth Rehabilitation HospitalComment on above:Performed By: #### BMP #### [facility] ([facility]) [address] [place] [address] VIRCreatinine [Mass/Vol]1.24 mg/dLNormal0.60-1.30[facility] CenterComment on above:Result Comment: METHOD TRACEABLE TO IDMS STANDARDPerformed By: #### BMP #### [facility] ([facility]) [address] [place] [address] VIRGFR/1.73 sq M.predicted among non-blacks MDRD (S/P/Bld) [Vol rate/Area]63 mL/min/{1.73_m2}Normal>=60ProBaylor Scott & White Medical Center – MckinneyComment on above:Result Comment: Reported eGFR is based on the CKD-EPI 2020 equation that does not use a race coefficient.Performed By: #### BMP #### [facility] ([facility]) [address] [place] [address] VIRGlucose [Mass/Vol]110 mg/tMJhep52-03RlvAcurftBaylor Scott & White Medical Center – MckinneyComment on above:Performed By: #### BMP #### [facility] ([facility]) [address] [place] [address] VIRPotassium [Moles/Vol]3.9 mmol/LNormal3.5-5.0[facility] CenterComment on above:Performed By: #### BMP #### [facility] ([facility]) [address] [place] [address] VIRSodium [Moles/Vol]143 mmol/WUcvdre781-351SfjFfpvoh [facility]ont HospitalComment on above:Performed By: #### BMP #### [facility] ([facility]) [address] [place] [address] VIRUrea nitrogen [Mass/Vol]22 mg/dLNormal5-27[facility] CenterComment on above:Performed By: #### BMP #### [facility] ([facility]) [address] [place] [address] VIRCBC WITH AUTO DIFFERENTIALon 31-17-5027NCXBOYLLI ABSOLUTE COUNT (10*3/UL) BY AUTOMATED COUNT0.1 10*3/uLNormal0.0-0.2PSelect Medical OhioHealth Rehabilitation HospitalComva medical center on above:Performed By: #### CBCA #### [facility] ([facility]) [address] [place] [address] VIRBASOPHILS RELATIVE PERCENT BY AUTOMATED COUNT1.2 %Normal [facility] CenterComva medical center on above:Performed By: #### CBCA #### [facility] ([facility]) [address] [place] [address] VIRCELLAVISION DIFFERENTIAL TYPEAUTOMATED DIFFERENTIALNormal [facility] CenterComment on above:Performed By: #### CBCA #### [facility] ([facility]) [address] [place] [address] VIREosinophils (Bld) [#/Vol]0.2 10*3/uLNormal0.0-0.4[facility] CenterComment on above:Performed By: #### CBCA #### [facility] ([facility]) [address] [place] [address] VIREOSINOPHILS RELATIVE PERCENT BY AUTOMATED COUNT2.7 %Normal [facility] CenterComment on above:Performed By: #### CBCA #### [facility] ([facility]) [address] [place] [address] VIRErythrocyte distribution width (RBC) [Ratio]14.4 %Normal 11.5-15[facility] CenterComment on above:Performed By: #### CBCA #### [facility] ([facility]) [address] [place] [address] VIRHematocrit (Bld) [Volume fraction]41.3 %Lghdcb44-44WbqJrclmtBaylor Scott & White Medical Center – MckinneyComment on above:Performed By: #### CBCA #### [facility] ([facility]) [address] [place] [address] VIRHemoglobin (Bld) [Mass/Vol]13.8 g/nFQfvjqj47-28SjjVhlyusBaylor Scott & White Medical Center – MckinneyComment on above:Performed By: #### CBCA #### [facility] ([facility]) [address] [place] [address] VIRLYMPHOCYTES ABSOLUTE COUNT (10*3/UL) BY AUTOMATED COUNT1.4 10*3/uLNormal1.0-3.5PSelect Medical OhioHealth Rehabilitation HospitalComment on above:Performed By: #### CBCA #### [facility] ([facility]) [address] [place] [address] VIRLYMPHOCYTES RELATIVE PERCENT BY AUTOMATED COUNT19.1 %Normal [facility] CenterComment on above:Performed By: #### CBCA #### [facility] ([facility]) [address] [place] [address] VIRMCH (RBC) [Entitic mass]28.3 qcWhlyxz98-63HiiBihcguBaylor Scott & White Medical Center – MckinneyComment on above:Performed By: #### CBCA #### [facility] ([facility]) [address] [place] [address] VIRMCHC (RBC) [Mass/Vol]33.5 g/kJBitdsq53-38HptKemlqiBaylor Scott & White Medical Center – MckinneyComment on above:Performed By: #### CBCA #### [facility] ([facility]) [address] [place] [address] VIRMCV (RBC) [Entitic vol]85 gTTmiisz51-913ZbqUxadbm [facility]ont HospitalComment on above:Performed By: #### CBCA #### [facility] ([facility]) [address] [place] [address] VIRMONOCYTES ABSOLUTE COUNT (10*3/UL) BY AUTOMATED COUNT0.5 10*3/uLNormal0.0-0.9[facility] CenterComment on above:Performed By: #### CBCA #### [facility] ([facility]) [address] [place] [address] VIRMONOCYTES RELATIVE PERCENT BY AUTOMATED COUNT6.8 %Normal [facility] CenterComment on above:Performed By: #### CBCA #### [facility] ([facility]) [address] [place] [address] VIRNEUTROPHILS ABSOLUTE COUNT BY AUTOMATED COUNT5.0 10*3/uL Normal1.5-6.6[facility] CenterComment on above:Performed By: #### CBCA #### [facility] ([facility]) [address] [place] [address] VIRNEUTROPHILS RELATIVE PERCENT BY AUTOMATED COUNT70.2 %Normal [facility] CenterComment on above:Performed By: #### CBCA #### [facility] ([facility]) [address] [place] [address] VIRPlatelet mean volume (Bld) [Entitic vol]8.1 fLNormal7-12 [facility] CenterComment on above:Performed By: #### CBCA #### [facility] ([facility]) [address] [place] [address] VIRPlatelets (Bld) [#/Vol]246 10*3/gZYljqeu597-585BueVpikxv [facility] HospitalComment on above:Performed By: #### CBCA #### [facility] ([facility]) [address] [place] [address] VIRRBC COUNT4.88 X10E12/LNormal4.1-5.7[facility] CenterComment on above:Performed By: #### CBCA #### [facility] ([facility]) [address] [place] [address] VIRWBC (Bld) [#/Vol]7.2 10*3/uLNormal4-11[facility] CenterComment on above:Performed By: #### CBCA #### [facility] ([facility]) [address] [place] [address] VIRHEMOGLOBIN A1Con 47-44-6009Wvhwaoq [Mass/Vol]131 mg/dLNormal [facility] CenterComment on above:Performed By: #### HA1C #### [facility] ([facility]) [address] [place] [address] WWIRnG1w (Bld) [Mass fraction]6.2 %High4.4-5.6[facility] CenterComment on above:Result Comment: ADA Guidelines Result HgbA1c Normal : less than 5.7 % Prediabetes : 5.7 % to 6.4 % Diabetes : > 6.4 % Use with caution in patients with abnormal hemoglobin variants as the half-life of red blood cells and in vivo glycation rates are affected.Performed By: #### HA1C #### [facility] ([facility]) [address] [place] [address] VIRLIPID PROFILEon 02-59-6792Dogwvfixqqd [Mass/Vol]131 mg/dLLow 150-200ProBaylor Scott & White Medical Center – MckinneyComment on above:Performed By: #### LIPR #### [facility] ([facility]) [address] [place] [address] VIRCholesterol in HDL [Mass/Vol]40 mg/dLNormal>39ProBaylor Scott & White Medical Center – MckinneyComment on above:Result Comment: HDL <40 mg/dL - High Risk HDL > or = 40mg/dL- Desirable HDL >60 mg/dL - Negative RiskPerformed By: #### LIPR #### [facility] ([facility]) [address] [place] [address] VIRCholesterol in LDL [Mass/Vol]68 mg/dLNormal<130ProBaylor Scott & White Medical Center – MckinneyComment on above:Result Comment: LDL <100 mg/dL - Desirable LDL >160 mg/dL - High RiskPerformed By: #### LIPR #### [facility] ([facility]) [address] [place] [address] VIRCHOLESTEROL:HDL3.4Plcuii9.0-5.0[facility] Comment on above:Performed By: #### LIPR #### [facility] ([facility]) [address] [place] [address] VIRTriglyceride [Mass/Vol]115 mg/eNHpemqu03-696ProQalevw [facility] HospitalComment on above:Performed By: #### LIPR #### [facility] ([facility]) [address] [place] [address] VIRVERY LOW DFDVSOOGPLK46 mg/dLNormal0-30ProBaylor Scott & White Medical Center – MckinneyComment on above:Performed By: #### LIPR #### [facility] ([facility]) [address] [place] [address] VIRLIVER PANELon 30-65-2844Bmkevog [Mass/Vol]4.1 g/dLNormal 3.2-5.3PSelect Medical OhioHealth Rehabilitation HospitalComment on above:Performed By: #### LIVR #### [facility] ([facility]) [address] [place] [address] VIRALP [Catalytic activity/Vol]55 U/SHygnfb40-305NoyHkxgepBaylor Scott & White Medical Center – MckinneyComment on above:Performed By: #### LIVR #### [facility] ([facility]) [address] [place] [address] VIRALT [Catalytic activity/Vol]21 U/LNormal<=40ProBaylor Scott & White Medical Center – MckinneyComment on above:Performed By: #### LIVR #### [facility] ([facility]) [address] [place] [address] VIRAST [Catalytic activity/Vol]20 U/LNormal<=41ProBaylor Scott & White Medical Center – MckinneyComment on above:Performed By: #### LIVR #### [facility] ([facility]) [address] [place] [address] VIRBilirubin [Mass/Vol]0.6 mg/dLNormal0.3-1.2PSelect Medical OhioHealth Rehabilitation HospitalComment on above:Performed By: #### LIVR #### [facility] ([facility]) [address] [place] [address] VIRBilirubin.indirect [Mass/Vol]0.1 mg/dLNormal<=0.4[facility] CenterComment on above:Performed By: #### LIVR #### [facility] ([facility]) [address] [place] [address] VIRProtein [Mass/Vol]6.5 g/dLNormal6.0-8.0ProBaylor Scott & White Medical Center – MckinneyComment on above:Performed By: #### LIVR #### [facility] ([facility]) [address] [place] [address] VIRTSHon 73-20-4810XOX7.15 uIU/mLNormal0.49-4.67Pro[facility] [address] Bernardine Medical CenterComva medical center on above:Performed By: #### TSH #### [facility] ([facility]) 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 Your Care Team Attending Physician - KIERAN OWEN, Lety Alston Primary Care Physician - FABIAN CARDOZA MD This Is Your Medications List ciprofloxacin (Cipro 500 mg Tab) dutasteride (dutasteride 0.5 mg Cap) tamsulosin (tamsulosin 0.4 mg Cap) Contact prescribing physician if questions or concerns ascorbic acid (Vitamin C) atorvastatin (atorvastatin 20 mg Tab) bifidobacterium-lactobacillus (Nature's Bounty Probiotic) bimatoprost ophthalmic (Lumigan 0.01% [...] (07/13/2022), Percutaneous transluminal laser ablation of varicose veinof lower limb. (06/23/2021), Transurethral resection of prostate (02/10/2021), Cystoscopy (01/07/2021), Colonoscopy. Discharge Vitals Temperature (Temporal Artery) 37 ???C Heart Rate (Peripheral) 69 Respiratory Rate 18 Blood Pressure 139/39 Height 170 cm Height 67 in Weight 109 kg Weight 240.304 lb BMI 37.72 What to do next Scheduled Follow-Up Appointments Sunday 10:30 AM EST With: Lety ALCARAZ MD Where: [facility] [address], [place] [address]- You Need to Schedule the Following Appointments Follow Up with Lety ALCARAZ MD, URL When: Where: [address] [place] [address] Medications What How Much When Instructions New ciprofloxacin (Cipro 500 mg Tab) 1 Tablets By Mouth Every day take one tab day before procedureand one tab after procedure Pickup at [facility] [id number] Unchanged dutasteride (dutasteride 0.5 mg Cap) 1 Capsules By Mouth Every day Unchanged tamsulosin (tamsulosin 0.4 mg Cap) 2 Capsules By Mouth Every day Duration: 30 Days Unchanged ascorbic acid (Vitamin C) Every day Contact prescribing physician if questions or concerns Unchanged atorvastatin (atorvastatin 20 mg Tab) 1 Tablets By Mouth Every day Contact prescribing physician if questions or concerns Unchanged bifidobacterium-lactobacillus (Nature's Bounty Probiotic) By Mouth Every day [...] physician if questions or concerns [id number] [address] [place], [place] [id number] [phone] Allergies No Known Allergies Problems Ongoing - Any problem that you are currently receiving treatment for. Arthritis Atypical small acinar proliferation of prostate Benign localized hyperplasia of prostate with urinary obstruction BPH with obstruction/lower urinary tract symptoms Deafness Dysuria Elevated PSA Enlarged lymph node Glaucoma Head injury History of bladder stone History of prostatitis Hypertension Lower abdominal pain Proteinuria Urethral meatal stenosis Patient Survey You may receive a survey via text or e-mail asking about your office visit. Please share your experience with us by completing your real (more content not included)...[facility] HospitalUrology Office/Clinic Noteon [id number] Office/Clinic NoteUrology Office/Clinic Note Chief Complaint 1 month f/u to starting Tamsulosin BID HPI Staff Pt is a 69 year old male here for 1 month follow up DX: elevated PSA, Atypical small acinar proliferation of prostate, enlarged lymph node, BPH with obstruction/LUTS, urethral meatal stenosis and hx of bladder stone. *Tamsulosin 0.4 2 caps qd and Dutasteride 0.5mg qd PVR 04/27/25 - 133mL IPSS score of 7 today. Uses a meatal dilator daily. Pt states that he feels the medications have helped but for the month and a half he has been having severe lower back pain and lower abdominal pain. Urgency less than half the time. Denies any visible blood at any time. History of Present Illness Tests reviewed: reviewed UA, PVR I have reviewed the previous health record information and history for this patient from Romelia Swann PA-C. I have reviewed and verified the staff [...] & Measurements T: 37 ???C(Temporal Artery) HR: 69(Peripheral) RR: 18 BP: 139/39 HT: 67 in HT: 170 cm WT: 240.304 lb WT: 109 kg BMI: 37.72 General Appearance: alert, no distress, well nourished, well developed male. Assessment/Plan Last seen by CAREY. 1. Elevated PSA (R97.20: Elevated prostate specific antigen [PSA]) PSA 02/01/21 - 2.99 04/14/22 - 5.64 01/24/23 - 6.48 02/29/24 - 6.81 08/12/24 - 7.00 03/03/25 - 7.29 Prostate MRI 05/04/22 [facility] [place] - Prostate volume 136 mL. No evidence of prostate malignancy. Prominent pelvic lymph node measuring 8 mm in short axis. TRUS/bx 07/13/22 - 1 ANUSHA core. TRUS/bx 02/06/23 - neg. PSMA PET scan 04/04/24 [facility] [place] - Enlarged prostate with calcifications. No focal abnormal accumulationnoted to suggest primary prostate malignancy. Subtle osteolytic process along the scapula on L anteriorly with accompanying subtle increased radiotracer accumulation. Metastatic prostate malignancy not excluded. Prostate MRI 05/22/24 [facility] - No evidence of clinically significant prostate cancer. Stable presumedprominent lymph node adjacent to R bladder wall measuring 7mm in short axis. [1] -PSA due 09/2025 2. Atypical small acinar proliferation of prostate (N42.32: Atypical small acinar proliferation of prostate) Prostate MRI 05/04/22 [facility] [place] - Prominent pelvic lymph node measuring 8 mm in short axis. PSMA PET scan 04/04/24 [facility] - A few mildly prominent lymph nodes in retroperitoneum and adjacent toR anterior/lateral wall of bladder. Subtle increase radiotracer accumulation within lymph node adjacent to bladder. Nonspecific with a prostate malignancy not excluded. Prostate MRI 05/22/24 [facility] - Stable presumed prominent lymph node adjacent to R bladder wall measuring 7mm in short axis. [2] -See #1 3. BPH with obstruction/lower urinary tract symptoms (N40.1: Benign prostatic hyperplasia with lower urinary tract symptoms) S/p TURP 02/10/21. Prostate MRI 05/22/24 [facility] - Prostate volume 161 mL. IPSS 7. Taking Flomax 0.4 mg qd and Dutasteride 0.5 mg qd (started 03/20/25). Good stream. Feels heempties. No longer struggling to empty at night, thinks this may have been related to prostatitis episode. 4. Lower abdominal pain (R10.30: Lower abdominal pain, unspecified) Reports lower back and abdominal pain, worse on left side. Improves when he stands and walks. Onset~1-2 mos ago. Denies any relief with urination. No malodorous urine or pain/difficulty with urination. Discussed pain appears musculoskeletal vs urologic in origin. No hx of kidney stones. Recommended pt to get KUB to rule out kidney stones. Pt agrees with plan. -Obtain KUB. Will call pt with results. 5. History of prostatitis (Z87.438: Personal history of other diseases of male genital organs) Tx'd w/ Doxycycline x28 days 04/2025. UA neg. 6. Urethral meatal stenosis (N35.919: Unspecified urethral stricture, male, unspecified site) S/p Cysto, UD, TURP 02/10/21 - Dilated to 28 Fr. ~no repeat IO dilations PVR (cc): 03/20/25 - 98 04/27/25 - 133 06/19/25 - 124 Using dilator once daily. Emptying has not improved significantly. Recommended repeat dilation to improve this. R/Bs discussed. -Will schedule Cysto with UD. The procedure risks, benefits, details, and treatment alternatives have been discussed with the patient. These include bleeding, infection, recurrent scar in over 50%, need for repeat dilation or other procedures, no symptom relief with dilation, among others. Fu (morecontent not included)...[facility] HospitalComment on above:Result Comment: Electronically Signed By: Lety ALCARAZ MD\.br\Date and Time Signed: 06/19/25 10:05 EDT\.br\Electronically Co-Signed By: Carol Arcos.br\Date and Time Co-Signed: 06/19/25 10:03 EDTNo Panel Informationon [id number] HealthcareAmbulatory Visit Summaryon [id number] Visit SummaryAmbulatory Visit Summary CATHIE ANDERSON :1955 Visit Date:04/27/2025 Ambulatory Visit Instructions Your Diagnosis BPH with obstruction/lower urinary tract symptoms Urethral meatal stenosis Your Care Team Attending Physician - ROMELIA SWANN PA-C Primary Care Physician - FABIAN CARDOZA MD This Is Your Medications List doxycycline (doxycycline hyclate 100 mg Cap) dutasteride (dutasteride 0.5 mg Cap) tamsulosin (tamsulosin 0.4 mg Cap) Contact prescribing physician if questions or concerns ascorbic acid (Vitamin C) atorvastatin (atorvastatin 20 mg Tab) bifidobacterium-lactobacillus (Nature's Bounty Probiotic) bimatoprost ophthalmic (Lumigan 0.01% [...] (07/13/2022), Percutaneous transluminal laser ablation of varicose veinof lower limb. (06/23/2021), Transurethral resection of prostate (02/10/2021), Cystoscopy (01/07/2021), Colonoscopy. Discharge Vitals Temperature (Temporal Artery) 37 ???C Heart Rate (Peripheral) 88 Respiratory Rate 18 Blood Pressure 137/89 Height 170 cm Height 67 in Weight 106 kg Weight 233.69 lb BMI 36.68 What to do next Scheduled Follow-Up Appointments Sunday 10:00 AM EDT With: Lety ALCARAZ MD Where: [facility] [address] [place], [place] [id number]- Sunday 10:30 AM EST With: Lety ALCARAZ MD Where: [facility] [address] [place] [address]- Medications What How Much When Instructions Changed tamsulosin (tamsulosin 0.4 mg Cap) 2 Capsules By Mouth Every day Duration: 30 Days Pickup at [facility] [id number] Unchanged doxycycline (doxycycline hyclate 100 mg Cap) 1 Capsules By Mouth 2 times a day Duration: 14 Days Pickup at [facility] [id number] Unchanged dutasteride (dutasteride 0.5 mg Cap) 1 Capsules By Mouth Every day Unchanged ascorbic acid (Vitamin C) Every day Contact prescribing physician if questions or concerns Unchanged atorvastatin (atorvastatin 20 mg Tab) 1 Tablets By Mouth Every day Contact prescribing physician if questions or concerns Unchanged bifidobacterium-lactobacillus (Nature's Bounty Probiotic) By Mouth Every day [...] questions or concerns Pharmacy Information [facility] [id number]: [address], [place] [phone] Allergies No Known Allergies Problems Ongoing - [...] signed up for this yet, please contact [employer] (more content not included)...[facility]Select [facility] HospitalUrology Office/Clinic Noteon [id number] Office/Clinic NoteUrology Office/Clinic Note Chief Complaint urgency and frequency [...] improvement while on abx but finishes them tomorrowand isn't back to baseline. Discussed extending another 2 weeks. Pt would like to try this. Risks/benefits/side effects discussed. Rx sent. Also discussed increasing Flomax to 2 caps daily. Pt denies lightheadedness/falls/balance issues/hypotension issues. Risks/benefits/side effects discussed. New Rx sent. Ordered: [id number] Measure Post Void residual urine and/or bladder capacity by US- non-imaging Urnls Dip Stick Auto w/o Microscopy POC 86015 2. Urethral meatal stenosis (N35.919: Unspecified urethral stricture, male, unspecified site) Using dilator once daily. Orders: doxycycline, 100 mg = 1 cap(s), Oral, BID, X 14 day(s), # 28 cap(s), Refills(s) 0, Pharmacy: [facility] [id number], 170, cm, 04/27/25 12:04:00 EDT, Height/Length Dosing, 106, kg, 04/27/25 12:04:00EDT, Weight Dosing tamsulosin, 0.8 mg = 2 cap(s), Oral, Daily, X 30 day(s), # 60 cap(s), Refills(s) 11, Pharmacy: [facility] [id number], 170, cm, 04/27/25 12:04:00 EDT, Height/Length Dosing, 106, kg, 04/27/25 12:04:00 EDT, Weight Dosing Follow-up With When Contact Information KIERAN OWEN, MAGAN Goodwin In [address] [place] [address]- Additional Instructions: Patient Education Benign Prostatic Hyperplasia [...] (07/13/2022), Percutaneous transluminal laser ablation of varicose veinof lower limb. (06/23/2021), Transurethral resection of prostate [...] Recorded SARS-CoV-2 (COVID-19) mRNA-1273 (more content not included)...[facility] HospitalComment on above:Result Comment: Electronically Signed By: ROMELIA SWANN PA-C\.yissel\Date and Time Signed: 04/27/2512:28 EDTAmbulatory Visit Summaryon [id number] Visit SummaryAmbulatory Visit Summary CATHIE ANDERSON :1955 Visit Date:03/20/2025 Ambulatory Visit Instructions Your Diagnosis Elevated PSA Atypical small acinar proliferation of prostate Enlarged lymph node BPH with obstruction/lower urinary tract symptoms Urethral meatal stenosis History of bladder stone Your Care Team Attending Physician - KIERAN OWEN, Lety Alston Primary Care Physician - FABIAN CARDOZA MD This Is Your Medications List dutasteride (dutasteride 0.5 mg Cap) tamsulosin (tamsulosin 0.4 mg Cap) Contact prescribing physician if questions or concerns ascorbic acid (Vitamin C) atorvastatin (atorvastatin 20 mg Tab) bifidobacterium-lactobacillus (Nature's Bounty Probiotic) bimatoprost ophthalmic (Lumigan 0.01% [...] (07/13/2022), Percutaneous transluminal laser ablation of varicose veinof lower limb. (06/23/2021), Transurethral resection of prostate (02/10/2021), Cystoscopy (01/07/2021), Colonoscopy. Discharge Vitals Temperature (Temporal Artery) 37 ???C Heart Rate (Peripheral) 72 Respiratory Rate 18 Blood Pressure 137/89 Height 170 cm Height 67 in Weight 106.2 kg Weight 234.131 lb BMI 36.75 What to do next Scheduled Follow-Up Appointments Sunday 10:30 AM EST With: Lety ALCARAZ MD Where: [facility] [address] [address]- You Need to Schedule the Following Appointments Follow Up with Lety ALCARAZ MD, URL When: Where: [address] [place] [address]- Medications What How Much When Instructions New dutasteride (dutasteride 0.5 mg Cap) 1 Capsules By Mouth Every day Refills: 11 Pickup at [facility] [id number] Unchanged tamsulosin (tamsulosin 0.4 mg Cap) 1 Capsules By Mouth Every day Unchanged ascorbic acid (Vitamin C) Every day Contact prescribing physician if questions or concerns Unchanged atorvastatin (atorvastatin 20 mg Tab) 1 Tablets By Mouth Every day Contact prescribing physician if questions or concerns Unchanged bifidobacterium-lactobacillus (Nature's Bounty Probiotic) By Mouth Every day [...] questions or concerns Pharmacy Information [facility] [id number]: [address], [place] [phone] Allergies No Known Allergies Problems Ongoing - [...] gland that is caused by the normal agingprocess. The prostate may get bigger as a man gets older. The condition is not caused by cancer. The prostate is a walnut-sized gland that is i (more content not included)...NormalSelect Medical [facility] Rehabilitation HospitalUrology Office/Clinic Noteon [id number] Office/Clinic NoteUrology Office/Clinic Note Chief Complaint 7 month f/u [...] and history for this patient from Dr. Alcaraz I have reviewed and verified the staff [...] 7.00 03/03/25 - 7.29 Prostate MRI 05/04/22 [facility] [place] - Prostate volume 136 mL. No evidence of prostate malignancy. Prominent pelvic lymph node measuring 8 mm in short axis. TRUS/bx 07/13/22 - 1 ANUSHA core. TRUS/bx 02/06/23 - neg. PSMA PET scan 04/04/24 [facility] [place] - Enlarged prostate with calcifications. No focal abnormal accumulationnoted to suggest primary prostate malignancy. Subtle osteolytic process along the scapula on L anteriorly with accompanying subtle increased radiotracer accumulation. Metastatic prostate malignancy not excluded. Prostate MRI 05/22/24 [facility] [place] - No evidence of clinically significant prostate cancer. Stable presumedprominent lymph node adjacent to R bladder wall measuring 7mm in short axis. PSA continues to rise. Although two subsequent negative biopsies. Will cont to monitor. He agrees. -PSA in 6 mos 2. 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 3. Enlarged lymph node (R59.9: Enlarged lymph nodes, unspecified) Prostate MRI 05/04/22 [facility] [place] - Prominent pelvic lymph node measuring 8 mm in short axis. PSMA PET scan 04/04/24 [facility] - A few mildly prominent lymph nodes in retroperitoneum and adjacent toR anterior/lateral wall of bladder. Subtle increase radiotracer accumulation within lymph node adjacent to bladder. Nonspecific with a prostate malignancy not excluded. Prostate MRI 05/22/24 [facility] - Stable presumed prominent lymph node adjacent to R bladder wall measuring 7mm in short axis. Reviewed imaging results. No indication for workup at this time. See #1. 4. BPH with obstruction/lower urinary tract symptoms (N40.1: Benign prostatic hyperplasia with lower urinary tract symptoms) S/p TURP 02/10/21. Prostate MRI 05/22/24 [facility] [place] - Prostate volume 161 mL. UA today negative for blood and infection. Taking Flomax 0.4mg qhs. States he voids 4-5x per day. Discussed starting a 5-alpha reductase inhibitor. Pt states he has taken in the past, unable to recall why it was stopped. Likely due to having TURP done. Will have pt start Dutasteride. Reminded pt ofpossible SEs. Discussed with pt that he may require subsequent TURP in the future based on LUTS or if pt would start to have recurrent UTIs/PVRs worsen. -Cont alpha leatha -Add Dutasteride 0.5mg qd -Timed voids to improve PVR 5. Urethral meatal stenosis (N35.919: Unspecified urethral stricture, male, unspecified site) PVR 98 mL. Using a dilator daily. Feels he empties. [1] 6. History of bladder stone (Z87.448: Personal history of other diseases of urinary system) Per pt. No current concerns. Follow-up With When Contact Information KIERAN OWEN, Lety Alston, URL [address] [place] [address]- Additional Instructions: 6 mos w/ PSA Patient Education Benign Prostatic Hyperplasia Prostate Cancer Screening I, Yani Peters, personally scribed for Dr. Alcaraz on 03/20/2025 10:42:25. Electronically signedby wilberto Peters on 03/20/2025 10:42:25. Documentation recorded by the scribYani mendoza, (more content not included)...[facility] HospitalComment on above:Result Comment: Electronically Signed By: Lety ALCARAZ MD\.br\Date and Time Signed: 03/20/25 10:46 EDT\.br\Electronically Co-Signed By: Yani Peters.br\Date and Time Co-Signed: 03/20/2510:43 EDTMHPT PSA, DIAGNOSTICon [id number] and review of laboratory resultsSouth Coastal Health Campus [facility] PROSTATE SPECIFIC ANTIGEN DX7.29 ng/mLHighNINF - 4.00 ng/mLNColumbia Regional Hospital CLINISYNCSaint John's HospitalUrology Office/Clinic Noteon [id number] Office/Clinic NoteUrology Office/Clinic Note Chief Complaint elevated PSA HPI Staff 68 yo male here for 6 mos f/up with PSA. Previous dx: elevated PSA, enlarged lymph node, benign localized hyperplasia of prostate with urinary obstruction, urethral meatal stenosis, proteinuria. Taking Flomax 0.4mg qd. Using meatal dilator daily. PSMA PET 04/04/24 [facility]. MRI of prostate 05/22/24 [facility]. PSA 08/12/24 - 7.00 Dysuria: denies Incomplete [...] and history for this patient from Dr. Alcaraz. I have reviewed and verified the staff [...] 6.81 08/12/24 - 7.00 Prostate MRI 05/04/22 [facility] [place] - Prostate volume 136 mL. No evidence of prostate malignancy. Prominent pelvic lymph node measuring 8 mm in short axis. TRUS/bx 07/13/22 - 1 ANUSHA core. TRUS/bx 02/06/23 - neg. PSMA PET scan 04/04/24 [facility] [place] - Enlarged prostate with calcifications. No focal abnormal accumulationnoted to suggest primary prostate malignancy. Subtle osteolytic process along the scapula on L anteriorly with accompanying subtle increased radiotracer accumulation. Metastatic prostate malignancy not excluded. Prostate MRI 05/22/24 [facility] [place] - No evidence of clinically significant prostate cancer. Stable presumedprominent lymph node adjacent to R bladder wall measuring 7mm in short axis. PSA increased slightly from prior. Can attribute elevated level to large prostate. No indication for further workup given neg MRI, PSMA, and biopsies. Will continue to monitor level. -F/u in 1 yr w/ PSA 2. Enlarged lymph node (R59.9: Enlarged lymph nodes, unspecified) Prostate MRI 05/04/22 [facility] [place] - Prominent pelvic lymph node measuring 8 mm in short axis. PSMA PET scan 04/04/24 [facility] [place] - A few mildly prominent lymph nodes in retroperitoneum and adjacent toR anterior/lateral wall of bladder. Subtle increase radiotracer accumulation within lymph node adjacent to bladder. Nonspecific with a prostate malignancy not excluded. Prostate MRI 05/22/24 [facility] [place] - Stable presumed prominent lymph node adjacent to R bladder wall measuring 7mm in short axis. Reviewed imaging results. No indication for workup at this time. See #1. 3. BPH with obstruction/lower urinary tract symptoms (N40.1: Benign prostatic hyperplasia with lower urinary tract symptoms) S/p TURP 02/10/21. Prostate MRI 05/22/24 [facility] [place] - Prostate volume 161 mL. UA today negative for blood and infection. Taking Tamsulosin 0.4mg qhs. Good stream. Leaks on the way to the bathroom, only if he waits too long. Does not wear pads. Nocturia 2-3x, attributes this tohigh fluid intake. Does not feel urinary habits are bothersome. -Cont Tamsulosin wo changes. Call for refills. 4. Urethral meatal stenosis (N35.919: Unspecified urethral stricture, male, unspecified site) Using a dilator daily. Feels he empties. [1] Follow-up With When Contact Information Lety ALCARAZ MD, URL [facility] [address], [place] [phone] Additional Instructions: 1 yr w/ PSA Patient Education Prostate Cancer Screening Carol Rider, personally scribed for Dr. Alcaraz on 08/25/2024 13:05:46. . Documentation recorded by the Carol ladd, accurately reflects the services(s) I performed and decisions made by me. Authenticated by Dr. Alcaraz on 08/25/2024 13:07:25. Problem List/Past Medical History Ongoing Art (more content not included)...[facility] HospitalComment on above:Result Comment: Electronically Signed By: Lety ALCARAZ MD\.br\Date and Time Signed: 08/25/24 13:07 EST\.br\Electronically Co-Signed By: Carol Arcos\Date and Time Co-Signed: 08/25/24 13:06 ESTMHPT PSA, DIAGNOSTICon [id number] and review of laboratory resultsAbnormalNOCedar County Memorial Hospital PROSTATE SPECIFIC ANTIGEN DX7 ng/mLHighNINF - 4.00 ng/mLNOMS HealthcareCLINISYN NOMS HealthcareNo Panel Informationon [id number] HealthcareMR prostate wo/w conon [id number] prostate wo/w [facility] [place] [address] [place] [address] MRI Report Signed Patient: Cathie Anderson MR#: [id number] : 1955 Acct:[id number] Age/Sex: 68 / M ADM Date: 05/22/24 Loc: Room: Type: [facility] Attending Dr: Lety Alcaraz MD Copies to: Lety Alcaraz MD Ordering Provider: Ltey Alcaraz MD Date of Service: 05/22/24 MR/MR prostate [...] Bal Jr., D.O.05/23/2024 9:42 AM Dictation Location: [place] [address] Transcribed By: [facility] 05/23/24 0942 Dictated By: Jaydon Bal Jr, DO 05/23/24923 Signed By: 05/23/2442NoCannon Memorial Hospital Physician GroupISTAT XRay CREon [id number] GFR> 60.0NormCoral Gables Hospital Physician GroupComment on above:Result Comment: PERFORMED BY: [place] [address] PATHOLOGIST DIESEL LOCOMOTIVE FIRER/FIREMAN ALEXA PASTOR M.D.Performed By: #### ISCRE #### [facility] [address] [place] [address] USANo Panel InformationOrdered By: Lety Alcaraz on [id number] Estimated GFR (eGFR)> 60.0[facility] Whole blood creatinine measurementOrdered By: Lety Alcaraz on 05-22-2024 Creatinine [Mass/Vol]1.3 mg/dLNormal0.6-1.3FOhio State University Wexner [facility] Comment on above:ER/ESD physician is notified/shown all ISTAT results.Critical values may be confirmed by laboratorytesting ifdeemed necessary by ER attending doctor.Result Comment: ER/ESD physician is notified/shown all ISTAT results. Critical values may be confirmed by laboratory testing if deemed necessary by ER attending doctor.Performed By: #### ISCRE #### [facility] [address] [place] [address] USACBC AUTO DIFFon [id number] #0.1 103/ulNormal0.0-0.1[facility]tering [facility] SpringfieldComment on above:Performed By: #### CBC #### [facility] [address] [address] [address] Bebeto Iyerphils/100 WBC (Bld)0.5 %Normal0.2-2.0[facility] Comment on above:Performed By: #### CBC #### [facility] [address] [address] [address] Bebeto Encinas #0.1 103/ulNormal0.0-0.7The [facility] Medical CenterComment on above: Performed By: #### CBC #### [facility] [address] [place] [address] Dr. Bebeto Burciagaosinophils/100 WBC (Bld)1.2 %Normal0.9-7.0The [facility] Comment on above:Performed By: #### CBC #### [facility] [address] [place] [address] Dr. Bebeto Burciagarythrocyte distribution width (RBC) [Ratio]13.7 %Ltakdu93.0-15.0 The [facility] Medical CenterComment on above:Performed By: #### CBC #### [facility] [address] [place] [address] Dr. Bebeto PereaHematocrit (Bld) [Volume fraction]42.1 %Gldffa24.0-54.0The [facility] CenterComment on above:Performed By: #### CBC #### [facility] [address] [place] [address] Dr. Bebeto PereaHemoglobin (Bld) [Mass/Vol]14.0 g/fRQxdiyb34.0-18.0The [facility] CenterComment on above:Performed By: #### CBC #### [facility] [address] [place] [address] Dr. Bebeto Bates #0.07 10e3/ulCritically high0.00-0.03The [facility] Comment on above:Performed By: #### CBC #### [facility] [address] [place] [address] Dr. Bebeto Bates %0.6 %Critically high0.0-0.5The [facility] Medical CenterComment on above:Performed By: #### CBC #### [facility] [address] [place] [address] Dr. Bebeto LynneMPH #2.3 103/ulNormal1.2-3.8The [facility] Medical CenterComment on above:Performed By: #### CBC #### [facility] Laboratory [address] [place] [address] Dr. Bebeto Lynnemphocytes/100 WBC (Bld)20.6 %Gosbyf66.5-60.0The [facility] Medical CenterComment on above:Performed By: #### CBC #### [facility] Laboratory [address] [place] [address] Dr. Bebeto Gaona DIFF REQNONormalThe [facility] Medical CenterComment on above: Performed By: #### CBC #### [facility] Laboratory [address] [place] [address] Dr. Bebeto Cardozo (RBC) [Entitic mass]28.3 ciTwlrsu34.9-34.0The [facility] CenterComment on above:Performed By: #### CBC #### [facility] Laboratory [address] [place] [address] Dr. Bebeto Cardozo (RBC) [Mass/Vol]33.3 g/vHCvellm92.9-35.2[facility] Health SpringfieldComment on above:Performed By: #### CBC #### [facility] Laboratory [address] [place] [address] Dr. Bebeto Cardozo (RBC) [Entitic vol]85.2 dUCkzmpa23.0-94.0[facility] Health SpringfieldComment on above:Performed By: #### CBC #### [facility] Laboratory [address] [place] [address] Dr. Bebeto Delarosa #1.0 103/ulCritically high0.3-0.8ThSelect [facility]ty [facility] Comment on above:Performed By: #### CBC #### [facility] Laboratory [address] [place] [address] Dr. Bebeto Gloriaocytes/100 WBC (Bld)8.7 %Normal1.7-12.0[facility] Comment on above:Performed By: #### CBC #### [facility] Laboratory [address] [place] [address] Dr. Bebeto Tran #7.7 103/ulCritically high1.4-6.5ThSelect Medical Specialty Hospital - [place] Comment on above:Performed By: #### CBC #### [facility] Laboratory [address] [place] [address] Dr. Bebeto Ordoñezutrophils/100 WBC (Bld)68.4 %Omzlyp32.0-75.0[facility] Health SpringfieldComment on above:Performed By: #### CBC #### [facility] Laboratory [address] [address] [address] Bebeto PereaPlatelet mean volume (Bld) [Entitic vol]9.3 fLCritically low 9.5-13.5The [facility] CenterComment on above:Performed By: #### CBC #### [facility] Laboratory [address] [place] [address] Dr. Bebeto PereaPLT313 103/bgPgtgll912-394Ptj [facility] CenterComment on above: Performed By: #### CBC #### [facility] [address] [address] [address] Bbeeto PereaRBC4.94 106/ulNormal4.70-6.10The [facility] CenterComment on above:Performed By: #### CBC #### [facility] Laboratory [address] [place] [address] Dr. Bebeto PereaWBC11.3 103/ulCritically high4.0-11.0The [facility] Medical CenterComment on above:Performed By: #### CBC #### [facility] [address] [address] [address] Bebeto PereaCovid-19 PCR ([facility])on 83-69-8031XYLG-CoV-2 (COVID-19) RNA SILVINA+probe Ql (Unsp spec)Not detectedNormalNOT DETECTEDThe [facility] Comment on above:Result Comment: This test is not yet approved or cleared by the [place] FDA. When there are no FDA-approved or cleared tests available, and other criteria are met, FDA can make tests available under an emergency access mechanism called an Emergency Use Authorization (EUA). The EUA for this test is supported by the [place] of Health and Human Service's (HHS's) declaration that circumstances exist to justify the emergency use of in vitro diagnostics for the detection and/or diagnosis of the virus that causes COVID- 19. This EUA will remain in effect (meaning [...] of clinical signs and symptoms consistent with SARS-CoV-2.Performed By: #### CVDTBH #### [facility] Laboratory [address] [place] [address] Dr. Bebeto LaiF CHEM 8 (BAS METB)on 38-05-9572Sdhee gap [Moles/Vol]12.0 mmol/LNormalThe [facility] Medical CenterComment on above:Performed By: #### BMP #### [facility] Laboratory [address] [place] [address] Dr. Bebeto PereaCalcium [Mass/Vol]9.0 mg/dLNormal8.5-10.1The [facility] Comment on above:Performed By: #### BMP #### [facility] Laboratory [address] [place] [address] Dr. Bebeto PereaChloride [Moles/Vol]105 mmol/LToilxf76-097Pdy [facility] Comment on above:Performed By: #### BMP #### [facility] Laboratory [address] [place] [address] Dr. Bebeto PereaCO2 [Moles/Vol]28.8 mmol/ZHtudme05.0-32.0[facility] Comment on above:Performed By: #### BMP #### [facility] Laboratory [address] [place] [address] Dr. Bebeto PereaCreatinine [Mass/Vol]1.22 mg/dLNormal0.70-1.30The [facility] CenterComment on above:Performed By: #### BMP #### [facility] Laboratory [address] [place] [address] Dr. Bebeto BurciagaGFR-AF SWEDISH>60Normal>=60The [facility] Medical CenterComment on above:Performed By: #### BMP #### [facility] [address] [place] [address] Dr. Bebeto BurciagaGFR-NON AF YDOVFQIY51 mL/min/1.32j6Atweap>=60The [facility] Medical CenterComment on above:Performed By: #### BMP #### [facility] [address] [address] [address] Bebeto PereaGlucose [Mass/Vol]88 mg/yUZbnkaa36-483Jfw [facility] Comment on above:Performed By: #### BMP #### [facility] Laboratory [address] [address] [address] Bebeto PereaPotassium [Moles/Vol]3.8 mmol/LNormal3.5-5.1The [facility] Comment on above:Performed By: #### BMP #### [facility] Laboratory [address] [place] [address] Dr. Bebeto PereaSodium [Moles/Vol]142 mmol/YIyrrne218-467Rbs [facility] Comment on above:Performed By: #### BMP #### [facility] Laboratory [address] [place] [address] Dr. Bebeto PereaUrea nitrogen [Mass/Vol]30.0 mg/dLCritically high7.0-18.0The [facility] Medical CenterComment on above:Performed By: #### BMP #### [facility] Laboratory [address] [place] [address] Dr. Bebeto Mullins nitrogen/Creatinine [Mass ratio]24.6 mg/mgNoSt. Charles HospitalComment on above:Performed By: #### BMP #### [facility] Laboratory [address] [place] [address] Dr. Bebeto BlankIMElars 33-91-1119FPG Coag (PPP) [Relative time]1.05 {INR} NormalThe [facility] Medical CenterComment on above:Performed By: #### PT, PTT #### [facility] Laboratory [address] [place] [address] Dr. Bebeto Gudino GUIDELINESSEE BELOWKettering Health MiamisburgComment on above:Result Comment: DESIRED INR: 2.0 - 3.0 CONDITIONS NOT LISTED BELOW 2.5 - 3.5 FOR PROSTHETIC HEART VALVE REPLACEMENT 2.5 - 3.5 RECURRENT THROMBOSIS Performed By: #### PT, PTT #### [facility] [address] [place] [address] Dr. Bebeto PereaPT Coag (PPP) [Time]11.3 sNormal9.0-11.6The [facility] Comment on above:Performed By: #### PT, PTT #### [facility] [address] [place], [place] [address] Dr. Bebeto Zapata 93-08-5348tKTY Coag (Bld) [Time]26.4 nXwemcg10.3-36.2[facility] SpringfieldComment on above:Performed By: #### PT, PTT #### [facility] [address] [place], [place] [address] Dr. Bebeto PereaCreatinine (Bld) [Mass/Vol]Ordered By: Lety Alcaraz on 10-08-9178Yciueiaquv [Mass/Vol]1.5 mg/dL0.6-1.3FOhio State University Wexner Medical Center Comment on above:ER/ESD physician is notified/shown all ISTAT results. Critical values may be confirmed by laboratory testing if deemed necessary by ER attending doctor.No Panel InformationOrdered By: Lety Alcaraz on 36-96-8383IWP Estimated GFR [address] StreetComment on above:GFR estimated reference range: According to KDOQI guidelines, <60 ml/min/1.73m2 is sufficient todiagnose a patient with chronic kidney disease.POC Estimated GFR Non-[address] Gill StreetXR Hip Complete Left*on 09-43-0528VP Hip Complete Left*FINDINGS: Mild to moderate superior hip joint space loss. Small left pincer deformity. No significant CAM deformity. Bilateral small os acetabuli, non-acute. IMPRESSION: 1. Mild to moderate osteoarthritis. Report reported and signed by Jaydon Bernal on 02/16/2022 1242NormalNorthern [facility] SpecialistComplete Blood Count with Auto Diffon 23-42-3812Lulfhaywj (Bld) [#/Vol]0.02 10*3/uLNormal0.00-0.20Northern [facility]walk HospitalComment on above:Performed By: #### CMP, CBCAD, LIPD #### [facility] [address] [place], [place] [id number]/100 WBC (Bld)0.4 %NormalNorthern [place] Medical SpecialistComment on above:Performed By: #### CMP, CBCAD, LIPD #### [facility] [address] [place], [place] [id number] (Bld) [#/Vol]0.03 10*3/uLNormal0.02-0.50NoKettering Health Behavioral [facility] Center SpecialistComment on above:Performed By: #### CMP, CBCAD, LIPD #### [facility] [address], [place] [id number]/100 WBC (Bld)0.6 %NormalTrinity Health System Twin [facility] SpecialistComment on above:Performed By: #### CMP, CBCAD, LIPD #### [facility] [address] [place], [place] [id number] distribution width (RBC) [Ratio]13.7 %Normal 11.0-15.0[facility] SpecialistComment on above:Performed By: #### CMP, CBCAD, LIPD #### [facility] [address], [place] [id number] (Bld) [Volume fraction]37.4 %Low38.5-50.0[facility] SpecialistComment on above:Performed By: #### CMP, CBCAD, LIPD #### [facility] [address], [place] [id number] (Bld) [Mass/Vol]12.4 g/dLLow13.0-17.1NorthUniversity Hospitals [facility] SpecialistComment on above:Performed By: #### CMP, CBCAD, LIPD #### [facility] [address], [place] [id number] (Bld) [#/Vol]1.8 10*3/uLNormal0.9-3.9[facility] SpecialistComment on above:Performed By: #### CMP, CBCAD, LIPD #### [facility] [address], [place] [id number]/100 WBC (Bld)32.8 %NormalNorthern Arkansas Medical SpecialistComment on above:Performed By: #### CMP, CBCAD, LIPD #### [facility] [address], [place] [id number] (RBC) [Entitic mass]27.7 pcNirvnr71.0-33.0NortSumma Health [facility] SpecialistComment on above:Performed By: #### CMP, CBCAD, LIPD #### [facility] [address], [place] [id number] (RBC) [Mass/Vol]33.2 g/qXZddyam70.0-36.0Northonorhealth [facility] centern [facility] SpecialistComment on above:Performed By: #### CMP, CBCAD, LIPD #### [facility] [address], [place] [id number] (RBC) [Entitic vol]84 aRYhpska59-997Cokxjqnh [place] [facility] SpecialistComment on above:Performed By: #### CMP, CBCAD, LIPD #### [facility] [address], [place] [id number] (Bld) [#/Vol]0.4 10*3/uLNormal0.2-0.9NortSumma Health W[facility] - [facility] SpecialistComment on above:Performed By: #### CMP, CBCAD, LIPD #### [facility] [address], [place] [id number]/100 WBC (Bld)6.6 %NormalNortSumma Health Wadsworth - Rittman Medical Center SpecialistComment on above:Performed By: #### CMP, CBCAD, LIPD #### [facility] [address], [place] [id number] (Bld) [#/Vol]3.2 10*3/uLNormal1.5-7.8NortACMC Healthcare [facility] Glen[facility] Medical SpecialistComment on above:Performed By: #### CMP, CBCAD, LIPD #### [facility] [address], [place] [id number]/100 WBC (Bld)59.2 %NormalNortSumma Health Wadsworth - Rittman Medical Center SpecialistComment on above:Performed By: #### CMP, CBCAD, LIPD #### [facility] [address], [place] [id number] mean volume (Bld) [Entitic vol]9.70 fLNormal 7.50-12.50NoKettering Health Behavioral Medical Center SpecialistComment on above:Performed By: #### CMP, CBCAD, LIPD #### [facility] [address], [place] [id number] (Bld) [#/Vol]264 10*3/gJTrcteg920-113Pnfoagtx [place] [facility] SpecialistComment on above:Performed By: #### CMP, CBCAD, LIPD #### [facility] [address], [place] [id number] (Bld) [#/Vol]4.47 10*6/uLNormal4.20-5.80NortSumma Health W[facility] SpecialistComment on above:Performed By: #### CMP, CBCAD, LIPD #### [facility] [address], [place] [id number]-VB25.9 oARsxzbw43.0-50.0NortSumma Health Wadsworth - Rittman Medical CenterLoad Out Worker Comment on above:Performed By: #### CMP, CBCAD, LIPD #### [facility] [address], [place] [id number] (Bld) [#/Vol]5.3 10*3/uLNormal3.8-11.0NoKettering Health Behavioral Medical Center SpecialistComment on above:Performed By: #### CMP, CBCAD, LIPD #### [facility] [address], [place] [id number] Metabolic Panelon 50-59-7210Zkryiyj [Mass/Vol] 4.2 g/dLNormal3.6-5.1NortherGeorgetown Behavioral Hospital SpecialistComment on above:Performed By: #### CMP, CBCAD, LIPD #### [facility] [address], [place] [id number]/Globulin [Mass ratio]1.8 {ratio}Normal1.0-2.5NoKettering Health Behavioral Medical Center SpecialistComment on above:Performed By: #### CMP, CBCAD, LIPD #### [facility] [address], [place] [id number] [Catalytic activity/Vol]49 U/OLsdqfp14-074Lzotjhtf [facility] SpecialistComment on above:Performed By: #### CMP, CBCAD, LIPD #### [facility] [address], [place] [id number] [Catalytic activity/Vol]20 U/LNormal9-46NortSumma Health Wadsworth - Ritt[facility] SpecialistComment on above:Result Comment: 09/14/2021 Female reference range changed.Performed By: #### CMP, CBCAD, LIPD #### [facility] [address], [place] [id number] gap [Moles/Vol]16 mmol/HXiahna60-38Uzqeytet [place] [facility] SpecialistComment on above:Result Comment: Effective 10/20/2019 reference range changed.Performed By: #### CMP, CBCAD, LIPD #### [facility] [address], [place] [id number] [Catalytic activity/Vol]20 U/CGnlbzr22-83Uzcwcflh [place] [facility] SpecialistComment on above:Performed By: #### CMP, CBCAD, LIPD #### [facility] [address], [place] [id number] [Mass/Vol]0.56 mg/dLNormal0.30-1.20[facility]onorhealth [facility] centern [place] [facility] SpecialistComment on above:Performed By: #### CMP, CBCAD, LIPD #### [facility] [address], [place] [id number]/CREA22 RatioNormal6-22NortACMC Healthcare [facility] Load Out Worker Comment on above:Performed By: #### CMP, CBCAD, LIPD #### [facility] [address], [place] [id number] [Mass/Vol]9.3 mg/dLNormal8.6-10.2[facility] [place] [facility] SpecialistComment on above:Performed By: #### CMP, CBCAD, LIPD #### [facility] [address], [place] [id number] [Moles/Vol]103 mmol/JXhwldd74-969Dyhkydlc [place] [facility] SpecialistComment on above:Performed By: #### CMP, CBCAD, LIPD #### [facility] [address], [place] [id number] [Moles/Vol]25 mmol/FFtnrrm53-93Dbyohafg [place] [facility] SpecialistComment on above:Performed By: #### CMP, CBCAD, LIPD #### [facility] [address], [place] [id number] [Mass/Vol]1.1 mg/dLNormal0.7-1.4Northonorhealth [facility]ern [facility] SpecialistComment on above:Performed By: #### CMP, CBCAD, LIPD #### [facility] [address], [place] [id number] mL/min/1.05c5Vzchok>60NortSumma Health [facility] SpecialistComment on above:Performed By: #### CMP, CBCAD, LIPD #### [facility] [address], [place] [id number] mL/min/1.92w3Qmciht>60NortSumma Health [facility] SpecialistComment on above:Performed By: #### CMP, CBCAD, LIPD #### [facility] [address], [place] [id number] (S) [Mass/Vol]2.3 g/dLNormal1.9-3.7Northonorhealth [facility]ern [facility] SpecialistComment on above:Performed By: #### CMP, CBCAD, LIPD #### [facility] [address], [place] [id number] [Mass/Vol]116 mg/aMSopo51-73Zrwvjdzi [place] [facility] SpecialistComment on above:Result Comment: For FASTING Glucose --- ADA reference ranges: Normal 65-99 mg/dl Prediabetes 100-125 Diabetes >/= 126Performed By: #### CMP, CBCAD, LIPD #### [facility] [address], [place] [id number] [Moles/Vol]3.8 mmol/LNormal3.5-5.5NoKettering [facility] Behavioral [facility] Center SpecialistComment on above:Performed By: #### CMP, CBCAD, LIPD #### [facility] [address], [place] [id number] [Mass/Vol]6.5 g/dLNormal6.1-8.1Northern [facility] SpecialistComment on above:Performed By: #### CMP, CBCAD, LIPD #### [facility] [address], [place] [id number] [Moles/Vol]140 mmol/CChfcei804-462Qencwxmw [place] [facility] SpecialistComment on above:Performed By: #### CMP, CBCAD, LIPD #### [facility] [address], [place] [id number] nitrogen [Mass/Vol]23 mg/dLNormal7-25NoKettering [facility] SpecialistComment on above:Performed By: #### CMP, CBCAD, LIPD #### [facility] [address], [place] [id number] A1Con 27-93-7717LYL627.50NormalNoKettering Health [facility]al [facility] Center SpecialistComment on above:Performed By: #### A1C #### [facility] [address], [place] [id number] (Bld) [Mass fraction]6.0 %Normal4.0-6.0NoKettering Health Behavioral [facility] Center SpecialistComment on above:Performed By: #### A1C #### [facility] [address], [place] [id number] Panelon 97-75-2481Fvaodipxoqd [Mass/Vol]151 mg/dLNormal 125-200NoK[facility] SpecialistComment on above:Result Comment: Low risk < 200mg/dL Borderline risk 201-239 mg/dl High risk > or equal to 240Performed By: #### CMP, CBCAD, LIPD #### [facility] [address], [place] [id number] in HDL [Mass/Vol]32 mg/dLLow>40Northern [facility] SpecialistComment on above:Result Comment: High Cardiovascular Risk HDL <40 mg/dL Low Cardiovascular Risk HDL > or equal to 60 mg/dlPerformed By: #### CMP, CBCAD, LIPD #### [facility] [address], [place] [id number] in LDL [Mass/Vol]94 mg/dLNormalNoKettering [facility] SpecialistComment on above:Result Comment: LDL ATP III CLASSIFICATION LDL less than 100 mg/dl Optimal LDL 100-129 mg/dl Near or above optimal LDL 130-159 Borderline high LDL 160-189 High LDL greater than 189 mg/dl Very HighPerformed By: #### CMP, CBCAD, LIPD #### [facility] [address], [place] [id number] in VLDL [Mass/Vol]25 mg/dLNormalNoKettering [facility] SpecialistComment on above:Performed By: #### CMP, CBCAD, LIPD #### [facility] [address], [place] [id number].total/Cholesterol in HDL [Mass ratio]5 {ratio} NormalNortSumma Health Wadsworth - [facility]itt[facility] SpecialistComment on above:Performed By: #### CMP, CBCAD, LIPD #### [facility] [address], [place] [id number] [Mass/Vol]125 mg/dNPgpdyr36-917Djipyyrm [facility] SpecialistComment on above:Result Comment: TRIG ATPIII CLASSIFICATIONS TRIG less than 150 mg/dl Normal TRIG 150-199 mg/dl Borderline High TRIG 200-500 mg/dl High TRIG greather than 500 mg/dl Very HighPerformed By: #### CMP, CBCAD, LIPD #### [facility] [address], [place] [id number] Chest 2 Views*on [id number] Chest 2 Views*HISTORY: Cough, congestion FINDINGS: No acute cardiac or pulmonary disease is identified. No worrisome mass lesions or infiltrates are seen. No pulmonary edema or pneumothorax is present. Cardiac silhouette size is normal. Skeletal structures are unremarkable. IMPRESSION: No acute cardiac or pulmonary disease. Report reported and signed by Jaydon Bernal on 01/24/2022 1412NormalBanning [facility] Hospital Load Out Worker Vital Signs Date TimeVital SignValuePerforming DsiwrvhfiUlltrwqi68-88-4012 12:22-0500Body bmrqaj431.[address]11-03-2025 12:22-0500Body mass index (BMI) [Ratio]35.08 kg/m2Pmh [address] [place], [place] 1521311-03-2025 12:22-0500Body nompcp669.[address] [place], [place] 1521310-27-2025 13:42-0400Body mass index (BMI) [Ratio]35.65 kg/r9GbqauumFaiza Petersen SLIDE FASTENER REPAIRER-CAREGIVER ASSISTED LIVING Work Phone: [facility]10-27-2025 13:42-0400Body prupnv862.5 kgFaiza Petersen SLIDE FASTENER REPAIRER-CAREGIVER ASSISTED LIVING Work Phone: [facility]10-27-2025 13:42-0400Diastolic blood vmqdpwee99 mm[Hg]Faiza Petersen SLIDE FASTENER REPAIRER-CAREGIVER ASSISTED LIVING Work Phone: [facility]10-27-2025 13:42-0400Heart rate 71 /minFaiza Petersen SLIDE FASTENER REPAIRER-CAREGIVER ASSISTED LIVING Work Phone: [facility]10-27-2025 13:42-0400Systolic blood kjfhugpr513 mm[Hg]Faiza Petersen SLIDE FASTENER REPAIRER-CAREGIVER ASSISTED LIVING Work Phone: [facility]09-08-2025 09:40-0400Body zfezvd655.53 cmFabian Cardoza MD Work Phone: [facility]09-08-2025 09:40-0400 Body mass index (BMI) [Ratio]35.1 kg/m2Fabian Cardoza MD Work Phone: [facility]09-08-2025 09:40-0400 Body gqyokyyjttm58.8 [degF]Fabian Cardoza MD Work Phone: [facility]09-08-2025 09:40-0400 Body .54 kgFabian Cardoza MD Work Phone: 1(059)910-[address] [place], [place] 5318509-08-2025 09:40-0400 Diastolic blood xeriukzs55 mm[Hg]Fabian Cadroza MD Work Phone: [phone])[address]09-08-2025 09:40-0400 Heart rate66 /minFabian Cardoza MD Work Phone: 1(354)[address]09-08-2025 09:40-0400 Respiratory rate16 /minFabian Cardoza MD Work Phone: [phone])[address]09-08-2025 09:40-0400 SaO2% (BldA) [Mass fraction]95 %Fabian Cardoza MD Work Phone: [phone])[address]09-08-2025 09:40-0400 Systolic blood rwsiumfd757 mm[Hg]Fabian Cardoza MD Work Phone: 1(666)202-[address] [place], [place] 5318506-16-2025 10:02-0400 Body gwiley166.3 cmFabian Cardoza MD Work Phone: [facility] HospitalMwowmqqdil75-70-6328 10:02-0400Body mass index (BMI) [Ratio]34.26 kg/m2Fabian Cardoza MD Work Phone: [facility] HospitalSfxzxzcugf90-43-8636 10:02-0400Body temperature 97.5 [degF]Fabian Cardoza MD Work Phone: [facility] HospitalSoeonsclde00-60-7946 10:02-0400Body lngkun218.23 kgFabian Cardoza MD Work Phone: [facility] HospitalQffcudktuk24-19-7002 10:02-0400Diastolic blood mm[Hg]Fabian Cardoza MD Work Phone: [facility] HospitalDdrgobdudv10-26-7308 10:02-0400Heart rate64 /min Fabian Cardoza MD Work Phone: 1([phone] [place], [place] [address]Dosiyxlrpi19-00-8977 10:02-0400Respiratory rate18 /minFabian Cardoza MD Work Phone: [facility] HospitalCdcchoxmca40-60-0345 10:02-3748ThR7% (BldA) [Mass fraction]94 %Fabian Cardoza MD Work Phone: [facility] HospitalUciyziajxi29-68-4411 10:02-0400Systolic blood kvqhdgfe739 mm[Hg]Fabian Cardoza MD Work Phone: 1(002)[address] [place], [place] 2515412-06-2024 10:00-0500Body wktuls214.3 cmFabian Cardoza MD Work Phone: [phone])[address] [place], [place] 2515412-06-2024 10:00-0500Body mass index (BMI) [Ratio]32.19 kg/m2Fabian Cardoza MD Work Phone: [phone])[facility] [place], [place] [address]Hisrydjjte86-31-9565 10:00-0500Body temperature 97.81 [degF]Fabian Cardoza MD Work Phone: [phone])[facility] [place], [place] [address]Houyqvhgoz20-96-1598 10:00-0500Body cbazqb39.88 kgFabian Cardoza MD Work Phone: [phone] [place], [place] [address]Pzkbvnvxzh48-96-3361 10:00-0500Diastolic blood ryvoeihp88 mm[Hg]Fabian Cardoza MD Work Phone: 1(310)[address] [place], [place] [address]15412-06-2024 10:00-0500Heart rate79 /min Fabian Cardoza MD Work Phone: [phone])[facility] [place], [place] [address]Whdvfuahas57-28-7685 10:00-0500Respiratory rate22 /minFabian Cardoza MD Work Phone: 1(256)[facility]-[address] [place], [place] [address]Pfaheqsira57-18-4068 10:00-8609FbL2% (BldA) [Mass fraction]97 %Fabian Cardoza MD Work Phone: [facility] HospitalAeydbidtmr73-35-9283 10:00-0500Systolic blood nqlqkezd772 mm[Hg]Fabian Cardoza MD Work Phone: [phone] [place], [place] [address]Ixbddcwujn50-39-8739 12:24-0500Blood Pressure LocationPatrick KIERAN [facility]11-11-2024 12:24-0500Body ggjlcysfjco77.6 [degF]Lety ALCARAZ [facility]11-11-2024 12:24-0500Diastolic blood xflkuixt89 mm[Hg]Lety ALCARAZ [facility]11-11-2024 12:24-0500Heart rate68 /minPatrick ALCARAZ [facility]11-11-2024 12:24-0500Respiratory rate17 /minPatrick KIERAN [facility]11-11-2024 12:24-0500Systolic blood wohhklfa056 mm[Hg]Lety ALCARAZ [facility]10-17-2024 10:18-0400Body euzoci541.8 cmFabian Cardoza MD Work Phone: [facility] HospitalEkulhmaaap89-98-3159 10:18-0400Body mass index (BMI) [Ratio]31.42 kg/m2Fabian Cardoza MD Work Phone: [facility] HospitalGxnuytmehk15-56-8880 10:18-0400Body temperature 97.3 [degF]Fabian Cardoza MD Work Phone: [facility] HospitalGrukbyqlwl50-55-3459 10:18-0400Body uqiyau89.34 kgFabian Cardoza MD Work Phone: [facility] HospitalZixvrhxfyx50-20-9791 10:18-0400Diastolic blood mm[Hg]Fabian Cardoza MD Work Phone: [place] [address]Blbzsxdhim74-33-2322 10:18-0400Heart rate68 /min Fabian Cardoza MD Work Phone: [facility] HospitalZyvobvvjdw22-92-7474 10:18-0400Respiratory rate20 /minFabian Cardoza MD Work Phone: [facility] HospitalOrdyalbkbf27-48-5467 10:18-7459FkW9% (BldA) [Mass fraction]98 %Fabian Cardoza MD Work Phone: [facility] HospitalMwoktpbbxl46-55-2704 10:18-0400Systolic blood fwaqpdzs865 mm[Hg]Fabian Cardoza MD Work Phone: [facility] HospitalYcqpikpsnd06-70-2794 10:43-0400Body ijeiwp529.26 cmMD Fabian Cardoza Work Phone: [facility]06-21-2024 10:43-0400 Body fbdywv66.25 kgMD Fabian Cardoza Work Phone: [facility]06-03-2024 09:53-0400 Blood Pressure LocationPatricashwin ALCARAZ [facility]06-03-2024 09:53-0400Body yerlqstykoq96.6 [degF]Lety ALCARAZ [facility]06-03-2024 09:53-0400Diastolic blood nkhytkjm23 mm[Hg]Lety ALCARAZ [facility]06-03-2024 09:53-0400Heart rate70 /minPatrick ALCARAZ [facility]06-03-2024 09:53-0400Respiratory rate16 /minPatrick ALCARAZ [facility]06-03-2024 09:53-0400Systolic blood wwfathld455 mm[Hg]Lety ALCARAZ [facility]05-15-2023 10:57-0400Blood Pressure LocationPatrick ALCARAZ [facility]05-15-2023 10:57-0400Diastolic blood ukrzxkox13 mm[Hg]Lety ALCARAZ [facility]05-15-2023 10:57-0400Heart rate88 /minPatrick ALCARAZ [facility]05-15-2023 10:57-0400Respiratory rate16 /minPatrick ALCARAZ [facility]05-15-2023 10:57-0400Systolic blood hewgmyuq507 mm[Hg]Lety ALCARAZ [facility]10-10-2022 09:47-0400Blood Pressure LocationPatrick ALCARAZ [facility]10-10-2022 09:47-0400Diastolic blood borcirrn41 mm[Hg]Lety ALCARAZ [facility]10-10-2022 09:47-0400Heart rate71 /minPatrick ALCARAZ [facility]10-10-2022 09:47-0400Respiratory rate16 /minPatrick ALCARAZ [facility]10-10-2022 09:47-0400Systolic blood hphzcyil182 mm[Hg]Lety ALCARAZ [facility]07-08-2022 10:53-0400Diastolic blood mm[Hg]Lety ALCARAZ [facility] 07-08-2022 10:53-0400Mean blood fexizdqu899 mm[Hg] Lety ALCARAZ [facility] 07-08-2022 10:53-0400Systolic blood mm[Hg] Lety ALCARAZ [facility] 07-08-2022 10:33-0400Blood Pressure LocationPaleti ALCARAZ [facility] 07-08-2022 10:33-0400Diastolic blood vsxyqonj448 mm[Hg] Lety ALCARAZ [facility] 07-08-2022 10:33-0400Heart rate75 /minLety ALCARAZ [facility] 07-08-2022 10:33-0400Systolic blood ayepavtw581 mm[Hg] Lety ALCARAZ [facility] 09-24-2021 12:40-0400Body yhjyvv679.53 Lester Ojeda Other [employer] Other 09-24-2021 12:40-0400Body mass index (BMI) [Ratio] 33.94 kg/q2UwguitRocio Ojeda Other [employer] Other 09-24-2021 12:40-0400Body rgnpxoedwvq63.5 [degF]Rocio Ojeda Other [employer] Other 09-24-2021 12:40-0400Body .78 kgRocio Ojeda Other [employer] Other 09-24-2021 12:40-0400Diastolic blood vtkvqevd08 mm[Hg] Rocio Wheatmond Other [employer] Other 09-24-2021 12:40-0400Respiratory rate18 /minRocio Ojeda Other [employer] Other 09-24-2021 12:40-9790GlI4% (BldA) [Mass fraction]95 % Rocio Ojeda Other [employer] Other 09-24-2021 12:40-0400Systolic blood hyerhgdj548 mm[Hg] Rocio Ojeda Other [employer] Other Encounters Encounter DateEncounter TypeCare ProviderFacilityStart: 08-24-2025 End: 32-33-6011Ivdwlkjaaw and management of inpatientMICHAEL E [facility]: 08-17-2025 End: 90-80-0167ivodzasrysZwj Pat Phone Call Provider [address] [place] [address] - Pre AdmitStart: 08-10-2025 End: 81-63-7260Xclsbo outpatient new 30 minutesJemarc Petersen SLIDE FASTENER REPAIRER-CAREGIVER ASSISTED LIVING Work Phone: [facility] SurgeryComment on above: Encounter for colonoscopy due to history of colonic polyp (Primary Dx); Generalized abdominal pain; HeartburnStart: 08-10-2025 End: 63-82-6224fcdxkpcymhOJSZLLASt. [facility] Start: 07-21-2025 End: 85-82-6413evcgsnobrcCunwudy R WATERSFacility:FTMCStart: 06-22-2025 ambulatoryVALLEYWISE [facility] MARYVALE ALEXISKettering Health Troytart: 06-22-2025 End: 08-20-5876nbuqdcarggTzow Naderer MD Work Phone: [facility] Work Phone: Start: 06-22-2025 End: 87-78-7410Itpobie encounter procedureFabian Cardoza MD-[facility] Work Phone: Start: 06-19-2025 End: 74-83-8034ptbyrmqrlsQklctgk R WATERSFacility:EU BellevueStart: 06-19-2025 End: 45-27-6257Ftklket encounter procedureLety ALCARAZ [facility] start: 06-11-2025 End: 31-72-7508Eshxytmarilyn Eduardo MD Work Phone: noNY [facility]ju DermatologyStart: 06-11-2025 End: 03-58-9107Zbexgj flowsheetBenedicto Eduardo MD Work Phone: [facility] DermatologyStart: 06-11-2025 End: 61-94-2797Jdotkw outpatient visit 15 minutesEmkayley Eduardo MD Work Phone: noms Juju DermatologyComment on above:Seborrheic keratosis (Primary Dx); Capillary angioma; Lentigines; Actinic keratosisStart: 06-11-2025 End: 52-61-2028dgxlfbluxzRORVU A PETITTINot AvailableStart: 04-27-2025 End: 80-16-8198euavswihyfDOXNRFMW E PERRYFacility:EU tart: 04-27-2025 End: 64-24-6244Dwwznrk encounter procedureROMELIA SWANN [facility] start: 03-30-2025 End: 49-42-2286Mzyiou Brandon Cardoza MD Work Phone: [facility] CWM FMStart: 03-30-2025 End: 15-01-5365Keuerb flowsShilpa Cardoza MD Work Phone: [facility] CWM FMStart: 03-30-2025 End: 26-54-9510Bgbipf outpatient visit 25 minutesMarrobin Cardoza MD Work Phone: [facility] CWM FMComment on above:Essential hypertension, benign (Primary Dx); Degenerative lumbar spinal stenosis; Cervical spondylolysis; Gastroesophageal reflux disease without esophagitis; BPH without urinary obstruction; Prediabetes; Venous insufficiency of both lower extremities; Class 1 obesity due to excess calories with serious comorbidity and body mass index (BMI) of 32.0 to 32.9 in adult; Dyslipidemia ; Encounter for long-term (current) use of medicationsStart: 03-30-2025 End: 48-59-9379cxqvyhnmnuFSMG NADERERNot AvailableStart: 03-20-2025 End: 29-67-9568twwrfrwmohDxthrkv R WATERSFacility:EU tart: 03-20-2025 End: 61-69-6497Zgyjptw encounter procedureLety ALCARAZ [facility] start: 03-03-2025 End: 26-79-5158Axftlcvih Result EncounterGeneric External Data ProviderNOMS External Department UnsolicitedStart: 03-03-2025 End: 58-60-7674Illzgaqqs Result EncounterGeneric External Data ProviderNOMS External Department UnsolicitedStart: 02-18-2025 End: 61-31-6388Atidyw Delma Lopezill [facility] Work Phone: noMS CI AUDStart: 02-18-2025 End: 59-67-2782Dphtau flowsDenise Sheets [facility] Work Phone: noMS CI AUDStart: 02-18-2025 End: 59-72-3558ltynttcqbgZUXVFOE A MCGILLNot AvailableStart: 02-18-2025 End: 81-23-9145Vfkwcavv SupportDanitza Sheets [facility] Work Phone: noMS CI AUDComment on above:Asymmetrical sensorineural hearing loss (Primary Dx)Start: 02-17-2025 End: 69-05-6185Urimxuisu encounterDanitza Sheets [facility] Work Phone: noms SH AUDComment on above:SuppliesStart: 02-02-2025 End: 00-39-6925Vyfdrsxkz encounterFabian Cardoza MD Work Phone: [facility]WM FMComment on above:Med RefillStart: 11-03-2024 End: 09-30-8007Lhprhm Gabbi Cardoza MD Work Phone: [facility] CWM FMComment on above:Gastroesophageal reflux disease without esophagitisStart: 09-19-2024 End: 85-51-6023Udfeun Brandon Cardoza MD Work Phone: [facility] FMStart: 09-19-2024 End: 70-87-0545Wpkiud Brandon Cardoza MD Work Phone: [facility] C[facility] FMStart: 09-19-2024 End: 21-08-5264Xniqnjw encounter Tati Cardoza MD Work Phone: [facility] Work Phone: Start: 09-19-2024 End: 72-35-9849Rfuncq follow up visit related to original Marshal Cardoza MD Work Phone: [facility] CWM FMComment on above:Medicare annual wellness visit, subsequent (Primary Dx); Prediabetes; Dyslipidemia (CMS/HCC); Encounter for long-term (current) use of medications; Class 1 obesity due to excess calories with serious comorbidity and body mass index (BMI) of 32.0 to 32.9 in adult; Essential hypertension, benign (CMS/HCC)Start: 09-19-2024 End: 52-22-2465mwycdjzeofALPB NADERERNot AvailableStart: 08-25-2024 End: 36-14-3719nxcffsilvvDrsxnqx R WATERSFacility:EU BellevueStart: 08-25-2024 End: 60-25-4117Wzoazvp encounter procedureLety ALCARAZ [facility] start: 08-12-2024 End: 59-63-7245Tcqpaabzy Result EncounterGeneric External Data ProviderNOMS External Department UnsolicitedStart: 08-12-2024 End: 38-54-8683Bxcjwtlst Result EncounterGeneric External Data ProviderNOMS External Department UnsolicitedStart: 08-11-2024 End: 04-64-7801Bdenxf Gabbi Cardoza MD Work Phone: noMS CWM FMComment on above:Essential hypertension, benign (CMS/HCC)Start: 07-31-2024 End: 95-24-0033Fsrffy Brandon Cardoza MD Work Phone: [facility] FMStart: 07-31-2024 End: 98-45-3861Brcrof Brandon Cardoza MD Work Phone: [facility] FMStart: 07-31-2024 End: 97-28-1351Czjtqg outpatient visit 15 minutesFabian Cardoza MD Work Phone: [facility] FMComment on above:Cervical spondylolysis (Primary Dx)Start: 07-31-2024 End: 32-70-0550qlwtaotglbVRGA NADERERNot AvailableStart: 06-09-2024 End: 89-70-1723Bdhkjh flowsheetEmkayley Eduardo MD Work Phone: noms SWS DERMStart: 06-09-2024 End: 04-04-6625Jsudjt flowsheetEmkayley Eduardo MD Work Phone: noms SWS DERMStart: 06-09-2024 End: 02-87-0171Zrapea outpatient visit 15 minutesEmkayley Eduardo MD Work Phone: noms SWS DERMComment on above:Seborrheic keratosis (Primary Dx); Actinic keratosis; Angioma of skin; LentiginesStart: 05-22-2024 End: 37-64-6949Vnqfqjt encounter procedureMD Fabian Cardoza Work Phone: [facility] [place] Work Phone: Start: 05-22-2024 End: 59-28-8412pfkdtqcmqvNF Marc Naderer Work Phone: [facility] Work Phone: Start: 04-04-2024 End: 35-61-0277vbkaboyioaNQ Marc Naderer Work Phone: [facility] Work Phone: Start: 04-04-2024 End: 86-33-5095Mshtvsy encounter procedureMD Fabian Cardoza Work Phone: [facility]Pet [facility] Work Phone: Start: 03-17-2024 End: 54-94-1473Jlhiexe encounter procedurePaleti ALCARAZ [facility] start: 07-17-2023 End: 52-94-0117remfwqbfuoZGVQRFMM [facility]: 06-19-2023 End: 17-83-6888zztnlwcrujUDPMKMP [facility]: 02-26-2023 End: 15-24-6616Aeeezlb encounter procedurePatricashwin ALCARAZ [facility] start: 02-06-2023 End: 55-75-2495Rawloyx encounter procedurePaleti Alecia ALCARAZ [facility] Start: 01-24-2023 End: 19-40-1139vhvktyddrjMKMNCNW KIERANFacility:N0Xdwxx: 07-24-2022 End: 94-69-9939Xfqyumg encounter procedurePaleti Alecia ALCARAZ [facility] start: 05-02-6654Fwvwavkyh for preprocedural cardiovascular examinationPAHolzer Health Systemtart: 07-13-2022 Encounter for preprocedural laboratory examinationPATHEOAshwin [facility] Hospitaltart: 83-27-5393Ullfmnifp for preprocedural respiratory examination LETY [facility]: 07-13-2022 End: 82-64-8812rgkvnththkYCMTGKK KIERANFacility:T1Uxwwf: 07-11-2022 End: 22-35-9943cotiwmlxfvFCAEIGC KIERANFacility:K7Otpka: 07-11-2022 End: 39-22-1953Gsfakrxnz for preprocedural laboratory examinationPALETI ALCARAZ Facility:S9Zaaen: 06-14-2022 End: 00-63-8825Tbf-admission assessmentPatheoashwin ALCARAZ [facility] Start: 05-04-2022 End: 57-44-3207Beerdlr encounter procedureMD Lety Alcaraz Work Phone: [facility]Start: 04-21-2022 End: 11-83-3228Jdmnffn encounter procedurePatrick R ALCARAZ [facility] start: 04-14-2022 End: 18-26-8110wxsrdchrydJGYTPDJ WATERSFacility:O1Avpvs: 02-76-4776Mjzqmm outpatient new 20 minutesPamela DymondFPG Urgent Care Johann Procedures DateProcedureProcedure DetailPerforming ClinicianStart: 91-06-3569IVXJOOASZXF SKIN LESIONEmkayley Eduardo MD Work Phone: Start: 19-83-6380RJKQ PSA, DIAGNOSTICGeneric External Data ProviderStart: 02-98-4868AKFN PSA, DIAGNOSTICGeneric External Data Provider Start: 72-22-0966COGDXQFXMYG SKIN LESIONEmkayley Eduardo MD Work Phone: Start: 27-15-3996Wmblntfq emission tomographyMD Fabian Cardoza Work Phone: Start: 20-22-2716Augnchnowgu biopsy of prostate using ultrasound guidanceChibwe Start: 23-14-2258IXD screeningExceleraComment on above:Performed By: #### PSAD #### [facility] [address] [place] [address] Dr. Bebeto PereaStart: 00-01-5954Qvqgvlmeqqd biopsy of prostate using ultrasound guidanceChibwe Start: 22-62-0023GDY screeningExceleraComment on above:Performed By: #### PSAD #### [facility] [address] [place] [address] Dr. Bebeto Monk: 49-77-6344Zwavhiqzhzc examination of blood, cultureComment on above:Order Comment: [facility] Testing performed at: QPT, [facility], [address] [place] [address], [address] [place] [address], [place], [address], Burial Vault Setter: Chaparro Mcintyre MD [facility] Collection Date/Time: [facility] Results Received Date/Time: [id number] [facility] Reported Date/Time: [id number] Comment: CULTURE, BLOOD Micro Number: [id number] Test Status: Final Specimen Source: Rt arm Specimen Quality: Adequate Result: No growth after 5 days TRANSPORT MEDIA: Aerobic and anaerobic bottle received.Performed By: #### [id number] #### [facility] Default [address] [place] [address]Wpstq: 80-12-8611Nkklgldvufes transluminal laser ablation of varicose vein of lower limbPatrick Cord Project Start: 74-36-7921Vvhmoscrvlfjt prostatectomyPatrick Cord Project Start: 32-60-5398RkbvbfuttmZtzzwwj WATERS Start: 67-63-5445RqflcktltzuVbgzr Petitti MD Work Phone: colonoscopyChibwe Transurethral prostatectomyChibwe Plan of Treatment DateCare ActivityDetailAuthorStart: 55-31-5843Trlpugikr for malignant neoplasm of colonNOMS HealthcareStart: 43-96-1902Fmzzq BMI ScreeningAdult BMI Screening [facility] WhoGotStuff SystemStart: 06-08-4281Mhtsraf ScreeningTobacco Screening [facility] WhoGotSt[employer] SystemStart: 89-25-5002Ybvmn BMI ScreeningAdult BMI Screening [facility] WhoGotSt[employer] SystemStart: 67-32-4491Itdkylq ScreeningTobacco Screening [facility] WhoGotStuff SystemStart: 06-10-2026 End: 73-95-3819Omzibjt encounter xqbsvguyt66/27/2026 11:05 AM EDT Office Visit [facility] [address] [place] [phone] Benedicto Eduardo MD [address] [place] [address] [facility] DermatologyStart: 09-28-2025 ambulatoryAmbulatoryFacility:EU BellevueStart: 09-21-2025 End: 23-75-8144Lanqrqd encounter hmmpfmqje62/08/2025 9:30 AM EST Office Visit [facility] [address] [place] [address] Fabian Cardoza MD [address] [place] [address] [facility] FMStart: 12-06-2025Medicare Annual Wellness (AWV)Medicare Annual Wellness (AWV)[facility] HealthcareStart: 08-24-2025 End: 21-17-2995Ghzjnohzl to same day surgery jzvdws5308/24/2025 10:45 AM EST - 08/24/2025 11:30 AM EST Surgery [facility] [address] [place] [address] Cristy Rodney, DO [address] [place] [address] ESOPHAGOGASTRODUODENOSCOPY DIAGNOSTIC [66399 (CPT )][facility] CampusComment on above:ESOPHAGOGASTRODUODENOSCOPY DIAGNOSTIC [13970 (CPT )]Start: 08-24-2025 End: 01-23-9664Nbzznrjtex ffmmlxxaohnq59/10/2025 10:45 AM EST Anesthesia Event [facility] [address] [place] [address] Casa Corrales, DO [address] [place] [address] [facility] Start: 08-24-2025 End: 33-37-2466Ztmsrgbjinc flx dx w/collj spec when pfrmdCOLONOSCOPY DIAGNOSTIC / SCREENING generalized abdominal pain 08/24/2025 10:45 AM [facility] Start: 08-24-2025 End: 68-49-3251Rfsqxhipzmuxeezjoavmdhxbvd transoral diagnostic ESOPHAGOGASTRODUODENOSCOPY DIAGNOSTIC generalized abdominal pain 08/24/2025 10:45 AM ESTFREMONT SURGERYStart: 94-14-5488Mzjstmjdhc hospital visit by vgknlzpdo06/10/2025 10:45 AM EST Hospital Encounter [facility] - Surgery [address] [place] [address] Cristy Rodney DO [address] [place] [address] [facility] - SurgeryStart: 08-17-2025 End: 68-04-3524cxhsbauugs21/03/2025 2:00 PM EST Support Visit [facility] - Pre Admit [address] [place] [address] [facility] - Pre AdmitStart: 93-51-4647DOQPT-19 Vaccine ( season)COVID-19 Vaccine ( season)[facility] Start: 14-17-8030Ifxxotwju vaccinationNONY HealthcareStart: 06-11-2025 End: 77-95-3059Dmqmchx encounter procedureNOMS SWS DERMComment on above:Arrived Start: 03-30-2025 End: 96-95-3368Gyakj metabolic 1998 panel - Serum or PlasmaBasic metabolic panel Lab Routine Essential hypertension, benign Expected: 03/30/2025 (Approximate), Expires: 03/30/2026NOMS HealthcareComment on above:Expected: 03/30/2025 (Approximate), Expires: 03/30/2026Start: 03-30-2025 End: 90-38-3062ELL W Auto Differential panel - BloodCBC and differential Lab Routine Encounter for long-term (current) use of medications Expected: 03/15 (Approximate), Expires: 03/30/2026NOMS HealthcareComment on above: Expected: 03/30/2025 (Approximate), Expires: 03/30/2026Start: 03-30-2025 End: 49-49-4956Rbdgymoycc A1c/Hemoglobin.total in BloodHemoglobin A1c Lab Routine Prediabetes Expected: 03/30/2025 (Approximate), Expires: 03/30/2026[facility] Work Phone: Comment on above:Expected: 03/30/2025 (Approximate), Expires: 03/30/2026Start: 03-30-2025 End: 58-03-1042Efevidm function 2000 panel - Serum or PlasmaHepatic function panel Lab Routine Encounter for long-term (current) use of medications Expected: 03/30/2025 (Approximate), Expires: 03/30/2026NONY HealthcareComment on above: Expected: 03/30/2025 (Approximate), Expires: 03/30/2026Start: 03-30-2025 End: 76-81-1801Mxdit 1996 panel - Serum or PlasmaLipid panel Lab Routine Dyslipidemia Expected: 03/30/2025 (Approximate), Expires: 03/30/2026[facility] HealthcareComment on above:Expected: 03/30/2025 (Approximate), Expires: 03/30/2026Start: 03-30-2025 End: 48-17-0235Xfkhimjcbqd [Units/volume] in Serum or PlasmaTSH Lab Routine Class 1 obesity due to excess calories with serious comorbidity and body mass index(BMI) of 32.0 to 32.9 in adult Expected: 03/30/2025 (Approximate), Expires: 03/30/2026[facility] HealthcareComment on above:Expected: 03/30/2025 (Approximate), Expires: 03/30/2026Start: 03-30-2025 End: 68-34-9819Wsxdmvd encounter procedureNOMS [facility] FMComment on above:Arrived Start: 03-23-2025 End: 92-09-3182Cjdldfv encounter pdscgpxep06/09/2025 10:00 AM EDT Office Visit [facility] [address] [place] [address] Fabian Cardoza MD [address] [place] [address] [facility] FMStart: 09-19-2024 End: 03-72-4765Pznaf metabolic 1998 panel - Serum or PlasmaBasic metabolic panel Lab Routine Encounter for long-term (current) use of medications Expected: 03/2024 (Approximate), Expires: 09/19/2025[facility] HealthcareComment on above: Expected: 09/19/2024 (Approximate), Expires: 09/19/2025Start: 09-19-2024 End: 56-00-9229AKP W Auto Differential panel - BloodCBC and differential Lab Routine Encounter for long-term (current) use of medications Expected: 03/2024 (Approximate), Expires: 09/19/2025[facility] HealthcareComment on above: Expected: 09/19/2024 (Approximate), Expires: 09/19/2025Start: 09-19-2024 End: 83-40-5372Brhekqkaqr A1c/Hemoglobin.total in BloodHemoglobin A1c Lab Routine Prediabetes Expected: 09/19/2024 (Approximate), Expires: 09/19/2025[facility] Healthcare Work Phone: Comment on above:Expected: 09/19/2024 (Approximate), Expires: 09/19/2025Start: 09-19-2024 End: 29-16-7708Egnquhk function 2000 panel - Serum or PlasmaHepatic function panel Lab Routine Encounter for long-term (current) use of medications Expected: 09/19/2024 (Approximate), Expires: 09/19/2025[facility] HealthcareComment on above: Expected: 09/19/2024 (Approximate), Expires: 09/19/2025Start: 09-19-2024 End: 67-79-8752Akvug 1996 panel - Serum or PlasmaLipid panel Lab Routine Dyslipidemia (CMS/HCC) Expected: 09/19/2024 (Approximate), Expires: 09/19/2025 [facility] HealthcareComment on above:Expected: 09/19/2024 (Approximate), Expires: 09/19/2025Start: 09-19-2024 End: 41-58-1615Pqzdsinojyf [Units/volume] in Serum or PlasmaTSH Lab Routine Class 1 obesity due to excess calories with serious comorbidity and body mass index(BMI) of 32.0 to 32.9 in adult Expected: 09/19/2024 (Approximate), Expires: 09/19/2025N[facility] HealthcareComment on above:Expected: 09/19/2024 (Approximate), Expires: 09/19/2025Start: 09-19-2024 End: 04-16-2803Whcftti encounter procedureNOMS CWM FMComment on above:Arrived Start: 08-19-2024 End: 72-07-7207Wgougia encounter vfjoevufy17/05/2024 11:00 AM EST Office Visit [facility] [address] [place] [address] Fabian Cardoza MD [address] [place] [address] [facility] FMStart: 10-24-2024Medicare Annual Wellness (AWV)Medicare Annual Wellness (AWV)[facility] HealthcareStart: 07-31-2024 End: 23-87-6926CI Cervical spine 2 or 3 ViewsXR cervical spine 2 or 3 views Imaging Routine Cervical spondylolysis Expected: 07/31/2024, Expires: 07/31/2025 [facility] Work Phone: Comment on above:Expected: 07/31/2024, Expires: 07/31/2025Start: 07-31-2024 End: 27-56-1284Xkopoao encounter zlstaakad74/17/2024 10:15 AM EDT Office Visit [facility] [address] [place] [address] Fabian Cardoza MD [address] [place] [address] ArrivedNOMS CWM FMComment on above:ArrivedStart: 88-82-7535Avjymnvgl vaccinationInfluenza Vaccine (#1)[facility] HealthcareStart: 06-09-2024 End: 51-42-3655Wjcdxwu encounter inggucsxe77/26/2024 11:15 AM EDT Office Visit [facility] [address] [place] [address] Benedicto Eduardo MD [address] [place] [address] ArrivedNOMS SWS DERMComment on above:ArrivedStart: 00-83-7977NN Prostate WO and W contrast [facility] Start: 22-23-5233CT prostate wo/w conMR prostate wo/w [facility]art: 94-77-1753UY Prostate WO and W contrast [facility] Work Phone: Start: 95-77-1420GG prostate wo/w conMR prostate wo[facility]w [facility]art: 61-43-1505Fpjwwjzjm aortic aneurysm screeningAbdominal Aortic Aneurysm (AAA) ScreenProFayette County Memorial Hospital SystemStart: 54-22-5045Ydza Risk ScreeningFall Risk ScreeningProFayette County Memorial Hospital SystemStart: 58-93-8977Zzkgjasqvmlu Vaccine: 65+ Years (1 of 1 - PCV)Pneumococcal Vaccine: 65+ Years (1 of 1 - PCV)[facility] HealthcareStart: 66-18-2374GOyO,Tdap and Td Vaccines (1 - Tdap)DTaP,Tdap and Td Vaccines (1 - Tdap)[facility] Start: 92-74-1162Wxafs BMI Follow Up PlanAdult BMI Follow Up PlanProTanner Medical Center [facility] SystemStart: 43-24-1065Nityatgrbz ScreeningDepression ScreeningProFayette County Memorial Hospital SystemStart: 31-30-9219Gailomqdd for malignant neoplasm of colonNONY Healthcare End: 57-23-3584DHU / ColonoscopyEGD / Colonoscopy GI Routine Encounter for colonoscopy due to history of colonic polyp Generalized abdominal pain Heartburn 1 Occurrences starting 08/10/2025 until 08/10/2026[facility] Work Phone: Comment on above:1 Occurrences starting 08/10/2025 until 08/10/2026 Immunizations Immunization DateImmunizationNotesCare MlszshgtLymjidck77-79-2933zbwglmqwy virus vaccine, unspecified formulationBenedicto Eduardo MD Work Phone: [facility]ydup[facility]xxrq[facility]-47-6612lbzupxyeq virus vaccine, unspecified formulationBenedicto Eduardo MD Work Phone: [facility] HospitalBxrbuqjcae26-94-2061DGHW-SxG-1 (COVID-19) mRNA- 1273 vaccinePatrick Cord Project [facility]11-29-2021SARS-CoV-2 (COVID-19) mRNA-1273 vaccinePatrick Cord Project [facility]04-09-2021SARS-CoV-2 (COVID-19) mRNA-1273 vaccinePatrick Cord Project [facility] 03973926-94-6521OOHT-PhZ-0 (COVID-19) mRNA-1273 vaccine Lety ALCARAZ [facility] 10436704-77-2357nyanndbbh virus vaccine, unspecified formulationPatrick Cord Project [facility]11-17-2019influenza virus vaccine, unspecified formulationPatrick ALCARAZ [facility]09-05-2019zoster vaccine recombinantPatrick ALCARAZ [facility]04-17-2019zoster vaccine recombinantPatrick Cord Project [facility]12-17-2018influenza virus vaccine, unspecified formulationPatrick Cord Project [facility]11-20-2017influenza virus vaccine, unspecified formulationPatricashwin ALCARAZ [facility]02-02-2016influenza virus vaccine, unspecified formulationPatrick ALCARAZ [facility]12-03-2014influenza virus vaccine, unspecified formulationPatrick ALCARAZ [facility] Payers DatePayer CategoryPayerPolicy [id number] H[employer]M MEDICARE Member Subscriber Plan / Payer (Effective 2023-Present) Name: Cathie Anderson rank Relation to Subscriber: Self Name: Cathie Anderson Payer ID: [id number] (NAIC) Group ID: [id number] Type: Not on file Address:[address] [id number] 2024Medicare (Managed Care) AN[employer]M MEDICARE ADVANTAGE Member Subscriber Plan / Payer (Effective 2023- Present) Name: Cathie Anderson Relation to Subscriber: Self Name: Cathie Anderson Payer ID: Not on file Group ID: [id number] Type: Not on file Address: [address] [place] [id number] 2024Medicare [id number] [id number] 2.16.840.0.759435.[id number]nonsey Health Insurance [id number] 2.840.1.573869.3.57[id number] 2.840.1.805328.3.57[id number] 2.840.1.557605.3.57[id number] 2.840.1.468928.3.57[id number] 2.840.1.579283.3.57[id number] 2.840.1.131684.3.57[id number] 2.840.1.196196.3.57[id number] 2.840.1.912513.3.57[id number] 2.840.1.029426.3.57[id number] 2.16840.1.498510.3.57[id number] 2.840.1.136995.3.57[id number] 2.16.840.1.621009.3.57[id number] 2.16.840.1.146375.3.57[id number] 2.16.840.1.037643.3.579.2.[id number] 2.16.840.1.200183.3.57[id number] 2.16.840.1.233241.3.579.[id number] 2.16.840.1.038061.3.579.[id number] 2..840.1.631684.3.579.[id number] 2.16.840.1.121935.3.57[id number] 2.16.840.1.160119.3.579.2.531 Social History DateTypeDetailFacilityUnknown if ever smokedGuntown Profyle Other Start: 11-24-2020 End: 46-37-6619Nyo Assigned At [email or web address] Other Start: 04-21-2022 End: 71-71-9360Mfuyxgx smoking statusEx-smoker (finding)[facility] start: 04-75-2539Twk Assigned At [facility]tart: 93-41-4197Hxnsjgs smoking status NHISNever smoked tobacco (finding)[facility] End: 77-16-4879Pdsmghy of tobacco useCurrent smokerNOMS HealthcareStart: 10-15-1977 End: 18-05-9386Midaqkm of tobacco useCigarette SmokerNOMS HealthcareStart: 06-09-2024 End: 05-51-5928Ogfcqbrsc beverage intakeEx-drinker (finding)[facility] Healthcare Start: 11-24-2020 End: 18-23-9133Yxcejqv of Social functionNOMS HealthcareStart: 85-82-5263Psp assigned at birthNot on [facility] HealthcareTobacco smoking statusNeverExecutive Urology of [facility] Mary Hospitalexual OrientationExec[facility] start: 21-89-3106SnqWqys (finding)[facility] Centertart: 40-74-1004Texmier use and exposureSmokeless tobacco non-userMount Carmel Health System SystemStart: 08-10-2025 End: 44-99-2130Fwnxooaha beverage intakeCurrent drinker of alcohol (finding) [facility] SystemHow often do you have a drink containing alcohol?2-4 times a monthMount Carmel Health System SystemStart: 70-30-8321Kbawoya CommentOccasional [facility] Medical Equipment Procedure CodeEquipment CodeEquipment Original TextEquipment IdentifierDatesSt. John'S [facility] Pco Vntrl Ptch 4.6cm Rpl [id number] - [id number] - [id number])[id number], [id number] FDAStart: 01-24-2021 Goals DatePatient GoalDesired Activity/StatePersonal health goal Functional Status SnovUppyqofyqdWgkljsIouygorb08-28-2055Zffvicajsq StatusN/AExec[facility]06-03-2024Functional StatusN/A[facility]05-15-2023Functional StatusN/A [facility]10-10-2022Functional StatusN/A[facility]07-08-2022 Functional StatusN/A[facility] 07-08-2021 to 08-17-2025 Note Date & LqriIaudHzupdqdu24-89-1858 Miscellaneous Notes* Perioperative Nursing Note - Dee Devine RN - 08/17/2025 2:00 PM EST Preoperative Education Checklist- General Surgery date: 08/24/25 Surgery time: 1045 Arrival time: 0845 1. Bring a photo ID and your insurance card with you the day of surgery. You will check in at the main lobby of the [facility]- registration desk is straight ahead as soon as you walk in. Tell them you are here for surgery. 2. If you have a Living Will/Durable Power of Harness Placer for Health Care that is not on [...] after you have bathed. 5. NO nail ghanaian/acrylic on at least one finger. If you are having a hand, wrist or foot surgery then all nail ghanaian and artificial/acrylic nails must be removed from [...] please call the Preadmission Testing office at [phone], Mon.-Fri. 7 a.m.-3 p.m. Leave a voicemail [...] days prior to procedure documented in this encounterMiddletown Hospital11-03-2025 Nurse Note* Perioperative Nursing Note - Dee Devine RN - 08/17/2025 2:00 PM EST Preoperative Education Checklist- General Surgery date: 08/24/25 Surgery time: 1045 Arrival time: 0845 1. Bring a photo ID and your insurance card with you the day of surgery. You will check in at the main lobby of the [facility]- registration desk is straight ahead as soon as you walk in. Tell them you are here for surgery. 2. If you have a Living Will/Durable Power of Harness Placer for Health Care that is not on [...] after you have bathed. 5. NO nail ghanaian/acrylic on at least one finger. If you are having a hand, wrist or foot surgery then all nail ghanaian and artificial/acrylic nails must be removed from [...] please call the Preadmission Testing office at [phone], Mon.-Fri. 7 a.m.-3 p.m. Leave a voicemail [...] Stop taking 0 days prior to procedure [facility]10-27-2025 History of Present illness Narrative* Faizajen Petersen, SLIDE FASTENER REPAIRER-CAREGIVER ASSISTED LIVING - 08/10/2025 1:30 PM EDT Images from the original note were not included. Chief Complaint: History of colon polyps History of Present Illness Cathie Anderson is a 69 y.o. male [...] 10/09/2018 Performed by Brian Almaguer DO at [facility] CYSTOSCOPY EGD N/A 10/09/2018 Performed by Brian Almaguer DO at [facility] REPAIR HERNIA UMBILICAL MESH N/A 01/24/2021 Performed by Fernando Orlando MD at [facility] TURP / TRANSURETHRAL INCISION / DRAINAGE [...] Not At Risk (07/17/2023) Received from [facility] Safety & Environment Within the last year, [...] patient/family/caregiver Referring and communicating with other health child care associate Encounter for colonoscopy due to history of colonic polyp [Z12.11, Z86.0100] GIANA BANKS [facility] General Surgery [place] This note was created with the assistance of a speech recognition program. While intending to generate a timely document that accurately reflects the content of the visit, no guarantee can be provided that every grammatical or spelling mistake has been or will be identified or corrected. Thank you for your understanding. GIANA Banks 08/10/25 1513 documented in this encounterMiddletown Hospital10-07-2025 NotePatient Education Custom Cystoscopy with Urethral Dilation ??? Voiding after the procedure: there may be some pain, urethral bleeding, burning, urgency, frequency and blood tinged urine following the procedure. These symptoms usually resolve within 2-5 days.Drink the amount of fluid it takes to keep the urine pink to yellow or clear in color. Drinking enough water and fluids will help to ease any discomfort after your procedure. ??? If you are having problems that seem out of the ordinary, please call. ??? If unable to contact your physician and you feel it is an emergency, go to the nearest emergency room or call 911 ??? Diet ??? you may resume your normal diet. ??? Activity ??? you may resume your normal activities ??? Call if you have a fever over 100 degreesFisher [facility] 07-[facility]-2025 NoteHistory and Physical Patient: CATHIE ANDERSON Age: 69 years Sex: Male : 1955 Associated Diagnoses: None Author: KIERAN OWEN, Lety Altson Preoperative Information Indication for surgery: Cystoscopy with Urethral dilation. Associated symptoms: BPH with obstruction, and urethral stricture. Accompanied by: No one. Source of history: Self. Chief Complaint BPH with obstruction, and urethral stricture Review of Systems Constitutional: Negative. Eye: Negative. Ear/Nose/Mouth/Throat: Negative. Respiratory: No shortness of breath. Cardiovascular: No palpitations. Genitourinary: BPH with obstruction, and urethral stricture. Hematology/Lymphatics: Negative. Endocrine: Negative. Immunologic: Negative. Neurologic: Alert and oriented X4. Health Status Allergies: Allergic Reactions (Selected) No Known Allergies Current medications: Home Medications (15) Active atorvastatin 20 mg Tab 20 mg = 1 tab(s), Oral, Daily chondroitin , Oral, Daily Cipro 500 mg Tab 500 mg = 1 tab(s), Oral, Daily dutasteride 0.5 mg Cap 0.5 mg = 1 cap(s), Oral, Daily glucosamine , Oral hydrochlorothiazide 25 mg oral tablet , Oral, Daily losartan 100 mg Tab , Oral, Daily Lumigan 0.01% ophthalmic solution 1 drop(s), OPTH, qPM metoprolol 50 mg ER Tab , Oral, Daily Nature's Bounty Probiotic , Oral, Daily omeprazole 20 mg Cap-DR 20 mg = 1 cap(s), Oral, Daily tamsulosin 0.4 mg Cap 0.8 mg = 2 cap(s), Oral, Daily timolol Opth 0.5% Em 15 mL Vitamin C , Daily Vitamin D3 1000 intl units oral capsule , Oral, Daily Problem list: All Problems Arthritis / SNOMED CT 3768749 / Confirmed Deafness / SNOMED CT 87543293 / Confirmed Glaucoma / SNOMED CT 90696715 / Confirmed Head injury / SNOMED CT 342274993 / Confirmed Hypertension / SNOMED CT 6654547769 / Confirmed Dysuria / SNOMED CT 68811083 / Confirmed Benign localized hyperplasia of prostate with urinary obstruction / SNOMED CT 2693501118 / Confirmed Urethral meatal stenosis / SNOMED CT 437439528 / Confirmed BPH with obstruction/lower urinary tract symptoms / SNOMED CT 0976940556 / Confirmed Elevated PSA / SNOMED CT 0691391893 / Confirmed Atypical small acinar proliferation of prostate / SNOMED CT 8296578103 / Confirmed Proteinuria / SNOMED CT 99171796 / Confirmed Enlarged lymph node / SNOMED CT 40559924 / Confirmed History of bladder stone / SNOMED CT 517511866 / Confirmed History of prostatitis / SNOMED CT 9783583344 / Confirmed Lower abdominal pain / SNOMED CT 50805263 / Confirmed Histories Family History: Leukemia Father Procedure history: TRUS/Bx ([id number]) on 02/06/2023 at 67 Years. TRUS/Bx ([id number]) on 07/13/2022 at 66 Years. Percutaneous transluminal laser ablation of varicose vein of lower limb. ([id number]) on 06/23/2021 at 65 Years. Transurethral resection of prostate ([id number]) on 02/10/2021 at 65 Years. Cystoscopy ([id number]) on 01/07/2021 at 65 Years. Colonoscopy ([id number]). Social History Social & Psychosocial Habits Alcohol 06/19/2025 Risk Assessment: Low Risk Tobacco 06/19/2025 Tobacco Use: Former smoker, quit more Smokeless tobacco use: Never Type: Cigarettes Smoking Cessation Yes . Physical Examination General: Alert and oriented, No acute distress. HENT: Normocephalic. Neck: Supple. Respiratory: Respirations are non-labored, Symmetrical chest wall expansion. Cardiovascular: Normal peripheral perfusion. Gastrointestinal: Soft. Genitourinary: BPH with obstruction, and urethral stricture. Musculoskeletal Normal strength. Integumentary: Warm, Dry, [place]. Neurologic: Alert, Oriented. Psychiatric: Cooperative, Appropriate mood & affect. Impression and Plan Diagnosis BPH with urinary obstruction (HEY08-QK N40.1, Working, Medical). Bulbous urethral stricture (UAZ66-GO N35.912, Working, Medical). Condition: Stable. Counseled: Patient, Regarding diagnosis, Regarding treatment.[facility] HospitalComment on above:Result Comment: Electronically Signed By: KIERAN OWEN, Lety Rolle\Date and Time Signed: 07/21/25 08:26 [id number] Hospital Discharge instructions Patient Education 06/19/2025 10:01:10 Urethral Dilation Urethral Dilation Urethral dilation is a procedure to stretch open (dilate) the urethra. The urethra is the tube thatdrains pee (urine) from the bladder out of the body. In females, the urethra opens above the vaginal opening. In males, the urethra opens at the tip of the penis. Urethral dilation is usually done to treat narrowing of the urethra (urethral stricture), which canmake it difficult to pee (urinate). Urethral strictures can be caused by scar tissue, infection, injury, or surgery. Urethral dilation widens the urethra so that you can pee normally. Urethral dilation is done through the opening of the urethra. There are no incisions made during the procedure. Tell a health care provider about: Any allergies you have. All medicines you are taking, including vitamins, herbs, eye drops, creams, and fbxc-ocb-hoayjib medicines. Any problems you or family members have had with anesthesia. Any bleeding problems you have. Any surgeries you have had. Any medical conditions you have. Whether you are or may be . What are the risks? Your health care provider will talk with you about risks. These may include: Bleeding. Infection. A return of urethral stricture, which requires repeating the dilation procedure or more surgery. Damage to the urethra, which may require reconstructive surgery. Allergic reactions to medicines. What happens before the procedure? Medicines Ask your provider about: Changing or stopping your regular medicines. These include any diabetes medicines or blood thinnersyou take. Taking medicines such as aspirin and ibuprofen. These medicines can thin your blood. Do not take them unless your provider tells you to. Taking jbnf-utk-pzhcvdp medicines, vitamins, herbs, and supplements. General instructions Follow instructions from your provider about what you may eat and drink. If you will be going home right after the procedure, plan to have a responsible adult: ?Take you home from the hospital or clinic. You will not be allowed to drive. ?Care for you for the time you are told. Ask your provider: ?How your surgery site will be marked. ?What steps will be taken to help prevent infection. These steps may include: ?Removing hair at the surgery site. ?Washing skin with a soap that kills germs. ?Taking antibiotics. What happens during the procedure? An IV may be inserted into one of your veins. You may be given: ?A local anesthetic to numb your urethral opening. This will be applied as a gel that will also lubricate the opening of the urethra. ?A sedative. This helps you relax. ?Anesthesia. This keeps you from feeling pain. It will make you fall asleep for surgery. A thin tube with a light and camera on the end (cystoscope) will be inserted into your urethra. Your urethra will be rinsed (irrigated) with a germ-free (sterile) water solution. Narrow parts of your urethra will be stretched open using a dilator tool. Your surgeon will start with a very thin dilator, then use wider dilators as needed. A thin tube with an inflatable balloon on the tip may be inserted into your urethra. The balloon may be inflated to help stretch your urethra open. The balloon may be coated with a medicine to help the urethra stay open longer. Your urethra will be irrigated. A catheter will be inserted into your bladder at the end of the procedure. The procedure may vary among providers and hospitals. What happens after the procedure? After the procedure, it is common to have: ?Burning pain when peeing. ?Blood in your pee. ?A need to pee frequently. You will be asked to pee before you leave the hospital or clinic. Your pee flow should improve within a few days. You may have a catheter in your bladder for 2 3 days following your procedure. Follow these instructions at home: Medicines Take oqnb-lld-gusskwn and prescription medicines only as told by your provider. If you were prescribed antibiotics, take them as told by your provider. Do not stop using the antibiotic even if you start to feel better. Ask your provider if the medicine prescribed to you: ?Requires you to avoid driving or using machinery. ?Can cause constipation. You may need to take these actions to prevent or treat constipation: ?Take yvbo-dpj-srkvwgz or prescription medicines. ?Eat foods that are high in fiber, such as beans, whole grains, and fresh fruits and vegetables. ?Limit foods that are high in fat and processed sugars, such as fried or sweet foods. General instructions If you were given a sedative during the procedure, it can affect you for several hours. Do not drive or operate machinery until your provider says that it is safe. If you were sent home with a soft tube (catheter) to help keep your urethra open, follow your provider's instructions about how and when to use it. Drink enough fluid to keep your pee pale yellow. Return to your normal activities as told by your provider. Ask your provider what activities are safe for you. Keep all follow-up visits. Your provider will check your healing and adjust your treatment plan as needed. Contact a health care provider if: Your pee is cloudy and smells bad. You develop new bleeding when you pee. You pass blood clots when you pee. You have pain that does not get better with medicine. You have a fever. Your genital area is swollen, bruised, or discolored. This includes: ?The penis, scrotum, and inner thighs for males. ?The outer genital organs (vulva) and inner thighs for females. Get help right away if: You develop new bleeding that does not stop. You cannot pee. Your catheter stops draining pee. You cannot pee after your catheter is removed. These symptoms may be an emergency. Get help right away. Call 911. Do not wait to see if the symptoms will go away. Do not drive yourself to the hospital. This information is not intended to replace advice given to you by your health care provider. Make sure you discuss any questions you have with your health care provider. Document Revised: 07/26/2023 Document Reviewed: 07/26/2023 [employer] Patient Education 2023 [employer]. Follow Up Care 04/27/2025 12:25:54 With:KIERAN OWEN, Lety Alston, URL Address: [address] [place] [id number] When: Unknown [facility] 09-05-2025 NotePatient Education Urology Urethral Dilation Urethral dilation is a procedure to stretch open (dilate) the urethra. The urethra is the tube thatdrains pee (urine) from the bladder out of the body. In females, the urethra opens above the vaginal opening. In males, the urethra opens at the tip of the penis. Urethral dilation is usually done to treat narrowing of the urethra (urethral stricture), which canmake it difficult to pee (urinate). Urethral strictures can be caused by scar tissue, infection, injury, or surgery. Urethral dilation widens the urethra so that you can pee normally. Urethral dilation is done through the opening of the urethra. There are no incisions made during the procedure. Tell a health care provider about: ??? Any allergies you have. ??? All medicines you are taking, including vitamins, herbs, eye drops, creams, and yfkr-jyb-yjifgmy medicines. ??? Any problems you or family members have had with anesthesia. ??? Any bleeding problems you have. ??? Any surgeries you have had. ??? Any medical conditions you have. ??? Whether you are or may be . What are the risks? Your health care provider will talk with you about risks. These may include: ??? Bleeding. ??? Infection. ??? A return of urethral stricture, which requires repeating the dilation procedure or more surgery. ??? Damage to the urethra, which may require reconstructive surgery. ??? Allergic reactions to medicines. What happens before the procedure? Medicines Ask your provider about: ??? Changing or stopping your regular medicines. These include any diabetes medicines or blood thinners you take. ??? Taking medicines such as aspirin and ibuprofen. These medicines can thin your blood. Do not take them unless your provider tells you to. ??? Taking fnpm-hfy-rnguqcp medicines, vitamins, herbs, and supplements. General instructions ??? Follow instructions from your provider about what you may eat and drink. ??? If you will be going home right after the procedure, plan to have a responsible adult: ? Take you home from the hospital or clinic. You will not be allowed to drive. ? Care for you for the time you are told. ??? Ask your provider: ? How your surgery site will be marked. ? What steps will be taken to help prevent infection. These steps may include: ? Removing hair at the surgery site. ? Washing skin with a soap that kills germs. ? Taking antibiotics. What happens during the procedure? An IV may be inserted into one of your veins. ??? You may be given: ? A local anesthetic to numb your urethral opening. This will be applied as a gel that will also lubricate the opening of the urethra. ? A sedative. This helps you relax. ? Anesthesia. This keeps you from feeling pain. It will make you fall asleep for surgery. ??? A thin tube with a light and camera on the end (cystoscope) will be inserted into your urethra. ??? Your urethra will be rinsed (irrigated) with a germ-free (sterile) water solution. ??? Narrow parts of your urethra will be stretched open using a dilator tool. Your surgeon will start with a very thin dilator, then use wider dilators as needed. ??? A thin tube with an inflatable balloon on the tip may be inserted into your urethra. The balloon may be inflated to help stretch your urethra open. The balloon may be coated with a medicine to help the urethra stay open longer. ??? Your urethra will be irrigated. ??? A catheter will be inserted into your bladder at the end of the procedure. The procedure may vary among providers and hospitals. What happens after the procedure? After the procedure, it is common to have: ? Burning pain when peeing. ? Blood in your pee. ? A need to pee frequently. ??? You will be asked to pee before you leave the hospital or clinic. ??? Your pee flow should improve within a few days. ??? You may have a catheter in your bladder for 2?3 days following your procedure. Follow these instructions at home: Medicines ??? Take avqo-lop-vqnnbja and prescription medicines only as told by your provider. ??? If you were prescribed antibiotics, take them as told by your provider. Do not stop using the antibiotic even if you start to feel better. ??? Ask your provider if the medicine prescribed to you: ? Requires you to avoid driving or using machinery. ? Can cause constipation. You may need to take these actions to prevent or treat constipation: ? Take docu-dmi-clqyhnx or prescription medicines. ? Eat foods that are high in fiber, such as beans, whole grains, and fresh fruits and vegetables. ? Limit foods that are high in fat and processed sugars, such as fried or sweet foods. General instructions ??? If you were given a sedative during the procedure, it can affect you for several hours. Do not drive or operate machinery until your provider says that it is safe. ??? If you were sent home with a soft tube (catheter) (more content not included)...[facility]08-28-2025 History of Present illness Narrative* Benedicto Eduardo MD - 06/11/2025 10:45 AM EDT Skin Check Location: Patient requests a skin examination from the waist up, A full body skin exam was offered,patient declined Dermatologic history: history of Actinic Keratosis [...] cosmetic reasons. 2. CAPILLARY ANGIOMA Generalized Scattered ortiz-red papule(s). The patient was informed that angiomas are benign growths on the the skin. No treatment is necessary. 3. LENTIGINES Generalized Scattered milner macules in sun-exposed areas. The patient was informed that lentigines are benign pigmented lesions that occur on sun-exposed andsun-damaged skin. No treatment is necessary. Recommended regular use of broad spectrum sunscreen SPF 30 or higher 4. ACTINIC KERATOSIS (3) Left Superior [place], Right Forearm - Anterior, Right Forearm - Posterior Erythematous scaly papules Patient was counseled regarding these sun-induced growths that can develop into squamous cell carcinoma if left untreated. Discussed treatment with cryotherapy. It was emphasized that any treated lesions that fail to resolve should be re- evaluated. Cryotherapy performed today; see procedure note Diagnosis: Actinic keratosis Indication: Precancerous Location: see skin exam Consent: Verbal consent was obtained and risks were discussed, including, but not limited to risks of scarring, darker or specialty trimmer pigmentary changes, recurrence, incomplete removal and infection. [...] tenderness Cryotherapy, skin lesion - Left Superior [place], Right Forearm - Anterior, Right Forearm - Posterior Next Visit: 1 year documented in this encounterSaint John's [id number] Hospital Discharge instructions Patient Education 04/27/2025 12:28:08 Benign Prostatic Hyperplasia Benign Prostatic Hyperplasia Benign prostatic hyperplasia (BPH) is an enlarged prostate gland that is caused by the normal agingprocess. The prostate may get bigger as a man gets older. The condition is not caused by cancer. The prostate is a walnut-sized gland that is involved in the production of semen. It is located in front of the rectum and below the bladder. The bladder stores urine. The urethra carries stored urine ou t of the body. An enlarged prostate can press on the urethra. This can make it harder to pass urine. The buildup of urine in the bladder can cause infection. Back pressure and infection may progress to bladder damage and kidney (renal) failure. What are the causes? This condition is part of the normal aging process. However, not all men develop problems from thiscondition. If the prostate enlarges away from the [...] urethra. Follow these instructions at home: Take xfau-lgx-zxsrbhi and prescription medicines only as told by [...] provider. Document Revised: 04/19/2022 Document Reviewed: 04/19/2022 [employer] Patient Education 2023 [employer]is. Follow Up Care 04/22/2025 14:08:06 With:KIERAN OWEN, Lety Alston, URL Address: [address] [place], [place] [id number]- When:Within 1 Month(s) [facility] 07-14-2025 NotePatient Education Urology Benign Prostatic Hyperplasia Benign prostatic hyperplasia (BPH) is an enlarged prostate gland that is caused by the normal agingprocess. The prostate may get bigger as a man gets older. The condition is not caused by cancer. The prostate is a walnut-sized gland that is involved in the production of semen. It is located in front of the rectum and below the bladder. The bladder stores urine. The urethra carries stored urine ou t of the body. An enlarged prostate can press on the urethra. This can make it harder to pass urine. The buildup of urine in the bladder can cause infection. Back pressure and infection may progress to bladder damage and kidney (renal) failure. What are the causes? This condition is part of the normal aging process. However, not all men develop problems from thiscondition. If the prostate enlarges away from the [...] this procedure, a tool is inserted through theopening at the tip of the penis (urethra). [...] procedure uses radio frequencies to destroy and removea small amount of prostate tissue. ? Interstitial laser coagulation (ILC). This procedure uses a laser to destroy and remove a small amount of prostate tissue. ? Transurethral electrovaporization (TUVP). This procedure uses electrodes to destroy and remove a small amount of prostate tissue. ? Prostatic urethral lift. This procedure inserts an implant to push the lobes of the prostate awayfrom the urethra. Follow these instructions at home: ??? Take qwhr-vfn-qkwcrdk and prescription medicines only as told by [...] symptoms do not get (more content not included)...[facility]06-16-2025 History of Present illness Narrative* Fabian Cardoza MD - 03/30/2025 10:37 AM EDTAssociated Problem(s): Venous insufficiency of both lower extremities Worsening edema and use compression. * Fabian Cardoza MD - 03/30/2025 10:37 AM EDTAssociated Problem(s): Gastroesophageal reflux disease without esophagitis Symptoms controlled with omeprazole and continue. * Fabian Cardoza MD - 03/30/2025 10:37 AM EDTAssociated Problem(s): Essential hypertension, benign BP elevated today but previously controlled and monitor PRN. * Fabian Cardoza MD - 03/30/2025 10:37 AM EDTAssociated Problem(s): Degenerative lumbar spinal stenosis Pain stable and use OTC PRN. Need home PT and ROM exercises. * Fabian Cardoza MD - 03/30/2025 10:37 AM EDTAssociated Problem(s): Cervical spondylolysis Pain stable and use OTC PRN. Need home PT and ROM exercises. * Fabian Cardoza MD - 03/30/2025 10:36 AM EDTAssociated Problem(s): BPH without urinary obstruction Symptoms controlled with flomax and continue. * Fabian Cardoza MD - 03/30/2025 9:45 AM EDT Images from the original note were not included. Subjective Patient ID: Cathie Anderson is a 69 y.o. male who presents for Follow-up (6m). Follow up HTN, GERD, back and neck pain, and BPH. Patient doing well today. Not checking BP away from office and BP elevated today. BP previously normal and has gained weight since last visit. Takingmedication daily and tolerating without side effects. GERD controlled with omeprazole. Denies epigastric pain or burning and not waking up with symptoms. Back pain stable. Mild pain in low back and ac ross top hips. No radiation into gluteal region or down legs. Able to increase activity and stay active around house. Need to resume home exercises. Neck pain stable. Occasional pain in base neck andtop shoulder. Uses OTC PRN and helps when needed. BPH controlled with flomax. Normal stream and notstraining to start flow of urine. Not up [...] edema and use compression. documented in this encounterSaint John's [id number] Hospital Discharge instructions Patient Education 03/20/2025 10:42:06 Benign Prostatic Hyperplasia Benign Prostatic Hyperplasia Benign prostatic hyperplasia (BPH) is an enlarged prostate gland that is caused by the normal agingprocess. The prostate may get bigger as a man gets older. The condition is not caused by cancer. The prostate is a walnut-sized gland that is involved in the production of semen. It is located in front of the rectum and below the bladder. The bladder stores urine. The urethra carries stored urine ou t of the body. An enlarged prostate can press on the urethra. This can make it harder to pass urine. The buildup of urine in the bladder can cause infection. Back pressure and infection may progress to bladder damage and kidney (renal) failure. What are the causes? This condition is part of the normal aging process. However, not all men develop problems from thiscondition. If the prostate enlarges away from the [...] urethra. Follow these instructions at home: Take dvcn-ywy-xowhvcf and prescription medicines only as told by [...] provider. Document Revised: 04/19/2022 Document Reviewed: 04/19/2022 [employer] Patient Education 2023 [employer]is. 03/20/2025 10:16:27 Prostate Cancer Screening Prostate Cancer Screening Prostate cancer screening is testing that is done to check for the presence of prostate cancer in men. The prostate gland is a walnut-sized gland that is located below the bladder and in front of therectum in males. The function of the prostate is to add fluid to semen during ejaculation. Prostatecancer is one of the most common types of cancer in men. Who should have prostate cancer screening? Screening recommendations vary based on age and other risk factors, as well as between the professional organizations who make the recommendations. In general, screening is recommended if: You are age 50 to 70 and have an average risk for prostate cancer. You should talk with your healthcare provider about your need for screening and [...] diagnosed with prostate cancer. The risk is higherif your family member's cancer occurred at an early age or if you have multiple family members withprostate cancer at an early age. ?Being a [...] is a blood test called the prostate-specific antigen(PSA) test. PSA is a protein that is [...] treatment? Where to find more information The [place] [employer]: www.cancer.org [place] [employer] Association: www.auanet.org Contact a health care [...] the recommended screening test for prostate cancer, butit has associated risks. Discuss the risks and [...] provider. Document Revised: 03/27/2022 Document Reviewed: 03/27/2022 [employer] Patient Education 2023 [employer]. Follow Up Care 03/20/2025 09:17:15 With:KIERAN OWEN, Lety Alston, URL Address: [address] [place] [address] [place] [address] When: Unknown [facility] 06-06-2025 NotePatient Education Oncology Prostate Cancer Screening Prostate cancer screening is testing that is done to check for the presence of prostate cancer in men. The prostate gland is a walnut-sized gland that is located below the bladder and in front of therectum in males. The function of the prostate is to add fluid to semen during ejaculation. Prostatecancer is one of the most common types [...] is a blood test called the prostate-specific antigen(PSA) test. PSA is a protein that is [...] prostate gland for testing (biopsy). This is theonly way to know for certain if you [...] Where to find more information ??? The [place] [employer]: www.cancer.org ??? [place] [employer] Association: www.auanet.org Contact a health care [...] men. The prostate gland (more content not included)...[facility]05-07-2025 History of Present illness Narrative* Emi Shaffer MA - 02/18/2025 10:15 AM EDT Patient picked up hearing aid supplies. He paid $30 for supplies. Cosigned by ERICH Root at 02/18/2025 10:30 AM EDT documented in this encounterSaint John's [id number] Telephone encounter Note* Telephone Encounter - ERICH Root - 02/17/2025 5:58 PM EDT Pt clled for supplies. [facility]. Our chargeis $10 per package. 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 Will put [employer] supply ordering information in the supply bag. [facility] Work Phone: [phone]) 525-420805-06-2025 Miscellaneous Notes* Telephone Encounter - ERICH Root - 02/17/2025 5:58 PM EDT Pt clled for supplies. Explained he can get supplies from [facility] for $5.00 shipping. Our chargeis $10 per package. 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 Will put [employer] supply ordering information in the supply bag. documented in this encounterSaint John's [id number] Telephone encounter Note* Telephone Encounter - Romelai Ly - 02/02/2025 7:33 PM EDT Refill of Tamsulosin HCL 0.4 mg [facility] [id number] Miscellaneous Notes* Telephone Encounter - Romelia Ly - 02/02/2025 7:33 PM EDT Refill of Tamsulosin HCL 0.4 mg documented in this encounterSaint John's [id number] History of Present illness Narrative* Fabian Cardoza MD - 09/19/2024 10:41 AM ESTAssociated Problem(s): Medicare annual wellness visit, subsequent Will review labs. Discussed proper diet and regular aerobic exercise. Need aerobic exercise 5-6 days a week for 30 minutes at a time. Smaller portions and limit total calories. Colonoscopy every 10 years. Tetanus every 10 years. Advised not to smoke. * Fabian Cardoza MD - 09/19/2024 10:00 AM EST Images from the original note were not [...] and eat healthy. Increased fruits and vegetables. Smallerportions and limits snacking. Tries to limit total [...] adult Relevant Orders TSH documented in this encounterSaint John's [id number] Hospital Discharge instructions Patient Education 08/25/2024 13:05:24 Prostate Cancer Screening Prostate Cancer Screening Prostate cancer screening is testing that is done to check for the presence of prostate cancer in men. The prostate gland is a walnut-sized gland that is located below the bladder and in front of therectum in males. The function of the prostate is to add fluid to semen during ejaculation. Prostatecancer is one of the most common types of cancer in men. Who should have prostate cancer screening? Screening recommendations vary based on age and other risk factors, as well as between the professional organizations who make the recommendations. In general, screening is recommended if: You are age 50 to 70 and have an average risk for prostate cancer. You should talk with your healthcare provider about your need for screening and [...] diagnosed with prostate cancer. The risk is higherif your family member's cancer occurred at an early age or if you have multiple family members withprostate cancer at an early age. ?Being a [...] is a blood test called the prostate-specific antigen(PSA) test. PSA is a protein that is [...] treatment? Where to find more information The [place] Cancer Society: www.cancer.org [place] [employer] Association: www.auanet.org Contact a health care [...] the recommended screening test for prostate cancer, butit has associated risks. Discuss the risks and [...] provider. Document Revised: 03/27/2022 Document Reviewed: 03/27/2022 [employer] Patient Education 2023 [employer]gradis. Follow Up Care 05/23/2024 13:14:58 With:KIERAN OWEN, Lety Alston, URL Address: [facility] [address] [place] [phone] When: Unknown [facility] 11-11-2024 NotePatient Education Oncology Prostate Cancer Screening Prostate cancer screening is testing that is done to check for the presence of prostate cancer in men. The prostate gland is a walnut-sized gland that is located below the bladder and in front of therectum in males. The function of the prostate is to add fluid to semen during ejaculation. Prostatecancer is one of the most common types [...] is a blood test called the prostate-specific antigen(PSA) test. PSA is a protein that is [...] prostate gland for testing (biopsy). This is theonly way to know for certain if you [...] Where to find more information ??? The [place] Cancer Society: www.cancer.org ??? [place] [employer] Association: www.auanet.org Contact a health care [...] men. The prostate gland (more content not included)...[facility]10-17-2024 History of Present illness Narrative* Fabian Cardoza MD - 07/31/2024 10:52 AM EDTAssociated Problem(s): Cervical spondylolysis Recent pain and stiffness. History of DDD and check x-ray. Treat with prednisone and use flexeril PRN. If no improvement will need PT and possible MRI. * Fabian Cardoza MD - 07/31/2024 10:15 AM EDT Images from the original note [...] heat and OTC and slightly better. Remains stiffbut overall ROM improved. Review of Systems Constitutional: [...] 2 or 3 views documented in this encounterSaint John's [id number] History of Present illness Narrative* Benedicto Eduardo MD - 06/09/2024 11:15 AM EDT Skin Check Location: Patient requests a skin [...] reasons. 2. Actinic keratosis (6) Left [place], Mid Parietal Scalp (5) Erythematous scaly papules Patient was counseled regarding these sun-induced growths that can develop into squamous cell carcinoma if left untreated. Discussed treatment with cryotherapy. It was emphasized that any treated lesions that fail to resolve should be re- evaluated. Cryotherapy performed today; see procedure note Diagnosis: Actinic keratosis Indication: Precancerous Location: see skin exam Consent: Verbal consent was obtained and risks were discussed, including, but not limited to risks of scarring, darker or specialty trimmer pigmentary changes, recurrence, incomplete removal and infection. [...] tenderness Cryotherapy, skin lesion - Left Superior [place], Mid Parietal Scalp (5) 3. Angioma of skin Chest (Upper Torso, Anterior) Scattered ortiz-red papule(s). The patient was informed that angiomas are benign growths on the the skin. No treatment is necessary. 4. Lentigines (2) Neck, Torso - Posterior (Back) Scattered milner macules in sun-exposed areas. The patient was informed that lentigines are benign pigmented lesions that occur on sun-exposed andsun-damaged skin. No treatment is necessary. Recommended regular use of broad spectrum sunscreen SPF 30 or higher Next Visit: 1 year documented in this encounterSaint John's [id number] Hospital Discharge instructions Patient Education 03/17/2024 10:41:20 Prostate Cancer Screening Prostate Cancer Screening Prostate cancer screening is testing that is done to check for the presence of prostate cancer in men. The prostate gland is a walnut-sized gland that is located below the bladder and in front of therectum in males. The function of the prostate is to add fluid to semen during ejaculation. Prostatecancer is one of the most common types of cancer in men. Who should have prostate cancer screening? Screening recommendations vary based on age and other risk factors, as well as between the professional organizations who make the recommendations. In general, screening is recommended if: You are age 50 to 70 and have an average risk for prostate cancer. You should talk with your healthcare provider about your need for screening and [...] diagnosed with prostate cancer. The risk is higherif your family member's cancer occurred at an early age or if you have multiple family members withprostate cancer at an early age. ?Being a [...] is a blood test called the prostate-specific antigen(PSA) test. PSA is a protein that is [...] treatment? Where to find more information The [place] Cancer Society: www.cancer.org [place] [employer] Association: www.auanet.org Contact a health care [...] the recommended screening test for prostate cancer, butit has associated risks. Discuss the risks and [...] provider. Document Revised: 03/27/2022 Document Reviewed: 03/27/2022 [employer] Patient Education 2022 [employer]. Follow Up Care 02/26/2023 12:49:55 With:KIERAN OWEN, Lety Alston, URL Address: [facility] [address] , [place] [phone] When: Unknown Comments:schedule PSMA PET scan, f/u in 1 year w/ PSA [facility] 05-15-2023 Hospital Discharge instructions Patient Education 02/26/2023 12:32:55 Benign Prostatic Hyperplasia Benign Prostatic Hyperplasia Benign prostatic hyperplasia (BPH) is an enlarged prostate gland that is caused by the normal agingprocess. The prostate may get bigger as a man gets older. The condition is not caused by cancer. The prostate is a walnut-sized gland that is involved in the production of semen. It is located in front of the rectum and below the bladder. The bladder stores urine. The urethra carries stored urine ou t of the body. An enlarged prostate can press on the urethra. This can make it harder to pass urine. The buildup of urine in the bladder can cause infection. Back pressure and infection may progress to bladder damage and kidney (renal) failure. What are the causes? This condition is part of the normal aging process. However, not all men develop problems from thiscondition. If the prostate enlarges away from the [...] urethra. Follow these instructions at home: Take eulo-zuy-jmhqetb and prescription medicines only as told by [...] provider. Document Revised: 04/19/2022 Document Reviewed: 04/19/2022 [employer] Patient Education 2022 [employer]. Follow Up Care 01/18/2023 11:18:50 With:KIERNA OWEN, Lety Alston, URL Address: [facility] [address] , [place] [phone] When:Within 1 Year(s) Comments:f/u in 1 year with PSA [facility] 04-25-2023 Hospital Discharge instructions Patient Education 02/06/2023 11:18:45 [...] week (and blood in the semen for severalmonths) Diet -You may resume your normal diet, [...] for your post-operative appointment in 1-2 weeks [phone] or [phone] Follow Up Care 01/18/2023 11:14:06 With:Lety ALCARAZ Address: [facility] [address] [place] [address]- Business (1) When: Unknown Comments:Keep scheduled appointment [facility]10-10-2022 Hospital Discharge instructions Patient Education 07/24/2022 09:55:41 Benign Prostatic Hyperplasia Benign Prostatic Hyperplasia Benign prostatic hyperplasia (BPH) is an enlarged prostate gland that is caused by the normal agingprocess and not by cancer. The prostate is [...] urethra. Follow these instructions at home: Take zezm-ian-higixbu and prescription medicines only as told by [...] 10/01/2006 Document Revised: 08/26/2019 Document Reviewed: 11/05/2017 [employer] Patient Education 2020 [employer]. Follow Up Care 06/14/2022 17:18:55 With:KIERAN OWEN Lety Alston, URL Address: [facility] [address], [place] [address]- [phone] When:01/22/2023 Comments:repeat BX. [facility] 09-27-2022 NoteEXAMINATION: XR CHEST 2 V HISTORY: Pre-surgery evaluation COMPARISON: No [...] Electronically authenticated by: ARON BOONE Date: 2022-07-11 18:28[facility]07-08-2022 Hospital Discharge instructions Patient Education 04/21/2022 11:22:42 [...] done before cancer symptoms start. Screening can helpto identify cancer at an early stage, when [...] if you need screening if you have oneof these risk factors: ?Being of -[place] descent. ?Having a family history of prostate [...] you: Are older than age 55. Are -[place]ien. Have a father, brother, or uncle who [...] not tell you if your cancer needs andree treated. Slow-growing prostate cancer may not need [...] 07/12/2018 Document Revised: 09/13/2018 Document Reviewed: 07/12/2018 [employer] Patient Education [employer]. Follow Up Care 10/17/2021 12:12:12 With:KIERAN OWEN, Lety Alston, URL Address: [address] [place], [place] [id number]- When: Unknown [facility] 09-24-2021 Evaluation note* Encounter Date Diagnosis Assessment Notes Treatment Notes Treatment Clinical Notes Jun, Bee sting, undetermi letitia intent, initial encounter (ICD-10 - T63.444A) Insect bites and stings material was printed. Drink plenty fluids, get plenty of rest. Consider applying Benadryl cream to the area for itching. You may take Benadryl by mouth as well for itching. Follow-up with your family physician for any further concerns. [employer] Other Evaluation + Plan note No data available for this section [facility] evaluation + Plan note Future Appointments Appointment Date:07/24/2022 09:30:00 AM Scheduled Provider:Lety ALCARAZ MD Location:[facility] App[facility]ments Appointment Date:02/26/2023 10:45:00 AM Scheduled Provider:Lety ALCARAZ MD Location:[facility] Appointment Type:URO Office Visit Diagnostic Tests Pending * Prostate Histology ([facility]) [facility] Future Appointments Appointment Date:02/29/2024 10:45:00 AM Scheduled Provider:Lety ALCARAZ MD Location:[facility] Appointment Type:URO Office Visit Diagnostic Tests Pending * PSA Total 02/26/23 [facility] evaluation + Plan note Future Appointments Appointment Date:03/20/2025 09:30:00 AM Scheduled Provider:Lety ALCARAZ MD Location:[facility] Appointment Type:URO Office Visit Diagnostic Tests Pending * PSA Total 03/17/24 [facility] evaluation + Plan note Future Appointments Appointment Date:08/31/2025 09:15:00 AM Scheduled Provider:Lety ALCARAZ MD Location:[facility] Appointment Type:URO Office Visit Diagnostic Tests Pending * PSA Total 08/25/24 [facility] evaluation + Plan note Future Appointments Appointment Date:09/28/2025 10:30:00 AM Scheduled Provider:Lety ALCARAZ MD Location:[facility] Appointment Type:URO Office Visit Diagnostic Tests Pending * PSA Total 08/15/25 [facility] evaluation + Plan note Future Appointments Appointment Date:06/08/2025 10:00:00 AM Scheduled Provider:[facility] Office Visit Appointment Date:09/28/2025 10:30:00 AM Scheduled Provider:Lety ALCARAZ MD Location:[facility] Appointment Type:URO Office Visit [facility] Evaluation + Plan note Future Appointments Appointment Date:07/20/2025 10:30:00 AM Scheduled Provider: Location:[facility] Appointment Type:Urology CALL PAT FT Appointment Date:07/21/2025 10:30:00 AM Scheduled Provider: Location:[facility] Appointment Type:Urology FT Appointment Date:09/28/2025 10:30:00 AM Scheduled Provider:Lety ALCARAZ MD Location:[facility] Appointment Type:URO Office Visit [facility] evaluation noteNo assessment information available [place] Work Phone: Evaluation note* Diagnosis Essential hypertension, [...] hypertension, benign [facility] [...] hypertension, benign [facility] Diagnosis Seborrheic keratosis- Primary Actinic keratosis Angioma of skin Lentigines [facility] [...] esophagitis Esophageal reflux [facility] [...] symptom details unspecified [facility] [...] loss, asymmetrical [facility]* Diagnosis Essential hypertension, benign- Primary [...] of other medications documented in this encounter [facility]* Diagnosis Essential hypertension, benign- Primary [...] Lentigines Actinic keratosis documented in this encounter [facility]* Diagnosis Encounter for colonoscopy due to history of colonic polyp- Primary Generalized abdominal pain Abdominal pain, generalized Heartburn documented [facility] - Reported* Type Description Date Medical History hypertension Medical HistoryIBSMedical HistoryEnlarged ProstateMedical HistoryBladder Stones Surgical Historyneck fusion on 5 & 6Surgical HistoryTonsilsSurgical History arthritus in lower backSurgical HistoryTURP Procedure - for prostateSurgical HistoryHernia RepairHospitalization Historysee above [employer] Other Hospital Discharge instructions No data available for this section [facility] on filedocumented in this encounter [facility]Not on filedocumented in this encounter [facility] No data available for this section [facility] reason for referral (narrative)No reason for referral information [facility] Work Phone: Summary Purpose Family History No Family History Records Found Relationship Condition Age at Onset Recorded Date/T los father Unknown Not SpecifiedDeceasedUnknown Relationship Condition Age at Onset Recorded Date/T los father Unknown motherDeceasedUnknown Advance Directives No Advanced Directives Records Found Advance Directive Response Recorded Date/ Time Advance Directives No May 02 8:39am Chief Complaint and Reason for Visit Chief Complaint elevated psa Chief Complaint r97.20 r59.9 Chief Complaint r97.20 r59.9 R97.20 Chief Complaint Admit Date Back Pain June 22, 2025 9:30am Additional Source Comments (unrecognized sect ion and content) No Status Records FoundNo Status Records FoundNo Status Records FoundNo Status Records FoundNo Status Records FoundNo Status Records FoundNo Status Records FoundNo Status Records Found INFORMATION SOURCE (unrecogn ized section and content) DATE CREATED AUTHOR 02/17/2022 [facility] DATE CREATED AUTHOR AUTHOR'S ORGANIZ ATION 01/29/2023 [facility] DATE CREATED AUTHOR AUTHOR'S ORGANIZ ATION 07/21/2023 [facility] DATE CREATED AUTHOR AUTHOR'S ORGANIZ ATION 04/16/2025 [facility] DATE CREATED AUTHOR AUTHOR'S ORGANIZ ATION 06/13/2025 [facility] DATE CREATED AUTHOR AUTHOR'S ORGANIZ ATION 07/23/2025 [facility] DATE CREATED AUTHOR AUTHOR'S ORGANIZ ATION 08/11/2025 [facility] DATE CREATED AUTHOR AUTHOR'S ORGANIZ ATION 08/24/2025 [facility] REASON FOR VISIT (unrecogniz ed section and content) ReasonCommentsNeck PainStiff neck for 10 daysReasonCommentsMedicare Annual Wellness Visit SubsequentwellnessReasonCommentsSkin CheckReasonOnset Date CommentsMed Neqhuu6002/02/2025ReasonOnset UrjmQfinfjcdKstkhcnr60/06/2025Reason CommentsFollow-ag1tLwsxgzLjejhelfKcdil Cancer ScreeningLast colon 2018 Care Team (unrecognized sect ion and content) Team Status: Inactive Member Role Status Dates Lety Alcaraz MD Attending Provider Active Marie Barragan Care ProviderActive Team Status: Active Member Role Status Dates Fabian Cardoza MD Primary Care Provider Active Team Status: Inactive Member Role Status Dates Fabian Cardoza MD Primary Care Provider Active S tart: April 04, 2024 End: April 04Jeanette Nichols ProviderActiveStart: April 04, 2024 End: April 04, 2024 Team Status: Inactive Member Role Status Dates Fabian Cardoza MD Primary Care Provider Active S tart: May 22, 2024 End: May 22Jeanette Nichols ProviderActiveStart: May 22, 2024 End: May 22, 2024Team MemberRelationshipSpecialtyStart DateEnd Date Fabian Cardoza MD [address] [place] [address] PCP - Anna QUIROZ10/15/23 Fabian Cardoza MD [address] [place] [address] PCP - [facility]02/14/24Team MemberRelationshipSpecialtyStart DateEnd Date Fabian Cardoza MD [address] [place] [address] PCP - Anna QUIROZ10/15/23 Fabian Cardoza MD [address] [place] [address] PCP - [facility]02/14/24Team MemberRelationshipSpecialtyStart DateEnd Date Fabian Cardoza MD [address] [place] [address] PCP - [place]10/15/23 Fabian Cardoza MD [address] [place] [address] PCP - [facility]02/14/24Team MemberRelationshipSpecialtyStart DateEnd Date Fabian Cardoza MD [address] [place] [address] PCP - [place]10/15/23 Fabian Cardoza MD [address] [place] [address] PCP - [facility]02/14/24Team MemberRelationshipSpecialtyStart DateEnd Date Fabian Cardoza MD [address] [place] [address] PCP - [place]10/15/23 Fabian Cardoza MD [address] [place] [address] PCP - [facility]02/14/24Team MemberRelationshipSpecialtyStart DateEnd Date Fabian Cardoza MD [address] [place] [address] PCP - [place]10/15/23 Fabian Cardoza MD [address] [place] [address] PCP - [facility]02/14/24Team MemberRelationshipSpecialtyStart DateEnd Date Fabian Cardoza MD [address] [place] [address] PCP - [place]10/15/23 Fabian Cardoza MD [address] [place] [address] PCP - [facility]02/14/24Team MemberRelationshipSpecialtyStart DateEnd Date Fabian Cardoza MD [address] [place] [address] PCP - [place]10/15/23 Fabian Cardoza MD [address] [place] [address] PCP - [facility]02/14/24Te MemberRelationshipSpecialtyStart DateEnd Date Fabian Cardoza MD [address] [place] [address] PCP - [place]10/15/23 Fabian Cardoza MD [address] [place] [address] PCP - GeneralFamily Medicine02/14/24Team MemberRelationshipSpecialtyStart DateEnd Date Fabian Cardoza MD [address] [place] [address] PCP - [place]10/15/23 Fabian Cardoza MD [address] [place] [address] PCP - [facility]02/14/24Team MemberRelationshipSpecialtyStart DateEnd Date Fabian Cardoza MD [address] [place] [address] PCP - [place]10/15/23 Fabian Cardoza MD [address] [place] [address] PCP - [facility]02/14/24Team MemberRelationshipSpecialtyStart DateEnd Date Fabian Cardoza MD [address] [place] [address] PCP - [place]10/15/23 Fabian Cardoza MD [address] [place] [address] PCP - [facility]02/14/24Team MemberRelationshipSpecialtyStart DateEnd Date Fabian Cardoza MD [address] [place] [address] PCP - [place]10/15/23 Fabian Cardoza MD [address] [place] [address] [facility]02/14/24Team MemberRelationshipSpecialtyStart DateEnd Date Fabian Cardoza MD [address] [place] [address] [facility]10/15/23 Fabian Cardoza MD [address] [place] [address] [facility]02/14/24 Team Status: Inactive Member Role Status Dates Fabian Cardoza MD Primary Care Provider Active S tart: June 22, 2025 End: June 22, 2025[facility] DIANE Cardozattending ProviderActiveStart: June 22, 2025 End: June 22, 2025Team MemberRelationshipSpecialtyStart DateEnd Date Fabian Cardoza MD [facility]05/22/23Team MemberRelationshipSpecialtyStart DateEnd Date Fabian Cardoza MD [facility]05/22/23 Goals (unrecognized section and content) Goals may [...] BE BASED ON THE PRIMARY CLINICAL RECORDS. [facility] [employer] [facility]. provides no warranty or guarantee of the accuracy or completeness of information in this document.
[2025-09-18 12:35] LABS: Hematocrit 41.3 % (42.0-54.0); Hemoglobin 13.6 g/dL (14.0-18.0); Immature Granulocytes Abs Auto 0.00 10^3/uL (0.00-0.03); Immature Granulocytes Pct Auto 0.0 % (0.0-0.5); Lymphocytes Absolute Auto 1.7 10^3/uL (1.2-3.8); Mean Corpuscular HGB Conc 32.9 g/dL (29.9-35.2); Mean Corpuscular Hemoglobin 28.2 pg (25.9-34.0); Mean Corpuscular Volume 85.7 fL (80.0-94.0); Platelet Count 297 10^3/uL (150-450); Red Blood Count 4.82 10^6/uL (4.70-6.10); White Blood Count 7.5 10^3/uL (4.0-11.0)
[2025-09-18 13:00] LABS: Alanine Aminotransferase 35 U/L (16-63); Albumin Globulin Ratio 1.1; Albumin Level 3.7 g/dL (3.4-5.0); Alkaline Phosphatase 65 U/L (46-116); Amylase 57 U/L (25-115); Anion Gap 8.3; Aspartate Amino Transferase 19 U/L (15-37); Blood Urea Nitrogen 19.0 mg/dL (7.0-18.0); Calcium 9.2 mg/dL (8.5-10.1); Carbon Dioxide 33.7 mmol/L (21.0-32.0); Chloride 105 mmol/L (98-107); Estimated GFR (African America >60 (>=60 mL/min/1.73m^2); Estimated GFR (Non-African Ame >60 (>=60 mL/min/1.73m^2); Globulin 3.3 g/dL; Glucose 107 mg/dL (74-106); Lipase 64.0 U/L (16.0-77.0); Potassium 4.0 mmol/L (3.5-5.1); Sodium 143 mmol/L (136-145); Total Protein 7.0 g/dL (6.4-8.2)
== END 2025-09-18 12:04 | disposition home or self-care (01) ==
LOC: LAB 12:05
PROVIDERS: PCP Family Medicine; Visit Provider Family Medicine
DX: R10.33 Periumbilical pain (principal); M48.061 Spinal stenosis, lumbar region without neurogenic claudication; Z79.899 Other long term (current) drug therapy
CPT/HCPCS: 36415; 80053; 82150; 83690; 85025

== ENCOUNTER 2025-10-09 07:25 | Outpatient (OUT) | payer MEDICARE, SELFPAY ==
--- OUTSIDE RECORDS SUMMARY | 2025-09-28 23:59 | XMS_ITS | Continuity of Care Document ---
Author Organization [facility] Address [address] 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) - 09/28/25 Prostatitis(Discharge Diagnosis) - 09/28/25 Elevated PSA(Discharge Diagnosis) - 09/28/25 Discharge Disposition: Home (Routine DC) Attending Physician: Klever LACARAZ MD Encounter Type: Clinic Allergies, Adverse Reactions, Alerts No Known Allergies Treatment Plan Future Appointments Appointment Date:12/28/2025 11:30:00 AM Scheduled Provider:Klever ALCARAZ MD Location:[facility] Appointment Type:URO Office Visit Diagnostic Tests Pending * PSA Total 09/28/25 Immunizations Given and Recorded VaccineDateStatusRefusal MyjabnKVYG-AmX-0 (COVID-19) mRNA-1273 vaccine05/02/22 BxzfykbhOWGW-GhM-1 (COVID-19) mRNA-1273 znwfqun09/29/21RecordedModerna COVID-19 Vaccine01/21/21RecordedModerna COVID-19 Vaccine12/24/20Recordedinfluenza virus vaccine, izxplfxdrhv00/14/20Recordedinfluenza virus vaccine, jsnmklcprcy16/17/19 Recordedinfluenza virus vaccine, gqxlfibffqm45/17/Recordedinfluenza virus vaccine, /20/17Recordedinfluenza virus vaccine, inactivated11/16/16 Recordedinfluenza virus vaccine, srycsonqfld10/3/14Recordedzoster vaccine, inactivated06/19/19Recordedzoster vaccine, inactivated01/29/19Recorded Medications atorvastatin 20 mg Tab 20 mg = 1 tab(s), Oral, Daily, Refills(s) 0 Start Date: 04/21/22 Status: Ordered Medication Dispense Status: Completed Total Allowed Fills: 1 Fills Dispensed: 0 chondroitin mg, Oral, Daily, Refills(s) 0 Start Date: 01/03/21 Status: Ordered Medication Dispense Status: Completed Total Allowed Fills: 1 Fills Dispensed: 0 doxycycline hyclate 100 mg Cap 100 mg = 1 cap(s), Oral, BID, X 4 week(s), # 56 cap(s), Refills(s) 0, Pharmacy: [facility] [id number], 170, cm, 09/28/25 10:34:00 EST, Height/Length Dosing, 109, kg, 09/28/25 10:34:00 EST, Weight Dosing Start Date: 09/28/25 Stop Date: 10/26/25 Status: Ordered Medication Dispense Status: Completed Quantity: 56.0 Unit: cap(s) Total Allowed Fills: 1 Fills Dispensed: 0 Indications: Inflammatory disease of prostate, unspecified; dutasteride 0.5 mg Cap 0.5 mg = 1 cap(s), Oral, Daily, # 30 cap(s), Refills(s) 11, Pharmacy: [facility] [id number], 170, cm, 03/20/25 9:38:00 EDT, Height/Length Dosing, 106.2, kg, 03/20/25 9:38:00 EDT, Weight Dosing Start Date: 03/20/25 Status: Ordered Medication Dispense Status: Completed Quantity: 30.0 Unit: cap(s) Total Allowed Fills: 12 Fills Dispensed: 0 glucosamine Oral, Refills(s) 0 Start Date: 01/03/21 Status: Ordered Medication Dispense Status: Completed Total Allowed Fills: 1 Fills Dispensed: 0 hydrochlorothiazide 25 mg oral tablet mg tab(s), Oral, Daily, Refills(s) 0 Start Date: 01/03/21 Status: Ordered Medication Dispense Status: Completed Total Allowed Fills: 1 Fills Dispensed: 0 losartan 100 mg Tab mg tab(s), Oral, Daily, Refills(s) 0 Start Date: 01/03/21 Status: Ordered Medication Dispense Status: Completed Total Allowed Fills: 1 Fills Dispensed: 0 Lumigan 0.01% ophthalmic solution 1 drop(s), OPTH, qPM, 5 mL, Refill(s) 0 Start Date: 03/20/25 Status: Ordered Medication Dispense Status: Completed Quantity: 5.0 Unit: mL Total Allowed Fills: 1 Fills Dispensed: 0 metoprolol 50 mg ER Tab mg tab(s), Oral, Daily, Refills(s) 0 Start Date: 02/26/23 Status: Ordered Medication Dispense Status: Completed Total Allowed Fills: 1 Fills Dispensed: 0 Nature's Bounty Probiotic Oral, Daily, Refill(s) 0 Start Date: 01/03/21 Status: Ordered Medication Dispense Status: Completed Total Allowed Fills: 1 Fills Dispensed: 0 omeprazole 20 mg Cap-DR 20 mg = 1 cap(s), Oral, Daily, # 30 cap(s), Refills(s) 0 Start Date: 01/03/21 Status: Ordered Medication Dispense Status: Completed Quantity: 30.0 Unit: cap(s) Total Allowed Fills: 1 Fills Dispensed: 0 tamsulosin 0.4 mg Cap 0.8 mg = 2 cap(s), Oral, Daily, X 30 day(s), # 60 cap(s), Refills(s) 11, Pharmacy: [facility] [id number], 170, cm, 04/27/25 12:04:00 EDT, Height/Length Dosing, 106, kg, 04/27/25 12:04:00 EDT, Weight Dosing Start Date: 04/27/25 Stop Date: 04/22/26 Status: Ordered Medication Dispense Status: Completed Quantity: 60.0 Unit: cap(s) Total Allowed Fills: 12 Fills Dispensed: 0 timolol Opth 0.5% Em 15 mL Refill(s) 0 Start Date: 03/17/24 Status: Ordered Medication Dispense Status: Completed Total Allowed Fills: 1 Fills Dispensed: 0 Vitamin C Daily, Refills(s) 0 Start Date: 01/03/21 Status: Ordered Medication Dispense Status: Completed Total Allowed Fills: 1 Fills Dispensed: 0 Vitamin D3 1000 intl units oral capsule Oral, Daily, Refills(s) 0 Start Date: 01/03/21 Status: Ordered Medication Dispense Status: Completed Total Allowed Fills: 1 Fills Dispensed: 0 Problem List ConditionConfirmationCourseEffective DatesStatusHealth StatusInformantArthritis ConfirmedActiveAtypical small acinar proliferation of prostateConfirmedActive Benign localized hyperplasia of prostate with urinary obstructionConfirmedActive BPH with obstruction/lower urinary tract symptomsConfirmedActiveDysuriaConfirmed ActiveGlaucomaConfirmedActiveHistory of bladder stoneConfirmedActiveDeafness ConfirmedActiveHistory of prostatitisConfirmedActiveHypertensionConfirmedActive Head injuryConfirmedActiveLower abdominal painConfirmedActiveEnlarged lymph node ConfirmedActiveProstatitisConfirmedActiveProteinuriaConfirmedActiveElevated PSA ConfirmedActiveUrethral meatal stenosisConfirmedActive Procedures ProcedureDateRelated DiagnosisBody CvtdMoyrfnOseidutepdd24/2025CompletedCysto, UD07/21/25CompletedTRUS/Bx02/06/23CompletedTRUS/Bx07/13/22CompletedPercutaneous transluminal laser ablation of varicose vein of lower limb.06/23/21Completed Transurethral resection of prostate02/10/2113OcqgmvcfnOxupctcrzs1/26/21Completed ColonoscopyCompleted Social History Social History TypeResponseSmoking StatusFormer smoker, quit more than 30 days ago;Never; Type: Cigarettes; Smoking Cessation Yes entered on: 09/28/25Birth SexMaleSex [facility] Discharge Instructions Patient Education 09/28/2025 11:16:29 Prostatitis Prostatitis Prostatitis is swelling or inflammation of the prostate gland, also called the prostate. This glandis about 1.5 inches wide and 1 inch high, and it is involved in making semen. The prostate is located below a man's bladder, in front of the rectum. There are four types of prostatitis: ??? Chronic prostatitis (CP), also called chronic pelvic pain syndrome (CPPS). This is the most common type of prostatitis. It is associated with increased muscle tone in the area between the hip bones (pelvic area), around the prostate. This type is also known as a pelvic floor disorder. ??? Chronic bacterial prostatitis. This type usually results from an acute bacterial infection in the prostate gland that keeps coming back or has not been treated properly. The symptoms are less severe than those caused by acute bacterial prostatitis, which lasts a shorter time. ??? Asymptomatic inflammatory prostatitis. This type does not have symptoms and does not need treatment. This is diagnosed when tests are done for other disorders of the urinary tract or reproductivetract. ??? Acute bacterial prostatitis. This type starts quickly and results from an acute bacterial infection in the prostate gland. It is usually associated with a bladder infection, high fever, and chills. This is the least common type of prostatitis. What are the causes? Bacterial prostatitis is caused by an infection from bacteria. Chronic nonbacterial prostatitis may be caused by: ??? Factors related to the nervous system. This system includes thebrain, spinal cord, and nerves. ??? An autoimmune response. This happens when the body's disease-fighting system attacks healthy tissue in the body by mistake. ??? Psychological factors. These have to do with how the mind works. The causes of the other types of prostatitis are usually not known. What are the signs or symptoms? Symptoms of this condition depend on the type of prostatitis you have. Acute bacterial prostatitis Symptoms may include: ??? Pain or burning during urination. ??? Frequent and sudden urges to urinate. ??? Trouble starting to urinate. ??? Fever. ??? Chills. ??? Pain in your muscles or joints, lower back, or lower abdomen. Other types of prostatitis Symptoms may include: ??? Sudden urges to urinate, or urinating often. ??? Trouble starting to urinate. ??? Weak urine stream. ??? Dribbling after urination. ??? Discharge coming from the penis. ??? Pain in the testicles, the penis, or the tip of the penis. ??? Pain in the area in front of the rectum and below the scrotum (perineum). ??? Pain when ejaculating. How is this diagnosed? This condition may be diagnosed based on: ??? A physical and medical exam. ??? A digital rectal exam. For this, the health care provider may use a finger to feel the prostate. ??? A urine test to check for bacteria. ??? A semen sample or blood tests. ??? Ultrasound. ??? Urodynamic tests to check how your body handles urine. ??? Cystoscopy to look inside your bladder or inside the part of your body that drains urine from the bladder (urethra). How is this treated? Treatment for this condition depends on the type of prostatitis. Treatment may involve: ??? Medicines to relieve pain or inflammation, or to help relax your muscles. ??? Physical therapy. ??? Heat therapy. ??? Biofeedback. These techniques help you control certain body functions. ??? Relaxation exercises. ??? Antibiotic medicine, if your condition is caused by bacteria. ??? Sitz baths. These warm water baths help to relax your pelvic floor muscles, which helps to relieve pressure on the prostate. Follow these instructions at home: Medicines ??? Take hfca-gut-jybxxpw and prescription medicines only as told by your health care provider. ??? If you were prescribed an antibiotic medicine, take it as told by your health care provider. Donot stop using the antibiotic even if you start to feel better. Managing pain and swelling ??? Take sitz baths as directed by your health care provider. For a sitz bath, sit in warm water that is deep enough to cover your hips and buttocks. ??? If directed, apply heat to the affected area as often as told by your health care provider. Usethe heat source that your health care provider recommends, such as a moist heat pack or a heating pad. ??? Place a towel between your skin and the heat source. ??? Leave the heat on for 20???30 minutes. ??? Remove the heat if your skin turns bright red. This is especially important if you are unable to feel pain, heat, or cold. You may have a greater risk of getting burned. General instructions ??? Do exercises as told by your health care provider, if you were prescribed physical therapy, biofeedback, or relaxation exercises. ??? Keep all follow-up visits as told by your health care provider. This is important. Where to find more information ??? National [place] of Diabetes and Digestive and Kidney Diseases: https://www.niddk.nih.gov Contact a health care provider if: ??? Your symptoms get worse. ??? You have a fever. Get help right away if: ??? You have chills. ??? You feel light-headed or feel like you may faint. ??? You cannot urinate. ??? You have blood or blood clots in your urine. Summary ??? Prostatitis is swelling or inflammation of the prostate gland. ??? Treatment for this condition depends on the type of prostatitis. ??? Take hgnu-qzl-ajohjpk and prescription medicines only as told by your health care provider. ??? Get help right away of you have chills, feel light-headed, feel like you may faint, cannot urinate, or have blood or blood clots in your urine. This information is not intended to replace advice given to you by your health care provider. Make sure you discuss any questions you have with your health care provider. Document Revised: 08/16/2023 Document Reviewed: 08/16/2023 [employer] Patient Education ?? 2023 [employer] Follow Up Care 03/17/2024 10:50:45 With:KIERAN OWEN, Klever Alston, URL Address: [facility] [place] [address] When: Unknown Comments:3 mos Patient Care team information Care Team Personnel Name: CONNIE CARDOZA MD Position: FT Physician Member Role: Primary Care Physician Address: [address] [place] [address] Palingen: Care Team Related Persons Name: JOSEPH FORD Name: JOSEPH FORD Name: JOSEPH FORD Name: SAMINA SAM Name: CHARLY SAM Name: CHARLY SAM Name: CHARLY SAM Name: CHARLY SAM Insurance Providers Guarantor name: Health Plan Information #: 1 Payer: Anna Payer Identifier: [id number] Member Number: [id number] Group Number: [id number] Subscriber Identifier: [id number] Relationship to Subscriber: Self/Patient Coverage Type: Medicare Coverage Verification Date: 25 Telecom: [phone] Address: [facility] [id number] [address]
--- OUTSIDE RECORDS SUMMARY | 2025-10-09 07:28 | XMS_ITS | Patient Health Record ---
Author Organization [facility] Address [address] [place] [address] Support Name Relationship Address Phone [facility] Contact Unknown Unavailabl e Jose Moeller Guarantor Unknown [phone] Reason For Referral No Information Plan Of Treatment No Information Insurance Providers Payer Name Payer Address Payer Phone Subscriber Number Group Number Insured Name Patient Relationship to Insured Coverage Start Date Coverage End Date SELF PAY ON PATIENT [employer]OGRAPH[employer] Lilly Moeller - patient is the [id number]/11/2008
--- OUTSIDE RECORDS SUMMARY | 2025-10-09 07:28 | XMS_ITS | Clinical Summary ---
Author Organization [facility] Address [address] [place] [address] Care Team Providers Care Department Traffic Freight Router Name Role Phone Fabian Brown MD Primary Care Provider [phone] Allergies No known active allergies Medications MedicationSigDispense [...] by mouth.Active Active Problems ProblemNoted DateDiagnosed DateEssential hvlooxabkeec15 Gastritis and folmpihxrr74Laryngopharyngeal reflux (LPR) olyp of descending colonolon cancer adbfqusxu38ERD (gastroesophageal reflux disease)09/27/2018 07/17/2023Obesity, Class I, BMI 30-34.91Swallowing pain lobus aretjdwzx16Elevated prostate specific antigen (PSA)enign non-nodular prostatic hyperplasia with lower urinary tract hrknsrbs36History of cjxewnubq06ostprocedural male urethral meatal stricture Immunizations ImmunizationAdministration DatesNext DueInfluenza, Seasonal, Quadrivalent, Jucfyhrbca91/28/2022Influenza, injectable, MDCK, preservative free, quadrivalent 09/03/2017Influenza, injectable, edmufbobnjee00/17/2019,09/16/2014Influenza, injectable, quadrivalent, preservative free09/30/2018Influenza, seasonal, vpqiciqnub25/14/2020Influenza, seasonal, injectable, preservative free, 6 moonths & older11/16/2015Unspecified Sars-Cov-2 Anhujlnouhz68/19/2022,09/12/2021 ,01/21/2021,12/24/2020Zoster, Swszaccshuf59/05/2019,01/29/2019 Family History Medical HistoryRelationNameCommentsLeukemiaFatherCancerFather's BrotherCancer Father's SisterStomach [...] 07/17/2023Sexually AbusedNot on file07/17/2023HQ-2AnswerDate RecordedPatient Health Questionnaire-2 Aztzr629UT Safety & EnvironmentAnswerDate RecordedWithin the last year, have you been afraid of your partner or ex-partner?No07/17/2023Emotionally AbusedNot on file07/17/2023hysically Abused Not on file07/17/2023Sexually AbusedNot on file07/17/2023In the past year have you been physically or sexually abused?Unrecognized value07/17/2023Sex and Gender InformationValueDate RecordedSex Assigned at BirthNot on fileLegal Sex Male06/08/2023 3:59 PM EDTGender IdentityChoose not to ccijhawf28/03/2023 10:27 AM EDTSexual OrientationChoose not to lkaoklhs00/03/2023 10:27 AM EDT Last Filed Vital Signs Vital SignReadingTime TakenCommentsBlood Nsctkrjl916/8507/17/2023 10:10 AM EDT Fzwyh015307/17/2023 10:10 AM HYHIybkcjpdfyd80.5 ??C (97.7 ??F)07/17/2023 10:10 AM EDTRespiratory Rate--Oxygen Saturation--Inhaled Oxygen Concentration--Kxohzj566 kg (222 lb)07/17/2023 10:10 AM BAKDeqyzm684.5 cm (5' 9.5 )07/17/2023 10:10 AM EDTBody Mass Index32.311 10:10 AM EDT Plan of Treatment Health MaintenanceDue DateLast DoneCommentsCT Rqphtomyqsgk02/21/1957Colonoscopy 1956Colorectal Cancer Bcpgnokge73/21/1957FIT-DNA1956FIT1956 FOBT1956Medicare Annual Wellness (AWV)1955 9333Irbzwwpzvvcal72/21/1957 Depression Unsvqtgsx49/21/1969Adult Lqmndkm1811/04/1978Pneumococcal Vaccine: 50+ Years (1 of 1 - PCV)2006Fall Risk Irvrowivi73/21/2022COVID-19 Vaccine (6 - season)/08/2022, 05/02/2022, 09/12/2021, Additional history existsInfluenza Vaccine (#1)/, 07/28/2020, 08/31/2019, Additional history existsZoster GbhnxbdsZpwekwenx69/05/2019, 01/29/2019HIB VaccinesAged OutNo longer eligible based on [...] Date Fabian Brown MD [address] [place], [place] [id number] PCP - Hgfhlwi27/3/23
--- OUTSIDE RECORDS SUMMARY | 2025-10-09 07:28 | XMS_ITS | Clinical Summary ---
Author Organization [facility] Address [address] [place] [address] Care Team Providers Care Glove Operator Name Role Phone Fabian Brown MD Unavailable Fabian Brown MD Primary Care Provider Allergies No known active allergies Medications MedicationSigDispense QuantityRefillsLast FilledStart DateEnd DateStatus Ascorbic Acid (vitamin C) 100 MG tablet 1 (one) time each day at the same timeActive timolol (Timoptic) 0.25 % ophthalmic solution Administer into affected eye(s) in the morning and in the evening.Active Lumigan 0.01 % ophthalmic solution Administer into affected eye(s) at fcsluvt4711/14/2022ctive Cholecalciferol (Vitamin D3) 6747602 UNIT/GM liquid Active glucosamine-chondroitin 500-400 MG tablet [...] (20 mg) by mouth Daily 90 tablet 303//319406/6Active tamsulosin (Flomax) 0.4 MG 24 hr capsule Indications:Benign prostatic hyperplasia with lower urinary tract symptoms, symptom details unspecifiedTake 1 capsule (0.4 mg) by mouth Daily 90 capsule 3045Active dutasteride (Avodart) 0.5 MG capsule Take 0.5 mg by mouth5Active losartan (Cozaar) 100 MG tablet Indications:Essential hypertension, benignTake 1 tablet (100 mg) by mouth Daily 30 tablet 1108//967066/6Active Active Problems ProblemNoted DateDiagnosed DateVenous insufficiency of both lower extremities 03/30/2025 Assessment & Plan (03/30/2025 10:37 AM EDT): Worsening edema and use compression. Medicare annual wellness visit, kqcvvwhotv53/06/2024 Assessment & Plan (09/19/2024 10:41 AM EST): Will review labs. Discussed proper diet and regular aerobic exercise. Need aerobic exercise 5-6 days a week for 30 minutes at a time. Smaller portions and limit total calories. Colonoscopy every 10 years. Tetanus every 10 years. Advised not to smoke. Encounter for long-term (current) use of egmzrvaadlk16/06/2024Class 1 obesity due to excess calories with serious comorbidity and body mass index (BMI) of 32.0 to 32.9 in adult4Cervical ftelvpfumqszb67/17/2024 Assessment & Plan (03/30/2025 10:37 AM EDT): Pain stable and use OTC PRN. Need home PT and ROM exercises. Assessment & Plan (07/31/2024 10:52 AM EDT): Recent pain and stiffness. History of DDD and check x-ray. Treat with prednisone and use flexeril PRN. If no improvement will need PT and possible MRI. Essential hypertension, sckhfr8501/29/2024 Assessment & Plan (03/30/2025 10:37 AM EDT): BP elevated today but previously controlled and monitor PRN. Assessment & Plan (02/14/2024 11:23 AM EDT): BP controlled and monitor PRN. BPH without urinary dniabrswupr58/16/2024 Assessment & Plan (03/30/2025 10:36 AM EDT): Symptoms controlled with flomax and continue. Assessment & Plan (02/14/2024 11:23 AM EDT): Symptoms controlled with flomax and continue. Chronic defyumcc63/16/2024egenerative lumbar spinal ejcjnops78/16/2024 Assessment & Plan (03/30/2025 10:37 AM EDT): Pain stable and use OTC PRN. Need home PT and ROM exercises. Assessment & Plan (02/14/2024 11:24 AM EDT): Pain improved and no further radicular symptoms. Continue increased activity and home PT exercises.Use OTC PRN. Zooabbvmxjgx25/16/2024Erectile dysfunction of organic kkxnyn1801/29/2024 Gastroesophageal reflux disease without mxlpwygsgor88/16/2024 Assessment & Plan (03/30/2025 10:37 AM EDT): Symptoms controlled with omeprazole and continue. Assessment & Plan (02/14/2024 11:24 AM EDT): Symptoms controlled with omeprazole and continue. Vitamin D txmtswzuai82/16/9222Uznvyptfwhm39/13/2023 Family History Medical HistoryRelationNameCommentsLeukemiaFatherHypertensionMotherPancreatitis MotherMelanomaNeg HxRelationNameStatusCommentsFatherDeceasedMotherAlive Social History Tobacco UseTypesPacks/DayYears UsedDateSmoking Tobacco: FormerCigarettes Tobacco Cessation:Counseling Given: Not Answered Alcohol UseStandard Drinks/WeekCommentsNot Currently0 (1 standard drink = 0.6 oz pure alcohol)PHQ-2AnswerDate RecordedPatient Health Questionnaire-2 Score0 09/19/2024Sex and Gender InformationValueDate RecordedSex Assigned at BirthNot on fileLegal ToaYhtl9012/27/2022 7:36 PM EDTGender IdentityNot on fileSexual OrientationNot on file Last Filed Vital Signs Vital SignReadingTime TakenCommentsBlood Deltkgba967/8203/30/2025 10:02 AM EDT Aiieo000903/30/2025 10:02 AM NDGJdtmzzwoocl01.4 ??C (97.5 ??F)03/30/2025 10:02 AM EDTRespiratory Ceiy764703/30/2025 10:02 AM EDTOxygen Fcyztkdahn11%03/30/2025 10:02 AM EDTInhaled Oxygen Concentration--Ftxwsh039 kg (232 lb)03/30/2025 10:02 AM EDT Facavf198.3 cm (5' 9 )03/30/2025 10:02 AM EDTBody Mass Index34.26003/30/2025 10:02 AM EDT Plan of Treatment DateTypeDepartmentCare Team (Latest Contact Info)Lwthqsmogag10/27/2026 11:05 AM EDTOffice Visit [facility] [address] [place] [phone] Carli Eduardo MD [address] [place] [address] Health MaintenanceDue DateLast DoneCommentsCT Xfxtwokewwwh92/21/1957FIT-DNA 1956FIT1956FOBT1956 7995Aeliptovepnal49/21/1957Medicare Annual Wellness (AWV)Influenza Vaccine (#1)/, 08/21/2023, 08/11/2022, Additional history ztgeklKrkjtenzctn54 Colorectal Cancer Gvchijlla62/26/2028Pneumococcal Vaccine: 65+ YearsCompleted 07/02/2024 Procedures Procedure NamePriorityDate/TimeAssociated DiagnosisCommentsCOLONOSCOPYRoutine 10/09/2018 12:00 PM EST from Last 3 Months or Most Recently Relevant to Health Maintenance Results * Colonoscopy (10/09/2018 12:00 PM EST)Anatomical RegionLateralityModality EndoscopySpecimen (Source)Anatomical Location / LateralityCollection Method / VolumeCollection TimeReceived Time10/09/2018 12:00 PM EST Narrative 10/09/2018 12:00 PM EST PERFORMED AT [facility] LOCATION:[id number] See Scanned Doc. Procedure Note CONVERSION, GENERIC - 02/28/2023 PERFORMED AT [facility] LOCATION:[id number] See Scanned Doc. Authorizing ProviderResult TypeResult StatusR Brian Rico MDENDOSCOPY PROCEDURE ORDERABLESFinal Result from Last 3 Months or Most Recently Relevant to Health Maintenance [place] [address] Care Teams Team MemberRelationshipSpecialtyStart DateEnd Date Fabian Brown MD [address] [place] [address] PCP - [place] MS10/15/23 Fabian Brown MD [address] [place] [address] PCP - GeneralFamily Medicine02/14/24
--- OUTSIDE RECORDS SUMMARY | 2025-10-09 07:28 | XMS_ITS | Clinical Summary ---
Author Organization [employer] tem Address [id number] [address] [place] [address] Care Team Providers Care Turn Out Worker Name Role Phone Fabian Brown MD Primary Care Provider [phone] Allergies No known active allergies Medications MedicationSigDispense [...] 1 tablet by mouth in the morning.Active Active Problems ProblemNoted DateDiagnosed DatePolyp of descending colon10/09/2018Gastritis and vuadibnace68/26/2018Laryngopharyngeal reflux (LPR)10/09/2018GERD (gastroesophageal reflux disease)09/27/2018Colon cancer lrevtxxjm65/14/2018 Encounters DateTypeDepartmentCare EdgeEwgwjgjavxi97/18/2025Results Follow-Up [facility] Surgery [address] [facility] [place] [address] Jarrod Goff, DO Surgical Cifdxedak01/10/2025 10:45 AM EST - 08/24/2025 11:30 AM ESTSurgery [facility] [address] [place] [address] Jarrod Goff, DO ESOPHAGOGASTRODUODENOSCOPY DIAGNOSTIC [49234 (CPT??)]08/24/2025 10:24 AM EST Anesthesia Event [facility] - Surgery [address] [facility] [place] [address] Casa Corrales DO 08/24/2025 8:36 AM EST - 08/24/2025 11:27 AM ESTHospital Encounter [facility] - Surgery [address] [place] [address] Jarrod Goff, Generalized abdominal pain (Primary Dx); Superficial gastritis without hemorrhage, unspecified chronicity; Colon cancer screening Discharge Disposition: Home08/24/20252535Rfvgjx72/03/2025 2:00 PM ESTSupport Visit [facility] [address] [place] [address] 08/10/2025 1:30 PM EDTOffice Visit [facility] [address] [place] [id number] Faiza Petersen, SUPERVISOR SHUTTLE [employer]TING[employer]IMPLEMENTATION LEAD Encounter for colonoscopy due to history of colonic polyp (Primary Dx); Generalized abdominal pain; Stdocpiok41/27/2025Travelfrom Last 3 Months Family History Medical HistoryRelationNameCommentsLeukemiaFatherBreast cancerMaternal Aunt PancreatitisMotherRelationNameStatusCommentsFatherDeceasedMaternal AuntMother Social History Tobacco UseTypesPacks/DayYears UsedDateSmoking Tobacco: FormerCigarettes0.510 1977 - 1987Smokeless Tobacco: Never Tobacco Cessation:Counseling Given: Not Answered Alcohol UseStandard Drinks/WeekCommentsYes0 (1 standard drink = 0.6 oz pure alcohol)OccasionalAUDIT-CAnswerDate RecordedQ1: How often do you have a drink containing alcohol?2-4 times a month08/10/2025verage Number of DrinksNot on file08/10/2025Frequency of Binge DrinkingNot on file08/10/2025hildcareAnswer Date IvcjtarrGhsmwirikZawuhwo45/10/2019EmploymentAnswerDate RecordedEmployment Szgbghh1503/24/2019Hunger ScreeningAnswerDate RecordedWithin the past 12 months we worried whether our food would run out before we got money to buy more.Never True11/16/2022Within the past 12 months the food we bought just didn't last and we didn't have money to get more.Never True3Purpose - LifeAnswerDate RecordedPurpose and direction in ohpoYaaqyzc39/10/2021ex and Gender Information ValueDate RecordedSex Assigned at BirthNot on fileLegal UfvXkqa4205/18/2015 11:57 AM EDTGender IdentityNot on fileSexual OrientationNot on file Last Filed Vital Signs Vital SignReadingTime TakenCommentsBlood Ypmkodnb385/9708/24/2025 11:15 AM EST Wceyw912408/24/2025 11:15 AM IWLZulnylvmygk30.1 ??C (97 ??F)08/24/2025 11:15 AM ESTRespiratory Qpqd825810/24/2024 11:15 AM ESTOxygen Ypfggwbafk48%08/24/2025 11:15 AM ESTInhaled Oxygen Concentration--Hioywg414.3 kg (241 lb)08/24/2025 8:58 AM EYYBzlgfr158.5 cm (5' 9.5 )08/24/2025 8:58 AM ESTBody Mass Index35.0808/24/2025 8:58 AM EST Plan of Treatment Health MaintenanceDue DateLast DoneCommentsDepression Kykxkwdnb64/21/1969Adult BMI Follow Up Plan1974DTaP,Tdap and Td Vaccines (1 - Tdap)1975 Abdominal Aortic Aneurysm (AAA) Spzvfg3011/04/2021Fall Risk Ufqfvllso57/21/2022 COVID-19 Vaccine ( season), 05/02/2022, 09/12/2021, Additional history existsAdult BMI Ujdbrvboy10 Tobacco Omygiogra24Zoster (Shingles) VaccineCompleted 06/19/2019, 01/29/2019RSV ( or age 60+ yrs)Jpdfyjkwl43/17/2023Influenza QwnsicgMpsdcqrse55/03/2025, 07/02/2024, 08/21/2023, Additional history exists NvcnywwhkoxTizbutnxvpqa75/10/2025, 08/24/2025, 10/09/2018, Additional history exists Medical Devices ImplantedTypeAreaManufacturerDevice IdentifierShelf Expiration DateModel / Serial / LotMesh Pco Vntrl Ptch 4.6cm Rpl [id number] - [id number] - [id number] Implanted:Qty: 1 on 01/24/2021 by Fernando Orlando [facility]/A: UmbilicalMEDTRONIC [id number]/[id number] / [id number] / [id number] Procedures Procedure NamePriorityDate/TimeAssociated OgbbjxdvvTjzjgbbmKZOTSXRYLZN05/10/2025 10:38 AM EST SURGICAL WAALCOSLQSmeuobz93/10/2025 10:28 AM EST NM COLONOSCOPY FLX DX W/COLLJ SPEC WHEN PFRMD110/24/2024 10:23 AM EST generalized abdominal pain NM ESOPHAGOGASTRODUODENOSCOPY TRANSORAL HNUGOXHQIX50/10/2025 10:23 AM EST generalized abdominal pain EGD110/24/2024 10:19 AM EST PROVATION ORGMOTPDJVBBlubqbf53/10/2025 8:54 AM EST PROVATION JCIQcscnmj85/10/2025 8:54 AM EST from Last 3 Months Results * Colonoscopy (08/24/2025 10:38 AM EST)Specimen (Source)Anatomical Location / LateralityCollection Method / VolumeCollection TimeReceived Time08/24/2025 10:38 AM EST Narrative PM CARDIOVASCULAR - 08/24/2025 10:51 AM EST [facility] Patient Name: Jose Anderson ?? Procedure Date No Time: 08/24/2025 ?? CSN : [id number] Date of : 1955 Admit Type: Outpatient Age: 69 Room: [place] [address] Gender: Male Note Status: Finalized Attending MD: [...] monitored continuously. The [facility]US ? PCF-H190DL # [id number] PEDIATRIC COLONOSCOPE was ? introduced through the [...] Procedure Code(s): ? --- Professional --- ? 98809, Colonoscopy, flexible; diagnostic, including ? collection of specimen(s) by brushing or washing, when ? performed (separate procedure) Diagnosis Code(s): ? --- Professional --- ? R10.84, Generalized abdominal pain CPT copyright 2022 [employer]. All rights reserved. The codes documented in this report are preliminary and upon split and drum room supervisor review may be revised to meet current compliance requirements. DO Jarrod Hill DO 08/24/2025 10:51:35 AM Number of Addenda: 0 Note Initiated On: 08/24/2025 10:38 AM Procedure Note Jarrod Goff DO - 08/24/2025 [facility] Patient Name: Jose Anderson Procedure Date No Time: 08/24/2025 CSN : [id number] Date of : 1955 Admit Type: Outpatient Age: 69 Room: [place] [address] Gender: Male Note Status: Finalized Attending MD: Jarrod Goff DO, Procedure: Colonoscopy Indications: Generalized abdominal pain Providers: Jarrod Goff DO Referring MD: Jarrod Goff DO Medicines: Propofol per Anesthesia Complications: No immediate complications. Procedure: After I obtained informed consent, the scope was passed under direct vision. Throughout theprocedure, the patient's blood pressure, pulse, and oxygen saturations were monitored continuously. [facility] # [id number] PEDIATRIC COLONOSCOPE was introduced through the anus [...] office PRN. Procedure Code(s): --- Professional --- 39494, Colonoscopy, flexible; diagnostic, including collection of specimen(s) by brushing or washing,when performed (separate procedure) Diagnosis Code(s): --- Professional --- R10.84, Generalized abdominal pain CPT copyright 2022 [employer]. All rights reserved. The codes documented in this report are preliminary and upon split and drum room supervisor reviewmay be revised to meet current compliance requirements. DO Jarrod Hill DO 08/24/2025 10:51:35 AM Number of Addenda: 0 Note Initiated On: 08/24/2025 10:38 AM Authorizing ProviderResult TypeResult StatusMiclexi DAVIES PROCEDURE ORDERABLESFinal ResultPerforming OrganizationAddressCity/State/ZIP CodePhone Number PM CARDIOVASCULAR * Surgical Pathology (08/24/2025 10:28 AM EST)ComponentValueRef RangeTest Method Analysis TimePerformed AtPathologist SignatureCase ReportSurgical Pathology Report ? Case: [id number] ? Authorizing Provider: ??Jarrod Goff, DO ?Collected: ? 08/24/2025 1028 ? Ordering Location: ? [facility] ? Received: ?08/24/2025 1246 ? [facility] - [facility] ? Pathologist: ? Magda Hernández MD ? Specimens: ?? 1) - Antrum, Antrum bx ? 2) - Stomach, fundus bx ? 3) - Gastroesophageal Junction, Gastroesophageal junction bx ? 08/31/2025 10:36 AM [facility] LABFinal Diagnosis1. Stomach, antrum, biopsy: Reactive gastropathy. No histological evidence of H. pylori infection on routine stain. 2. Stomach, fundus, polypectomy: Fundic gland polyps. 3. Gastroesophageal junction, biopsy: Junctional mucosa with no significant diagnostic abnormality. No evidence of intestinal metaplasia or dysplasia. 08/31/2025 10:36 AM [facility] [address] [facility] Description1.Received in formalin labeled, ANDERSON, antrum biopsy , are multiple milner soft tissue bits, 0.8 x 0.5 x 0.1 cm in aggregate. The specimen is filtered and submitted entirely in a single cassette. (1, ns, [id number], m4) JL 2.Received in formalin labeled, ANDERSON, fundus biopsy , is a milner soft tissue bit, 0.8 cm in greatest dimension. The specimen is filtered and submitted entirely in a single cassette. (1, ns, [id number], m4) JL 3.Received in formalin labeled, ANDERSON, gastroesophageal junction biopsy , are three milner soft tissue bits, ranging from 0.2-0.4 cm in greatest dimension. The specimen is filtered and submitted entirely in a single cassette. (1, ns, [id number], m4) JL08/31/2025 10:36 AM [facility] Embedded Uyyueu9208/31/2025 10:36 AM [facility] LABSpecimen (Source) Anatomical Location / LateralityCollection Method / VolumeCollection Time Received TimeTissueMastoid antrum structure / Awnoxly9608/24/2025 10:28 AM EST 08/24/2025 12:46 PM ESTComment:Pre-op diagnosis: generalized abdominal painTissue specimen (specimen)Stomach structure / Unknown 08/24/2025 10:31 AM EST08/24/2025 12:46 PM ESTComment:Pre-op diagnosis: generalized abdominal painTissue specimen (specimen) (Gastroesophageal Junction) 08/24/2025 10:35 AM EST08/24/2025 12:46 PM ESTComment:Pre-op diagnosis: generalized abdominal pain Narrative Authorizing ProviderResult TypeResult StatusMiclexi Goff DO PATHOLOGY/CYTOLOGY ORDERABLESFinal ResultPerforming OrganizationAddress City/State/ZIP CodePhone Number [facility] [address] [place] [address], [facility] [address] [place] [address], * EGD (08/24/2025 10:19 AM EST)Specimen (Source)Anatomical Location / Laterality Collection Method / VolumeCollection TimeReceived Time08/24/2025 10:19 AM EST Narrative PM CARDIOVASC[facility] - 08/24/2025 10:40 AM EST [facility] Patient Name: Jose Anderson ?? Procedure Date No Time: 08/24/2025 ?? CSN : [id number] Date of : 1955 Admit Type: Outpatient Age: 69 Room: [facility] OR Gender: Male Note Status: Finalized Attending MD: [...] were monitored continuously. The [facility]LYMPUS ? GIF-HQ190 #[id number] ADULT GASTROSCOPE was introduced ? through the [...] Procedure Code(s): ? --- Professional --- ? 85051, Esophagogastroduodenoscopy, flexible, ? transoral; with removal of tumor(s), polyp(s), or ? other lesion(s) by snare technique ? 65320, 59, Esophagogastroduodenoscopy, flexible, ? transoral; with biopsy, single or multiple Diagnosis Code(s): ? --- Professional --- ? K21.00, Gastro-esophageal reflux disease with esophagitis, without ? bleeding ? K31.7, Polyp of stomach and duodenum ? K29.70, Gastritis, unspecified, without bleeding ? R10.84, Generalized abdominal pain CPT copyright 2022 [employer]. All rights reserved. The codes documented in this report are preliminary and upon split and drum room supervisor review may be revised to meet current compliance requirements. DO Jarrod Hill DO 08/24/2025 10:40:31 AM Number of Addenda: 0 Note Initiated On: 08/24/2025 10:19 AM Procedure Note Jarrod Goff DO - 08/24/2025 [facility] Patient Name: Jose Anderson Procedure Date No Time: 08/24/2025 CSN : [id number] Date of : 1955 Admit Type: Outpatient Age: 69 Room: [place] [address] Gender: Male Note Status: Finalized Attending MD: Jarrod Goff DO, Procedure: Upper GI endoscopy Indications: Generalized abdominal pain Providers: Jarrod Goff DO Referring MD: Jarrod Goff DO Medicines: Propofol per Anesthesia Complications: No immediate complications. Procedure: After obtaining informed consent, the endoscope was passed under direct vision. Throughout theprocedure, the patient's blood pressure, pulse, and oxygen saturations were monitored continuously. TheOLYMPUS GIF-HQ190 #[id number] ADULT GASTROSCOPE was introduced through the mouth, [...] office PRN. Procedure Code(s): --- Professional --- 34614, Esophagogastroduodenoscopy, flexible, transoral; with removal of tumor(s), polyp(s), or other lesion(s) by snare technique 90192, 59, Esophagogastroduodenoscopy, flexible, transoral; with biopsy, single or multiple Diagnosis Code(s): --- Professional --- K21.00, Gastro-esophageal reflux disease with esophagitis, without bleeding K31.7, Polyp of stomach and duodenum K29.70, Gastritis, unspecified, without bleeding R10.84, Generalized abdominal pain CPT copyright 2022 [employer]. All rights reserved. The codes documented in this report are preliminary and upon split and drum room supervisor reviewmay be revised to meet current compliance requirements. DO Jarrod Hill DO 08/24/2025 10:40:31 AM Number of Addenda: 0 Note Initiated On: 08/24/2025 10:19 AM Authorizing ProviderResult MikaelaResult Laura Goff DOGI PROCEDURE ORDERABLESFinal ResultPerforming OrganizationAddressCity/State/ZIP CodePhone Number [...] Goff DOIMG OR IMG ORDERABLESFinal Result * Colonoscopy [...] Laura Goff DOIMG OR IMG ORDERABLESFinal Result from Last 3 Months Insurance * Guarantor: Jose AndersonAccount TypeRelation to PatientDate of PhoneBilling AddressPersonal/NbarfqSgil02/21/1956 [address] [place] [address] Care Teams Team MemberRelationshipSpecialtyStart DateEnd Date Fabian Brown MD PCP - GeneralFamily Medicine05/22/23
--- OUTSIDE RECORDS SUMMARY | 2025-10-09 07:28 | XMS_ITS | Clinical Summary ---
Author Organization [facility] Address [address] [place], [place] [address] Care Team Providers Care Site Safety Representative Name Role Phone Karthik Little Primary Care Provider [phone] Allergies No known active allergies Medications MedicationSigDispense [...] DateDiagnosed DateObesity, Class I, BMI 30-34.91Swallowing pain07/23/2018Globus qvvytqhap34/25/2018Elevated prostate specific antigen (PSA) 06/26/2016Postprocedural male urethral meatal iamatprck03/30/2015Benign non- nodular prostatic hyperplasia with lower urinary tract azaduftm82/30/2015History of /30/2015Essential hypertension Resolved Problems ProblemNoted DateDiagnosed DateResolved DateRising PSA level Social History Tobacco UseTypesPacks/DayYears UsedDateSmoking Tobacco: UkhpdrZqdpihlpzj9Dfhv: 10/15/1987Smokeless Tobacco: NeverAlcohol UseStandard Drinks/WeekCommentsYes0 (1 standard drink = 0.6 oz pure alcohol)beerArea Deprivation IndexAnswerDate RecordedNational Score (1-100), lower number is lower riskNot on file09/22/2020 State Score (1-10), lower number is lower riskNot on file09/22/2020Data from: https://www.neighborhoodatlas.medicine.[facility].edu/. Last address used for calculationNot on file09/22/2020Sex and Gender InformationValueDate RecordedSex Assigned at BirthNot on fileLegal RrjAvba9906/07/2015 11:14 AM EDTGender Identity Not on fileSexual OrientationNot on file Last Filed Vital Signs Vital SignReadingTime TakenCommentsBlood Pooqmaio045/8005 2:56 PM EDT Abfop5511/07/2019 2:56 PM ADMAmggqbmgzzb37.9 ??C (98.5 ??F)08/21/2018 12:33 PM ESTRespiratory Rate--Oxygen Npmcquajkl22%08/21/2018 12:33 PM ESTInhaled Oxygen Concentration--Baqrsa668 kg (236 lb)11/22/2020 12:50 PM MGMIvphme766.8 cm (5' 10 )11/22/2020 12:50 PM ESTBody Mass Index33.8611/22/2020 12:50 PM EST Plan of Treatment Health MaintenanceDue DateLast DoneCommentsAbdominal Aortic Aneurysm Screening 7Anxiety Rbovxdabn09/21/1975Depression Wxbbcrmme98/21/1975Hepatitis C Yqcqewbiu38/21/1975DTaP,Tdap,Td Vaccine (1 - Tdap)1975Lipid Screening 1991CT Hsqqgbeaornl96/21/2002Cologuard (FIT-DNA)2001Diabetes Cvnotyfye85/21/2002Fecal Occult Blood11/04/20018316Vylvwtzpkffkq16/21/2002 Pneumococcal Vaccine: 50+ (1 of 1 - PCV)11/04/20069508Pbpybuesmdr11/26/2019 10/09/2018Colorectal Cancer Uxpewxlfo81/26/2019Advance Directive Discussion 10/15/2024Prostate Cancer Screening Jaskvgqtgz26/04/78481211/18/2019, 02/27/2019, 08/07/2018, Additional history existsCovid-19 Vaccine (1 - 2024- season) 2025Influenza Vaccine (#1)5110/31/2018, 09/30/2018, 09/03/2017, Additional history existsRSV Vaccine (1 - 1-dose 75+ series)2Shingrix UgclctpRvpaklbhk81/05/2019, 01/29/2019 Procedures Procedure NamePriorityDate/TimeAssociated DiagnosisCommentsPSA/PROSTSPECAG SCRN Flmmcbp7011/18/2019 11:56 AM EST Benign non-nodular prostatic hyperplasia with lower urinary tract symptoms from Last 3 Months or Most Recently Relevant to Health Maintenance Results * PSA/PROSTSPECAG SCRN (11/18/2019 11:56 AM EST)ComponentValueRef RangeTest MethodAnalysis TimePerformed AtPathologist SignaturePSA Screening1.890.00 - 2.59 ng/mL11/18/2019 6:30 PM ESTMartin Memorial Hospital LaboratoriesComment:Total PSA test methodology used is the Electrochemiluminescence Immunoassay.Specimen (Source)Anatomical Location / LateralityCollection Method / VolumeCollection TimeReceived TimeBlood specimen (specimen)BLOOD SPECIMEN / Oxzbndo9911/18/2019 11:56 AM EST11/18/2019 11:58 AM EST Narrative Authorizing ProviderResult TypeResult StatusSergio Angeles MDLABORATORY Final ResultPerforming OrganizationAddressCity/State/ZIP CodePhone Number [facility] [address] [place] [address] [facility] [address] [place] [address] from Last 3 Months or Most Recently Relevant to Health Maintenance Insurance Care Teams Team MemberRelationshipSpecialtyStart DateEnd Date Karthik Little PCP - GeneralFamily Medicine06/07/15
--- NOTE | 2025-10-09 07:36 | CT_ITS ---
The [address] [address] Patient Name: CATHIE ANDERSON MRN: [id number] date: 1955 Sex: M Assigned Patient Location: MRI Current Patient Location: MRI Accession/Order Number: [id number] Exam Date: 10/09/2025 08:25 Report Date: 10/09/2025 09:30 At the request of: CONNIE CARDOZA MD Procedure: CT abdomen pelvis wo con CT ABDOMEN AND PELVIS WITHOUT CONTRAST COMPARISON: None CLINICAL DATA: Lower abdominal pain for the past couple months Spiral images were obtained through the abdomen and pelvis without contrast. This CT exam was performed using one or more following dose reduction techniques: Automated exposure control, adjustment of the mA and/or kV according to patient size, or use of iterative reconstruction technique. Limited cuts through the lung bases show no contributory pulmonary findings. There is a trace amount of pericardial fluid. Gynecomastia is seen. Evaluation of the intra-abdominal organs is slightly limited by the absence of contrast. There are tiny gallstones, without pericholecystic inflammation. No intrahepatic masses are seen. The spleen, pancreas and adrenal glands show no acute findings. No renal calculi are identified. There are several bilateral renal hypodensities measuring up to 5.8 cm in size on the left . These are not fully evaluated without contrast though they may be cysts. There is also a 1 cm fatty lesion on the right at the midpole that may be an angiomyolipoma. No hydronephrosis is noted. No ureteral dilatation or stones are seen. There is minor atherosclerotic plaque at the aorta and iliac arteries. No enlarged lymph nodes are identified. No ascites is seen. The small bowel loops are not distended. There is air and stool within the colon, greater on the right. There is a small umbilical hernia containing fat. Subtle levoscoliotic curvature and degenerative changes are visualized at the spine. There is also degenerative change at the SI joints with partial ankylosis. Chronic appearing deformity is present at the right iliac wing. Images through the pelvis show normal caliber small bowel. There is no appendiceal inflammation. The distal colon is underdistended. No diverticular disease is noted. The prostate is enlarged and lobulated in contour. It contains calcifications. It also exerts mass effect at the bladder trigone. No other bladder abnormalities are seen. There are patulous bilateral inguinal rings containing fat. There are small benign-appearing inguinal lymph nodes. No ascites is seen. CT/CT abdomen pelvis wo con IMPRESSION: CHOLELITHIASIS. 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 NO OBSTRUCTIVE UROPATHY OR STONE DISEASE. PROSTATE HYPERTROPHY. Impression dictated by: Guillermina Morales M.D. 10/09/2025 9:30 AM Dictation Location: [place] [address] Electronically authenticated by: [id number] Y Date: 10/09/2025 09:30
--- NOTE | 2025-10-09 07:36 | MR_ITS ---
[address] [address] Patient Name: CATHIE ANDERSON MRN: [id number] date: 1955 Sex: M Assigned Patient Location: MRI Current Patient Location: Accession/Order Number: [id number] Exam Date: 10/09/2025 07:50 Report Date: 10/12/2025 13:24 At the request of: CONNIE CARDOZA MD Procedure: MR lumbar spine wo con MRI of the lumbar spine performed without contrast INDICATION:: Degenerative lumbar spinal stenosis, chronic lumbar pain, no known injury Comparison: None Lumbar vertebral heights maintained. Mild multilevel disc space narrowing L1-L5. Evidence of Modic type II endplate changes involving the superior plate of L3 on the left. Minimal Modic type II changes at L3-4. Small hemangiomas L1 and L2. Multilevel retrolisthesis L1 on L2 and L2 on L3 measuring 3 mm and 2 mm respectively. The conus medullaris terminates normally at L1-L2. Multifocal bilateral renal cysts, largest on the left.. T12-L1: Unremarkable. Minimal Schmorl's node deformities involving the endplates. L1-L2: Broad-based disc bulge with endplate osteophytosis extending into both foramina zones right greater than left. Facet arthropathy. There is ikxb-sm-cvvxuqgh right foraminal narrowing. Minor left foraminal narrowing. L2-L3: Circumferential disc bulge with endplate spurring extending to both foramina zones. There is moderate bilateral neural foraminal narrowing, greatest on the left. Mild to moderate central canal stenosis with mild crowding both subarticular zones. L3-4: Broad-based disc bulge with facet arthropathy. Mild foraminal and central canal stenosis. L4-5: Circumferential disc bulge with vjtk-tf-dchxzjxe facet arthropathy. Right foraminal zone protrusion possibly contacts the exiting right L4 nerve root. Moderate central canal and moderate to severe subarticular and foraminal zone effacement, correlate with bilateral L5 radiculopathy. There is moderate neural foraminal narrowing, right greater than left . L5-S1: Disc desiccation. Moderate facet arthropathy. Canal is patent. Minor neural foraminal narrowing identified. MR/MR lumbar spine wo con IMPRESSION: Multilevel degenerative changes greatest L4-5 with moderate central canal and moderate severe subarticular recess narrowing T12 this level, correlate with bilateral L5 radiculopathy. Impression dictated by: Christiano Townsend M.D. 10/12/2025 1:24 PM Dictation Location: [place] [address] Electronically authenticated by: [id number] Y Date: 10/12/2025 13:24
== END 2025-10-09 07:26 | disposition home or self-care (01) ==
LOC: MRI 07:25
PROVIDERS: PCP Family Medicine; Visit Provider Family Medicine
DX: R10.33 Periumbilical pain (principal); M48.061 Spinal stenosis, lumbar region without neurogenic claudication; Z79.899 Other long term (current) drug therapy; M51.369 Other intervertebral disc degeneration, lumbar region without mention of lumbar back pain or lower extremity pain
CPT/HCPCS: 72148; 74176